=== PATIENT | female | born 1940 | race Caucasian/White ===

== ENCOUNTER → 2020-10-28 08:52 | Outpatient (BNVA) | payer MEDICARE, OTHER, SELFPAY | PROVIDERS: Visit Provider Urology | DX: N39.41 Urge incontinence (principal); Z87.440 Personal history of urinary (tract) infections | CPT/HCPCS: 99212 ==

== ENCOUNTER → 2021-06-25 08:40 | Outpatient (BNVA) | payer MEDICARE, OTHER, SELFPAY | DX: N32.81 Overactive bladder (principal) | CPT/HCPCS: 99212 ==

== ENCOUNTER 2021-12-11 08:47 | Outpatient (REF) | payer MEDICARE, OTHER, SELFPAY ==
[2021-12-11 16:44] LABS: Urine Cytology See Pathology rpt
== END 2021-12-11 08:48 | disposition home or self-care (01) ==
LOC: HO.LAB 08:47
DX: R35.0 Frequency of micturition (principal); Z87.440 Personal history of urinary (tract) infections
CPT/HCPCS: 51798; 87086; 88112; 99212

== ENCOUNTER 2022-02-10 09:20 | Outpatient (AMB) | payer MEDICARE, OTHER, SELFPAY ==
--- NOTE | 2022-02-10 09:29 | MHC.OFFVIS ---
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 She is an 82-year-old diabetic female. Her last visit in the urology office was in November of this year. She had urine sent for cytology to is negative. She arrives today via wheelchair secondary to a stroke that she had 17 years ago she was unable to provide a urine specimen in the office today. She reports there has been no visible blood in her urine. She had a urine sent for culture at her last visit specimen was contaminated She also has urge incontinence and has been taking oxybutynin as directed. This is working well for her she has not had any urinary incontinence. However, she complains of dry mouth. She was reminded to trial the Biotene products to alleviate the dry mouth. [facility] Medical History (Updated 02/10/22 @ 13:59 by NOBLE Ballard) Diabetes mellitus, type II Frequency of urination Hematuria of undiagnosed cause High cholesterol History of UTI Urgency incontinence Surgical History History of surgery Review of Systems Const All systems reviewed & are unremarkable except as noted in HPI and below Physical Exam Vital Signs: Last Vital Signs BP 110/60 02/10/22 10:09 Const General: cooperative, healthy appearing, well developed and well groomed Nutritional Appearance: average body habitus and well nourished Orientation/consciousness: patient oriented x3 Limitations: wheelchair HEENT Head: Yes normocephalic Ears: hearing grossly normal bilaterally Eyes General: appearance normal, both eyes and all related structures Neck Neck: Yes normal visual inspection Chest Chest palpation & inspection: normal inspection of the chest Resp Effort & Inspection: normal respiratory effort and no cough Cardio Jugular venous distension: no JVD Neuro General: patient oriented x3 Cognition (Neuro): normal cognition Gait exam (Neuro): Assistive device used Psych Appearance: grossly normal and well kempt Mental Status: mental status grossly normal Speech and movement: Normal speech and movement present Affect: normal affect Attitude: cooperative Thought process: Normal thought process present Thought content: Normal thought content present Insight: Good insight present (Psych) Judgement: Good judgement present (Psych) Assessment & Plan Assessment & Plan (1) Frequency of urination: Code(s): R35.0 - Frequency of micturition (2) Hematuria of undiagnosed cause: Code(s): R31.9 - Hematuria, unspecified Plan Patient was unable to provide a urine specimen in the office today. She was sent home with a cup and will return a urine specimen to the office at her earliest convenience Follow-up with a telephone visit in 2 months Orders: Orders AMB Urinalysis Automated Today Z13.9 - Encounter for screening, unspecified Coding Level of Care Code Established Pt Est Pt Level 3 (04133) Patient Type Established Diagnoses Frequency of urination R35.0 Hematuria of undiagnosed cause R31.9
[2022-02-10 10:09] VITALS: BP 110/60
== END 2022-02-10 10:15 | disposition home or self-care (01) ==
PROVIDERS: PCP Radiology Vascular & Interventional Radiology
DX: Z13.9 Encounter for screening, unspecified (principal)
CPT/HCPCS: 99213

== ENCOUNTER → 2022-02-10 09:20 | Outpatient (BNVA) | payer MEDICARE, OTHER, SELFPAY | DX: R31.9 Hematuria, unspecified (principal); R35.0 Frequency of micturition | CPT/HCPCS: 99212 ==

== ENCOUNTER 2022-10-14 09:22 | Outpatient (REF) | payer MEDICARE, OTHER, SELFPAY | END 2022-10-14 09:23 | disposition home or self-care (01) | LOC: HO.LAB 09:22 | PROVIDERS: PCP Radiology Vascular & Interventional Radiology; Visit Provider Urology | DX: N39.0 Urinary tract infection, site not specified (principal); R31.9 Hematuria, unspecified; R35.0 Frequency of micturition | CPT/HCPCS: 51798; 87086; 99212 ==

== ENCOUNTER 2023-02-18 10:13 | Outpatient (REF) | payer MEDICARE, OTHER, SELFPAY | END 2023-02-18 10:14 | disposition home or self-care (01) | LOC: HO.LAB 10:13 | PROVIDERS: PCP Radiology Vascular & Interventional Radiology; Visit Provider Urology | DX: R31.29 Other microscopic hematuria (principal); N39.0 Urinary tract infection, site not specified; R33.9 Retention of urine, unspecified; Z79.899 Other long term (current) drug therapy | CPT/HCPCS: 51798; 87086; 87088; 87186; 99212 ==

== ENCOUNTER 2023-02-21 08:48 | Emergency (ER) | payer MEDICARE, OTHER, SELFPAY ==
[2023-02-21] VITALS (7 sets, daily range): BP systolic 112–161; BP diastolic 43–68; PULSE 62–77; RESP 12–18; TEMP 37–37.1; O2SAT 93–97; BMI 35.7
--- NOTE | ~2023-02-21 | XR_ITS ---
EXAMINATION: XR CHEST CLINICAL INFORMATION: Chest pain COMPARISON: None available. TECHNIQUE: Frontal view of the chest was obtained. FINDINGS: Heart size upper limits of normal. There is no evidence of CHF. No infiltrates, effusions or lung masses are seen. Old healed right-sided rib fractures are present. 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 XR/XR chest 1V IMPRESSION: No acute intrathoracic disease.
--- NOTE | ~2023-02-21 | CT_ITS ---
EXAMINATION: CT HEAD WITHOUT CONTRAST CLINICAL INFORMATION: Leg weakness. History of CVA. COMPARISON: None available. TECHNIQUE: Contiguous axial imaging was performed from the skull base to vertex without intravenous administration of contrast. This CT examination was performed using dose optimization techniques as appropriate, variously including the following: *Automated exposure control *Adjustment of mA and/or kV according to patient size (this includes techniques or standardized protocols for targeted exams where dose is matched to indication/reason for exam; i.e. extremities or head) *Use of iterative reconstruction technique DLP: 712 mGy-cm FINDINGS: No acute imaging findings. No intracranial hemorrhage, extra-axial surface collection, focal mass effect or midline shift. There is atherosclerotic calcification of vertebral and cavernous carotid arteries. There are changes of mild microangiopathy affecting the supratentorial white matter. An old small infarction involves the left thalamus. No evidence of an acute major vascular territory infarction. Moderate parenchymal volume loss is associated with commensurate prominence of ventricles and sulci; no hydrocephalus. The cerebellar tonsils are in normal position. The visualized paranasal sinuses and mastoid air cells are well aerated. The orbits, globes and temporomandibular joints are unremarkable. No scalp hematoma or calvarial fracture. CT/CT head/brain wo IV con IMPRESSION: * No acute intracranial pathology. * Chronic moderate volume loss and changes of mild microangiopathy affecting the supratentorial white matter. 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
--- NOTE | ~2023-02-21 | US_ITS ---
EXAMINATION: US VENOUS ULTRASOUND WITH DOPPLER LOWER EXTREMITY, BILATERAL CLINICAL INFORMATION: Bilateral lower extremity pain and swelling COMPARISON: None available. TECHNIQUE: Ultrasound of the deep veins is performed from the hip to the calf with compression sonography and color and pulse Doppler assessment. Spectral analysis with color-flow imaging is performed. FINDINGS: RIGHT: There is normal venous compression and respiratory variation and augmented flow. The visualized common femoral vein, superficial femoral vein, profunda femoral vein, popliteal vein, and the trifurcation region shows no evidence of deep venous thrombosis. There is no significant popliteal fossa cyst. Peroneal veins were suboptimally visualized. LEFT: There is normal venous compression and respiratory variation and augmented flow. The visualized common femoral vein, superficial femoral vein, profunda femoral vein, popliteal vein, and the trifurcation region shows no evidence of deep venous thrombosis. There is no significant popliteal fossa cyst. Peroneal veins were suboptimally visualized. If the patient's symptoms persist, followup ultrasound in 5 days 7 days might be of value to exclude proximal propagation from a non-visualized calf vein. US/US venous duplex LE BI IMPRESSION: No DVT demonstrated in either lower extremity.
--- NOTE | 2023-02-21 08:59 | ECG_ITS ---
Test Reason : WEAKNESS Blood Pressure : / mmHG Vent. Rate : 068 BPM Atrial Rate : 068 BPM P-R Int : 212 ms QRS Dur : 134 ms QT Int : 460 ms P-R-T Axes : 000 -48 -25 degrees QTc Int : 489 ms Sinus rhythm with 1st degree A-V block with Premature atrial complexes Right bundle branch block Left anterior fascicular block Bifascicular block Abnormal ECG No previous ECGs available Referred By: Randy Perrin Electronically Signed By:MARCOS DYKES
--- NOTE | 2023-02-21 09:02 | ED.GENADULT ---
HPI - General Adult General Chief complaint: Weakness Stated complaint: BLE PAIN/WEAKNESS/SWELLING PER EMS Source: patient and EMS Mode of arrival: EMS Limitations: no limitations History of Present Illness HPI narrative: This is an 83 years old female with history of diabetes, coronary artery disease status post CABG , history of CVA, history of lower extremity edema presented emergency department because of weakness, she states that this morning she could not ambulate because of the weakness. She denies any fall, no fever no systemic symptoms. Onset (ago): hour(s) (4) Location: lower extremity Radiation: non-radiation Severity: moderate Quality: burning Pain Consistency: constant Relieving factors: none Exacerbating factors: none Related Data Home Medications Medication Instructions Recorded Confirmed blood sugar diagnostic #10 ea 10/28/20 02/18/23 escitalopram oxalate 20 mg tablet 40 mg PO DAILY 10/28/20 02/18/23 metformin 500 mg tablet,extended 500 mg PO BID 10/28/20 02/18/23 release 24 hr metoprolol succinate 100 mg 100 mg PO DAILY 10/28/20 02/18/23 tablet,extended release 24 hr simvastatin 40 mg tablet 40 mg PO BEDTIME 10/28/20 02/18/23 insulin glargine 100 unit/mL (3 unit subcut 12/11/21 02/18/23 mL) subcutaneous pen (Basaglar KwikPen U-100 Insulin) empagliflozin 25 mg tablet 25 mg PO DAILY 02/18/23 02/18/23 (Jardiance) hydrochlorothiazide 25 mg tablet 25 mg PO DAILY 02/18/23 02/18/23 lisinopril 20 mg tablet 20 mg PO DAILY 02/18/23 02/18/23 tamsulosin 0.4 mg capsule 0.4 mg PO DAILY 02/18/23 02/18/23 Previous Rx's Medication Instructions Recorded bethanechol chloride 25 mg tablet 25 mg PO TID #90 tabs 02/18/23 nitrofurantoin 100 mg PO Q12H PRN uti 10 days #20 02/18/23 monohydrate/macrocrystals 100 mg caps capsule (Macrobid) tamsulosin 0.4 mg capsule (Flomax) 0.4 mg PO BEDTIME #90 caps 02/18/23 Allergies Allergy/AdvReac Type Severity Reaction Status Date / Time doxycycline Allergy Unknown redness Verified 02/18/23 10:49 and hives penicillin V Allergy Unknown anaphylaxis Verified 02/18/23 10:49 avoid cyclines AdvReac Unknown Unknown Uncoded 02/18/23 10:49 Review of Systems Constitutional: Constitutional: Reports no additional constitutional complaints and Reports weakness Cardiovascular: Cardiovascular: Reports no additional cardiovascular complaints Musculoskeletal: Musculoskeletal: Reports no additional musculoskeletal complaints Neurologic: Reports weakness PMFSH Past Medical History Medical History Diabetes mellitus, type II Frequency of urination Hematuria of undiagnosed cause High cholesterol History of UTI Urgency incontinence Surgical History History of surgery Social History Social History Alcohol intake: current Alcohol intake frequency: holidays/special occasions only Smoked in Last 30 Days: No Use of substances other than those prescribed or required for medical reasons: No Advance Directives: Yes Advance Directives on File: No Physical Exam ED Vital Signs: Vital Signs - 24 hr 02/21/23 08:54 02/21/23 10:00 02/21/23 12:09 Temperature 98.7 F Pulse Rate 68 65 62 Respiratory Rate 15 12 18 Blood Pressure 112/46 L 132/48 L 128/49 L Pulse Oximetry 96 95 95 Oxygen Delivery Method Room Air Room Air Room Air 02/21/23 15:02 Temperature Pulse Rate 64 Respiratory Rate 14 Blood Pressure 134/43 L Pulse Oximetry 96 Oxygen Delivery Method Room Air BMI result Body Mass Index 35.7 Patient is not toxic-appearing no distress Const General: cooperative, comfortable, no acute distress, well developed and alert Nutritional Appearance: well nourished Limitations: no limitations HENMT Head: Yes normal to inspection Face and sinus: Yes normal facial exam Throat: Yes posterior oropharynx normal Neck Neck: Yes normal visual inspection Chest Chest palpation & inspection: normal inspection of the chest Resp Effort & Inspection: normal respiratory effort Auscultation: clear to auscultation bilaterally Cardio Jugular venous distension: no JVD Rate: regular rate Rhythm: regular rhythm GI Inspection: Yes normal to inspection Palpation (GI): Soft to palpation, not firm and nontender Skin General skin exam: elasticity normal Extrem Other: Patient has bilateral lower extremity edema (see picture) Course Reevaluation(s) Reevaluation #1: Workup is essentially normal including UA/ultrasound of the legs head CT labs. We attempted ambulation patient was unable to walk. 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 02/21/23 09:56 02/21/23 09:56 Labs: Lab Results 02/21/23 02/21/23 02/21/23 Range/Units 09:56 09:56 09:56 WBC 12.2 H (4.8-10.8) X10*3/uL RBC 3.35 L (4.20-5.50) X10*6/uL Hgb 10.6 L (12.0-16.0) g/dl Hct 33.1 L (37.0-47.0) % MCV 98.8 H (80.0-98.0) fL MCH 31.6 (27.0-33.0) pg MCHC 32.0 (31.0-35.0) g/dl RDW 12.8 (11.0-16.0) % Plt Count 173 (160-400) X10*3/uL MPV 10.2 (9.4-12.3) fL Immature Gran % (Auto) 0.4 (0.0-0.4) % Neut % (Auto) 77.6 H (45-73) % Lymph % (Auto) 13.0 L (20-40) % [place] % (Auto) 6.8 (2-11) % Eos % (Auto) 2.0 (0-4) % Baso % (Auto) 0.2 (0-2) % Lymph # (Auto) 1.6 (1.2-4.9) X10*3/uL [place] # (Auto) 0.8 (0.1-1.2) X10*3/uL Eos # (Auto) 0.2 (0.0-0.4) X10*3/uL Baso # (Auto) 0.0 (0.0-0.2) X10*3/uL Abs Immat Gran (auto) 0.05 H (0.00-0.03) X10*3/uL Absolute Neuts (auto) 9.4 H (2.0-8.3) x10*3/uL Absolute Nucleated RBC 0.000 (0.0-0.012) X10*3/uL Nucleated RBC % (auto) 0.0 (0.0-0.2) /100WBC Sodium 140 (135-145) mmol/L Potassium 3.9 (3.3-5.1) mmol/L Chloride 106 (96-108) mmol/L Carbon Dioxide 22 (22-29) mmol/L Anion Gap 16 (12-20) BUN 40 H (9-16) mg/dL Creatinine 1.11 (0.5-1.4) mg/dL Estim Creat Clear Calc 43.5 Estimated GFR 47 Random Glucose 160 H (60-115) mg/dL Calcium 8.3 L (8.4-10.2) mg/dL Total Bilirubin 0.9 (0.0-1.0) mg/dL AST 16 (5-31) U/L ALT 19 (0-31) U/L Alkaline Phosphatase 53 (39-117) U/L Troponin I High Sens 12.1 (<3.5-17.0) ng/L Total Protein 5.2 L (6.5-8.0) g/dL Albumin 3.2 L (3.5-5.0) g/dL Urine Color Urine Appearance Urine pH (5.0-9.0) Ur Specific [place] (1.005-1.025) Urine Protein (Neg-Trace) mg/dL Urine Glucose (UA) (Negative) mg/dL Urine Ketones (Negative) mg/dL Urine Blood (Negative) Urine Nitrite (Negative) Ur Leukocyte Esterase (Negative) Urine RBC (0-2) /HPF Urine WBC (0-5) /HPF Ur Squamous Epith Cells (0-2) /HPF Urine Bacteria (None Seen) Hyaline Casts (0-2) /LPF 02/21/23 Range/Units 11:18 WBC (4.8-10.8) X10*3/uL RBC (4.20-5.50) X10*6/uL Hgb (12.0-16.0) g/dl Hct (37.0-47.0) % MCV (80.0-98.0) fL MCH (27.0-33.0) pg MCHC (31.0-35.0) g/dl RDW (11.0-16.0) % Plt Count (160-400) X10*3/uL MPV (9.4-12.3) fL Immature Gran % (Auto) (0.0-0.4) % Neut % (Auto) (45-73) % Lymph % (Auto) (20-40) % [place] % (Auto) (2-11) % Eos % (Auto) (0-4) % Baso % (Auto) (0-2) % Lymph # (Auto) (1.2-4.9) X10*3/uL [place] # (Auto) (0.1-1.2) X10*3/uL Eos # (Auto) (0.0-0.4) X10*3/uL Baso # (Auto) (0.0-0.2) X10*3/uL Abs Immat Gran (auto) (0.00-0.03) X10*3/uL Absolute Neuts (auto) (2.0-8.3) x10*3/uL Absolute Nucleated RBC (0.0-0.012) X10*3/uL Nucleated RBC % (auto) (0.0-0.2) /100WBC Sodium (135-145) mmol/L Potassium (3.3-5.1) mmol/L Chloride (96-108) mmol/L Carbon Dioxide (22-29) mmol/L Anion Gap (12-20) BUN (9-16) mg/dL Creatinine (0.5-1.4) mg/dL Estim Creat Clear Calc Estimated GFR Random Glucose (60-115) mg/dL Calcium (8.4-10.2) mg/dL Total Bilirubin (0.0-1.0) mg/dL AST (5-31) U/L ALT (0-31) U/L Alkaline Phosphatase (39-117) U/L Troponin I High Sens (<3.5-17.0) ng/L Total Protein (6.5-8.0) g/dL Albumin (3.5-5.0) g/dL Urine Color Yellow Urine Appearance Clear Urine pH 5.0 (5.0-9.0) Ur Specific [place] 1.015 (1.005-1.025) Urine Protein Negative (Neg-Trace) mg/dL Urine Glucose (UA) Negative (Negative) mg/dL Urine Ketones Negative (Negative) mg/dL Urine Blood Negative (Negative) Urine Nitrite Negative (Negative) Ur Leukocyte Esterase Trace H (Negative) Urine RBC 0-2 (0-2) /HPF Urine WBC 0-5 (0-5) /HPF Ur Squamous Epith Cells 0-2 (0-2) /HPF Urine Bacteria None Seen (None Seen) Hyaline Casts 0-2 (0-2) /LPF Independent Interpretation I performed an independent interpretation of an: EKG (Normal sinus rhythm a rate 68 right BBB), Ultrasound and CT Scan Interpretation: Normal ultrasound of the legs ,no acute finding CT, EKG shows normal sinus rhythm a rate 68 right bundle branch block Radiology Impression Discussion of test interpretation with radiology: I have reviewed the radiologist's reading. Radiologist Impression: 712 mGy-cm FINDINGS: No acute imaging findings. No intracranial hemorrhage, extra-axial surface collection, focal mass effect or midline shift. There is atherosclerotic calcification of vertebral and cavernous carotid arteries. There are changes of mild microangiopathy affecting the supratentorial white matter. An old small infarction involves the left thalamus. No evidence of an acute major vascular territory infarction. Moderate parenchymal volume loss is associated with commensurate prominence of ventricles and sulci; no hydrocephalus. The cerebellar tonsils are in normal position. The visualized paranasal sinuses and mastoid air cells are well aerated. The orbits, globes and temporomandibular joints are unremarkable. No scalp hematoma or calvarial fracture. ? CT/CT head/brain wo IV con IMPRESSION: *? No acute intracranial pathology. *? Chronic moderate volume loss and changes of mild microangiopathy affecting the supratentorial white matter. *? There is an old infarction of the left thalamus. ? Discharge Plan Discharge Clinical Impression: Weakness Patient Disposition: Still a Patient Prescriptions: No Action escitalopram oxalate 20 mg tablet 40 mg PO DAILY metformin 500 mg tablet extended release 24 hr 500 mg PO BID metoprolol succinate 100 mg tablet extended release 24 hr 100 mg PO DAILY simvastatin 40 mg tablet 40 mg PO BEDTIME (DME) OneTouch Verio test strips Strip See Rx Instructions Not Applicable BID Qty: 10 Rx Instructions: As directed Astrid Mac U-100 Insulin 100 unit/mL (3 mL) insulin pen subcut tamsulosin 0.4 mg capsule 0.4 mg PO DAILY hydrochlorothiazide 25 mg tablet 25 mg PO DAILY lisinopril 20 mg tablet 20 mg PO DAILY Jardiance 25 mg tablet 25 mg PO DAILY nitrofurantoin monohyd/m-cryst [Macrobid] 100 mg capsule 100 mg PO Q12H PRN (Reason: uti) 10 Days Qty: 20 0RF Rx Instructions: must administer with a meal/food bethanechol chloride 25 mg tablet 25 mg PO TID Qty: 90 1RF tamsulosin [Flomax] 0.4 mg capsule 0.4 mg PO BEDTIME Qty: 90 1RF
--- NOTE | 2023-02-21 09:12 | PC.NURSE ---
pt alert and oriented, comes to ED after not being able to walk due to bilat leg weakness and being unable to walk. Baseline is walking short distances with a cane. EKG done. will draw labs once US is done with pt.
--- NOTE | 2023-02-21 09:15 | PC.NURSE ---
sinigifcant lower extremity edema present, non pitting. 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
--- OUTSIDE RECORDS SUMMARY | 2023-02-21 09:49 | XMS_ITS ---
Author Name MINALPARVEZ LEOBARDO Address [address] [place] [address] Organization [facility] Address [address] [place] [address] Care Team Providers Care Process Assistant Name Role Phone LEOBARDO LAKE Unavailable [phone] PROBLEMS Type Condition ICD9-CM Code INM62-FZ Code Onset Dates Condition Status SNOMED Code Problem Type 2 diabetes mellitus without 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, unspecified whether [facility] insulin use E11.9 Active 061687033 Problem Encounter for general adult medical examination without abnormal findings Z00.00 Active 926467839 Problem Vitamin D deficiency, unspecified E55.9 Active 82543534 Problem Atherosclerotic heart disease of [place] coronary artery without angina pectoris I25.10 Active [id number] 103 Problem Cerebral infarction, unspecified I63.9 Active 139295606 Problem Type 2 diabetes mellitus without 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s E11.9 Active Problem Body mass index (BMI) 33.0-33.9, adult Z68.33 Active 150864044014326 Problem Hypothyroidism, unspecified type E03.9 Active 76158523 Problem Stage 3a chronic kidney disease N18.31 Active 446252276 Problem Hyperlipidemia, unspecified E78.5 Active 34347053 Problem Essential (primary) hypertension I10 Active 41553802 Problem Major depressive disorder, single episode, unspecified F32.9 Active 14310415 Problem Type 2 diabetes mellitus with 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, unspecified whether [facility] insulin use E11.8 Active 778840307 Problem Type 1 diabetes mellitus with diabetic polyneuropathy E10.42 Active 151480422 Problem Other hammer toe(s) (acquired), left foot M20.42 Active 442674828005236 3 Problem Other hammer toe(s) (acquired), right foot M20.41 Active [id number] 5 ALLERGIES Substance Reaction Event Type Date Status cyclinnes Unknown Non Drug Allergy 15 Dec, 2022 Active pcn Unknown Non Drug Allergy Dec, Active ENCOUNTERS Encounter Location Date Diagnosis [address] [id number] 14 Jan, 2023 [facility] [address] [place] [phone] 15 Dec, 2022 Hyperlipidemia, unspecified E78.5 ; Essential (primary) hypertension I10 ; Stage 3a chronic kidney disease N18.31 ; Atherosclerotic heart disease of [place] coronary artery without angina pectoris I25.10 ; Type 2 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 mellitus 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, unspecified whether 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 and Vitamin D deficiency, unspecified E55.9 [facility] [address] [place] [phone] 13 Dec, [address] [address] 24 Nov, 2022 [facility] [address] [address] 17 Oct, 2022 Hyperlipidemia, unspecified E78.5 ; Stage 3a chronic kidney disease N18.31 ; Atherosclerotic heart disease of [place] coronary artery without angina pectoris I25.10 ; Type 2 diabetes mellitus without 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, unspecified whether 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 and Vitamin D deficiency, unspecified E55.9 [facility] [address] [place] [phone] 05 Jul, 2022 [facility] [address] [place] [phone] 07 Jun, 2022 Hyperlipidemia, unspecified E78.5 ; Encounter for general adult medical examination without abnormal findings Z00.00 ; Type 2 diabetes mellitus with 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, unspecified whether 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 ; Stage 3a chronic kidney disease N18.31 ; Atherosclerotic heart disease of [place] coronary artery without angina pectoris I25.10 ; Type 2 diabetes mellitus without 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, unspecified whether [facility] insulin use E11.9 and Vitamin D deficiency, unspecified E55.9 [facility] [address] [place] [address] May, [facility] [address] [place] [address] 10 May, 2022 [facility] [address] [place] [address] Apr, [facility] [address] [address] 17 Mar, 2022 [facility] [address] 08 Jan, 2022 [facility] [address] [place] [phone] Jan, Hyperlipidemia, unspecified E78.5 ; Type 2 diabetes mellitus with 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, unspecified whether [facility] insulin use E11.8 ; Stage 3a chronic kidney disease N18.31 ; Atherosclerotic heart disease of [place] coronary artery without angina pectoris I25.10 ; Type 2 diabetes mellitus without 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, unspecified whether [facility] insulin use E11.9 ; Encounter for general adult medical examination without abnormal findings Z00.00 and Vitamin D deficiency, unspecified E55.9 [facility] [address] [place] [address] Oct, [facility] [address] [address] Oct, Gastroenteritis K52.9 and Viral syndrome B34.9 [facility] [address] [address] Sep, Hyperlipidemia, unspecified E78.5 ; Type 2 diabetes mellitus with 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, unspecified whether [facility] insulin use E11.8 ; Stage 3a chronic kidney disease N18.31 ; Atherosclerotic heart disease of [place] coronary artery without angina pectoris I25.10 and Type 2 diabetes mellitus without 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, unspecified whether [facility] insulin use E11.9 [facility] [address] [place] [phone] 30 May, 2021 Hyperlipidemia, unspecified E78.5 ; Type 2 diabetes mellitus with 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, unspecified whether [facility] insulin use E11.8 ; Stage 3a chronic kidney disease N18.31 and Atherosclerotic heart disease of [place] coronary artery without angina pectoris I25.[address] [facility] [address] [place] [address] May, [facility] [address] [place] [address] Jan, Type 2 diabetes mellitus without 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s E11.9 ; Hyperlipidemia, unspecified E78.5 ; Major depressive disorder, single episode, unspecified F32.9 and Atherosclerotic heart disease of [place] coronary artery without angina pectoris I25.10 [facility] [address] [place] [address] Oct, Type 2 diabetes mellitus without 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s E11.9 ; Hyperlipidemia, unspecified E78.5 ; Major depressive disorder, single episode, unspecified F32.9 ; Atherosclerotic heart disease of [place] coronary artery without angina pectoris I25.10 and Cerebral infarction, unspecified I63.9 [facility] [address] [place] [address] 15 Jun, 2020 Type 2 diabetes mellitus without 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s E11.9 ; Hyperlipidemia, unspecified E78.5 ; Major depressive disorder, single episode, unspecified F32.9 ; Cerebral infarction, unspecified I63.9 and Adult general medical exam Z00.00 [facility] [address] [place] [address] 15 Mar, 2020 Type 2 diabetes mellitus without 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s E11.9 ; Hyperlipidemia, unspecified E78.5 and Major depressive disorder, single episode, unspecified F32.9 [facility] [address] [place] [address] February, [facility] [address] [place] [address] Nov, [facility] [address] [place] [address] Nov, Type 2 diabetes mellitus without 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s E11.9 ; Hyperlipidemia, unspecified E78.5 ; Major depressive disorder, single episode, unspecified F32.9 ; Atherosclerotic heart disease of [place] coronary artery without angina pectoris I25.10 ; Cerebral infarction, unspecified I63.9 ; Type 1 diabetes mellitus with diabetic polyneuropathy E10.42 ; Other hammer toe(s) (acquired), right foot M20.41 ; Acquired keratosis [keratoderma] palmaris et plantaris L85.1 and Other hammer toe(s) (acquired), left foot M20.42 [facility] [address] [place] [phone] Sep, [facility] [address] [place] [address] Sep, [facility] [address] [place] [address] Jul, Type 2 diabetes mellitus without 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s E11.9 ; Hyperlipidemia, unspecified E78.5 ; Major depressive disorder, single episode, unspecified F32.9 and Atherosclerotic heart disease of [place] coronary artery without angina pectoris I25.10 [facility] [address] [place] [address] Jul, [facility] [address] [place] [address] Mar, Type 2 diabetes mellitus without 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s E11.9 ; Hyperlipidemia, unspecified E78.5 ; Major depressive disorder, single episode, unspecified F32.9 ; Atherosclerotic heart disease of [place] coronary artery without angina pectoris I25.10 ; Vitamin D deficiency E55.9 and Hypothyroidism, unspecified type E03.9 [facility] [address] [place] [address] Dec, [facility] [address] [place] [address] Dec, [facility] [address] [place] [address] Nov, Hyperlipidemia, unspecified E78.5 ; Type 2 diabetes mellitus without 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s E11.9 ; Major depressive disorder, single episode, unspecified F32.9 and Atherosclerotic heart disease of [place] coronary artery without angina pectoris I25.10 [facility] [address] [place] [address] Oct, [facility] [address] [place] [address] Aug, [facility] [address] [place] [phone] Jul, Type 2 diabetes mellitus without 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s E11.9 ; Hyperlipidemia, unspecified E78.5 ; Major depressive disorder, single episode, unspecified F32.9 ; Cerebral infarction, unspecified I63.9 ; Atherosclerotic heart disease of [place] coronary artery without angina pectoris I25.10 and Type 2 diabetes mellitus with 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, unspecified whether 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 [facility] [address] [place] [phone] Mar, Adult general medical exam Z00.00 and Body mass index (BMI) 33.0-33.9, adult Z68.33 [facility] [address] [place] [address] February, [facility] [address] [place] [address] Jan, [facility] [address] [place] [address] Dec, [facility] [address] [place] [address] Nov, [facility] [address] [place] [address] Nov, [facility] [address] [place] [address] Nov, [facility] [address] [place] [address] Nov, Atherosclerotic heart disease of [place] coronary artery without angina pectoris I25.10 ; Major depressive disorder, single episode, unspecified F32.9 ; Hyperlipidemia, unspecified E78.5 ; Cerebral infarction, unspecified I63.9 and Type 2 diabetes mellitus without 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s E11.9 [facility] [address] [place] [address] Oct, IMMUNIZATIONS Vaccine Route Administration Date Status Pfizer Covid-19 Vaccine Unknown February 05, 2021 Ad ministered SOCIAL HISTORY Qualifiers Date Never Smoker REASON FOR REFERRAL FUNCTIONAL STATUS PLAN OF CARE Activity Details VITAL SIGNS Heart Rate 63 /min 2022-12-30 Heart Rate 66 /min 2022-11-03 Heart Rate 65 /min 2022-06-24 Heart Rate 60 /min 2022 Heart Rate 58 /min 2021-09-22 Heart Rate 56 /min 2021-06-16 Heart Rate 57 /min 2021-01-27 Heart Rate 65 /min 2020-10-29 Heart Rate 71 /min 2020-07-02 Heart Rate 62 /min 2020-04-01 Heart Rate 71 /min 2019-12-05 Heart Rate 66 /min 2019-08-08 Heart Rate 62 /min 2019-03-23 Heart Rate 62 /min 2018-11-21 Heart Rate 66 /min 2018-07-18 Heart Rate 67 /min 2018-04-05 Heart Rate 66 /min 2017-11-23 Weight 203 lbs 2022-12-30 Weight 207 lbs 2022-11-03 Weight 199 lbs 2022 Weight 205 lbs 2021-09-22 Weight 208 lbs 2021-06-16 Weight 206 lbs 2021-01-27 Weight 206 lbs 2020-10-29 Weight 206 lbs 2020-07-02 Weight 212 lbs 2020-04-01 Weight 217 lbs 2019-12-05 Weight 225 lbs 2019-08-08 Weight 222.1 lbs 2019-03-23 Weight 221.2 lbs 2018-11-21 Weight 225 lbs 2018-07-18 Weight 189.7 lbs 2018-04-05 Weight 227 lbs 2017-11-23 BMI 35.96 kg/m2 2022-12-30 BMI 36.66 kg/m2 2022-11-03 BMI 35.25 kg/m2 2022 BMI 36.31 kg/m2 2021-09-22 BMI 36.84 kg/m2 2021-06-16 BMI 36.49 kg/m2 2021-01-27 BMI 36.49 kg/m2 2020-10-29 BMI 36.49 kg/m2 2020-07-02 BMI 37.55 kg/m2 2020-04-01 BMI 38.44 kg/m2 2019-12-05 BMI 39.85 kg/m2 2019-08-08 BMI 39.34 kg/m2 2019-03-23 BMI 39.18 kg/m2 2018-11-21 BMI 39.85 kg/m2 2018-07-18 BMI 33.6 kg/m2 2018-04-05 BMI 44.33 kg/m2 2017-11-23 Height 63 in 2022-12-30 Height 63 in 2022-11-03 Height 63 in 2022-06-24 Height 63 in 2022 Height 63 in 2021-09-22 Height 63 in 2021-06-16 Height 63 in 2021-01-27 Height 63 in 2020-10-29 Height 63 in 2020-07-02 Height 63 in 2020-04-01 Height 63 in 2019-12-05 Height 63 in 2019-08-08 Height 63 in 2019-03-23 Height 63 in 2018-11-21 Height 63 in 2018-07-18 Height 63 in 2018-04-05 Height 5'3 in 2017-11-23 Oximetry 95 % 2022-12-30 Oximetry 96 % 2022-11-03 Oximetry 95 % 2022-06-24 Oximetry 97 % 2022 Oximetry 98 % 2021-09-22 Oximetry 97 % 2021-06-16 Oximetry 97 % 2021-01-27 Oximetry 96 % 2020-10-29 Oximetry 97 % 2020-07-02 Oximetry 96 % 2020-04-01 Oximetry 96 % 2019-12-05 Oximetry 95 % 2019-08-08 Oximetry 93 % 2019-03-23 Oximetry 96 % 2018-11-21 Oximetry 94 % 2018-07-18 Oximetry 96 % 2018-04-05 Oximetry 97 % 2017-11-23 Blood pressure systolic 144 mm Hg Blood pressure diastolic 68 mm Hg 2022-12 MEDICATIONS Medication Instructions Dosage Frequency Start Date End Date Duration Status OneTouch Verio - TEST BLOOD SUGAR TWICE DAILY 90 Active Escitalopram Oxalate 20 MG TAKE 2 TABLETS BY MOUTH EVERY DAY 90 Active Lisinopril 20 MG Orally Once a day 1 tablet 24h 90 days Active Tamsulosin HCl 0.4 MG Orally Once a day 1 capsule 24h 30 days Active hydroCHLOROthiazide 25 MG Orally Once a day 1 tablet in the morning 24h 30 day(s) Active Metoprolol Succinate ER 100 MG TAKE 1 TABLET BY MOUTH EVERY DAY 90 Active Aspirin 325 MG Orally Once a day 1 tablet 24h 30 day(s) Active Basaglar KwikPen 100 UNIT/ML INJECT 30 UNITS IN THE AM AND 25 UNITS IN THE PM TWICE A DAILY 81 Active Simvastatin 40 MG TAKE 1 TABLET BY MOUTH EVERY DAY 90 Active buPROPion HCl ER (XL) 150 MG TAKE 1 TABLET BY MOUTH EVERY DAY IN THE MORNING 90 Active Vitamin D 1000 UNIT Orally Once a day 1 tablet 24h 30 day(s) Active Gabapentin 100 MG Orally three times a day 1 capsule 8h 90 days Active BD Pen Needle Short U/F 31G X 8 MM in vitro twice daily as directed 30 days Active PROCEDURES Procedure Date Ordered Result Body Site ANNUAL WELLNESS VST; PPS SUBSQT VST April 05, 2018 ADVNCD CARE PLAN 30 MIN April 05, 2018 ADVNCD CARE PLAN 30 MIN Jun 24, 2022 [facility] MGMT SRVC 20 MIN February 28, 2020 ANNUAL WELLNESS VST; PPS SUBSQT VST Jun 24, 2022 FCE-FCE BEHAVRL CNSL OBESITY 15 MIN Jun 24, 2022 FCE-FCE BEHAVRL CNSL OBESITY 15 MIN April 05, 2018 [facility] MGMT SRVC 20 MIN Oct 04, 2019 ANNUAL ALCOHOL MISUSE SCREEN 15 MIN April 05, 2018 [facility] MGMT SRVC 20 MIN Jun 05, 2021 [facility] MGMT SRVC 20 MIN January 09, 2019 [facility] MGMT SRVC 20 MIN May 27, 2022 [facility] MGMT SRVC 20 MIN April 27, 2022 ANNUAL DEPRESSION SCREENING 15 MIN April 05, 2018 [facility] MGMT SRVC 20 MIN Nov 13, 2021 ANNUAL DEPRESSION SCREENING 15 MIN Jun 24, 2022 ANNUAL ALCOHOL MISUSE SCREEN 15 MIN Jun 24, 2022 RESULTS Name Result Date Reference Range CBC 2022-10-28 HEMATOCRIT 38.5 35-47 HEMOGLOBIN 12.1 11.5-16.0 MCH 31.8 27-32 MCHC 31.4 32-37 MCV 101.0 79-98 MEAN PLATELET VOLUME 12.0 7-11 Note NRBC # AUTO 0.00 <0.1 NRBC % AUTO 0.0 <1 PLT COUNT 132 130-400 RBC 3.8 3.8-4.8 RDW 13.4 11-15 WBC 7.2 4.8-10.8 GLYCOHEMOGLOBIN PROFILE 2022-10-28 ESTIMATED AVERAGE GLUCOSE 163 GLYCATED HEMOGLOBIN A1C 7.3 <6.5 COMPREHENSIVE METABOLIC PANEL 2022-10-28 ALBUMIN 2.9 3.2-5.0 ALK PHOS 46 42-121 ANION GAP 8 3-11 BILI,TOTAL 0.6 0.0-1.4 BUN 36 5-25 CALCIUM 8.4 8.5-10.5 CHLORIDE 110 96-110 CO2 26 21-32 CREAT 1.05 0.5-1.1 GLOMERULAR FILTRATION RATE 53 > 60 GLUCOSE 107 70-100 Note POTASSIUM 4.4 3.5-5.5 SGOT 22 10-42 SGPT 45 10-60 SODIUM 144 135-145 TOTAL PROTEIN 5.8 6.0-8.0 LIPID PROFILE 2022-10-28 CHOLESTEROL 140 0-200 TRIGLYCERIDES 98 0-150 VITAMIN D, 25-HYDROXY 2022-10-28 VITAMIN D, 25-HYDROXY 25 30-80 TSH 2022-10-28 TSH 4.77 0.40-4.00 GLYCOHEMOGLOBIN PROFILE 2022-01-12 ESTIMATED AVERAGE GLUCOSE 131 GLYCATED HEMOGLOBIN A1C 6.2 <6.5 BASIC METABOLIC PANEL (BMP) 2022-01-12 ANION GAP 5 3-11 BUN 50 5-25 CALCIUM 9.0 8.5-10.5 CHLORIDE 108 96-110 CO2 27 21-32 CREAT 1.30 0.5-1.1 GLOMERULAR FILTRATION RATE 39 GLUCOSE 99 70-100 POTASSIUM 4.4 3.5-5.5 SODIUM 140 135-145 CBC 2021-09-15 HEMATOCRIT 39.2 35-47 HEMOGLOBIN 12.4 11.5-16.0 MCH 31.6 27-32 MCHC 31.6 32-37 MCV 99.7 79-98 MEAN PLATELET VOLUME 12.0 7-11 Note NRBC # AUTO 0.00 <0.1 NRBC % AUTO 0.0 <1 PLT COUNT 164 130-400 RBC 3.9 3.8-4.8 RDW 12.8 11-15 WBC 8.3 4.8-10.8 URINALYSIS 2021-09-15 BILIRUBIN, URINE NEGATIVE NEGATIVE BLOOD, URINE NEGATIVE NEGATIVE GLUCOSE, (UA) NEGATIVE NEGATIVE KETONE, URINE NEGATIVE NEGATIVE LEUKOCYTE ESTERASE, URINE MODERATE NE GATIVE NITRITE, URINE POSITIVE NEGATIVE Note PH, URINE 5.0 5.0-8.0 PROTEIN, URINE NEGATIVE <= TRACE SPECIFIC GRAVITY, URINE 1.018 1.00 3-1.030 UROBILINOGEN, URINE 0.2 0.2-1.0 GLYCOHEMOGLOBIN PROFILE 2021-09-15 ESTIMATED [place] GLUCOSE 148 GLYCATED HEMOGLOBIN A1C 6.8 <6.5 COMPREHENSIVE METABOLIC PANEL 2021-09-15 ALBUMIN 3.3 3.2-5.0 ALK PHOS 54 42-121 ANION GAP 8 3-11 BILI,TOTAL 0.7 0.0-1.4 BUN 49 5-25 CALCIUM 8.3 8.5-10.5 CHLORIDE 108 96-110 CO2 25 21-32 CREAT 1.23 0.5-1.1 GLOMERULAR FILTRATION RATE 42 GLUCOSE 161 70-100 Note POTASSIUM 4.5 3.5-5.5 SGOT 26 10-42 SGPT 42 10-60 SODIUM 141 135-145 TOTAL PROTEIN 6.3 6.0-8.0 LIPID PROFILE 2021-09-15 CHOLESTEROL 118 0-200 TRIGLYCERIDES 85 0-150 CBC 2021-06-10 HEMATOCRIT 37.4 35-47 HEMOGLOBIN 12.0 11.5-16.0 MCH 32.1 27-32 MCHC 32.1 32-37 MCV 100.0 79-98 MEAN PLATELET VOLUME 11.9 7-11 Note NRBC # AUTO 0.00 <0.1 NRBC % AUTO 0.0 <1 PLT COUNT 153 130-400 RBC 3.7 3.8-4.8 RDW 13.1 11-15 WBC 8.2 4.8-10.8 URINALYSIS 2021-06-10 BILIRUBIN, URINE NEGATIVE NEGATIVE BLOOD, URINE NEGATIVE NEGATIVE GLUCOSE, (UA) NEGATIVE NEGATIVE KETONE, URINE NEGATIVE NEGATIVE LEUKOCYTE ESTERASE, URINE MODERATE NE GATIVE NITRITE, URINE POSITIVE NEGATIVE Note PH, URINE 5.0 5.0-8.0 PROTEIN, URINE NEGATIVE <= TRACE SPECIFIC GRAVITY, URINE 1.014 1.00 3-1.030 UROBILINOGEN, URINE 0.2 0.2-1.0 GLYCOHEMOGLOBIN PROFILE 2021-06-10 ESTIMATED [facility] GLUCOSE 128 GLYCATED HEMOGLOBIN A1C 6.1 <6.5 COMPREHENSIVE METABOLIC PANEL 2021-06-10 ALBUMIN 3.4 3.2-5.0 ALK PHOS 44 42-121 ANION GAP 5 3-11 BILI,TOTAL 0.7 0.0-1.4 BUN 37 5-25 CALCIUM 8.6 8.5-10.5 CHLORIDE 111 96-110 CO2 27 21-32 CREAT 1.19 0.5-1.1 GLOMERULAR FILTRATION RATE 43 GLUCOSE 106 70-100 Note POTASSIUM 4.5 3.5-5.5 SGOT 20 10-42 SGPT 30 10-60 SODIUM 143 135-145 TOTAL PROTEIN 6.0 6.0-8.0 LIPID PROFILE 2021-06-10 CHOLESTEROL 130 0-200 TRIGLYCERIDES 86 0-150 CBC 2021-01-20 HEMATOCRIT 41.3 35-47 HEMOGLOBIN 13.2 11.5-16.0 MCH 32.6 27-32 MCHC 32.0 32-37 MCV 102.0 79-98 MEAN PLATELET VOLUME 12.0 7-11 Note NRBC # AUTO 0.00 <0.1 NRBC % AUTO 0.0 <1 PLT COUNT 157 130-400 RBC 4.1 3.8-4.8 RDW 12.5 11-15 WBC 7.8 4.8-10.8 GLYCOHEMOGLOBIN PROFILE 2021-01-20 ESTIMATED [place] GLUCOSE 128 GLYCATED HEMOGLOBIN A1C 6.1 <6.5 COMPREHENSIVE METABOLIC PANEL 2021-01-20 ALBUMIN 3.7 3.2-5.0 ALK PHOS 39 42-121 ANION GAP 8 3-11 BILI,TOTAL 0.6 0.0-1.4 BUN 40 5-25 CALCIUM 9.0 8.5-10.5 CHLORIDE 108 96-110 CO2 26 21-32 CREAT 1.18 0.5-1.1 GLOMERULAR FILTRATION RATE 44 GLUCOSE 85 70-100 Note POTASSIUM 4.5 3.5-5.5 SGOT 13 10-42 SGPT 24 10-60 SODIUM 142 135-145 TOTAL PROTEIN 6.2 6.0-8.0 LIPID PROFILE 2021-01-20 CHOLESTEROL 124 0-200 TRIGLYCERIDES 84 0-150 CBC 2020-10-23 HEMATOCRIT 42.3 35-47 HEMOGLOBIN 13.3 11.5-16.0 MCH 31.6 27-32 MCHC 31.4 32-37 MCV 100.5 79-98 MEAN PLATELET VOLUME 11.9 7-11 Note NRBC # AUTO 0.00 <0.1 NRBC % AUTO 0.0 <1 PLT COUNT 181 130-400 RBC 4.2 3.8-4.8 RDW 12.6 11-15 WBC 8.5 4.8-10.8 GLYCOHEMOGLOBIN PROFILE 2020-10-23 ESTIMATED [place] GLUCOSE 140 GLYCATED HEMOGLOBIN A1C 6.5 <6.5 COMPREHENSIVE METABOLIC PANEL 2020-10-23 ALBUMIN 3.9 3.2-5.0 ALK PHOS 42 42-121 ANION GAP 9 3-11 BILI,TOTAL 0.6 0.0-1.4 BUN 43 5-25 CALCIUM 9.7 8.5-10.5 CHLORIDE 111 96-110 CO2 27 21-32 CREAT 1.27 0.5-1.1 GLOMERULAR FILTRATION RATE 40 GLUCOSE 48 70-100 Note POTASSIUM 4.2 3.5-5.5 SGOT 15 10-42 SGPT 22 10-60 SODIUM 147 135-145 TOTAL PROTEIN 6.6 6.0-8.0 LIPID PROFILE 2020-10-23 CHOLESTEROL 134 0-200 TRIGLYCERIDES 112 0-150 CBC 2020-06-21 HEMATOCRIT 40.1 35-47 HEMOGLOBIN 12.7 11.5-16.0 MCH 31.9 27-32 MCHC 31.7 32-37 MCV 100.8 79-98 MEAN PLATELET VOLUME 11.7 7-11 Note NRBC # AUTO 0.00 <0.1 NRBC % AUTO 0.0 <1 PLT COUNT 163 130-400 RBC 4.0 3.8-4.8 RDW 12.7 11-15 WBC 7.2 4.8-10.8 GLYCOHEMOGLOBIN PROFILE 2020-06-21 ESTIMATED [place] GLUCOSE 137 GLYCATED HEMOGLOBIN A1C 6.4 <6.5 COMPREHENSIVE METABOLIC PANEL 2020-06-21 ALBUMIN 3.5 3.2-5.0 ALK PHOS 33 42-121 ANION GAP 8 3-11 BILI,TOTAL 0.6 0.0-1.4 BUN 36 5-25 CALCIUM 9.2 8.5-10.5 CHLORIDE 108 96-110 CO2 27 21-32 CREAT 1.07 0.5-1.1 GLOMERULAR FILTRATION RATE 49 GLUCOSE 89 70-100 POTASSIUM 4.3 3.5-5.5 SGOT 18 10-42 SGPT 23 10-60 SODIUM 143 135-145 TOTAL PROTEIN 6.0 6.0-8.0 LIPID PROFILE 2020-06-21 CHOLESTEROL 111 0-200 TRIGLYCERIDES 122 0-150 CBC 2019-11-28 HEMATOCRIT 40.6 35-47 HEMOGLOBIN 13.3 11.5-16.0 MCH 31.7 27-32 MCHC 32.8 32-37 MCV 96.9 79-98 MEAN PLATELET VOLUME 11.7 7-11 Note NRBC # AUTO 0.00 <0.1 NRBC % AUTO 0.0 <1 PLT COUNT 192 130-400 RBC 4.2 3.8-4.8 RDW 13.1 11-15 WBC 7.8 4.8-10.8 GLYCOHEMOGLOBIN PROFILE 2019-11-28 ESTIMATED [place] GLUCOSE 128 GLYCATED HEMOGLOBIN A1C 6.1 <6.5 COMPREHENSIVE METABOLIC PANEL 2019-11-28 ALBUMIN 3.3 3.2-5.0 ALK PHOS 46 42-121 ANION GAP 4 3-11 BILI,TOTAL 0.5 0.0-1.4 BUN 35 5-25 CALCIUM 9.3 8.5-10.5 CHLORIDE 109 96-110 CO2 30 21-32 CREAT 0.92 0.5-1.1 GLOMERULAR FILTRATION RATE 59 GLUCOSE 84 70-100 POTASSIUM 4.2 3.5-5.5 SGOT 19 10-42 SGPT 35 10-60 SODIUM 143 135-145 TOTAL PROTEIN 5.9 6.0-8.0 VITAMIN D, 25-HYDROXY 2019-11-28 VITAMIN D, 25-HYDROXY 41 30-80 CBC 2019-07-27 HEMATOCRIT 43.0 35-47 HEMOGLOBIN 13.8 11.5-16.0 MCH 31.2 27-32 MCHC 32.1 32-37 MCV 97.3 79-98 MEAN PLATELET VOLUME 12.0 7-11 Note NRBC # AUTO 0.00 <0.1 NRBC % AUTO 0.0 <1 PLT COUNT 198 130-400 RBC 4.4 3.8-4.8 RDW 12.6 11-15 WBC 8.4 4.8-10.8 GLYCOHEMOGLOBIN PROFILE 2019-07-27 ESTIMATED [place]AGE GLUCOSE 146 GLYCATED HEMOGLOBIN A1C 6.7 <6.5 COMPREHENSIVE METABOLIC PANEL 2019-07-27 ALBUMIN 3.6 3.2-5.0 ALK PHOS 58 42-121 ANION GAP 8 3-11 BILI,TOTAL 0.5 0.0-1.4 BUN 33 5-25 CALCIUM 9.0 8.5-10.5 CHLORIDE 107 96-110 CO2 27 21-32 CREAT 0.98 0.5-1.1 GLOMERULAR FILTRATION RATE 55 GLUCOSE 110 70-100 POTASSIUM 4.2 3.5-5.5 SGOT 19 10-42 SGPT 32 10-60 SODIUM 142 135-145 TOTAL PROTEIN 6.2 6.0-8.0 VITAMIN D, 25-HYDROXY 2019-07-27 VITAMIN D, 25-HYDROXY 16 30-80 FREE T4 2019-07-27 FREE T4 1.07 0.70-1.80 TSH 2019-07-27 TSH 5.96 0.40-4.00 VIT D 1, 25-DIHYDROXY 2019-07-27 Note VIT D,1,25-DIHYDROXY 46 20 - 79 GLYCOHEMOGLOBIN PROFILE 2019-03-14 ESTIMATED [place] GLUCOSE 154 GLYCATED HEMOGLOBIN A1C 7.0 <6.5 COMPREHENSIVE METABOLIC PANEL 2019-03-14 ALBUMIN 3.5 3.2-5.0 ALK PHOS 58 42-121 ANION GAP 8 3-11 BILI,TOTAL 0.6 0.0-1.4 BUN 29 5-25 CALCIUM 9.1 8.5-10.5 CHLORIDE 109 96-110 CO2 27 21-32 CREAT 0.94 0.5-1.1 GLOMERULAR FILTRATION RATE 57 GLUCOSE 121 70-100 Note POTASSIUM 4.0 3.5-5.5 SGOT 16 10-42 SGPT 29 10-60 SODIUM 144 133-145 TOTAL PROTEIN 6.1 6.0-8.0 CBC 2018-11-11 HEMATOCRIT 43.3 35-47 HEMOGLOBIN 13.6 11.5-16.0 MCH 30.7 27-32 MCHC 31.4 32-37 MCV 97.7 79-98 MEAN PLATELET VOLUME 12.2 7-11 Note NRBC # AUTO 0.00 <0.1 NRBC % AUTO 0.0 <1 PLT COUNT 180 130-400 RBC 4.4 3.8-4.8 RDW 12.9 11-15 WBC 9.0 4.8-10.8 GLYCOHEMOGLOBIN PROFILE 2018-11-11 ESTIM[address] [place] GLUCOSE 154 GLYCATED HEMOGLOBIN A1C 7.0 <6.5 COMPREHENSIVE METABOLIC PANEL 2018-11-11 ALBUMIN 3.5 3.2-5.0 ALK PHOS 45 42-121 ANION GAP 7 3-11 BILI,TOTAL 0.5 0.0-1.4 BUN 33 5-25 CALCIUM 8.5 8.5-10.5 CHLORIDE 108 96-110 CO2 27 21-32 CREAT 1.05 0.5-1.1 GLOMERULAR FILTRATION RATE 51 GLUCOSE 115 70-100 POTASSIUM 4.0 3.5-5.5 SGOT 15 10-42 SGPT 26 10-60 SODIUM 142 133-145 TOTAL PROTEIN 6.2 6.0-8.0 LIPID PROFILE 2018-11-11 CHOLESTEROL 107 0-200 TRIGLYCERIDES 92 0-150 REASON FOR VISIT Pt here for follow up. Pt was discharged from [facility] on 11/30/22., Pt here for follow up., pt presents in office today for MWV with her Alex, pt endorses weight gain since her stroke in 2003and is looking for guidance, pt states no other concerns or complaints today, Other, Pt here for follow up, pt states she is doing well., Diarrhea and body aches x4 days denies any other symptoms, Pthere for 4 month f/u with lab results. Pt states he is doing well., Pt here for 3 month f/u with lab results., ccm, Pt is here for a 3m f/u with lab review, Pt is here for a Follow up with lab, refuse Flu Vac, f/u for labs, Patient seen and examined. Full past medical history, social history, family history, allergies and current medications were reviewed and updated., PT FOLLOW UP, patient is here to follow-up, Pt here for a follow up., Refills, Pt here for follow up., pt here for fup, pt herefor mwv, pt here for fup Insurance Providers Health Insurance Type Health Plan Insurance Address Health Plan Insurance Phone Health Plan Insurance Name Health Plan Coverage Dates Member ID Patient Relationship to Subscriber Patient Address Patient Phone Patient Name Patient Date of Subscriber ID Subscriber Name Subscriber Date of Group No Medicare Part B J14 [address] [place] [address] Medicare Part B J14 self NICKO SORTO [id number] [employer] th Indemnity Plan Unicare [address] [facility] [address] [employer] th Indemnity Plan [employer] self NICKO SORTO [id number]
[2023-02-21 10:01] LABS: MANUAL DIFF FLAG NO
[2023-02-21 10:03] LABS: Basophils Percent Auto 0.2 % (0-2); Eosinophils Absolute Auto 0.2 X10*3/uL (0.0-0.4); Hematocrit 33.1 % (37.0-47.0); Hemoglobin 10.6 g/dl (12.0-16.0); Imm Gran Abs Auto 0.05 X10*3/uL (0.00-0.03); Imm Gran Pct Auto 0.4 % (0.0-0.4); Lymphocytes Absolute Auto 1.6 X10*3/uL (1.2-4.9); Mean Corpuscular Hemoglobin 31.6 pg (27.0-33.0); Mean Corpuscular Volume 98.8 fL (80.0-98.0); Mean Platelet Volume 10.2 fL (9.4-12.3); Monocytes Absolute Auto 0.8 X10*3/uL (0.1-1.2); Monocytes Percent Auto 6.8 % (2-11); Neutrophils Absolute Auto 9.4 x10*3/uL (2.0-8.3); Neutrophils Percent Auto 77.6 % (45-73); Platelet Count 173 X10*3/uL (160-400); Red Blood Count 3.35 X10*6/uL (4.20-5.50); Red Cell Distribution Width 12.8 % (11.0-16.0); White Blood Count 12.2 X10*3/uL (4.8-10.8)
[2023-02-21 10:21] LABS: Alanine Aminotransferase 19 U/L (0-31); Albumin Level 3.2 g/dL (3.5-5.0); Alkaline Phosphatase 53 U/L (39-117); Anion Gap 16 (12-20); Aspartate Amino Transferase 16 U/L (5-31); Bilirubin Total 0.9 mg/dL (0.0-1.0); Blood Urea Nitrogen 40 mg/dL (9-16); Calcium 8.3 mg/dL (8.4-10.2); Carbon Dioxide 22 mmol/L (22-29); Chloride 106 mmol/L (96-108); Creatinine Clr Calc Pharmacy 43.5; Estimated Glomerular Filt Rate 47; Glucose Random 160 mg/dL (60-115); Potassium 3.9 mmol/L (3.3-5.1); Sodium 140 mmol/L (135-145); Total Protein 5.2 g/dL (6.5-8.0)
[2023-02-21 10:29] LABS: Troponin-I High Sensitivity 12.1 ng/L (<3.5-17.0)
--- NOTE | 2023-02-21 11:19 | PC.NURSE ---
straight cath done for urine sample, sent to lab. vitals stable. purewick in place.
[2023-02-21 11:55] LABS: Color Urine Yellow; Glucose Urine UA Negative (Negative); Leukocyte Esterase Urine Trace (Negative); Nitrite Urine Negative (Negative); Specific Gravity - Urine 1.015 (1.005-1.025); UMIC TRIGGER UACC YES; Urine Blood Negative (Negative); Urine Ketones Negative (Negative); Urine Protein Negative (Neg-Trace)
[2023-02-21 11:56] LABS: Appearance Urine Clear
[2023-02-21 12:06] LABS: Bacteria Urine None Seen (None Seen); Hyaline Casts Urine 0-2 /LPF (0-2); RBC Urine 0-2 /HPF (0-2); Squamous Epithelial Cell Urine 0-2 /HPF (0-2); WBC Urine 0-5 /HPF (0-5)
--- NOTE | 2023-02-21 13:10 | PC.NURSE ---
Alex Diasbartolo phone number [phone]
--- NOTE | 2023-02-21 14:51 | PC.NURSE ---
nurse and tech attempted to get pt to stand with walker. Pt was unable t put any weight on her right leg and said it was very painful, MD made aware and put in order for case mgmt/PT eval. on the phone expressed worry about bringing pt home without help to care for her is she is unable to walk or stand
--- NOTE | 2023-02-21 16:34 | PC.NURSE ---
report called to overflow, will be transporting pt
--- NOTE | 2023-02-21 17:45 | PHA.MEDREC ---
Pharmacy Consult ? Medication Reconciliation Pharmacy has completed the medication reconciliation. Spoke to patient and patient's spouse to confirm meds. Previous office visit with Dr. Herrera on 02/18/23 stated that the patient would be restarted on Tamsulosin 0.4mg and put on Bethanechol 25mg TID. Per patient, they haven't started these therapies yet.
[2023-02-21] MEDS: Tamsulosin HCL 0.4 MG CAPSULE PO (20:30)
[2023-02-21] MEDS: Nitrofurantoin Monohyd/M-Cryst 100 MG CAPSULE PO (20:30)
[2023-02-21] MEDS: Loperamide HCl Oral Liquid 2 MG/15 ML LIQUID 1 MG PO (20:31)
[2023-02-21] MEDS: Bethanechol Chloride 25 MG TABLET PO (20:31)
[2023-02-21] MEDS: Atorvastatin Calcium 20 MG TABLET PO (20:31)
--- NOTE | 2023-02-21 20:32 | MHC.EDTECH ---
Patient soiled on self. Assist nurse in cleaning patient and changing bed sheet.
--- NOTE | 2023-02-21 20:33 | MHC.EDTECH ---
Set patient up for oral care.
[2023-02-21 21:18] LABS: Glucose, Whole Blood 167 mg/dL (60-115)
[2023-02-21] MEDS: Insulin Glargine,Hum.rec.anlog 100 UNIT/ML 10 ML VIAL 25 UNIT SUBCUT (21:36)
[2023-02-22] VITALS: BP 147/67; PULSE 66; RESP 16; TEMP 36.8; O2SAT 93
--- NOTE | 2023-02-22 02:38 | MHC.EDTECH ---
Patient soiled on self. Nurse and this tech cleaned patient and changed bed pad.
[2023-02-22 04:00] VITALS: BP 142/70; PULSE 64; RESP 16; TEMP 36.7; O2SAT 93
[2023-02-22 08:02] VITALS: BP 157/68; PULSE 127; RESP 20; TEMP 36.7; O2SAT 92
[2023-02-22 08:10] LABS: Glucose, Whole Blood 147 mg/dL (60-115)
[2023-02-22] MEDS: Metoprolol Succinate ER 100 MG TAB.ER.24H PO (08:50)
[2023-02-22] MEDS: buPROPion HCl XL 150 MG TAB.ER.24H PO (08:51)
[2023-02-22] MEDS: lisinopriL 20 MG TABLET PO (08:51)
[2023-02-22] MEDS: Insulin Glargine,Hum.rec.anlog 100 UNIT/ML 10 ML VIAL 25 UNIT SUBCUT (08:51)
[2023-02-22] MEDS: Cholecalciferol (Vitamin D3) 25 MCG TABLET PO (08:51)
[2023-02-22] MEDS: Nitrofurantoin Monohyd/M-Cryst 100 MG CAPSULE PO (08:51)
[2023-02-22] MEDS: Multivitamin TABLET 1 TAB PO (08:51)
[2023-02-22] MEDS: Aspirin Enteric Coated 81 MG TABLET.DR PO (08:51)
--- NOTE | 2023-02-22 09:01 | PC.NURSE ---
pt a/o x 4 no sob/cash noted speaks in full sentences. lungs - diminished. heart sounds - tachy. abd soft and non-tender. bs + x 4 quads. radha lower legs shahram 3-4+ pitting edema. at bedside. pt/spouse aware of plan of care.
--- NOTE | 2023-02-22 09:45 | PC.NURSE ---
Pt linen changed and patient repositioned and washed up
[2023-02-22 09:55] VITALS: PULSE 139; O2SAT 95
[2023-02-22] MEDS: Bethanechol Chloride 25 MG TABLET PO ×2 (11:20→15:48)
--- NOTE | 2023-02-22 11:46 | MHC.CM.ED ---
Addendum entered by Hanna Shannon 02/22/23 12:42: [facility] is able to offer a bed. Patient can leave at 330pm. [facility] ESTRADA booked. [facility] with chart. Patient, Clare MCCANN and Moni MAXWELL aware. Original Note: Met with patient in regards to discharge planning. Patient lives with her , ambulates with a walker and had no services prior to coming to the ER. PCP verified. Copy of HCP obtained from [facility]. Patient received only 1 Pfizer vaccine. Patient has been to [facility] in the past and is requesting referral there. Referral made via [facility]. Patient has also been active with [facility] in the past. Continue to monitor for d/c needs.
[2023-02-22 11:47] LABS: Glucose, Whole Blood 192 mg/dL (60-115)
[2023-02-22 11:49] LABS: COVID-19 Test Negative (Negative); IDNOW Serial# 08D9AD1C
[2023-02-22] MEDS: Escitalopram Oxalate 20 MG TABLET PO (11:56)
--- NOTE | 2023-02-22 12:15 | PC.NURSE ---
Helped pt wrap both legs with alice bandage as per her husbands suggestion. Pt states that they remove wrap at night
[2023-02-22 14:11] VITALS: BP 131/52; PULSE 70; RESP 20; TEMP 36.7; O2SAT 96
--- NOTE | 2023-02-22 14:29 | PC.NURSE ---
rn to rn report given to sherie at [facility] ([phone]). pt aware of plan of care for transfer to facility.
== END 2023-02-22 16:12 | disposition home or self-care (01) ==
PROVIDERS: Physician Assistant; Emergency Provider Emergency Medicine; PCP Internal Medicine
DX: R60.0 Localized edema (principal); R07.89 Other chest pain; R00.0 Tachycardia, unspecified; N39.0 Urinary tract infection, site not specified; R53.1 Weakness; E11.9 Type 2 diabetes mellitus without 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s; R51.9 Headache, unspecified; R35.0 Frequency of micturition; I25.10 Atherosclerotic heart disease of native coronary artery without angina pectoris; R26.2 Difficulty in walking, not elsewhere classified; Z20.822 Contact with and (suspected) exposure to COVID-19; Z20.828 Contact with and (suspected) exposure to other viral communicable diseases; Z79.899 Other long term (current) drug therapy; Z86.73 Personal history of transient ischemic attack (TIA), and cerebral infarction without residual deficits; Z79.84 Long term (current) use of oral hypoglycemic drugs
CPT/HCPCS: 36415; 51702; 70450; 71045; 80053; 81001; 82947; 84484; 85025; 87635; 93005; 93970; 97162; 99285

== ENCOUNTER 2023-05-03 10:30 | Outpatient (AMB) | payer MEDICARE, OTHER, SELFPAY ==
--- NOTE | 2023-05-03 08:23 | A.OFFVIS_ITS ---
Intake Intake Visit Reasons: 2m/US Intake Note: Tish an 83 year old female presents today for a 2 month follow up. Allergies doxycycline Allergy (Unknown, Verified 05/03/23 10:51) redness and hives penicillin V Allergy (Unknown, Verified 05/03/23 10:51) anaphylaxis avoid cyclines Adverse Reaction (Unknown, Uncoded 05/03/23 10:51) Unknown HPI HPI Comments History of Present Illness Details 05/03/23? Tish is an 83-year-old female who has been followed for chronic cystitis and lower urinary tract symptoms of urgency and incomplete bladder emptying. She was last seen on 02/18/23. At that time, office visit was scheduled for cystoscopy which she declined. Evaluation at that time noted a large postvoid residual via catheterization of 500 mL. I discussed the importance of using the tamsulosin 0.4 mg daily which had been prescribed which she had not been taking and bethanechol 25 mg t.i.d. was prescribed. A renal bladder u/s was ordered. The patient has not had the imaging done as yet. She was seen in the ER on 02/21/23 for lower extremity edema. She has been taking the tamsulosin and the bethanechol. She wears a pad. The last time she urinated was 9 AM today. She reports dysuria when she completes urination. Evaluation today-- UA -- leuk 3+, trace blood. Bladder scan random -- 217 mL. Microscopic evaluation of the urine - too numerous to count white blood cells and scant bacteria visualized. Plan: She is going to continue the tamsulosin and bethanechol. We are going to start her on Cipro 250 mg twice a day pending urine culture results. I discussed with her the importance of following up with the renal bladder ultrasound. She states she did get it done previously because she had diarrhea. [facility] Medical History Diabetes mellitus, type II Frequency of urination Hematuria of undiagnosed cause High cholesterol History of UTI Urgency incontinence Surgical History History of surgery Social History Alcohol intake: current Alcohol intake frequency: holidays/special occasions only Advance Directives Date on File: 02/22/23 Review of Systems Const All systems reviewed & are unremarkable except as noted in HPI and below Reports no additional complaints Eyes Reports no additional complaints ENT Reports no additional complaints Card Denies dyspnea Resp Denies cough and Denies dyspnea GI Reports no additional complaints Reports no additional complaints Musc Reports no additional complaints Skin/Breast Denies rash and Denies unusual bruising Neuro Reports no additional complaints Psych Reports no additional complaints Endo Reports no additional complaints Kentrell/Lymph Reports no additional complaints Aller/Immun Reports no additional complaints Physical Exam Const General: cooperative, healthy appearing and no acute distress Orientation/consciousness: patient oriented x3 HEENT Head: Yes normal to inspection, Yes normocephalic and Yes atraumatic Eyes Conjunctivae: conjunctivae normal Neck Neck: Yes normal visual inspection and Yes trachea midline Chest Chest palpation & inspection: normal inspection of the chest Resp Effort & Inspection: normal respiratory effort Cardio Rate: regular rate GI Inspection: Yes normal to inspection Neuro General: patient oriented x3 Extrem Right lower extremity: edema Left lower extremity: edema Psych Appearance: grossly normal Office Procedures Post Void Residual Post Residual Void Post Void Residual (PVR): 217 [id number] Void Residual by ultrasound Results AMB Urinalysis, Automated UA Leukoctes 500 Emiliana/uL Last Edit by FRANKI Tesfaye on 05/03/23 11:23 UA Nitrite Negative Last Edit by FRANKI Tesfaye on 05/03/23 11:23 UA Urobilinogen 0.2 mg/dL Last Edit by FRANKI Tesfaye on 05/03/23 11:23 UA Protein 15 mg/dL Last Edit by FRANKI Tesfaye on 05/03/23 11:23 UA pH 7.0 Last Edit by FRANKI Tesfaye on 05/03/23 11:23 UA Blood 10 Jamel/uL Last Edit by FRANKI Tesfaye on 05/03/23 11:23 UA Specific [place] 1.010 Last Edit by FRANKI Tesfaye on 05/03/23 11:2 3 UA Ketone Negative Last Edit by FRANKI Tesfaye on 05/03/23 11:23 UA Bilirubin 0 mg/dL Last Edit by FRANKI Tesfaye on 05/03/23 11:23 UA Glucose 0 mg/dL Last Edit by FRANKI Tesfaye on 05/03/23 11:23 Results Reviewed Results Reviewed: Laboratory Last Values Urine pH (Auto) 7.0 05/03/23 11:10 Specific [place] (Auto) 1.010 05/03/23 11:10 Urine Protein (Auto) 15 mg/dL 05/03/23 11:10 Glucose (UA)(Auto) 0 mg/dL 05/03/23 11:10 Urine Ketones (Auto) Negative 05/03/23 11:10 Urine Blood (Auto) 10 Jamel/uL 05/03/23 11:10 Urine Nitrite (Auto) Negative 05/03/23 11:10 Urine Bilirubin (Auto) 0 mg/dL 05/03/23 11:10 Urine Urobilinogen (Auto) 0.2 mg/dL 05/03/23 11:10 Leukocyte Esterase (Auto) 500 Emiliana/uL 05/03/23 11:10 Assessment & Plan Assessment & Plan (1) Incomplete bladder emptying: Code(s): R33.9 - Retention of urine, unspecified (2) Recurrent UTI: Code(s): N39.0 - Urinary tract infection, site not specified (3) Dysuria: Code(s): R30.0 - Dysuria Plan She is going to continue the tamsulosin and bethanechol. We are going to start her on Cipro 250 mg twice a day pending urine culture results. I discussed with her the importance of following up with the renal bladder ultrasound. She states she did get it done previously because she had diarrhea. Orders: Orders AMB Urinalysis Automated Today Z13.9 - Encounter for screening, unspecified AMB Post Void Residual by ultrasound Today N39.0 - Urinary tract infection, site not specified Medications: New ciprofloxacin HCl (Cipro) 250 mg PO BID 14 tabs 0RF Discontinued nitrofurantoin monohyd/m-cryst 100 mg must administer with a meal/food 100 mg PO Q12H 10 days PRN 20 caps 0RF uti Patient Instructions: The patient had an opportunity to ask questions regarding treatment plan. All questions were answered. Imaging, Laboratory studies and physical exam results were discussed and reviewed in detail. No major barriers to understanding were identified. The patient expressed understanding and agreement with the above treatment plan. The patient is aware they should contact our office by phone for worsening of their current condition or the appearance of new symptoms. Compliance is encouraged with any medications and followup testing that is ordered. It is a privilege to be allowed the opportunity to participate in the urologic care of your patient. If you have any questions or concerns regarding treatment for the above conditions please do not hesitate to contact me. The office telephone contact is [phone]. This note is constructed in part using voice recognition software. While every effort has been made to ensure accuracy row boss hoeing errors may have been included. Yours sincerely, Nicole Herrera MD Coding Level of Care Code Est Pt Level 4 (60763) Diagnoses Incomplete bladder emptying R33.9 Recurrent UTI N39.0 Dysuria R30.0 CPT Codes Post Residual Void - PVR CPT Code: 32451-Ropw Void Residual by ultrasound ([id number])
== END 2023-05-03 11:11 | disposition home or self-care (01) ==
PROVIDERS: Visit Provider Urology
DX: R33.9 Retention of urine, unspecified (principal); N39.0 Urinary tract infection, site not specified; R30.0 Dysuria
CPT/HCPCS: 99214

== ENCOUNTER 2023-05-03 10:30 | Outpatient (REF) | payer MEDICARE, OTHER, SELFPAY | END 2023-05-03 10:31 | disposition home or self-care (01) | LOC: HO.LAB 10:30 | PROVIDERS: Visit Provider Urology | DX: R33.9 Retention of urine, unspecified (principal); N39.0 Urinary tract infection, site not specified; R30.0 Dysuria | CPT/HCPCS: 51798; 87086; 99212 ==

== ENCOUNTER 2023-05-03 15:25 | Outpatient (REF) | payer MEDICARE, OTHER, SELFPAY | END 2023-05-03 15:26 | disposition home or self-care (01) | LOC: HO.LNP 15:25 | PROVIDERS: Visit Provider Urology | DX: Z13.89 Encounter for screening for other disorder (principal) | CPT/HCPCS: 87086 ==

== ENCOUNTER 2023-06-01 10:20 | Outpatient (REF) | payer MEDICARE, OTHER, SELFPAY ==
--- NOTE | ~2023-06-01 | US_ITS ---
EXAMINATION: US RETROPERITONEAL COMPLETE (RENAL) CLINICAL INFORMATION: Urinary tract infection, site not specified. COMPARISON: None available. TECHNIQUE: Real-time imaging of the kidneys and bladder. Limited visualization due to bowel gas. FINDINGS: RIGHT KIDNEY: 11.0 x 4.9 x 5.4 cm (SAG x AP x TRV). Midpole 0.3 cm calculus. No hydronephrosis. Scattered echogenic foci in the kidney likely represent vascular calcifications and less likely renal calculi. LEFT KIDNEY: 10.6 x 5.5 x 5.3 cm (SAG x AP x TRV). No hydronephrosis. Scattered echogenic foci in the kidney likely represent vascular calcifications and less likely renal calculi. BLADDER: Diffuse trabeculation and thickening of the bladder wall. Bladder well distended. Bilateral ureteral jets are demonstrated. Prevoid bladder volume is 187 mL. Postvoid bladder volume was not obtained. US/US retroperitoneal comp IMPRESSION: 1. Right renal 0.3 cm midpole calculus. No hydronephrosis. 2. Scattered echogenic foci in the bilateral kidneys likely represent vascular calcifications and less likely renal calculi. 3. Diffuse trabeculation and thickening of the bladder wall.
== END 2023-06-01 10:21 | disposition home or self-care (01) ==
LOC: HO.HMGCX 10:20
PROVIDERS: Visit Provider Urology
DX: N39.0 Urinary tract infection, site not specified (principal); R33.9 Retention of urine, unspecified
CPT/HCPCS: 76770

== ENCOUNTER 2023-07-12 10:08 | Outpatient (AMB) | payer MEDICARE, OTHER, SELFPAY ==
--- NOTE | 2023-07-12 10:13 | MHC.OFFVIS ---
Intake Intake Visit Reasons: 2m/PVR Intake Note: Patient presents today for a 2 months follow-up/PVR: Meds- Tamsulosin Allergies to Antibiotic- Penicillins Blood Thinner- Aspirin PVR- [employer] Required: No Accompanied by: Self / Same As Patient Allergies doxycycline Allergy (Unknown, Verified 07/12/23 10:25) redness and hives penicillin V Allergy (Unknown, Verified 07/12/23 10:25) anaphylaxis avoid cyclines Adverse Reaction (Unknown, Uncoded 07/12/23 10:25) Unknown HPI HPI Comments History of Present Illness Details Tish is an 83-year-old female who presents today to the office for a follow-up. She is followed today for PVR. She was last seen by me on 05/03/2023 for dysuria and LUTS of JESS. The patient was advised to continue tamsulosin, and bethanechol. She was started on Cipro 250 mg BID during that time.? I reviewed the retroperitoneum US results from 06/01/2023 revealed right renal 0.3 cm midpole calculus. No hydronephrosis.? Scattered echogenic foci in the bilateral kidneys likely represent vascular calcifications and less likely renal calculi.? Diffuse trabeculation and thickening of the bladder wall. Prevoid bladder volume is 187 mL. Postvoid bladder volume was not obtained. She states she called for UTI symptoms and was started on ABX and placed on Bactrim SS daily for prophylaxis. I have discuss starting local vaginal therapy. Of note she was seen in the ER on 02/21/23 for lower extremity edema. 07/12/2023: Evaluation today?UA?Leukocytes: negative; blood: negative. Review of charts: Last visit: -05/03/2023? She was last seen on 02/18/23. At that time, office visit was scheduled for cystoscopy which she declined. Evaluation at that time noted a large postvoid residual via catheterization of 500 mL. I discussed the importance of using the tamsulosin 0.4 mg daily which had been prescribed which she had not been taking and bethanechol 25 mg t.i.d. was prescribed. A renal bladder u/s was ordered. The patient has not had the imaging done as yet. She was seen in the ER on 02/21/23 for lower extremity edema. She has been taking the tamsulosin and the bethanechol. She wears a pad. The last time she urinated was 9 AM today. She reports dysuria when she completes urination. Evaluation today-- UA -- leuk 3+, trace blood. Bladder scan random -- 217 mL. Microscopic evaluation of the urine - too numerous to count white blood cells and scant bacteria visualized. 07/12/2023: Plan: Monitor right kidney stone. Continue antibiotic therapy with single strength Bactrim DS daily for 6 months. Vagifem 10 mcg twice a week. Goal to discontinue antibiotic therapy in 6 months follow up in 6 months. [facility], [facility] Medical History Hematuria of undiagnosed cause Frequency of urination High cholesterol Diabetes mellitus, type II Urgency incontinence History of UTI Surgical History History of surgery Social History Alcohol intake: current Alcohol intake frequency: holidays/special occasions only Advance Directives Date on File: 02/22/23 Review of Systems Const All systems reviewed & are unremarkable except as noted in HPI and below Reports no additional complaints Eyes Reports no additional complaints ENT Reports no additional complaints Card Denies dyspnea Resp Denies cough and Denies dyspnea GI Reports no additional complaints Reports no additional complaints Musc Reports no additional complaints Skin/Breast Denies rash and Denies unusual bruising Neuro Reports no additional complaints Psych Reports no additional complaints Endo Reports no additional complaints Kentrell/Lymph Reports no additional complaints Aller/Immun Reports no additional complaints Physical Exam Const General: cooperative, healthy appearing and no acute distress Orientation/consciousness: patient oriented x3 HEENT Head: Yes normal to inspection, Yes normocephalic and Yes atraumatic Eyes Conjunctivae: conjunctivae normal Neck Neck: Yes normal visual inspection and Yes trachea midline Chest Chest palpation & inspection: normal inspection of the chest Resp Effort & Inspection: normal respiratory effort Cardio Rate: regular rate GI Inspection: Yes normal to inspection Neuro General: patient oriented x3 Extrem Right lower extremity: edema Left lower extremity: edema Psych Appearance: grossly normal Office Procedures Post Void Residual Post Residual Void Post Void Residual (PVR): 500 [id number] Void Residual by ultrasound Post Void Residual Post Residual Void Post Void Residual (PVR): 463 [id number] Void Residual by ultrasound Results AMB Urinalysis, Automated UA Leukoctes 15 Emiliana/uL Last Edit by FRANKI Perez on 07/12/23 10:27 UA Nitrite Negative Last Edit by Mehdi Rosenberg, [facility] on 07/12/23 10:27 UA Urobilinogen 0.2 mg/dL Last Edit by Mehdi Rosenberg [facility] on 07/12/23 10:27 UA Protein 0 mg/dL Last Edit by Mehdi Rosenberg [facility] on 07/12/23 10:27 UA pH 5.0 Last Edit by Mehdi Rosenberg [facility] on 07/12/23 10:27 UA Blood 10 Jamel/uL Last Edit by Mehdi Rosenberg [facility] on 07/12/23 10:27 + Mehdi Rosenberg 07/12/23 10:27 UA Specific [place] 1.020 Last Edit by Mehdi Rosenberg [facility] on 07/12/23 10:27 UA Ketone Negative Last Edit by Mehdi Rosenberg [facility] on 07/12/23 10:27 UA Bilirubin 0 mg/dL Last Edit by Mehdi Rosenberg [facility] on 07/12/23 10:27 UA Glucose 0 mg/dL Last Edit by Mehdi Rosenberg [facility] on 07/12/23 10:27 Results Reviewed Results Reviewed: Laboratory Last Values Urine pH (Auto) 5.0 07/12/23 10:26 Specific [place] (Auto) 1.020 07/12/23 10:26 Urine Protein (Auto) 0 mg/dL 07/12/23 10:26 Glucose (UA)(Auto) 0 mg/dL 07/12/23 10:26 Urine Ketones (Auto) Negative 07/12/23 10:26 Urine Blood (Auto) 10 Jamel/uL 07/12/23 10:26 Urine Nitrite (Auto) Negative 07/12/23 10:26 Urine Bilirubin (Auto) 0 mg/dL 07/12/23 10:26 Urine Urobilinogen (Auto) 0.2 mg/dL 07/12/23 10:26 Leukocyte Esterase (Auto) 15 Emiliana/uL 07/12/23 10:26 Date of Service: 06/01/23 EXAMINATION:? US RETROPERITONEAL COMPLETE (RENAL) CLINICAL INFORMATION: Urinary tract infection, site not specified. COMPARISON:? None available. FINDINGS: RIGHT KIDNEY: 11.0 x 4.9 x 5.4 cm (SAG x AP x TRV). Midpole 0.3 cm calculus. No hydronephrosis. Scattered echogenic foci in the kidney likely represent vascular calcifications and less likely renal calculi. LEFT KIDNEY: 10.6 x 5.5 x 5.3 cm (SAG x AP x TRV).? No hydronephrosis. Scattered echogenic foci in the kidney likely represent vascular calcifications and less likely renal calculi. BLADDER: Diffuse trabeculation and thickening of the bladder wall. Bladder well distended. Bilateral ureteral jets are demonstrated. Prevoid bladder volume is 187 mL. Postvoid bladder volume was not obtained. IMPRESSION:? 1. Right renal 0.3 cm midpole calculus. No hydronephrosis.? 2. Scattered echogenic foci in the bilateral kidneys likely represent vascular calcifications and less likely renal calculi. 3. Diffuse trabeculation and thickening of the bladder wall Assessment & Plan Assessment & Plan (1) Incomplete bladder emptying: Code(s): R33.9 - Retention of urine, unspecified (2) Recurrent UTI: Code(s): N39.0 - Urinary tract infection, site not specified (3) Kidney stone: Code(s): N20.0 - Calculus of kidney Plan Monitor right kidney stone. Continue antibiotic therapy with single strength Bactrim DS daily for 6 months. Vagifem 10 mcg twice a week. Goal to discontinue antibiotic therapy in 6 months follow up in 6 months. Orders: Orders AMB Post Void Residual by ultrasound Today N39.8 - Other specified disorders of urinary system AMB Urinalysis Automated Today Z13.9 - Encounter for screening, unspecified AMB Post Void Residual by ultrasound Today N39.8 - Other specified disorders of urinary system Medications: New estradiol (Vagifem) apply vaginally Mon/Thurs 10 mcg vaginal 2XW 24 tabs 2RF Patient Instructions: The patient had an opportunity to ask questions regarding treatment plan. All questions were answered. Imaging, Laboratory studies and physical exam results were discussed and reviewed in detail. No major barriers to understanding were identified. The patient expressed understanding and agreement with the above treatment plan.? ? ? The patient is aware they should contact our office by phone for worsening of their current condition or the appearance of new symptoms. Compliance is encouraged with any medications and followup testing that is ordered.? ? ? It is a privilege to be allowed the opportunity to participate in the urologic care of your patient. If you have any questions or concerns regarding treatment for the above conditions please do not hesitate to contact me. The office telephone contact is [phone].? ? ? This note is constructed in part using voice recognition software. While every effort has been made to ensure accuracy relay repairer errors may have been included.? ? ? Yours sincerely,? ? ? Nicole Herrera MD? Coding Level of Care Code Est Pt Level 4 (61091) Diagnoses Incomplete bladder emptying R33.9 Recurrent UTI N39.0 Kidney stone N20.0 CPT Codes Post Residual Void - PVR CPT Code: 00471-Dwrs Void Residual by ultrasound ([id number]) Post Residual Void - PVR CPT Code: 85609-Cfal Void Residual by ultrasound ([id number])
== END 2023-07-12 11:27 | disposition home or self-care (01) ==
LOC: HO.HUSH 10:08
PROVIDERS: PCP Internal Medicine; Visit Provider Urology
DX: R33.9 Retention of urine, unspecified (principal); N39.0 Urinary tract infection, site not specified; N20.0 Calculus of kidney; Z13.9 Encounter for screening, unspecified
CPT/HCPCS: 99214

== ENCOUNTER 2023-07-12 10:08 | Outpatient (REF) | payer MEDICARE, OTHER, SELFPAY | END 2023-07-12 10:09 | disposition home or self-care (01) | LOC: HO.LAB 10:08 | PROVIDERS: PCP Internal Medicine; Visit Provider Urology | DX: R33.9 Retention of urine, unspecified (principal); N39.0 Urinary tract infection, site not specified; N20.0 Calculus of kidney | CPT/HCPCS: 51798; 81003; 99212 ==

== ENCOUNTER 2023-08-11 14:43 | Emergency (ER) | payer MEDICARE, OTHER, SELFPAY ==
--- NOTE | ~2023-08-11 | XR_ITS ---
EXAMINATION: XR CHEST CLINICAL INFORMATION: Leg swelling pain COMPARISON: Chest radiograph from 02/21/2023 TECHNIQUE: Frontal view of the chest was obtained. FINDINGS: Prominence of pulmonary vasculature. Chronic interstitial lung markings. No pneumothorax. Trachea is midline. Cardiac mediastinal silhouette is not enlarged. Sternotomy wires in short cardiac mediastinal surgical clips. Aorta demonstrates tortuosity with atherosclerotic calcifications. No large pleural effusion. Chronic right-sided rib fractures. Soft tissues are unremarkable. XR/XR chest 1V IMPRESSION: 1. Prominence of pulmonary vasculature. 2. Chronic interstitial lung markings.
--- NOTE | ~2023-08-11 | US_ITS ---
EXAMINATION: US VENOUS ULTRASOUND WITH DOPPLER LOWER EXTREMITY, BILATERAL CLINICAL INFORMATION: Bilateral leg swelling and pain COMPARISON: None available. TECHNIQUE: Ultrasound of the deep veins is performed from the hip to the calf with compression sonography and color and pulse Doppler assessment. Spectral analysis with color-flow imaging is performed. FINDINGS: RIGHT: There is normal venous compression and respiratory variation and augmented flow. The visualized common femoral vein, superficial femoral vein, profunda femoral vein, popliteal vein, and the trifurcation region shows no evidence of deep venous thrombosis. The peroneal and posterior tibial veins are not visualized. There is no significant popliteal fossa cyst. LEFT: There is normal venous compression and respiratory variation and augmented flow. The visualized common femoral vein, superficial femoral vein, profunda femoral vein, popliteal vein, and the trifurcation region shows no evidence of deep venous thrombosis. The peroneal and posterior tibial veins are not seen. There is no significant popliteal fossa cyst. If the patient's symptoms persist, followup ultrasound in 5 days 7 days might be of value to exclude proximal propagation from a non-visualized calf vein. US/US venous duplex LE BI IMPRESSION: No DVT demonstrated in the bilateral lower extremity.
[2023-08-11 15:22] VITALS: BP 179/79; PULSE 65; RESP 19; TEMP 36.3; O2SAT 98; BMI 34.1
--- NOTE | 2023-08-11 15:35 | ED.GENADULT ---
HPI - General Adult General Chief complaint: General Medical Stated complaint: UTI Severe Pain Sent By PCP Time Seen by Provider: 08/11/23 19:11 Source: patient and family Mode of arrival: wheelchair Limitations: no limitations History of Present Illness HPI narrative: This is an 83-year-old female with history of diabetes, coronary artery disease, CVA, chronic lower extremity swelling who presents to the ER with multiple complaints. Patient reports for 10 months she has had progressive generalized weakness and has had to defer any ER visits and admissions to short-term rehab which she does not feel as helpful. She also has all over joint pain and body aches for the same amount of time and has been taking Tylenol with continued pain. She has not seen her primary care doctor for this. She denies any injuries or falls. She denies any muscle aches, redness or swelling of the joints. She is complaining of stiffness which is throughout the day. She does not feel like physical therapy is helpful and she has tried this multiple times. She does not want to go back to short-term rehab and wants to stay home although it appears she is essentially wheelchair-bound at this point. She is also complaining of lower extremity swelling for many months. She does not want to take diuretics because it makes her pee a lot. She does not elevate her legs are use compression stockings. She also has dysuria which has been chronic and she has been seen by Urology several times and has refused cystoscopies. She has had intermittent UTIs. Related Data Home Medications Medication Instructions Recorded Confirmed blood sugar diagnostic #10 ea 10/28/20 02/18/23 escitalopram oxalate 20 mg tablet 20 mg PO DAILY 10/28/20 02/21/23 metoprolol succinate 100 mg 100 mg PO DAILY 10/28/20 02/21/23 tablet,extended release 24 hr simvastatin 40 mg tablet 40 mg PO BEDTIME 10/28/20 02/21/23 insulin glargine 100 unit/mL (3 25 unit subcut BID 12/11/21 02/21/23 mL) subcutaneous pen (Basaglar KwikPen U-100 Insulin) lisinopril 20 mg tablet 20 mg PO DAILY 02/18/23 02/21/23 aspirin 81 mg tablet,delayed 81 mg PO DAILY 02/21/23 02/21/23 release bupropion HCl 150 mg 24 hr tablet, 150 mg PO DAILY 02/21/23 02/21/23 extended release cholecalciferol (vitamin D3) 25 25 mcg PO DAILY 02/21/23 02/21/23 mcg (1,000 unit) tablet (Vitamin D3) loperamide 2 mg tablet (Imodium 1 mg PO Q8H PRN Loose Stool 02/21/23 02/21/23 A-D) multivitamin 1 tab PO DAILY 02/21/23 02/21/23 Previous Rx's Medication Instructions Recorded tamsulosin 0.4 mg capsule (Flomax) 0.4 mg PO BEDTIME #90 caps 02/18/23 sulfamethoxazole 400 1 tab PO DAILY 30 days #30 tabs 05/26/23 mg-trimethoprim 80 mg tablet bethanechol chloride 25 mg tablet 25 mg PO TID #90 tabs 06/09/23 estradiol 10 mcg vaginal tablet 10 mcg vaginal 2XW #24 tabs 07/12/23 (Vagifem) furosemide 20 mg tablet (Lasix) 20 mg PO DAILY #14 tabs 08/12/23 tramadol 50 mg tablet 50 mg PO Q8H PRN pain #8 tabs 08/12/23 Allergies Allergy/AdvReac Type Severity Reaction Status Date / Time doxycycline Allergy Unknown redness Verified 07/12/23 10:25 and hives penicillin V Allergy Unknown anaphylaxis Verified 07/12/23 10:25 avoid cyclines AdvReac Unknown Unknown Uncoded 07/12/23 10:25 Review of Systems Review of Systems: Yes all other systems are reviewed and are negative Constitutional: Constitutional: Reports no additional constitutional complaints, Reports body ache(s), Denies chills, Denies fever(s), Denies headache(s) and Reports weakness Eyes: Eyes: Reports no additional eye complaints and Denies change in vision ENT: Reports system reviewed and no additional complaints, except as documented, Denies dizziness, Denies headache(s), Denies nasal congestion, Denies nasal discharge and Denies neck pain Cardiovascular: Cardiovascular: Reports no additional cardiovascular complaints, Denies chest pain, Reports leg edema and Denies dyspnea Respiratory: Respiratory: Reports no additional respiratory complaints, Denies cough and Denies dyspnea Gastrointestinal: Gastrointestinal: Reports no additional gastrointestinal complaints, Denies abdominal pain, Denies diarrhea, Denies nausea and Denies vomiting Genitourinary: Genitourinary: Reports no additional female genitourinary complaints, Reports dysuria and Denies urinary incontinence Musculoskeletal: Musculoskeletal: Reports no additional musculoskeletal complaints, Denies back pain, Reports myalgias, Reports arthralgias, Denies joint swelling, Denies neck pain, Denies numbness, Reports stiffness and Denies tingling Integumentary/Breasts: Skin/Breast: Reports system reviewed and no additional complaints, except as docu and Denies rash Neurologic: Reports system reviewed and no additional complaints, except as documented, Denies Abnormal speech present, Denies dizziness, Denies headache(s), Denies numbness, Denies tingling and Reports weakness PMFSH Past Medical History Attestation statement: The following information was validated with the patient. Source: old records reviewed and nursing notes reviewed Medical History Hematuria of undiagnosed cause Frequency of urination High cholesterol Diabetes mellitus, type II Urgency incontinence History of UTI Surgical History History of surgery Social History Social History Alcohol intake: current Alcohol intake frequency: holidays/special occasions only Smoked in Last 30 Days: No Use of substances other than those prescribed or required for medical reasons: No Advance Directives: Yes Advance Directives on File: Yes Advance Directives Date on File: 02/22/23 Physical Exam ED Vital Signs: Vital Signs - 24 hr 08/11/23 15:22 08/11/23 19:08 08/11/23 20:44 Temperature 97.4 F 97.8 F 97.9 F Pulse Rate 65 66 70 Respiratory Rate 19 16 18 Blood Pressure 179/79 H 183/66 H 153/48 H Pulse Oximetry 98 99 99 Oxygen Delivery Method Room Air Room Air Room Air 08/11/23 22:30 Temperature 97.7 F Pulse Rate 67 Respiratory Rate Blood Pressure 149/51 H Pulse Oximetry 96 Oxygen Delivery Method Room Air BMI result Body Mass Index 34.1 Const Other: Crying, quite anxious General: alert Orientation/consciousness: patient oriented x3 Limitations: no limitations HENMT Head: Yes normal to inspection Ears: hearing grossly normal bilaterally General nose exam: Normal external nose present Face and sinus: Yes normal facial exam Mouth: Normal oral and palatal mucosa present Throat: Yes posterior oropharynx normal Eyes General: appearance normal, both eyes and all related structures Pupils: Equal, round and reactive pupils present Neck Neck: Yes normal visual inspection Chest Chest palpation & inspection: normal inspection of the chest Resp Effort & Inspection: normal respiratory effort Auscultation: clear to auscultation bilaterally Cardio Rate: regular rate Rhythm: regular rhythm Peripheral pulses: Peripheral pulses 2+ throughout GI Inspection: Yes normal to inspection Palpation (GI): Soft to palpation and nontender Auscultation: normal bowel sounds Back/Spine/Pelvis Thoracic/Lumbar Spine: thoracic and lumbar spine normal to inspection Skin General skin exam: no rashes or lesions noted Neuro General: patient oriented x3, moves all extremities, no focal motor deficits and normal sensation to monofilament Cranial nerves: Yes CN's II-XII intact bilaterally, Yes Equal, round and reactive pupils present, Yes Bilaterally intact EOM present, Yes Nystagmus not present, Yes Normal facial strength present and Yes Midline tongue present Cognition (Neuro): normal cognition Speech: No Abnormal speech present Motor exam (neuro): 5/5 motor strength present throughout Sensory Exam: Normal double simultaneous stimulation for sensation Extrem Other: Nonpitting edema bilaterally extending to the knees Palpable pulse General: Yes normal to inspection, Yes no calf tenderness and Yes edema Course Course Course Narrative: RME: 83 female presents for generalized weakness siince jaunary with mutliple rehab placements. patient now has Urinary symptoms. labs ordered Reevaluation(s) Reevaluation #1: Venous ultrasound shows no blood clot. Chest x-ray is normal. Labs are unremarkable. UA shows very slight bacteriuria all this likely a contamination. We will send a urine culture. Patient was able to get up with assistance and walks 3-4 steps with a walker per nursing. She does report some improvement in her symptoms after being medicated here in the emergency room. She likely has some underlying arthritis. She has been having increasing weakness over the last 10 months and has had several stays in short-term rehab. I did offer for her to see Physical therapy and Case Management in the morning but she declined this. I did offer for home services but she also declined this. Her and her would like to take her home. I will send her home with a low-dose Lasix. I recommend that she elevate her legs and use compression. I will also give her a small supply of tramadol for pain with recommendations to follow-up with her primary care doctor for any continued symptoms. Reviewed worrisome signs and symptoms of when to return to the emergency room. Comfortable plan for discharge home. Medications Administered Discontinued Medications Generic Name Dose Route Start Last Admin Trade Name Amilcar PRN Reason Stop Dose Admin Acetaminophen 975 mg 08/11/23 19:32 08/11/23 19:45 Acetaminophen 325 Mg Tablet PO 08/11/23 19:33 975 mg ONCE ONE Administration Diazepam 2 mg 08/11/23 19:33 08/11/23 20:58 Diazepam 2 Mg Tablet PO 08/11/23 19:34 2 mg ONCE ONE Administration Oxycodone HCl 5 mg 08/11/23 19:33 08/11/23 19:45 Oxycodone Hcl Immed Release 5 Mg Tablet PO 08/11/23 19:34 5 mg ONCE ONE Administration Medical Decision Making Medical Decision Making MDM Narrative: This is an 83-year-old female with history of diabetes, coronary artery disease, CVA, chronic lower extremity swelling who presents to the ER with multiple complaints. Patient reports for 10 months she has had progressive generalized weakness and has had to defer any ER visits and admissions to short-term rehab which she does not feel as helpful. She also has all over joint pain and body aches for the same amount of time and has been taking Tylenol with continued pain. She has not seen her primary care doctor for this. She denies any injuries or falls. She denies any muscle aches, redness or swelling of the joints. She is complaining of stiffness which is throughout the day. She does not feel like physical therapy is helpful and she has tried this multiple times. She does not want to go back to short-term rehab and wants to stay home although it appears she is essentially wheelchair-bound at this point. She is also complaining of lower extremity swelling for many months. She does not want to take diuretics because it makes her pee a lot. She does not elevate her legs are use compression stockings. She also has dysuria which has been chronic and she has been seen by Urology several times and has refused cystoscopies. She has had intermittent UTIs. Abdomen soft nontender. Patient does have bilateral lower extremity swelling which is nonpitting. She has some mild redness but no evidence of cellulitis. She has palpable pulses. No tenderness on exam. She has various aches and pains on palpation. Her lungs are clear. Normal neuro exam with no focal deficits. Patient is quite anxious, crying. Will review labs ordered from triage as well as urine. Will also order bilateral venous ultrasound, chest x-ray and analgesia It is apparent the patient would likely benefit from short-term rehab although it seems that she is quite resistant to this. Differential Diagnosis Differential Diagnoses: The differential diagnosis associated with the presentation includes low concern for cellulitis, DVT Consider CHF, deconditioninhg, electrolyte abnormality, anemia Admission/Observation Consideration of admission/observation: Escalation of care including admission/observation considered May need short-term rehab for deconditioning but patient/family declined Lab Data MDM Lab Attestation statement: I reviewed the patient's lab results. 08/11/23 15:43 08/11/23 15:43 Labs: Lab Results 08/11/23 08/11/23 08/11/23 Range/Units 15:43 18:19 19:15 WBC 9.0 (4.8-10.8) X10*3/uL RBC 3.85 L (4.20-5.50) X10*6/uL Hgb 12.5 (12.0-16.0) g/dl Hct 38.6 (37.0-47.0) % MCV 100.3 H (80.0-98.0) fL MCH 32.5 (27.0-33.0) pg MCHC 32.4 (31.0-35.0) g/dl RDW 13.2 (11.0-16.0) % Plt Count 190 (160-400) X10*3/uL MPV 10.4 (9.4-12.3) fL Immature Gran % (Auto) 0.2 (0.0-0.4) % Neut % (Auto) 52.6 (45-73) % Lymph % (Auto) 36.9 (20-40) % [place] % (Auto) 8.3 (2-11) % Eos % (Auto) 1.6 (0-4) % Baso % (Auto) 0.4 (0-2) % Lymph # (Auto) 3.3 (1.2-4.9) X10*3/uL [place] # (Auto) 0.7 (0.1-1.2) X10*3/uL Eos # (Auto) 0.1 (0.0-0.4) X10*3/uL Baso # (Auto) 0.0 (0.0-0.2) X10*3/uL Abs Immat Gran (auto) 0.02 (0.00-0.03) X10*3/uL Absolute Neuts (auto) 4.7 (2.0-8.3) x10*3/uL Absolute Nucleated RBC 0.000 (0.0-0.012) X10*3/uL Nucleated RBC % (auto) 0.0 (0.0-0.2) /100WBC Sodium 140 (135-145) mmol/L Potassium 4.2 (3.3-5.1) mmol/L Chloride 104 (96-108) mmol/L Carbon Dioxide 26 (22-29) mmol/L Anion Gap 14 (12-20) BUN 40 H (9-16) mg/dL Creatinine 1.12 (0.5-1.4) mg/dL Estim Creat Clear Calc 42.1 Estimated GFR 46 POC Glucose 166 H (60-115) mg/dL Random Glucose 219 H (60-115) mg/dL Lactic Acid 1.0 (0.5-2.0) mmol/L Calcium 9.6 D (8.4-10.2) mg/dL Total Bilirubin 0.4 (0.0-1.0) mg/dL AST 31 (5-31) U/L ALT 41 H (0-31) U/L Alkaline Phosphatase 62 (39-117) U/L Total Creatine Kinase 93 (26-140) U/L B-Natriuretic Peptide 203 H (<100) pg/mL NT-Pro-B Natriuret Pep Cancelled Total Protein 6.7 (6.5-8.0) g/dL Albumin 4.0 (3.5-5.0) g/dL Urine Color Yellow Urine Appearance Clear Urine pH 5.5 (5.0-9.0) Ur Specific [place] 1.010 (1.005-1.025) Urine Protein Negative (Neg-Trace) mg/dL Urine Glucose (UA) Negative (Negative) mg/dL Urine Ketones Negative (Negative) mg/dL Urine Blood Negative (Negative) Urine Nitrite Negative (Negative) Ur Leukocyte Esterase Trace H (Negative) Urine RBC 0-2 (0-2) /HPF Urine WBC 6-10 H (0-5) /HPF Ur Squamous Epith Cells 0-2 (0-2) /HPF Urine Bacteria None Seen (None Seen) Hyaline Casts 0-2 (0-2) /LPF Influenza Type A (PCR) NEGATIVE (Negative) Influenza Type B (PCR) NEGATIVE (Negative) RSV RNA Qual (PCR) NEGATIVE (Negative) SARS-CoV-2 RNA (RT-PCR) NEGATIVE (Negative) Independent Interpretation I performed an independent interpretation of an: Plain X-Ray and Ultrasound Interpretation: I independently reviewed the x-ray and the ultrasound agree with Radiology report Radiology Impression Discussion of test interpretation with radiology: I have reviewed the radiologist's reading. Radiologist Impression: [place] [id number] XRay Report Signed Patient: Tish Ayala MR#: [id number] : 1940 Acct:[id number] Age/Sex: 83 / F ADM Date: 08/11/23 Loc: .ED Attending Dr: Ordering Physician: Ariana Oviedo NP Date of Service: 08/11/23 Procedure(s): XR chest 1V Accession Number(s): [id number] cc: KRYSTAL RAMIREZ MD; Ariana Oviedo NP~ EXAMINATION: XR CHEST CLINICAL INFORMATION: Leg swelling pain COMPARISON: Chest radiograph from 02/21/2023 TECHNIQUE: Frontal view of the chest was obtained. FINDINGS: Prominence of pulmonary vasculature. Chronic interstitial lung markings. No pneumothorax. Trachea is midline. Cardiac mediastinal silhouette is not enlarged. Sternotomy wires in short cardiac mediastinal surgical clips. Aorta demonstrates tortuosity with atherosclerotic calcifications. No large pleural effusion. Chronic right-sided rib fractures. Soft tissues are unremarkable. XR/XR chest 1V IMPRESSION: 1. Prominence of pulmonary vasculature. 2. Chronic interstitial lung markings. [address] [address] Ultrasound Report Signed Patient: Tish Ayala MR#: [id number] : 1940 Acct:[id number] Age/Sex: 83 / F ADM Date: 08/11/23 Loc: HO.ED Attending Dr: Ordering Physician: Ariana Oviedo NP Date of Service: 08/11/23 Procedure(s): US venous duplex LE BI Accession Number(s): [id number] cc: KRYSTAL RAMIREZ MD; Ariana Oviedo NP~ EXAMINATION: US VENOUS ULTRASOUND WITH DOPPLER LOWER EXTREMITY, BILATERAL CLINICAL INFORMATION: Bilateral leg swelling and pain COMPARISON: None available. TECHNIQUE: Ultrasound of the deep veins is performed from the hip to the calf with compression sonography and color and pulse Doppler assessment. Spectral analysis with color-flow imaging is performed. FINDINGS: RIGHT: There is normal venous compression and respiratory variation and augmented flow. The visualized common femoral vein, superficial femoral vein, profunda femoral vein, popliteal vein, and the trifurcation region shows no evidence of deep venous thrombosis. The peroneal and posterior tibial veins are not visualized. There is no significant popliteal fossa cyst. LEFT: There is normal venous compression and respiratory variation and augmented flow. The visualized common femoral vein, superficial femoral vein, profunda femoral vein, popliteal vein, and the trifurcation region shows no evidence of deep venous thrombosis. The peroneal and posterior tibial veins are not seen. There is no significant popliteal fossa cyst. If the patient's symptoms persist, followup ultrasound in 5 days 7 days might be of value to exclude proximal propagation from a non-visualized calf vein. US/US venous duplex LE BI IMPRESSION: No DVT demonstrated in the bilateral lower extremity. Independent Historian Clinical information obtained from an independent historian. History obtained from or confirmed by: Spouse Discharge Plan Discharge Clinical Impression: Lymphedema, Arthralgia Patient Disposition: Home, Self-Care Instructions: Arthralgia (ED), Lymphedema (ED) Additional Instructions: We did offer you to see our case making machine operator to see if you would like any additional services in your home or go to short-term rehab but you declined this. Please elevate your lower legs, please continue to use compression We are starting you on a low dose diuretic to see if this helps with her swelling. Only take the pain medication as needed. It can make you sleepy. We are only giving a very small supply. You will need to see your primary care doctor if you desire more Prescriptions: New tramadol 50 mg tablet 50 mg PO Q8H PRN (Reason: pain) Qty: 8 0RF furosemide [Lasix] 20 mg tablet 20 mg PO DAILY Qty: 14 0RF No Action sulfamethoxazole-trimethoprim 400-80 mg tablet 1 tab PO DAILY 30 Days Qty: 30 1RF bethanechol chloride 25 mg tablet 25 mg PO TID Qty: 90 5RF bupropion HCl 150 mg tablet extended release 24 hr 150 mg PO DAILY multivitamin Tablet 1 tab PO DAILY loperamide [Imodium A-D] 2 mg Tablet 1 mg PO Q8H PRN (Reason: Loose Stool) aspirin 81 mg Tablet,Delayed Release (Dr/Ec) 81 mg PO DAILY cholecalciferol (vitamin D3) [Vitamin D3] 25 mcg (1,000 unit) Tablet 25 mcg PO DAILY escitalopram oxalate 20 mg tablet 20 mg PO DAILY metoprolol succinate 100 mg tablet extended release 24 hr 100 mg PO DAILY simvastatin 40 mg tablet 40 mg PO BEDTIME (DME) OneTouch Verio test strips Strip See Rx Instructions Not Applicable BID Qty: 10 Rx Instructions: As directed Astrid Mac U-100 Insulin 100 unit/mL (3 mL) insulin pen 25 unit subcut BID lisinopril 20 mg tablet 20 mg PO DAILY tamsulosin [Flomax] 0.4 mg capsule 0.4 mg PO BEDTIME Qty: 90 1RF estradiol [Vagifem] 10 mcg tablet 10 mcg vaginal 2XW Qty: 24 2RF Rx Instructions: apply vaginally Mon/ Referrals: Krystal Ramirez MD [Primary Care Provider] - 1 week Interventions: ED Discharge Assessment Last Done: 08/12/23 00:45 Discharge Date/Time: 08/12/23 00:54
[2023-08-11 16:00] LABS: MANUAL DIFF FLAG NO
[2023-08-11 16:02] LABS: Basophils Percent Auto 0.4 % (0-2); Eosinophils Absolute Auto 0.1 X10*3/uL (0.0-0.4); Eosinophils Percent Auto 1.6 % (0-4); Hematocrit 38.6 % (37.0-47.0); Hemoglobin 12.5 g/dl (12.0-16.0); Imm Gran Abs Auto 0.02 X10*3/uL (0.00-0.03); Imm Gran Pct Auto 0.2 % (0.0-0.4); Lymphocytes Absolute Auto 3.3 X10*3/uL (1.2-4.9); Lymphocytes Percent Auto 36.9 % (20-40); Mean Corpuscular HGB Conc 32.4 g/dl (31.0-35.0); Mean Corpuscular Hemoglobin 32.5 pg (27.0-33.0); Mean Corpuscular Volume 100.3 fL (80.0-98.0); Mean Platelet Volume 10.4 fL (9.4-12.3); Monocytes Absolute Auto 0.7 X10*3/uL (0.1-1.2); Monocytes Percent Auto 8.3 % (2-11); Neutrophils Absolute Auto 4.7 x10*3/uL (2.0-8.3); Neutrophils Percent Auto 52.6 % (45-73); Platelet Count 190 X10*3/uL (160-400); Red Blood Count 3.85 X10*6/uL (4.20-5.50); Red Cell Distribution Width 13.2 % (11.0-16.0)
[2023-08-11 16:16] LABS: Alanine Aminotransferase 41 U/L (0-31); Alkaline Phosphatase 62 U/L (39-117); Anion Gap 14 (12-20); Aspartate Amino Transferase 31 U/L (5-31); Bilirubin Total 0.4 mg/dL (0.0-1.0); Blood Urea Nitrogen 40 mg/dL (9-16); Calcium 9.6 mg/dL (8.4-10.2); Carbon Dioxide 26 mmol/L (22-29); Chloride 104 mmol/L (96-108); Creatinine Clr Calc Pharmacy 42.1; Estimated Glomerular Filt Rate 46; Glucose Random 219 mg/dL (60-115); Potassium 4.2 mmol/L (3.3-5.1); Sodium 140 mmol/L (135-145); Total Protein 6.7 g/dL (6.5-8.0)
[2023-08-11 16:43] LABS: Influenza A PCR NEGATIVE (Negative); Influenza B PCR NEGATIVE (Negative); Resp Syncy Virus RNA Qual PCR NEGATIVE (Negative); SARS COV2 PCR INHOUSE NEGATIVE (Negative)
[2023-08-11 18:27] LABS: Appearance Urine Clear; Color Urine Yellow; Glucose Urine UA Negative (Negative); Leukocyte Esterase Urine Trace (Negative); Nitrite Urine Negative (Negative); PH 5.5 (5.0-9.0); UMIC TRIGGER UACC YES; Urine Blood Negative (Negative); Urine Ketones Negative (Negative); Urine Protein Negative (Neg-Trace)
[2023-08-11 18:32] LABS: Bacteria Urine None Seen (None Seen); Hyaline Casts Urine 0-2 /LPF (0-2); RBC Urine 0-2 /HPF (0-2); Squamous Epithelial Cell Urine 0-2 /HPF (0-2); UACC Culture Trigger YES
[2023-08-11 19:08] VITALS: BP 183/66; PULSE 66; RESP 16; TEMP 36.6; O2SAT 99
--- NOTE | 2023-08-11 19:16 | PC.NURSE ---
a&ox3, vss and up to date aside from being hypertensive. pt unaware if she took lisinopril this am. pt c/o 07/27 generalized body pain. pt states pain in all extremities. pt states that she has had difficulty ambulating. pt took at home UTI kit - states she was positive. pt called pcp to be treated and pcp advised pt to come to ED. pt verbalizing urgency when urinating. denies dysuria/hematuria/any other urinary sx. pt states that she did not check sugar this morning. POC = 166mg/dL. pt bedside for support. respirations even and unlabored. call mathias placed within reach.
[2023-08-11 19:19] LABS: Glucose, Whole Blood 166 mg/dL (60-115)
--- NOTE | 2023-08-11 19:21 | PC.NURSE ---
pt changed into hospital attire. this RN and parris nicole changed brief, cleaned pt up and placed purewick. pt repositioned for comfort.
[2023-08-11] MEDS: Acetaminophen 325 MG TABLET 975 MG PO (19:45)
[2023-08-11] MEDS: oxyCODONE HCl Immed Release 5 MG TABLET PO (19:45)
--- NOTE | 2023-08-11 19:57 | PC.NURSE ---
2nd set of cultures drawn and sent to lab. medication administered per provider order. will reassess pain level shortly. pt refused diazepam administration d/t never taking medication before. will return to [facility].
[2023-08-11 20:07] LABS: B Type Natriuretic Peptide 203 pg/mL (<100)
[2023-08-11 20:44] VITALS: BP 153/48; PULSE 70; RESP 18; TEMP 36.6; O2SAT 99
--- NOTE | 2023-08-11 20:51 | PC.NURSE ---
ultrasound currently bedside.
--- NOTE | 2023-08-11 20:54 | PC.NURSE ---
pt originally refused valium administration d/t never taking medication. pt requesting to take medication at this time d/t pain level not decreasing post tylenol/oxycodone administration.
[2023-08-11] MEDS: diazePAM 2 MG TABLET PO (20:58)
--- NOTE | 2023-08-11 21:00 | PC.NURSE ---
medication administered per provider order.
[2023-08-11 22:30] VITALS: BP 149/51; PULSE 67; TEMP 36.5; O2SAT 96
--- NOTE | 2023-08-12 00:14 | PC.NURSE ---
Ambulation trial completed with assistance of this RN and MACI Hughes. Patient is able to ambulate with a walker and assistance of 1 person very short distance, approximately 10 ft. Provider notified.
[2023-08-12 00:44] VITALS: BP 140/81; PULSE 67; RESP 16; TEMP 36.7; O2SAT 96
== END 2023-08-12 00:54 | disposition home or self-care (01) ==
PROVIDERS: Nurse Practitioner Family; Physician Assistant; Emergency Provider Internal Medicine; PCP Internal Medicine Nephrology
DX: N39.0 Urinary tract infection, site not specified (principal); I89.0 Lymphedema, not elsewhere classified; M79.605 Pain in left leg; M79.604 Pain in right leg; R60.0 Localized edema; E11.9 Type 2 diabetes mellitus without 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s; E78.5 Hyperlipidemia, unspecified; Z86.73 Personal history of transient ischemic attack (TIA), and cerebral infarction without residual deficits; Z79.82 Long term (current) use of aspirin; Z79.4 Long term (current) use of insulin; Z20.822 Contact with and (suspected) exposure to COVID-19; Z20.828 Contact with and (suspected) exposure to other viral communicable diseases
CPT/HCPCS: 0241U; 71045; 80053; 81001; 82550; 82947; 83605; 83880; 85025; 87040; 87086; 87088; 87186; 93970; 99284

== ENCOUNTER 2023-08-21 07:44 | Emergency (ER) | payer MEDICARE, OTHER, SELFPAY ==
[2023-08-21] VITALS (10 sets, daily range): BP systolic 102–157; BP diastolic 49–86; PULSE 57–85; RESP 14–20; TEMP 36.4–36.9; O2SAT 96–100; BMI 37.8
--- NOTE | 2023-08-21 08:11 | ED.GENADULT ---
HPI - General Adult General Chief complaint: Extremity Problem Stated complaint: LEG/ARM PAIN X1 WEEK,UNABLE TO AMB PER EMS Time Seen by Provider: 08/21/23 07:53 Source: patient and EMS Mode of arrival: EMS Limitations: no limitations History of Present Illness HPI narrative: this is an 83-year-old female with history of diabetes, coronary artery disease, CVA, no lymphedema, presented to the emergency department by EMS for multiple complaints patient's main complaint is diffuse joint pain, patient was seen in the emergency department for similar symptoms about 10 days ago and was sent home on tramadol that does not work for the patient, patient lives with her at able to ambulate using walker or 's assistance over the past few days pain is getting worse that preventing her to get out of bed despite taking tramadol for pain. No fever, no chills, no trauma. Patient live with chronic UTIs currently has no symptoms. Related Data Home Medications Medication Instructions Recorded Confirmed blood sugar diagnostic #10 ea 10/28/20 02/18/23 escitalopram oxalate 20 mg tablet 20 mg PO DAILY 10/28/20 02/21/23 metoprolol succinate 100 mg 100 mg PO DAILY 10/28/20 02/21/23 tablet,extended release 24 hr simvastatin 40 mg tablet 40 mg PO BEDTIME 10/28/20 02/21/23 insulin glargine 100 unit/mL (3 25 unit subcut BID 12/11/21 02/21/23 mL) subcutaneous pen (Basaglar KwikPen U-100 Insulin) lisinopril 20 mg tablet 20 mg PO DAILY 02/18/23 02/21/23 aspirin 81 mg tablet,delayed 81 mg PO DAILY 02/21/23 02/21/23 release bupropion HCl 150 mg 24 hr tablet, 150 mg PO DAILY 02/21/23 02/21/23 extended release cholecalciferol (vitamin D3) 25 25 mcg PO DAILY 02/21/23 02/21/23 mcg (1,000 unit) tablet (Vitamin D3) loperamide 2 mg tablet (Imodium 1 mg PO Q8H PRN Loose Stool 02/21/23 02/21/23 A-D) multivitamin 1 tab PO DAILY 02/21/23 02/21/23 Previous Rx's Medication Instructions Recorded tamsulosin 0.4 mg capsule (Flomax) 0.4 mg PO BEDTIME #90 caps 02/18/23 bethanechol chloride 25 mg tablet 25 mg PO TID #90 tabs 06/09/23 estradiol 10 mcg vaginal tablet 10 mcg vaginal 2XW #24 tabs 07/12/23 (Vagifem) furosemide 20 mg tablet (Lasix) 20 mg PO DAILY #14 tabs 08/12/23 tramadol 50 mg tablet 50 mg PO Q8H PRN pain #8 tabs 08/12/23 sulfamethoxazole 800 1 tab PO BID 3 days #6 tabs 08/15/23 mg-trimethoprim 160 mg tablet (Bactrim DS) sulfamethoxazole 400 1 tab PO DAILY 30 days #30 tabs 08/17/23 mg-trimethoprim 80 mg tablet Allergies Allergy/AdvReac Type Severity Reaction Status Date / Time doxycycline Allergy Unknown redness Verified 08/21/23 08:15 and hives penicillin V Allergy Unknown anaphylaxis Verified 08/21/23 08:15 avoid cyclines AdvReac Unknown Unknown Uncoded 07/12/23 10:25 Review of Systems Review of Systems: all other systems are reviewed and are negative Constitutional: Reports as per HPI and Reports no additional constitutional complaints Eyes: Reports as per HPI and Reports no additional eye complaints Reports system reviewed and no additional complaints, except as documented Cardiovascular: Reports as per HPI and Reports no additional cardiovascular complaints Respiratory: Reports as per HPI and Reports no additional respiratory complaints Gastrointestinal: Reports as per HPI and Reports no additional gastrointestinal complaints Genitourinary: Reports no additional female genitourinary complaints Musculoskeletal: Reports no additional musculoskeletal complaints Skin/Breast: Reports system reviewed and no additional complaints, except as docu Psychiatric: Reports no additional psychiatric complaints Endocrine: Reports no additional endocrine complaints Hematologic/Lymphatic: Reports no additional hematologic/lymphatic complaints Allergic/Immunologic: Reports no additional allergic/immunologic complaints Reports system reviewed and no additional complaints, except as documented and Reports Abnormal speech present [facility] Past Medical History Medical History Hematuria of undiagnosed cause Frequency of urination High cholesterol Diabetes mellitus, type II Urgency incontinence History of UTI Surgical History History of surgery Social History Social History Alcohol intake: current Alcohol intake frequency: holidays/special occasions only Advance Directives: Yes Advance Directives on File: Yes Advance Directives Date on File: 02/22/23 Physical Exam ED Vital Signs: Vital Signs - 24 hr 08/21/23 07:49 08/21/23 10:00 08/21/23 12:00 Temperature 97.9 F Pulse Rate 61 58 59 Respiratory Rate 20 Blood Pressure 133/60 111/49 L 140/50 H Pulse Oximetry 98 97 96 Oxygen Delivery Method Room Air Room Air Room Air 08/21/23 13:56 Temperature 97.5 F Pulse Rate 60 Respiratory Rate 18 Blood Pressure 102/54 L Pulse Oximetry 97 Oxygen Delivery Method Room Air BMI result Body Mass Index 37.8 Vital signs have been reviewed and appear to be correct. Blood pressure elevated. Heart rate normal. Respiratory rate normal. Temperature normal. Oxygen saturation normal. Appearance: Alert. Oriented X3. No acute distress. Head: Normal external exam. Normocephalic. Atraumatic. No Gomez signs noted. No raccoon eyes noted Eyes: PERRLA. EOMI. Conjunctiva and sclera normal. Eyelids normal. ENT: TM's Normal. Pharynx normal. Uvula midline. Moist mucous membranes. No trismus noted. No drooling noted. No muffled voice noted. Neck: Normal inspection. Neck supple. FROM. No adenopathy. Thyroid Normal. No meningeal signs. No neck mass noted. CVS: Normal heart rate and rhythm. Heart sound normal. No murmurs noted. Pulses normal throughout. Respiratory: No respiratory distress. Painless inspiration. Breath sounds normal. No wheezes/rales/rhonchi noted. Chest nontender. No accessory muscle usage noted or decreased air movement noted. Abdomen: Soft and nontender. Bowel sounds normal in all 4 quadrants. No distention noted. No organomegaly noted. No visible injury noted. Back: No CVA tenderness. Full range of motion noted. Skin: Skin warm and dry. Normal skin color. Normal skin turgor. No rashes/lesions/lacerations noted. Extremities: bilateral lymphedema to lower extremity. Extremities exhibit normal range of motion. Extremities nontender. Neuro: Oriented X 3. Cranial nerve exam: II-XII are grossly intact No motor deficit. No sensory deficit. Reflexes normal. Course Reevaluation(s) Reevaluation #1: start the patient on physician observation awaiting for PT evaluation and case management input to place the patient, patient received oxycodone in the emergency department seems to control patient's symptoms. Time: 13:59 Medications Administered Discontinued Medications Generic Name Dose Route Start Last Admin Trade Name Amilcar PRN Reason Stop Dose Admin Oxycodone HCl 5 mg 08/21/23 08:08 08/21/23 08:28 Oxycodone Hcl Immed Release 5 Mg Tablet PO 08/21/23 08:09 5 mg ONCE ONE Administration Medical Decision Making Differential Diagnosis Differential Diagnoses: The differential diagnosis associated with the presentation includes ( arthralgia, rheumatoid arthritis, lymphedema) Admission/Observation Consideration of admission/observation: Escalation of care including admission/observation considered Lab Data MDM Lab Attestation statement: I reviewed the patient's lab results. 08/21/23 08:36 08/21/23 08:36 Labs: Lab Results 08/21/23 Range/Units 08:36 WBC 8.9 (4.8-10.8) X10*3/uL RBC 3.60 L (4.20-5.50) X10*6/uL Hgb 11.6 L (12.0-16.0) g/dl Hct 35.6 L (37.0-47.0) % MCV 98.9 H (80.0-98.0) fL MCH 32.2 (27.0-33.0) pg MCHC 32.6 (31.0-35.0) g/dl RDW 13.0 (11.0-16.0) % Plt Count 184 (160-400) X10*3/uL MPV 10.5 (9.4-12.3) fL Immature Gran % (Auto) 0.4 (0.0-0.4) % Neut % (Auto) 52.3 (45-73) % Lymph % (Auto) 33.7 (20-40) % [place] % (Auto) 10.9 (2-11) % Eos % (Auto) 2.4 (0-4) % Baso % (Auto) 0.3 (0-2) % Lymph # (Auto) 3.0 (1.2-4.9) X10*3/uL [place] # (Auto) 1.0 (0.1-1.2) X10*3/uL Eos # (Auto) 0.2 (0.0-0.4) X10*3/uL Baso # (Auto) 0.0 (0.0-0.2) X10*3/uL Abs Immat Gran (auto) 0.04 H (0.00-0.03) X10*3/uL Absolute Neuts (auto) 4.7 (2.0-8.3) x10*3/uL Absolute Nucleated RBC 0.000 (0.0-0.012) X10*3/uL Nucleated RBC % (auto) 0.0 (0.0-0.2) /100WBC Sodium 140 (135-145) mmol/L Potassium 5.1 D (3.3-5.1) mmol/L Chloride 104 (96-108) mmol/L Carbon Dioxide 27 (22-29) mmol/L Anion Gap 14 (12-20) BUN 42 H (9-16) mg/dL Creatinine 1.48 H (0.5-1.4) mg/dL Estim Creat Clear Calc 32.5 Estimated GFR 34 Random Glucose 214 H (60-115) mg/dL Calcium 9.3 (8.4-10.2) mg/dL Urine Color Yellow Urine Appearance Cloudy Urine pH 5.5 (5.0-9.0) Ur Specific [place] 1.010 (1.005-1.025) Urine Protein Negative (Neg-Trace) mg/dL Urine Glucose (UA) Negative (Negative) mg/dL Urine Ketones Negative (Negative) mg/dL Urine Blood Trace H (Negative) Urine Nitrite Negative (Negative) Ur Leukocyte Esterase Small (1+) H (Negative) Urine RBC >20 H (0-2) /HPF Urine WBC 6-10 H (0-5) /HPF Ur Squamous Epith Cells 6-10 (0-2) /HPF Urine Bacteria 2+ (None Seen) Hyaline Casts 0-2 (0-2) /LPF Discharge Plan Discharge Clinical Impression: Chronic acquired lymphedema Arthralgia Qualifiers: Joint pain location: unspecified Qualified Code(s): M25.50 - Pain in unspecified joint Patient Disposition: Still a Patient Prescriptions: No Action bethanechol chloride 25 mg tablet 25 mg PO TID Qty: 90 5RF sulfamethoxazole-trimethoprim 400-80 mg tablet 1 tab PO DAILY 30 Days Qty: 30 5RF tramadol 50 mg tablet 50 mg PO Q8H PRN (Reason: pain) Qty: 8 0RF furosemide [Lasix] 20 mg tablet 20 mg PO DAILY Qty: 14 0RF sulfamethoxazole-trimethoprim [Bactrim DS] 800-160 mg tablet 1 tab PO BID 3 Days Qty: 6 0RF bupropion HCl 150 mg tablet extended release 24 hr 150 mg PO DAILY multivitamin Tablet 1 tab PO DAILY loperamide [Imodium A-D] 2 mg Tablet 1 mg PO Q8H PRN (Reason: Loose Stool) aspirin 81 mg Tablet,Delayed Release (Dr/Ec) 81 mg PO DAILY cholecalciferol (vitamin D3) [Vitamin D3] 25 mcg (1,000 unit) Tablet 25 mcg PO DAILY escitalopram oxalate 20 mg tablet 20 mg PO DAILY metoprolol succinate 100 mg tablet extended release 24 hr 100 mg PO DAILY simvastatin 40 mg tablet 40 mg PO BEDTIME (DME) OneTouch Verio test strips Strip See Rx Instructions Not Applicable BID Qty: 10 Rx Instructions: As directed Astrid Mac U-100 Insulin 100 unit/mL (3 mL) insulin pen 25 unit subcut BID lisinopril 20 mg tablet 20 mg PO DAILY tamsulosin [Flomax] 0.4 mg capsule 0.4 mg PO BEDTIME Qty: 90 1RF estradiol [Vagifem] 10 mcg tablet 10 mcg vaginal 2XW Qty: 24 2RF Rx Instructions: apply vaginally Mon/urs
[2023-08-21] MEDS: oxyCODONE HCl Immed Release 5 MG TABLET PO ×2 (08:28→18:08)
--- NOTE | 2023-08-21 08:36 | PC.NURSE ---
pt arrived from home via ems with chief c/o 07/27 pain. pt tearful and says the pain is in her arms and legs and chronic swelling in her legs. she reports that this has been going on for many years and has gotten worse over the years. she generally uses a walker but recently not able to walk with/without it because of the pain. she says that her helps her at home. no outside help.
[2023-08-21 08:39] LABS: MANUAL DIFF FLAG NO
[2023-08-21 08:41] LABS: Basophils Percent Auto 0.3 % (0-2); Eosinophils Absolute Auto 0.2 X10*3/uL (0.0-0.4); Eosinophils Percent Auto 2.4 % (0-4); Hematocrit 35.6 % (37.0-47.0); Hemoglobin 11.6 g/dl (12.0-16.0); Imm Gran Abs Auto 0.04 X10*3/uL (0.00-0.03); Imm Gran Pct Auto 0.4 % (0.0-0.4); Lymphocytes Percent Auto 33.7 % (20-40); Mean Corpuscular HGB Conc 32.6 g/dl (31.0-35.0); Mean Corpuscular Hemoglobin 32.2 pg (27.0-33.0); Mean Corpuscular Volume 98.9 fL (80.0-98.0); Mean Platelet Volume 10.5 fL (9.4-12.3); Monocytes Percent Auto 10.9 % (2-11); Neutrophils Absolute Auto 4.7 x10*3/uL (2.0-8.3); Neutrophils Percent Auto 52.3 % (45-73); Platelet Count 184 X10*3/uL (160-400); White Blood Count 8.9 X10*3/uL (4.8-10.8)
[2023-08-21 08:42] LABS: Appearance Urine Cloudy; Color Urine Yellow; Glucose Urine UA Negative (Negative); Leukocyte Esterase Urine Small (1+) (Negative); Nitrite Urine Negative (Negative); PH 5.5 (5.0-9.0); UMIC TRIGGER UACC YES; Urine Blood Trace (Negative); Urine Ketones Negative (Negative); Urine Protein Negative (Neg-Trace)
[2023-08-21 08:47] LABS: Bacteria Urine 2+ (None Seen); Hyaline Casts Urine 0-2 /LPF (0-2); RBC Urine >20 /HPF (0-2); UACC Culture Trigger YES
[2023-08-21 09:15] LABS: Anion Gap 14 (12-20); Blood Urea Nitrogen 42 mg/dL (9-16); Calcium 9.3 mg/dL (8.4-10.2); Carbon Dioxide 27 mmol/L (22-29); Chloride 104 mmol/L (96-108); Creatinine Clr Calc Pharmacy 32.5; Estimated Glomerular Filt Rate 34; Glucose Random 214 mg/dL (60-115); Potassium 5.1 mmol/L (3.3-5.1); Sodium 140 mmol/L (135-145)
--- NOTE | 2023-08-21 09:57 | MHC.EDTECH ---
placed a purewick, patient tolerated well, stated that the last time she was here she had one.
--- NOTE | 2023-08-21 14:56 | PC.NURSE ---
vs updated, pt reports 10/10 full body pain. remains tearful, anxious about going to short term rehab. seen by physical therapist.
--- NOTE | 2023-08-21 15:25 | MHC.CM.PN ---
CM CONSULT RECEIVED FROM ED PROVIDER. CM MET WITH PT AT BEDSIDE IN ED. PT VERY TEARFUL WITH C/O SEVERE PAIN. P.T. HAS RECOMMENDED STR. PT HAS NOT HAD QHS SO REFERRALS HAVE BEEN SENT TO ARF. PT FIRST CHOICE IS [facility]. PT LIVES WITH SPOUSE, USES WALKER AND W/C. SPOUSE HAS BEEN ASSISTING WITH ADLS AND MOBILITY . PT HAS A STAIR LIFT . +HCP ON FILE. PCP DR DEL ROSARIO. UPDATED ON PLAN TO REFER TO ARF AND CM WILL FOLLOW FOR ANY CHANGE IN DC NEEDS/PLAN.
--- NOTE | 2023-08-21 17:53 | PHA.MEDREC ---
Pharmacy Consult ? Medication Reconciliation Pharmacy has completed the medication reconciliation Spoke to patient to confirm meds. Per patient, they take 20 units of lantus AM and 10 units PM. Patient takes 20mg of lexapro..
--- NOTE | 2023-08-21 18:21 | PC.NURSE ---
complete bed change and incontinent care done.. po pain med given as documented.
[2023-08-22] VITALS: BP 139/57; PULSE 62; RESP 20; O2SAT 95
[2023-08-22] MEDS: oxyCODONE HCl Immed Release 5 MG TABLET PO ×2 (01:33→20:01)
[2023-08-22 01:50] VITALS: BP 149/51; PULSE 61; RESP 14; O2SAT 95
[2023-08-22] MEDS: traMADoL HCL 50 MG TABLET PO ×2 (02:55→23:48)
--- NOTE | 2023-08-22 03:01 | PC.NURSE ---
This RN and Landry, service tech repositioned patient. Patient reports pain in b/l knees 410 and requesting pain medication. Patient medicated with Tramadol 50 mg PO, effect pending. Call mathias placed within patient's reach.
--- NOTE | 2023-08-22 03:52 | PC.NURSE ---
Patient became tearful and anxious, stating I can't do it anymore, I can't even move in bed . This RN and Tasley repositioned patient, purewick in place and patent. Patient reports less cramps in her lower legs after repositioning. Dr. Ware made aware, new order obtained for Lorazepam 1 mg PO.
[2023-08-22 04:00] VITALS: BP 149/51; PULSE 62; RESP 18; O2SAT 97
[2023-08-22] MEDS: LORazepam 1 MG TABLET PO (04:01)
[2023-08-22 06:00] VITALS: BP 155/49; PULSE 64; RESP 16; O2SAT 94
[2023-08-22 09:02] VITALS: BP 153/57; PULSE 66; RESP 18; TEMP 37; O2SAT 95
[2023-08-22] MEDS: Furosemide 20 MG TABLET PO (09:13)
[2023-08-22] MEDS: hydroCHLOROthiazide 25 MG TABLET PO (09:13)
[2023-08-22] MEDS: Escitalopram Oxalate 20 MG TABLET PO (09:13)
[2023-08-22] MEDS: Ascorbic Acid 250 MG TABLET PO (09:13)
[2023-08-22] MEDS: Thiamine HCL 100 MG TABLET PO (09:13)
[2023-08-22] MEDS: Multivitamin TABLET 1 TAB PO (09:13)
[2023-08-22] MEDS: buPROPion HCl XL 150 MG TAB.ER.24H PO (09:13)
[2023-08-22] MEDS: Aspirin Enteric Coated 81 MG TABLET.DR PO (09:13)
[2023-08-22] MEDS: Cyanocobalamin (Vitamin B-12) 1,000 MCG TABLET 1000 MCG PO (09:13)
[2023-08-22] MEDS: Cholecalciferol (Vitamin D3) 25 MCG TABLET PO (09:13)
[2023-08-22] MEDS: lisinopriL 20 MG TABLET PO (09:14)
[2023-08-22] MEDS: Metoprolol Succinate ER 100 MG TAB.ER.24H PO (09:14)
[2023-08-22] MEDS: Insulin Glargine,Hum.rec.anlog 100 UNIT/ML 10 ML VIAL 20 UNIT SUBCUT (09:14)
--- NOTE | 2023-08-22 09:25 | PC.NURSE ---
resting in bed. reports pain has decreased from ystdy. urine clear yellow in purewick. no distress. breathing well.
[2023-08-22 09:37] LABS: Glucose, Whole Blood 173 mg/dL (60-115)
--- NOTE | 2023-08-22 09:41 | MHC.CM.PN ---
CM MET WITH PT AT BEDSIDE IN ED. PAIN APPEARS TO BE MORE CONTROLLED. PT IS CALMER AND ALERT. ACUTE REHABS HAVE DENIED PT DUE TO NOT MEETING CRITERIA. PT AND SPOUSE/HCP UPDATED. PT MAY BE ABLE TO WORK WITH P.T. AGAIN TOMORROW NOW THAT PAIN IS CONTROLLED, WILL RE-SUBMIT IF APPROPRIATE TO [facility] THEY WILL RE-LOOK SHOULD SHE BE ABLE TO PARTICIPATE BETTER. CM WILL CONTINUE TO FOLLOW FOR DC NEEDS/PLAN.
--- NOTE | 2023-08-22 10:40 | PC.NURSE ---
assumed care of this pt at 1000, pt brought over from ed to overflow unit. pt transferred from stretcher to hospital bed, changed and reposition. no c/o pain, pt resting quietly at this time. no apparent distress.
[2023-08-22] MEDS: Bethanechol Chloride 25 MG TABLET PO ×3 (11:18→20:01)
[2023-08-22] MEDS: Sulfamethox/Trimeth 400/80 TABLET 1 TAB PO (11:18)
--- NOTE | 2023-08-22 11:20 | PC.NURSE ---
urecholine and bactrim not available in pyxis. meds given late as documented.
[2023-08-22 11:55] LABS: Glucose, Whole Blood 123 mg/dL (60-115)
--- NOTE | 2023-08-22 12:40 | PC.NURSE ---
poc 123. at bedside. no c/o of pain.
[2023-08-22] MEDS: Atorvastatin Calcium 20 MG TABLET PO (20:01)
[2023-08-22] MEDS: Insulin Glargine,Hum.rec.anlog 100 UNIT/ML 10 ML VIAL 10 UNIT SUBCUT (20:01)
[2023-08-22] MEDS: Tamsulosin HCL 0.4 MG CAPSULE PO (20:01)
--- NOTE | 2023-08-22 20:06 | PC.NURSE ---
pt c/o of generalized pain, medicated meds per MAR
[2023-08-22 21:02] VITALS: BP 130/63; PULSE 79; RESP 18; TEMP 36.2; O2SAT 94
--- NOTE | 2023-08-22 21:03 | MHC.EDTECH ---
pt resting quietly, watching tv bs 141
--- NOTE | 2023-08-22 21:14 | PC.NURSE ---
pt assessed, c/o generalized pain medicated per MAR. will continue to monitor
--- NOTE | 2023-08-22 23:52 | PC.NURSE ---
pt reported 8/10 generalized pain, medicated per MAR
[2023-08-23 01:12] LABS: Glucose, Whole Blood 141 mg/dL (60-115)
[2023-08-23 06:00] VITALS: BP 137/65; PULSE 62; RESP 14; TEMP 36.3; O2SAT 96
[2023-08-23 07:28] LABS: Glucose, Whole Blood 86 mg/dL (60-115)
[2023-08-23] MEDS: buPROPion HCl XL 150 MG TAB.ER.24H PO (07:40)
[2023-08-23] MEDS: Multivitamin TABLET 1 TAB PO (07:40)
[2023-08-23] MEDS: Furosemide 20 MG TABLET PO (07:40)
[2023-08-23] MEDS: Ascorbic Acid 250 MG TABLET PO (07:40)
[2023-08-23] MEDS: Bethanechol Chloride 25 MG TABLET PO ×3 (07:40→19:38)
[2023-08-23] MEDS: Aspirin Enteric Coated 81 MG TABLET.DR PO (07:40)
[2023-08-23] MEDS: Metoprolol Succinate ER 100 MG TAB.ER.24H PO (07:40)
[2023-08-23] MEDS: Sulfamethox/Trimeth 400/80 TABLET 1 TAB PO (07:40)
[2023-08-23] MEDS: Thiamine HCL 100 MG TABLET PO (07:41)
[2023-08-23] MEDS: hydroCHLOROthiazide 25 MG TABLET PO (07:41)
[2023-08-23] MEDS: Insulin Glargine,Hum.rec.anlog 100 UNIT/ML 10 ML VIAL 20 UNIT SUBCUT (07:41)
[2023-08-23] MEDS: Escitalopram Oxalate 20 MG TABLET PO (07:41)
[2023-08-23] MEDS: lisinopriL 20 MG TABLET PO (07:41)
[2023-08-23] MEDS: Cholecalciferol (Vitamin D3) 25 MCG TABLET PO (07:41)
[2023-08-23] MEDS: Cyanocobalamin (Vitamin B-12) 1,000 MCG TABLET 1000 MCG PO (07:41)
[2023-08-23 07:55] VITALS: BP 148/52; PULSE 64; RESP 18; TEMP 36.6; O2SAT 96
[2023-08-23] MEDS: oxyCODONE HCl Immed Release 5 MG TABLET PO ×2 (09:35→17:32)
[2023-08-23 09:52] LABS: COVID-19 Test Negative (Negative); IDNOW Serial# 08D9AD1C
[2023-08-23 11:16] LABS: Glucose, Whole Blood 164 mg/dL (60-115)
--- NOTE | 2023-08-23 12:53 | MHC.CM.ED ---
Addendum entered by Hanna Shannon 08/23/23 13:43: [facility] is 1st choice. They are unable to offer a bed. [facility] is next choice. They do not have a bed at this time. Referral broadcasted in [facility]. [facility], [facility], [facility], [facility] and [facility] [address] are able to offer a bed. Patient will discuss these options with her and provide CM with 1st choice. Original Note: Patient remains in ER overflow. Additional physical therapy eval completed. Does not feel acute rehab would be appropriate. [facility] also does not feel patient would be an appropriate candidate for their facility. Met with patient and , Michael, in regards to discharge planning. Both are aware patient doesn't qualify for acute rehab. Patient has [employer] as a secondary insurance. Typically [employer] will cover 80% of SNF costs when Medicare will not cover. Patient would be responsible for the other 20%. List of half-way facilities provided from [facility]. [facility] is 1st choice. Referral made via [employer]. Patient and Michael will look over list and provide 2nd facility choice. Continue to monitor for d/c needs.
--- NOTE | 2023-08-23 13:44 | PC.NURSE ---
PT HAD AN X-LARGE SOFT AND VERY LIQUID BM, YELLOW IN COLOUR. PT STATES THAT 3RD BM FOR THE DAY. PT CLEANSED AND BARRIER CREAM APPLIED TO BUTTOCKS AND REPOSITION.
--- NOTE | 2023-08-23 13:53 | PC.NURSE ---
PT'S BUTTOCK IS EXCORIATED/ELHAM, PT REPOSITION TO R SIDE.
[2023-08-23] MEDS: Loperamide HCl Oral Liquid 2 MG/15 ML LIQUID 1 MG PO (14:07)
[2023-08-23 16:15] VITALS: BP 150/60; PULSE 62; RESP 16; TEMP 37.2; O2SAT 98
--- NOTE | 2023-08-23 16:18 | MHC.EDTECH ---
This pct assumed of pt at 1500 ,vitals taken ,pt was reposition and boosted up in bed ,warm blanket given ,pt comfortable at this time ,no apparent distress noted .
[2023-08-23 17:30] LABS: Glucose, Whole Blood 120 mg/dL (60-115)
--- NOTE | 2023-08-23 18:30 | PC.NURSE ---
Patient complaining of continued pain and also stiffness in her arms at this time. Provider messaged regarding potentially getting patient medication to help with the stiffness. Awaiting orders at this time.
--- NOTE | 2023-08-23 18:58 | MHC.EDTECH ---
Patient ate 100 % of dinner and drank 240 ml fluids .
[2023-08-23 19:20] VITALS: BP 143/54; PULSE 63; RESP 16; TEMP 36.9; O2SAT 95
[2023-08-23] MEDS: Tamsulosin HCL 0.4 MG CAPSULE PO (19:38)
[2023-08-23] MEDS: Cyclobenzaprine HCl 10 MG TABLET PO (19:38)
[2023-08-23] MEDS: Atorvastatin Calcium 20 MG TABLET PO (19:38)
[2023-08-23 20:35] LABS: Glucose, Whole Blood 115 mg/dL (60-115)
--- NOTE | 2023-08-23 20:42 | MHC.EDTECH ---
Pt blood sugar check ,vitals taken ,pt was incontinent of urine ,bed bath given ,lotion apply and baby powder ,pt feet was elevated with Pillows ,warm blanket given ,bed alarm on bed and call mathias with in Pt reach ,pt was set up to brush her teeth ,fresh water at bedside .
[2023-08-23] MEDS: Insulin Glargine,Hum.rec.anlog 100 UNIT/ML 10 ML VIAL 10 UNIT SUBCUT (21:22)
[2023-08-24 05:08] VITALS: BP 160/53; PULSE 67; RESP 18; TEMP 36.4; O2SAT 96
--- NOTE | 2023-08-24 06:26 | PC.NURSE ---
Assumed care of pt 19:00 (08/23). Pt is A&Ox4. Requires reassurance with care. VSS. Pt reports pain in arms and legs , medicated with 1x flexeril with +effect. Pt observed sleeping in bed on hourly rounding. No distress noted, breathing even and unlabored. Incontinence care provided. Antifungal barrier cream applied to pannus. Purewick replaced. Bed alarm on and safety measures in place. Will continue to monitor for the remainder of this teletypewriter operator's shift.
--- NOTE | 2023-08-24 08:33 | MHC.CM.PN ---
Addendum entered by Olga Rowan 08/24/23 12:16: PT ACCEPTING BED AT [facility] IF THEY CAN GET INSURANCE COVERAGE PER DISCUSSION WITH PT AND , IF IT IS NOT COVERED AND SHE IS NOT ADMITTED BY TOMORROW,. SHE WILL RETURN HOME WITH OUTPATIENT PT [facility] CURRENTLY RUNNING INSURANCE FOR AUTH Original Note: PT AWAITING STR PLACEMENT HOWEVER DOES NOT HAVE A QHS AND DOES NOT QUALIFY FOR ACUTE REHAB [facility] AND [facility] ARE FOLLOWING [facility] HOWEVER THEY HAVE NOT YET RUN PTS GIC INSURANCE CM REQUESTED PTS INSURANCE BE RUN TO DETERMINE IF IT WILL COVER STR PT MAY HAVE TO PRIVATELY PAY AWAITING RESULTS
[2023-08-24 09:29] VITALS: BP 153/64; PULSE 71; RESP 18; TEMP 36.6; O2SAT 98
[2023-08-24] MEDS: Aspirin Enteric Coated 81 MG TABLET.DR PO (09:34)
[2023-08-24] MEDS: Thiamine HCL 100 MG TABLET PO (09:35)
[2023-08-24] MEDS: Bethanechol Chloride 25 MG TABLET PO ×2 (09:35→15:16)
[2023-08-24] MEDS: Sulfamethox/Trimeth 400/80 TABLET 1 TAB PO (09:36)
[2023-08-24] MEDS: hydroCHLOROthiazide 25 MG TABLET PO (09:36)
[2023-08-24] MEDS: Ascorbic Acid 250 MG TABLET PO (09:36)
[2023-08-24] MEDS: Metoprolol Succinate ER 100 MG TAB.ER.24H PO (09:36)
[2023-08-24] MEDS: Furosemide 20 MG TABLET PO (09:37)
[2023-08-24] MEDS: Multivitamin TABLET 1 TAB PO (09:37)
[2023-08-24] MEDS: Cholecalciferol (Vitamin D3) 25 MCG TABLET PO (09:37)
[2023-08-24] MEDS: lisinopriL 20 MG TABLET PO (09:37)
[2023-08-24] MEDS: Cyanocobalamin (Vitamin B-12) 1,000 MCG TABLET 1000 MCG PO (09:37)
[2023-08-24] MEDS: Insulin Glargine,Hum.rec.anlog 100 UNIT/ML 10 ML VIAL 20 UNIT SUBCUT (09:38)
[2023-08-24] MEDS: buPROPion HCl XL 150 MG TAB.ER.24H PO (09:38)
[2023-08-24] MEDS: Escitalopram Oxalate 20 MG TABLET PO (09:38)
[2023-08-24 10:13] LABS: Glucose, Whole Blood 158 mg/dL (60-115)
[2023-08-24 11:55] LABS: Glucose, Whole Blood 123 mg/dL (60-115)
--- NOTE | 2023-08-24 14:19 | MHC.CM.PN ---
DP: PT HAS BEEN ACCEPTED AT [facility] FOR STR . THEY HAVE AUTHORIZATION THROUGH [facility] . RN AND PA MADE AWARE. HCP/SPOUSE SHERRY MADE AWARE AND PROVIDED WITH CENTER'S CONTACT INFO AND ADDRESS. BLS TRANSPORT BOOKED FOR 3:30 PM VIA [facility].
== END 2023-08-24 15:33 | disposition skilled nursing facility (03) ==
PROVIDERS: Physician Assistant Medical; Emergency Provider Emergency Medicine; PCP Internal Medicine
DX: M25.50 Pain in unspecified joint (principal); I89.0 Lymphedema, not elsewhere classified; Z11.52 Encounter for screening for COVID-19; E11.9 Type 2 diabetes mellitus without 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s; E78.00 Pure hypercholesterolemia, unspecified; Z87.440 Personal history of urinary (tract) infections; Z79.82 Long term (current) use of aspirin; Z79.899 Other long term (current) drug therapy
CPT/HCPCS: 36415; 80048; 81001; 82947; 85025; 87086; 87635; 97162; 97530; 99285

== ENCOUNTER 2023-11-14 22:48 | Emergency (ER) | payer MEDICARE, OTHER, SELFPAY ==
[2023-11-14 22:51] VITALS: BP 132/82; PULSE 65; O2SAT 96
[2023-11-14 23:01] VITALS: BP 162/70; PULSE 64; RESP 14; O2SAT 92; BMI 34.8
--- NOTE | 2023-11-14 23:13 | ED_ITS ---
HPI - Extremity Problem General Chief complaint: General Medical Stated complaint: CAOx4, severely swollen legs, POC 479 Time Seen by Provider: 11/14/23 22:58 Source: patient Mode of arrival: EMS Limitations: no limitations History of Present Illness HPI Narrative: 83-year-old female with history of diabetes, coronary artery disease, CVA, chronic lower extremity swelling who presents to the emergency department for evaluation of right leg pain. She states that she has had increased pain in her right leg for 2 days. She states the pain is a constant, throbbing pain. She states she went to [facility] and was seen in the emergency department and had a negative ultrasound. She states she was discharged home and did not get any pain medications. She states she has taken tramadol in the past and she states she was also given a muscle relaxer (Valium) which is helped in the past as well. She denies any recent injury or fall. She denied fever or chills. She states that she uses a wheelchair at home and also uses a walk. I did obtain the emergency department record from [facility] dated 11/13/2023. The patient presented with right leg edema and pain which was 10/10. Patient [place] [address], mild anemia with an H&H of 11.3 and 34.2. BNP was normal with a sodium of 138 and a potassium of 3.9. Patient's BUN and creatinine were 32 and 1.53. Glucose was 287. The ultrasound was suboptimal secondary to the patient's body habitus but there was no acute DVT noted of the common femoral or popliteal veins. Related Data Home Medications Medication Instructions Recorded Confirmed blood sugar diagnostic #10 ea 10/28/20 08/21/23 escitalopram oxalate 20 mg tablet 20 mg PO DAILY 10/28/20 08/21/23 metoprolol succinate 100 mg 100 mg PO DAILY 10/28/20 08/21/23 tablet,extended release 24 hr simvastatin 40 mg tablet 40 mg PO BEDTIME 10/28/20 08/21/23 insulin glargine 100 unit/mL (3 10 unit subcut BEDTIME 12/11/21 08/21/23 mL) subcutaneous pen (Basaglar KwikPen U-100 Insulin) lisinopril 20 mg tablet 20 mg PO DAILY 02/18/23 08/21/23 aspirin 81 mg tablet,delayed 81 mg PO DAILY 02/21/23 08/21/23 release bupropion HCl 150 mg 24 hr tablet, 150 mg PO DAILY 02/21/23 08/21/23 extended release cholecalciferol (vitamin D3) 25 25 mcg PO DAILY 02/21/23 08/21/23 mcg (1,000 unit) tablet (Vitamin D3) loperamide 2 mg tablet (Imodium 1 mg PO Q8H PRN Loose Stool 02/21/23 08/21/23 A-D) multivitamin 1 tab PO DAILY 02/21/23 08/21/23 ascorbic acid (vitamin C) 250 mg 250 mg PO DAILY 08/21/23 08/21/23 tablet (Vitamin C) cyanocobalamin (vitamin B-12) 1,000 mcg PO DAILY 08/21/23 08/21/23 1,000 mcg tablet hydrochlorothiazide 25 mg tablet 25 mg PO DAILY 08/21/23 08/21/23 insulin glargine 100 unit/mL (3 20 unit subcut DAILY 08/21/23 08/21/23 mL) subcutaneous pen (Basaglar KwikPen U-100 Insulin) thiamine HCl (vitamin B1) 100 mg 100 mg PO DAILY 08/21/23 08/21/23 tablet Previous Rx's Medication Instructions Recorded furosemide 20 mg tablet (Lasix) 20 mg PO DAILY #14 tabs 08/12/23 tramadol 50 mg tablet 50 mg PO Q8H PRN pain #8 tabs 08/12/23 sulfamethoxazole 400 1 tab PO DAILY 30 days #30 tabs 08/17/23 mg-trimethoprim 80 mg tablet tamsulosin 0.4 mg capsule (Flomax) 0.4 mg PO BEDTIME #90 caps 10/04/23 bethanechol chloride 25 mg tablet 25 mg PO TID #90 tabs 11/02/23 tramadol 50 mg tablet 50 mg PO Q6H PRN pain #10 tabs 11/15/23 Allergies Allergy/AdvReac Type Severity Reaction Status Date / Time doxycycline Allergy Unknown redness Verified 08/21/23 08:15 and hives penicillin V Allergy Unknown anaphylaxis Verified 08/21/23 08:15 avoid cyclines AdvReac Unknown Unknown Uncoded 07/12/23 10:25 Review of Systems 2 Review of Systems: Yes all other systems are reviewed and are negative [facility] Past Medical History [facility] Narrative: Social history: She states she lives at home with her . She uses a wheelchair and also uses a walker. Medical History Hematuria of undiagnosed cause Frequency of urination High cholesterol Diabetes mellitus, type II Urgency incontinence History of UTI Surgical History History of surgery Social History Social History Unable to assess alcohol history related to: Unable to respond Alcohol intake: former Smoked in Last 30 Days: No Use of substances other than those prescribed or required for medical reasons: No Advance Directives: Yes Advance Directives on File: Yes Advance Directives Date on File: 02/22/23 Physical Exam 2 Vital Signs: Vital Signs: Last Vital Signs Pulse 64 11/14/23 23:58 Resp 16 11/14/23 23:58 BP 162/70 H 11/14/23 23:58 Pulse Ox 92 11/14/23 23:58 O2 Del Method Room Air 11/14/23 23:58 BMI result Body Mass Index 34.8 Vital signs revealed an elevated blood pressure of 162/70 Exam General: Awake, alert in no distress, unkempt Head: Normocephalic, atraumatic EENT: PERRL, Lids normal, sclera normal, conjunctiva normal, nose normal , ears normal, throat without erythema or exudates Neck: Supple, no adenopathy Lung: breath sounds symmetric, no wheezing, rales or rhonchi Chest: symmetric movement, nontender Heart: regular rate and rhythm, normal S1, S2 no murmurs or rubs Abdomen: soft, non-tender, nondistended, normal bowel sounds Extremities: The patient's lower extremities were wrapped with Martin wraps, these Martin wraps for wet secondary to serous fluid weeping from both legs. Patient has nonpitting edema to both lower extremities with the right lower extremity being larger than the left. Patient has erythema to both lower extremities which appears to be slightly more prominent on the right than on the left, but there is no increased warmth this appears to me more consistent with chronic dermatitis secondary to venous insufficiency. (see picture below) Medications Administered Discontinued Medications Generic Name Dose Route Start Last Admin Trade Name Amilcar PRN Reason Stop Dose Admin Tramadol HCl 50 mg 11/14/23 23:12 11/14/23 23:47 Tramadol Hcl 50 Mg Tablet PO 11/14/23 23:13 50 mg ONCE STA Administration Medical Decision Making Medical Decision Making [facility] Narrative: 83-year-old female with history of diabetes, coronary artery disease, CVA, chronic lower extremity swelling who presents to the emergency department for evaluation of right leg pain. Patient complains of increased pain in her right lower extremity x2 days, patient was seen at [facility] on 11/13/2022 (1 day prior) and had normal blood work with a negative right lower extremity DVT exam. Patient states she has been taking Tylenol for her pain with no relief. She denied systemic symptoms such as fever, chills, cough, chest pain or shortness of breath. She has not had any recent injury or fall. Vital signs revealed an elevated blood pressure of 162/70. The patient's lower extremities were covered with Martin wraps and the Martin wraps were wet secondary to serous drainage from her swollen legs. Patient has nonpitting edema and has chronic stasis dermatitis but no evidence for cellulitis. Differential diagnosis includes was not limited to cellulitis, chronic stasis dermatitis, DVT, chronic leg pain Given her negative workup yesterday at [facility] I do not think that she needs repeat blood work or repeat duplex ultrasound of the right lower extremity. Patient's erythema is consistent with venous dermatitis and she has chronic lower extremity swelling secondary to lymphedema/peripheral edema. The patient has received tramadol 50 mg orally and Valium 2 mg orally in the past for her pain when she has been treated here. Patient was given tramadol 50 mg orally to see if this helps her pain. 02:14 Patient states she did get relief her pain with the oral tramadol therefore I prescribed tramadol 50 mg every 6 hours as needed for pain Patient's legs were rewrapped with Martin wraps to give her some compression She was given printed and verbal instructions discharged home Admission/Observation Consideration of admission/observation: Escalation of care including admission/observation considered External Record Review External record reviewed: Outpatient record ([facility] ED visits 11/13/2023) Prescription Management I considered prescription management with: Pain Medication Chronic Conditions Patient?s care impacted by: Diabetes and Other (Chronic leg edema) Discharge Plan Discharge Clinical Impression: Acute pain of right lower extremity, Chronic abscess of lower leg Patient Disposition: Home, Self-Care Additional Instructions: You need to follow-up with her doctor to discuss pain management for your chronic pain in your lower extremities. Continue taking medications as prescribed by your providers Take tramadol 50 mg pills, 1 pill every 6 hours as needed for pain. This medication is a narcotic medication if your concerned about addiction you can ask the pharmacist for less pills or not get the medication filled. This medication will make you sleepy and constipated Follow-up with your doctor in 2 days. Please return to the emergency department if your symptoms get worse or if you develop any symptoms that are concerning to you. Prescriptions: New tramadol 50 mg tablet 50 mg PO Q6H PRN (Reason: pain) Qty: 10 0RF No Action sulfamethoxazole-trimethoprim 400-80 mg tablet 1 tab PO DAILY 30 Days Qty: 30 5RF tamsulosin [Flomax] 0.4 mg capsule 0.4 mg PO BEDTIME Qty: 90 1RF bethanechol chloride 25 mg tablet 25 mg PO TID Qty: 90 5RF tramadol 50 mg tablet 50 mg PO Q8H PRN (Reason: pain) Qty: 8 0RF furosemide [Lasix] 20 mg tablet 20 mg PO DAILY Qty: 14 0RF hydrochlorothiazide 25 mg tablet 25 mg PO DAILY cyanocobalamin (vitamin B-12) 1,000 mcg Tablet 1,000 mcg PO DAILY thiamine HCl (vitamin B1) 100 mg Tablet 100 mg PO DAILY ascorbic acid (vitamin C) [Vitamin C] 250 mg Tablet 250 mg PO DAILY insulin glargine [Basaglar KwikPen U-100 Insulin] 100 unit/mL (3 mL) insulin pen 20 unit subcut DAILY bupropion HCl 150 mg tablet extended release 24 hr 150 mg PO DAILY multivitamin Tablet 1 tab PO DAILY loperamide [Imodium A-D] 2 mg Tablet 1 mg PO Q8H PRN (Reason: Loose Stool) aspirin 81 mg Tablet,Delayed Release (Dr/Ec) 81 mg PO DAILY cholecalciferol (vitamin D3) [Vitamin D3] 25 mcg (1,000 unit) Tablet 25 mcg PO DAILY escitalopram oxalate 20 mg tablet 20 mg PO DAILY metoprolol succinate 100 mg tablet extended release 24 hr 100 mg PO DAILY simvastatin 40 mg tablet 40 mg PO BEDTIME (DME) Rachael Turner test strips Strip See Rx Instructions Not Applicable BID Qty: 10 Rx Instructions: As directed Astrid Mac U-100 Insulin 100 unit/mL (3 mL) insulin pen 10 unit subcut BEDTIME lisinopril 20 mg tablet 20 mg PO DAILY
--- NOTE | 2023-11-14 23:22 | MHC.EDTECH ---
Called [facility] to get records from previous ER visit @[phone] waiting for fax at this time.
[2023-11-14] MEDS: traMADoL HCL 50 MG TABLET PO (23:47)
--- NOTE | 2023-11-14 23:48 | PC.NURSE ---
Pt had a saturated brief on. Pt was cleaned, given fresh linens. Noted a pressure wound on the left side of the coccyx and a wound on the left heel. Pt is very tearful, constantly asking what is wrong with her. We explained that the swelling is causing pain and our goal is pain management at the morning. Pt requested to not go home until we find out what is wrong. Pt is very weak, struggles to roll over in bed on her own. May need case management.
[2023-11-14 23:58] VITALS: BP 162/70; PULSE 64; RESP 16; O2SAT 92
--- NOTE | 2023-11-15 02:50 | MHC.EDTECH ---
Alize called @ 0247 for a BLS transfer home,spoke with Alex gave a ETA of 45mins to 1 hour.RN aware
== END 2023-11-15 04:35 | disposition home or self-care (01) ==
PROVIDERS: Emergency Provider Emergency Medicine Emergency Medical Services
DX: L02.415 Cutaneous abscess of right lower limb (principal); M79.604 Pain in right leg; E11.9 Type 2 diabetes mellitus without 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s
CPT/HCPCS: 99283; 99284

== ENCOUNTER 2023-11-15 05:28 | Inpatient (IN) | payer MEDICARE, OTHER, SELFPAY ==
[2023-11-15] VITALS (8 sets, daily range): BP systolic 116–170; BP diastolic 59–82; PULSE 63–74; RESP 16–18; TEMP 36.6–37.2; O2SAT 93–98; BMI 35.3
--- NOTE | ~2023-11-15 | US_ITS ---
EXAMINATION: Noninvasive assessment of the right lower extremities with ARTERIAL DUPLEX CLINICAL INFORMATION: Peripheral vascular disease with right lower extremity nonhealing ulcer TECHNIQUE: Duplex Doppler techniques with waveform analysis and measurement of velocities in the right common femoral, profunda femoris, superficial femoral, popliteal and tibial arteries were performed. COMPARISON: None FINDINGS: DIRECT DUPLEX DOPPLER FINDINGS: RIGHT LEG: Common femoral artery: 146 cm/s, phasicity: There is Profunda femoris artery: 127 cm/s, phasicity: Monophasic Superficial femoral artery (proximal): 116 cm/s, phasicity: Monophasic Superficial femoral artery (mid): 236 cm/s, phasicity: Monophasic Superficial femoral artery (distal): 47.8 cm/s, phasicity: Biphasic Popliteal artery: 106 cm/s, phasicity: Monophasic Posterior tibial artery: 81.4 cm/s, phasicity: Monophasic Peroneal artery: Not well visualized US/US arterial duplex LE RT IMPRESSION: Monophasic arterial waveforms throughout the right lower extremity. Findings could represent a more proximal iliac artery disease. Elevated velocity is seen in the mid superficial femoral artery indicating a moderate stenosis.
--- NOTE | ~2023-11-15 | XR_ITS ---
EXAMINATION: XR CHEST CLINICAL INFORMATION: PICC line check COMPARISON: Chest 11/28/2023 TECHNIQUE: Frontal view of the chest was obtained. FINDINGS: The lungs are well-expanded without acute consolidation. There is mild elevation left hemidiaphragm. Heart size is enlarged with evidence of CABG. There is moderate prominence of parahilar vasculature suggestive of CHF. There is a new right PICC line with its tip in the proximal SVC. It is mildly retracted by 3.6 cm compared to earlier exam from 8:19 AM. XR/XR chest 1V IMPRESSION: Mild cardiomegaly with pulmonary vascular congestion.. Evidence of previous CABG.
--- NOTE | ~2023-11-15 | XR_ITS ---
EXAMINATION: XR FOOT, RIGHT CLINICAL INFORMATION: Right heel necrotic wound. COMPARISON: None available. TECHNIQUE: AP and lateral views of the right foot. FINDINGS: There is diffuse soft tissue swelling at the foot and ankle. A skin wound is present over the calcaneal tuberosity posteriorly. Detail osteopenia is present calcaneal tuberosity posteriorly which raise the possibility of osteomyelitis. This appearance is not specific, however. No additional sites of potential osteomyelitis are identified. 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 Old healed fractures are present at the second through fifth metacarpals. Soft tissues are diffusely swollen with subcutaneous edema. Calcific atherosclerosis is noted. XR/XR foot RT min 3V IMPRESSION: 1. Soft tissue wound at the posterior aspect of the calcaneal tuberosity with underlying osteopenia, raising the possibility of osteomyelitis. Consider correlation with MRI of the foot with and without contrast for further assessment. 2. Diffuse soft tissue swelling and subcutaneous edema at the foot and ankle.
--- NOTE | ~2023-11-15 | XR_ITS ---
EXAMINATION: XR CHEST CLINICAL INFORMATION: Cough. COMPARISON: None available. TECHNIQUE: Frontal view of the chest was obtained. FINDINGS: The lungs are well-expanded with increased vascular markings suggestive of pulmonary vascular congestion. There is patchy opacity left lung base likely combination of infiltrate/atelectasis. Heart size is enlarged. There is evidence of previous CABG. There is a right PICC line with its tip in mid SVC. No gross bony abnormality seen. XR/XR chest 1V IMPRESSION: 1. Cardiomegaly with pulmonary vascular congestion. 2. Left lower lobe infiltrate/atelectasis. 3. Right PICC line tip in mid SVC.
--- NOTE | ~2023-11-15 | MR_ITS ---
EXAMINATION: MR FOOT WITHOUT AND WITH CONTRAST, RIGHT CLINICAL INFORMATION: Osteomyelitis. Necrotic heel wound. COMPARISON: Right foot radiographs dated 11/15/2023. TECHNIQUE: MRI of the right foot was performed before and after the intravenous administration of 10 mL Gadavist on a high-field scanner. FINDINGS: Soft tissue ulceration along the posterolateral aspect of the calcaneus with skin thickening and subcutaneous enhancement, consistent with acute cellulitis. No organized fluid collection or abscess formation. Within the adjacent posterolateral calcaneus there is increased T2 and mildly decreased T1 signal with postcontrast marrow enhancement, consistent with acute osteomyelitis. Moderate osteoarthritis scattered throughout the midfoot. No acute fracture or dislocation. No concerning lytic or blastic osseous lesion. No additional postcontrast marrow enhancement. The visualized muscles and tendons are intact. No transverse tendon tear or tendon retraction. Diffuse atrophy throughout the intrinsic musculature of the foot. No evidence of acute ligament injury. Circumferential soft tissue edema. No soft tissue mass or organized fluid collection. No significant joint effusion. MR/MR foot RT wo/w con IMPRESSION: 1. Soft tissue ulceration and cellulitis along the posterolateral aspect of the calcaneus with acute osteomyelitis within the adjacent calcaneus. No abscess formation. 2. Moderate osteoarthritis scattered throughout the midfoot. 3. Diffuse atrophy throughout the intrinsic musculature of the foot. 4. Circumferential soft tissue edema.
--- NOTE | 2023-11-15 05:42 | ED.GENADULT ---
HPI - General Adult General Chief complaint: General Medical Stated complaint: return from failed transport home Time Seen by Provider: 11/15/23 05:42 Source: patient Mode of arrival: EMS Limitations: no limitations History of Present Illness HPI narrative: 83-year-old female with history of diabetes, coronary artery disease, CVA, chronic lower extremity swelling who presents to the emergency department for evaluation of right leg pain and was seen by me. I diagnosed her with chronic right lower extremity pain and treated her with tramadol 50 mg orally with improvement of her pain. The patient was then discharged home and transported home by ambulance. Apparently the patient refused to get off the stretcher and was brought back to the emergency department for re-evaluation. The patient told me she does not know why she could not get off the stretcher and states she can not move. She has not complaining of pain in her right leg as she was previously. The patient has been here in the emergency department previously and case management and physical therapy is gotten involved but she is refused to go to nursing home facilities for rehab. At this time I do not think that the patient needs any blood work and that she is medically cleared for evaluation by case management and physical therapy. Please see my note from 11/14/2023 at 23:13 hours for details of the patient's 1st ED visit. Related Data Home Medications Medication Instructions Recorded Confirmed blood sugar diagnostic #10 ea 10/28/20 08/21/23 escitalopram oxalate 20 mg tablet 20 mg PO DAILY 10/28/20 08/21/23 metoprolol succinate 100 mg 100 mg PO DAILY 10/28/20 08/21/23 tablet,extended release 24 hr simvastatin 40 mg tablet 40 mg PO BEDTIME 10/28/20 08/21/23 insulin glargine 100 unit/mL (3 10 unit subcut BEDTIME 12/11/21 08/21/23 mL) subcutaneous pen (Basaglar KwikPen U-100 Insulin) lisinopril 20 mg tablet 20 mg PO DAILY 02/18/23 08/21/23 aspirin 81 mg tablet,delayed 81 mg PO DAILY 02/21/23 08/21/23 release bupropion HCl 150 mg 24 hr tablet, 150 mg PO DAILY 02/21/23 08/21/23 extended release cholecalciferol (vitamin D3) 25 25 mcg PO DAILY 02/21/23 08/21/23 mcg (1,000 unit) tablet (Vitamin D3) loperamide 2 mg tablet (Imodium 1 mg PO Q8H PRN Loose Stool 02/21/23 08/21/23 A-D) multivitamin 1 tab PO DAILY 02/21/23 08/21/23 ascorbic acid (vitamin C) 250 mg 250 mg PO DAILY 08/21/23 08/21/23 tablet (Vitamin C) cyanocobalamin (vitamin B-12) 1,000 mcg PO DAILY 08/21/23 08/21/23 1,000 mcg tablet hydrochlorothiazide 25 mg tablet 25 mg PO DAILY 08/21/23 08/21/23 insulin glargine 100 unit/mL (3 20 unit subcut DAILY 08/21/23 08/21/23 mL) subcutaneous pen (Basaglar KwikPen U-100 Insulin) thiamine HCl (vitamin B1) 100 mg 100 mg PO DAILY 08/21/23 08/21/23 tablet Previous Rx's Medication Instructions Recorded furosemide 20 mg tablet (Lasix) 20 mg PO DAILY #14 tabs 08/12/23 tramadol 50 mg tablet 50 mg PO Q8H PRN pain #8 tabs 08/12/23 sulfamethoxazole 400 1 tab PO DAILY 30 days #30 tabs 08/17/23 mg-trimethoprim 80 mg tablet tamsulosin 0.4 mg capsule (Flomax) 0.4 mg PO BEDTIME #90 caps 10/04/23 bethanechol chloride 25 mg tablet 25 mg PO TID #90 tabs 11/02/23 tramadol 50 mg tablet 50 mg PO Q6H PRN pain #10 tabs 11/15/23 Allergies Allergy/AdvReac Type Severity Reaction Status Date / Time doxycycline Allergy Unknown redness Verified 11/15/23 05:32 and hives penicillin V Allergy Unknown anaphylaxis Verified 11/15/23 05:32 avoid cyclines AdvReac Unknown Unknown Uncoded 11/15/23 05:32 Review of Systems Review of Systems: Yes all other systems are reviewed and are negative PMF Past Medical History Medical History Hematuria of undiagnosed cause Frequency of urination High cholesterol Diabetes mellitus, type II Urgency incontinence History of UTI Surgical History History of surgery Social History Social History Unable to assess alcohol history related to: Unable to respond Alcohol intake: former Smoked in Last 30 Days: No Use of substances other than those prescribed or required for medical reasons: No Advance Directives Date on File: 02/22/23 Physical Exam ED Vital Signs: Vital Signs - 24 hr 11/15/23 05:33 Temperature 97.8 F Pulse Rate 63 Respiratory Rate 17 Blood Pressure 116/59 L Pulse Oximetry 96 Oxygen Delivery Method Room Air BMI result Body Mass Index 35.3 Vital signs were normal Exam General: Awake, alert in no distress, she is tearful, can not tell me why she is unable to move, she has not complaining of pain Head: Normocephalic, atraumatic EENT: PERRL, Lids normal, sclera normal, conjunctiva normal, nose normal , ears normal, throat without erythema or exudates Neck: Supple, no adenopathy, no trachea midline or C-spine tenderness Lung: breath sounds symmetric, no wheezing, rales or rhonchi Chest: symmetric movement, nontender Heart: regular rate and rhythm, normal S1, S2 no murmurs or rubs Abdomen: soft, non-tender, nondistended, normal bowel sounds Back: no vertebral tenderness, no CVAT Extremities: Patient has nonpitting edema to her lower extremities, right lower extremities larger than the left, patient has erythema to both lower extremities consistent with venous stasis dermatitis Neuro: Awake, alert, oriented, normal speech Medical Decision Making Medical Decision Making MDM Narrative: 83-year-old female with history of diabetes, coronary artery disease, CVA, chronic lower extremity swelling who presents to the emergency department for evaluation of right leg pain which I diagnosis chronic pain secondary to venous stasis disease and peripheral edema. Patient got improvement with tramadol 50 mg orally and was discharged home by ambulance but refused to get off the stretcher and was brought back to the emergency department. 06:02 Start physician observation I will get case management and physical therapy to see the patient to determine if rehab would be appropriate. There may be a component of dementia to the patient's presentation. This time I do not think that the patient needs any further workup and she is medically cleared for evaluation by case management and physical therapy. Discharge Plan Discharge Clinical Impression: Chronic leg pain, Peripheral edema Patient Disposition: Still a Patient Prescriptions: No Action sulfamethoxazole-trimethoprim 400-80 mg tablet 1 tab PO DAILY 30 Days Qty: 30 5RF tamsulosin [Flomax] 0.4 mg capsule 0.4 mg PO BEDTIME Qty: 90 1RF bethanechol chloride 25 mg tablet 25 mg PO TID Qty: 90 5RF tramadol 50 mg tablet 50 mg PO Q8H PRN (Reason: pain) Qty: 8 0RF furosemide [Lasix] 20 mg tablet 20 mg PO DAILY Qty: 14 0RF hydrochlorothiazide 25 mg tablet 25 mg PO DAILY cyanocobalamin (vitamin B-12) 1,000 mcg Tablet 1,000 mcg PO DAILY thiamine HCl (vitamin B1) 100 mg Tablet 100 mg PO DAILY ascorbic acid (vitamin C) [Vitamin C] 250 mg Tablet 250 mg PO DAILY insulin glargine [Basaglar KwikPen U-100 Insulin] 100 unit/mL (3 mL) insulin pen 20 unit subcut DAILY bupropion HCl 150 mg tablet extended release 24 hr 150 mg PO DAILY multivitamin Tablet 1 tab PO DAILY loperamide [Imodium A-D] 2 mg Tablet 1 mg PO Q8H PRN (Reason: Loose Stool) aspirin 81 mg Tablet,Delayed Release (Dr/Ec) 81 mg PO DAILY cholecalciferol (vitamin D3) [Vitamin D3] 25 mcg (1,000 unit) Tablet 25 mcg PO DAILY tramadol 50 mg tablet 50 mg PO Q6H PRN (Reason: pain) Qty: 10 0RF escitalopram oxalate 20 mg tablet 20 mg PO DAILY metoprolol succinate 100 mg tablet extended release 24 hr 100 mg PO DAILY simvastatin 40 mg tablet 40 mg PO BEDTIME (DME) OneTouch Verio test strips Strip See Rx Instructions Not Applicable BID Qty: 10 Rx Instructions: As directed Basaglar KwikPen U-100 Insulin 100 unit/mL (3 mL) insulin pen 10 unit subcut BEDTIME lisinopril 20 mg tablet 20 mg PO DAILY
--- NOTE | 2023-11-15 05:51 | PC.NURSE ---
pt biba from home after being discharged from [facility]. pt was at home and reported she was unable to get into get onto chair lift into house, pt reported bilateral lower leg pain and left arm pain and reported she wanted to go back to [facility]. upon arrival to ED, pt was tearful that she was weak. provider at bedside to discuss pt care. pt noted to have bilateral lower extremity redness and swelling.
--- NOTE | 2023-11-15 07:43 | PC.NURSE ---
this RN resumed care of pt at this time. vss and up to date. pt placed on the bed murillo/incontinent of urine. pt cleaned/provided w/ fresh linen and padding. erythema noted to entire buttocks. open sore noted to left side of buttocks. barrier cream applied to affected area. picture obtained/sent to provider. pt c/o 10/10 pain/tearful when being moved. pt repositioned to comfort. no sob/wob noted. respirations even and unlabored. call mathias placed within reach.
[2023-11-15 10:53] LABS: COVID-19 Test Negative (Negative); IDNOW Serial# 9DB6401D
--- NOTE | 2023-11-15 12:03 | PC.NURSE ---
report given to RN in overflow. will notify transport at this time.
--- NOTE | 2023-11-15 13:56 | PHA.MEDREC ---
Pharmacy Consult ? Medication Reconciliation Pharmacy has reviews the medication reconciliation completed by [facility].
[2023-11-15] MEDS: Escitalopram Oxalate 20 MG TABLET 40 MG PO (15:21)
[2023-11-15] MEDS: buPROPion HCl XL 150 MG TAB.ER.24H PO (15:21)
[2023-11-15] MEDS: hydroCHLOROthiazide 25 MG TABLET PO (15:21)
--- NOTE | 2023-11-15 15:34 | MHC.CM.ED ---
Received case management consult overnight. Patient was originally in the ER for leg pain. Patient has an extensive history of chronic leg edema and pain. Work up was unremarkable. Patient was d/c'd home. Patient refused to get off the stretcher once at home and returned to the ER. Work up again is negative. Physical therapy eval completed. Short term rehab is recommended. Attempted to meet with patient in regards to discharge planning. Patient sleeping at that time. Patient has not been inpatient in the past 30 days. Referrals made too all 3 local acute rehabs. No bed offers made at this time because it does not appear patient will be able to participate in 3 hours of therapy a day. Spoke with patient's , Alex, via telephone at [phone]. Patient lives with Alex. Active with [facility]. Patient was at [facility] in August. Alex requesting rehab at [facility]. T/W explained [facility] is not able to offer a bed because they don't feel patient would be able to participate in 3 hours of therapy a day. Alex agreeable to referral being broadcasted. [facility] would be first choice. Referral made via [facility]. Still waiting to hear from [facility]. [facility] is able to offer a bed. Alex wants to hear from [facility] before accepting bed at [facility]. Continue to monitor for d/c needs.
[2023-11-15] MEDS: lisinopriL 20 MG TABLET PO (16:23)
[2023-11-15] MEDS: Bethanechol Chloride 25 MG TABLET PO ×2 (16:23→21:51)
[2023-11-15] MEDS: Acetaminophen 325 MG TABLET 650 MG PO (16:23)
[2023-11-15 17:30] LABS: Glucose, Whole Blood 308 mg/dL (60-115)
--- NOTE | 2023-11-15 17:45 | PC.NURSE ---
POC of 308 given to provider Alberto GARCES. patient will be given Lantus at 2100.
--- NOTE | 2023-11-15 19:00 | MHC.EDTECH ---
Patient ate 100 % of dinner ,and drank 240 ml tea .
--- NOTE | 2023-11-15 20:51 | MHC.EDTECH ---
Addendum entered by Robi Oakes 11/15/23 23:27: right heel. Addendum entered by Robi Oakes 11/15/23 23:24: RN WAS MADE AWARE . Original Note: Patient was incontinent of urine ,bed bath given ,and bedding change ,Vitals taken ,blood sugar check RN aware of result of 369 ,While giving care to Patient this Pct notice very large Necrotic area on Patient left heel and open area on Patient right butt check ,Patient was reposition on her side with Pillows and heels was floated with Pillows ,Warm blanket given ,And call mathias within reach .
[2023-11-15 21:32] LABS: Glucose, Whole Blood 369 mg/dL (60-115)
[2023-11-15] MEDS: Insulin Glargine,Hum.rec.anlog 100 UNIT/ML 10 ML VIAL 25 UNIT SUBCUT (21:44)
[2023-11-15] MEDS: Atorvastatin Calcium 20 MG TABLET PO (21:44)
[2023-11-15] MEDS: Insulin Lispro 100 UNIT/ML 3 ML VIAL 10 UNIT SUBCUT (22:50)
--- NOTE | 2023-11-15 23:27 | PC.NURSE ---
certified veterinary technician and designer/writer while completing a bed-bath and repositioning patient noted a R heel necrotic wound PI with some purulent drainage Area cleansed with NS /covered with pink foam dsg-bilat feet offloaded with pillows, Stage 2 open wound to her L buttock no signs of infection, no drainage- barrier cream and pink foam dsg applied, pt incontinent of urine. PT tolerated well. [employer] Equipment Maintenance Supervisor did not see these wounds mentioned ED report. [employer] Equipment Maintenance Supervisor notified and tiger texted photos to Sandra Cui IMPREGNATOR, XR and labs ordered.
[2023-11-16 00:04] LABS: Basophils Percent Auto 0.3 % (0-2); Eosinophils Absolute Auto 0.2 X10*3/uL (0.0-0.4); Eosinophils Percent Auto 2.2 % (0-4); Hematocrit 31.1 % (37.0-47.0); Hemoglobin 10.1 g/dl (12.0-16.0); Imm Gran Abs Auto 0.02 X10*3/uL (0.00-0.03); Imm Gran Pct Auto 0.2 % (0.0-0.4); Lymphocytes Absolute Auto 3.4 X10*3/uL (1.2-4.9); MANUAL DIFF FLAG NO; Mean Corpuscular HGB Conc 32.5 g/dl (31.0-35.0); Mean Corpuscular Hemoglobin 31.6 pg (27.0-33.0); Mean Corpuscular Volume 97.2 fL (80.0-98.0); Mean Platelet Volume 10.5 fL (9.4-12.3); Monocytes Absolute Auto 0.9 X10*3/uL (0.1-1.2); Monocytes Percent Auto 10.5 % (2-11); Neutrophils Absolute Auto 4.3 x10*3/uL (2.0-8.3); Neutrophils Percent Auto 48.8 % (45-73); Platelet Count 195 X10*3/uL (160-400); Red Cell Distribution Width 13.2 % (11.0-16.0); White Blood Count 8.9 X10*3/uL (4.8-10.8)
[2023-11-16 00:17] LABS: Anion Gap 11 (12-20); Blood Urea Nitrogen 27 mg/dL (9-16); C Reactive Protein 2.08 mg/dL (< or = 0.50); Calcium 8.8 mg/dL (8.4-10.2); Carbon Dioxide 30 mmol/L (22-29); Chloride 103 mmol/L (96-108); Creatinine Clr Calc Pharmacy 46.7; Estimated Glomerular Filt Rate 51; Glucose Random 258 mg/dL (60-115); Potassium 3.6 mmol/L (3.3-5.1); Sodium 140 mmol/L (135-145)
--- NOTE | 2023-11-16 01:11 | P.HPHOSP_ITS ---
History of Present Illness Date of Service: 11/16/23 Chief Complaint: Right heel wound This is a 83-year-old female with pertinent history of mood disorder, urinary incontinence, essential hypertension, insulin-dependent diabetes mellitus, mixed hyperlipidemia who presents to the emergency department for evaluation of right foot pain. Patient was seen in the ER for right leg discomfort and was discharged home after venous duplex was negative for DVT and with a diagnosis chronic leg pain. Apparently patient refused to get off the stretcher due to right leg pain and was brought to the ER for re-evaluation. Patient was admitted as case management consulted for possible post acute care placement. Nurse noticed necrotic right heel wound with purulent foul-smelling drainage. Imaging was obtained which was concerning for osteomyelitis and hospital medicine team consulted for admission. Patient was given empiric antibiotics in the ER. Patient states she has had right heel wound for weeks which has been draining. Denies fever, chills, chest discomfort, palpitations, abdominal pain, changes in urinary or bowel habits. Review of Systems 2 Constitutional: Constitutional: Reports no additional constitutional complaints Cardiovascular: Cardiovascular: Reports no additional cardiovascular complaints Respiratory: Respiratory: Reports no additional respiratory complaints Gastrointestinal: Gastrointestinal: Reports no additional gastrointestinal complaints Genitourinary: Genitourinary: Reports no additional female genitourinary complaints Musculoskeletal: Musculoskeletal: Reports arthralgias PMFSH Medical History Hematuria of undiagnosed cause Frequency of urination High cholesterol Diabetes mellitus, type II Urgency incontinence History of UTI Pertinent family history: Not significant due to age Surgical History History of surgery Social History Unable to assess alcohol history related to: Unable to respond Alcohol intake: former Smoked in Last 30 Days: No Use of substances other than those prescribed or required for medical reasons: No Advance Directives: Yes Advance Directives on File: Yes Advance Directives Date on File: 02/22/23 Meds Allergies Allergy/AdvReac Type Severity Reaction Status Date / Time doxycycline Allergy Unknown redness Verified 11/15/23 05:32 and hives penicillin V Allergy Unknown anaphylaxis Verified 11/15/23 05:32 avoid cyclines AdvReac Unknown Unknown Uncoded 11/15/23 05:32 Active Medications: Current Medications Atorvastatin Calcium (Atorvastatin Calcium 20 Mg Tablet) 20 mg PO BEDTIME [facility] Last Admin: 11/15/23 21:44 Dose: 20 mg Bethanechol Chloride (Bethanechol Chloride 25 Mg Tablet) 25 mg PO TID [facility] Last Admin: 11/15/23 21:51 Dose: 25 mg Bupropion HCl (Bupropion Hcl Xl 150 Mg Tab.Er.24h) 150 mg PO DAILY [facility] Last Admin: 11/15/23 15:21 Dose: 150 mg Dextrose (Dextrose 50 % 25 Gm/50 Ml Syringe) 25 gm IVPUSH Q15M PRN; Protocol PRN Reason: per Hypoglycemia Standing Ord. Escitalopram Oxalate (Escitalopram Oxalate 20 Mg Tablet) 40 mg PO DAILY [facility] Last Admin: 11/15/23 15:21 Dose: 40 mg Glucose (Glucose Gel 15 Gm Gel..Gram.) 15 gm PO Q15M PRN; Protocol PRN Reason: per Hypoglycemia Standing Ord. Hydrochlorothiazide (Hydrochlorothiazide 25 Mg Tablet) 25 mg PO DAILY [facility]; Protocol Last Admin: 11/15/23 15:21 Dose: 25 mg Ceftriaxone Sodium 2 gm/ (Sodium Chloride) 50 mls @ 100 mls/hr IV ONCE ONE Stop: 11/16/23 01:19 Vancomycin HCl (Vancomycin/Ns) 2,000 mg in 520 mls @ 250 mls/hr IV ONCE ONE Stop: 11/16/23 03:14 Insulin Glargine (Insulin Glargine,Hum.Rec.Anlog 100 Unit/Ml 10 Ml Vial) 30 unit SUBCUT DAILY [facility] Insulin Glargine (Insulin Glargine,Hum.Rec.Anlog 100 Unit/Ml 10 Ml Vial) 25 unit SUBCUT BEDTIME [facility] Last Admin: 11/15/23 21:44 Dose: 25 unit Insulin Human Lispro (Insulin Lispro 100 Unit/Ml 3 Ml Vial) 0 unit SUBCUT QIDACHS [facility]; Protocol Lisinopril (Lisinopril 20 Mg Tablet) 20 mg PO DAILY [facility]; Protocol Last Admin: 11/15/23 16:23 Dose: 20 mg Metoprolol Succinate (Metoprolol Succinate Er 100 Mg Tab.Er.24h) 100 mg PO DAILY [facility]; Protocol Pharmacy Consult (Consult Rx Vancomycin Dosing) 1 each MISCELLANE DAILY PRN PRN Reason: Consult order Home Medications Medication Instructions Recorded Confirmed Last Taken Type blood sugar diagnostic #10 ea 10/28/20 08/21/23 08/21/23 09:00 History escitalopram oxalate 20 mg tablet 40 mg PO DAILY 10/28/20 11/15/23 08/21/23 09:00 History metoprolol succinate 100 mg 100 mg PO DAILY 10/28/20 11/15/23 08/21/23 09:00 History tablet,extended release 24 hr simvastatin 40 mg tablet 40 mg PO BEDTIME 10/28/20 11/15/23 08/20/23 History lisinopril 20 mg tablet 20 mg PO DAILY 02/18/23 11/15/23 08/21/23 09:00 History bupropion HCl 150 mg 24 hr tablet, 150 mg PO DAILY 02/21/23 11/15/23 08/21/23 09:00 History extended release hydrochlorothiazide 25 mg tablet 25 mg PO DAILY 08/21/23 11/15/23 08/21/23 09:00 History insulin glargine 100 unit/mL (3 See Rx Instructions .Route .COMPLEX 11/15/23 11/15/23 Unknown History mL) subcutaneous pen (Basaglar KwikPen U-100 Insulin) pen needle, diabetic 31 gauge x 11/15/23 11/15/23 Unknown History 03/02 (BD Ultra-Fine Short Pen Needle) Physical Exam 2 Vital Signs and Narrative: Vital Signs: Last Vital Signs Temp 98.2 F 11/15/23 20:25 Pulse 74 11/15/23 20:25 Resp 16 11/15/23 20:25 BP 142/68 H 11/15/23 20:25 Pulse Ox 97 11/15/23 20:25 O2 Del Method Room Air 11/15/23 20:25 BMI result Body Mass Index 35.3 Elderly female lying in bed in no distress Neck supple, no JVD Regular rate and rhythm, S1-S2 heard Regular breath sounds bilaterally, no wheezing or crackles appreciated Abdomen soft nontender, no guarding, no rigidity Patient is awake, alert and oriented to self, place, time and person ; no focal motor deficit Skin: Right heel as imaged below ; stage II sacral decubitus Psych: Normal mood No pedal edema Skin: Other: Results Labs 11/15/23 23:56 11/15/23 23:56 Labs: Laboratory Results - last 24 hr 11/15/23 11/15/23 11/15/23 10:29 17:24 20:52 MCV MCH MCHC RDW Plt Count MPV Immature Gran % (Auto) Neut % (Auto) Lymph % (Auto) Wilkinson % (Auto) Eos % (Auto) Baso % (Auto) Lymph # (Auto) Wilkinson # (Auto) Eos # (Auto) Baso # (Auto) Abs Immat Gran (auto) Absolute Neuts (auto) Absolute Nucleated RBC Nucleated RBC % (auto) Anion Gap Estim Creat Clear Calc Estimated GFR POC Glucose 308 H 369 H* Random Glucose Calcium C-Reactive Protein COVID-19 ([facility]NE) Negative COVID-19 Clin Com See Note 11/15/23 23:56 MCV 97.2 MCH 31.6 MCHC 32.5 RDW 13.2 Plt Count 195 MPV 10.5 Immature Gran % (Auto) 0.2 Neut % (Auto) 48.8 Lymph % (Auto) 38.0 Wilkinson % (Auto) 10.5 Eos % (Auto) 2.2 Baso % (Auto) 0.3 Lymph # (Auto) 3.4 Wilkinson # (Auto) 0.9 Eos # (Auto) 0.2 Baso # (Auto) 0.0 Abs Immat Gran (auto) 0.02 Absolute Neuts (auto) 4.3 Absolute Nucleated RBC 0.000 Nucleated RBC % (auto) 0.0 Anion Gap 11 L Estim Creat Clear Calc 46.7 Estimated GFR 51 POC Glucose Random Glucose 258 H Calcium 8.8 C-Reactive Protein 2.08 H COVID-19 ([facility]NE) COVID-19 Clin Com Imaging Radiologist's Impressions: Impressions Foot X-Ray 11/15/23 23:13 IMPRESSION: 1. Soft tissue wound at the posterior aspect of the calcaneal tuberosity with underlying osteopenia, raising the possibility of osteomyelitis. Consider correlation with MRI of the foot with and without contrast for further assessment. 2. Diffuse soft tissue swelling and subcutaneous edema at the foot and ankle. Assessment and Plan (1) Cellulitis: Status: Acute Plan This is a 83-year-old female with pertinent history of mood disorder, urinary incontinence, essential hypertension, insulin-dependent diabetes mellitus, mixed hyperlipidemia who presents to the emergency department for evaluation of right foot pain. #. Right foot purulent cellulitis with imaging concerning for osteomyelitis: Will admit patient and initiate empiric IV antibiotics. Ordered MRI to delineate the anatomy. Consulting General surgery for possible debridement. #. Insulin-dependent diabetes mellitus with hyperglycemia: On basal plus insulin regimen. Titrate #. Mood disorder: Continue home mood stabilizers #. Mixed hyperlipidemia: On statin #. Stage II sacral decubitus: Consulting Wound Care #. Essential hypertension: On hydrochlorothiazide, metoprolol and lisinopril #. Normocytic Anemia of chronic disease: Hemoglobin above transfusion threshold DVT prophylaxis: Lovenox Full code Admit as inpatient and will require two night minimum hospital stay for IV antibiotics (as above), which is not possible in a lesser acute setting. Quality Stroke Does the patient have a stroke diagnosis?: No VTE Prior VTE?: No VTE Risk Level:: Medical - moderate - high VTE Device Contraindication: Treatment Not Indicated VTE Drug Contraindication: N/A - Med Ordered
[2023-11-16] MEDS: cefEPime HCl 2 GM in 0.9 % Sodium Chloride 50 ML IV ×2 (01:44→13:40)
[2023-11-16 01:57] LABS: Erythrocyte Sedimentation Rate 28 MM/HR (0-20)
--- OUTSIDE RECORDS SUMMARY | 2023-11-16 03:02 | XMS_ITS | Patient Health Record ---
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 Name Role Phone BELKIS PIERSON Primary Care Provider [place] Unavailable [phone] ALLERGIES Allergen (clinical drug ingredient) Drug/Non Drug Allergy documented on EMR Reaction Allergy Type Onset Date Status cyclinnes (uncoded) Unknown Allergy Active pcn (uncoded) Unknown Allergy Active REASON FOR REFERRAL No Information MEDICATIONS Medication SIG (Take, Route, Frequency, Duration) Notes Start Date End Date Status Vitamin D 1000 UNIT 1 tablet Orally Once a day for 30 day(s) Active BD Pen Needle Short U/F 31G X 8 MM as directed in vitro twice daily for 30 days Active Aspirin 325 MG 1 tablet Orally Once a day for 30 day(s) Active Simvastatin 40 MG TAKE 1 TABLET BY MATT TH EVERY DAY for 90 Active Lisinopril 20 MG 1 tablet Orally Once a day for 90 days Active Bethanechol Chloride 25 MG Oral for 30 Active Lasix 20 MG 1 tablet Orally Once a day for 90 days Active Tamsulosin HCl 0.4 MG 1 capsule Orally O nce a day for 30 days Active Basaglar KwikPen 100 UNIT/ML INJECT 30 U NITS IN THE AM AND 25 UNITS IN THE PM TWICE A DAILY for 81 Active Metoprolol Succinate ER 100 MG TAKE 1 TA BLET BY MOUTH EVERY DAY for 90 Active OneTouch Verio - USE ONE TEST STRIP T O CHECK BLOOD SUGAR FOR DIABETES In Vitro twice daily for 90 days Active Escitalopram Oxalate 20 MG TAKE 2 TABLET S BY MOUTH EVERY DAY for 90 Active Santyl 250 UNIT/GM 1 application Externally Once a day for 30 days 10/20/2023 Active OneTouch Verio Flex System w/Device USE GLUCOMETER TO CHECK BLOOD SUGAR FOR DIABETES for 30 days 09/29/2023 Active Ciprofloxacin HCl 500 MG 1 tablet Orally Twice a day for 7 day(s) 03/19/2023 Active hydroCHLOROthiazide 25 MG TAKE 1 TABLET BY MOUTH EVERY DAY for 30 days Active Lantus 100 UNIT/ML Subcutaneous for 28 Active buPROPion HCl ER (XL) 150 MG TAKE 1 TABL ET BY MOUTH EVERY DAY IN THE MORNING for 90 Active IMMUNIZATIONS Vaccine Route Administration Date Status Comme [facility] Pfizer Covid-19 Vaccine Unknown 02/05/2021 Administered SOCIAL HISTORY Tobacco Use: Social History Observation Description Date Details (start date - stop date) Never Smoker NA - NA Sex Assigned At : Social History Observation Description Sex Assigned At Unknown Tobacco Use/Smoking Question Answer Notes Are you a nonsmoker PROBLEMS Problem Type ICD Code Onset Dates Problem Status W/U Status Risk SNOMED Code Notes Problem Type 1 diabetes mellitus with diabetic polyneuropathy (E10.42) Active confirmed Polyneuropathy due to diabetes mellitus type I (855438588) Problem Type 2 diabetes mellitus without 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s (E11.9) Active confirmed Type II diabete s mellitus without 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 (845393997) Problem Vitamin D deficiency, unspecified (E55.9) Active confirmed 09316325 Problem Hyperlipidemia, unspecified (E78.5) Active confirmed Hyperlipidemia (96834745) Problem Major depressive disorder, single episode, unspecified (F32.9) Active confirmed Major depressio n, single episode (69765830) Problem Essential (primary) hypertension (I10) Active confirmed 41827082 Problem Atherosclerotic heart disease of [place] coronary artery without angina pectoris (I25.10) Active confirmed Atherosclerotic heart disease of [place] coronary artery without angina pectoris (680325124356123) Problem Cerebral infarction, unspecified (I63.9) Active confirmed Cerebral infarction (154144781) Problem Other hammer toe(s) (acquired), right foot (M20.41) Active confirmed Acquired hammer toe of right foot (9130518804939555 ) Problem Other hammer toe(s) (acquired), left foot (M20.42) Active confirmed Acquired hammer toe of left foot (9208096708430527 ) Problem Chronic kidney disease, unspecified (N18.9) Active confirmed 699550148 Problem Encounter for general adult medical examination without abnormal findings (Z00.00) Active confirmed 819808732 Problem Body mass index (BMI) 33.0-33.9, adult (Z68.33) Active confirmed Body mass ind ex 30.00 to 34.99 (170582105593128) Problem Type 2 diabetes mellitus with 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, unspecified whether prison insulin use (E11.8) Active confirmed Disorder due to type 2 diabetes mellitus (203612863) Problem Hypothyroidism, unspecified type (E03.9) Active confirmed Hypothyroidism (42540045) Problem Type 2 diabetes mellitus without 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, 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 (E11.9) Active confirmed 283354995 Problem Stage 3a chronic kidney disease (N18.31) Active confirmed Chronic kidney disease stage 3A (614959121) VITAL SIGNS Heart Rate 63 /min 03/17/2023 Wheelchair boun d Oximetry 97 % 03/17/2023 Wheelchair boun d Blood pressure diastolic 78 mm Hg 03/17/2023 Whe elchair bound Height 63 in 03/17/2023 Wheelchair boun d Blood pressure systolic 134 mm Hg 03/17/2023 Whee lchair bound Weight 203 lbs 12/30/2022 BMI 35.96 kg/m2 12/30/2022 Encounters Encounter Location Date Provider Diagnosis [address] [address] 12/16/2022 [place] Hyperlipidemia, unspecified E78.5 ; Stage 3a chronic kidney disease N18.31 ; Atherosclerotic heart disease of [place] coronary artery without angina pectoris I25.10 ; Type 2 diabetes mellitus without 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, unspecified whether prison insulin use E11.9 and Vitamin D deficiency, unspecified E55.9 [address] [facility] [address] [place] [address] 03/10/2023 [place] Hyperlipidemia, unspecified E78.5 ; Essential (primary) hypertension I10 ; Stage 3a chronic kidney disease N18.31 ; Atherosclerotic heart disease of [place] coronary artery without angina pectoris I25.10 ; Type 2 diabetes mellitus without 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, 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 E11.9 and Vitamin D deficiency, unspecified E55.9 [address] [facility] [address] [place] [address] 05/06/2023 [place] [address] [facility] [address] [place], [place] 07/14/2023 [place] Essential (primary) hypertension I10 ; Encounter for general adult medical examination without abnormal findings Z00.00 ; Hyperlipidemia, unspecified E78.5 ; Stage 3a chronic kidney disease N18.31 ; Atherosclerotic heart disease of [place] coronary artery without angina pectoris I25.10 ; Type 2 diabetes mellitus without 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, unspecified whether prison insulin use E11.9 ; Vitamin D deficiency, unspecified E55.9 ; Major depressive disorder, single episode, unspecified F32.9 ; Physical deconditioning R53.81 ; Encounter for screening for depression Z13.31 and Encounter for screening for other disorder Z13.89 [facility] [address] 11/15/2023 [place] Physical decondition ing R53.81 ; Annual physical exam Z00.00 ; Essential (primary) hypertension I10 ; Hyperlipidemia, unspecified E78.5 ; Stage 3a chronic kidney disease N18.31 ; Atherosclerotic heart disease of [place] coronary artery without angina pectoris I25.10 ; Type 2 diabetes mellitus without 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, 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 E11.9 ; Vitamin D deficiency, unspecified E55.9 ; Major depressive disorder, single episode, unspecified F32.9 ; Encounter for screening for depression Z13.31 and Encounter for screening for other disorder Z13.89 [address] 12/30/2022 [place] Hyperlipidemia, unspecified E78.5 ; Essential (primary) hypertension I10 ; Stage 3a chronic kidney disease N18.31 ; Atherosclerotic heart disease of [place] coronary artery without angina pectoris I25.10 ; Type 2 diabetes mellitus without 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, 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 E11.9 and Vitamin D deficiency, unspecified E55.9 [address] 03/17/2023 [place] Acute cystitis witho ut hematuria N30.00 ; Acute kidney failure, unspecified N17.9 ; Chronic kidney disease, unspecified N18.9 ; Physical deconditioning R53.81 ; Type 2 diabetes mellitus without 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s E11.9 ; Hyperlipidemia, unspecified E78.5 ; Vitamin D deficiency, unspecified E55.9 and Stage 3a chronic kidney disease N18.[address] [facility] [address] [facility] [address] [place] [address] 10/12/2023 [facility] Essential (primary) hypertension I10 ; Physical deconditioning R53.81 ; Hyperlipidemia, unspecified E78.5 ; Stage 3a chronic kidney disease N18.31 ; Atherosclerotic heart disease of [place] coronary artery without angina pectoris I25.10 ; Type 2 diabetes mellitus without 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, unspecified whether prison insulin use E11.9 ; Vitamin D deficiency, unspecified E55.9 and Major depressive disorder, single episode, unspecified F32.[address] [facility] [address] [place] [address] 12/11/2022 TALAL PIERSON [address] [facility] [address] [place] [address] 12/28/2022 [facility] [address] [place] [address] 01/29/2023 TALAL PIERSON [address] [facility] [address] [place] [address] 03/11/[address] [facility] [address] [place] [address] 03/17/[address] [facility] [address] [place] [address] 03/19/[address] [facility] [address] [place] [address] 05/10/[address] [facility] [address] [place] [address] 06/11/[address] [facility] [address] [place] [address] 07/16/[address] [facility] [address] [place] [address] 07/28/2023 TALAL PIERSON [facility] [address] [facility] [address] [place] [address] 09/16/2023 [place] [address] [facility] [address] [place] [address] 09/29/[address] [facility] [address] [place] [address] 10/19/[address] [address] [address] [place] [address] 10/25/[address] [facility] [address] [place] [address] 10/27/2023 BELKIS PIERSON [address] [address] 10/27/[address] [address] [place] [address] 11/09/2023 PORSCHEKEHINDE PIERSON ASSESSMENTS Encounter Date Diagnosis Assessment Notes Treatment Notes Treatment Clinical Notes 12/16/2022 Hyperlipidemia, unspecified (ICD-10 - E78.5) 12/30/2022 Hyperlipidemia, unspecified (ICD-10 - E78.5) 12/30/2022 Essential (primary) hypertension (ICD-10 - I10) 03/10/2023 Hyperlipidemia, unspecified (ICD-10 - E78.5) 03/17/2023 Acute kidney failure , unspecified (ICD-10 - N17.9) 03/17/2023 Acute cystitis witho ut hematuria (ICD-10 - N30.00) 07/14/2023 Essential (primary) hypertension (ICD-10 - I10) 07/14/2023 Encounter for genera l adult medical examination without abnormal findings (ICD-10 - Z00.00) 10/12/2023 Essential (primary) hypertension (ICD-10 - I10) 10/12/2023 Physical deconditioning (ICD-10 - R53.81) 11/15/2023 Annual physical exam (ICD-10 - Z00.00) 11/15/2023 Physical deconditioning (ICD-10 - R53.81) 11/15/2023 Essential (primary) hypertension (ICD-10 - I10) 10/12/2023 Hyperlipidemia, unspecified (ICD-10 - E78.5) 07/14/2023 Hyperlipidemia, unspecified (ICD-10 - E78.5) 03/17/2023 Chronic kidney disease, unspecified (ICD-10 - N18.9) 03/10/2023 Essential (primary) hypertension (ICD-10 - I10) 12/16/2022 Stage 3a chronic kidney disease (ICD-10 - N18.31) 12/30/2022 Stage 3a chronic kidney disease (ICD-10 - N18.31) 12/16/2022 Atherosclerotic hear t disease of [place] coronary artery without angina pectoris (ICD-10 - I25.10) 12/30/2022 Atherosclerotic hear t disease of [place] coronary artery without angina pectoris (ICD-10 - I25.10) 03/10/2023 Stage 3a chronic kidney disease (ICD-10 - N18.31) 03/17/2023 Physical deconditioning (ICD-10 - R53.81) 11/15/2023 Hyperlipidemia, unspecified (ICD-10 - E78.5) 07/14/2023 Stage 3a chronic kidney disease (ICD-10 - N18.31) 10/12/2023 Stage 3a chronic kidney disease (ICD-10 - N18.31) 11/15/2023 Stage 3a chronic kidney disease (ICD-10 - N18.31) 10/12/2023 Atherosclerotic hear t disease of [place] coronary artery without angina pectoris (ICD-10 - I25.10) 07/14/2023 Atherosclerotic hear t disease of [place] coronary artery without angina pectoris (ICD-10 - I25.10) 03/10/2023 Atherosclerotic hear t disease of [place] coronary artery without angina pectoris (ICD-10 - I25.10) 12/30/2022 Type 2 diabetes mellitus without 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, 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 (ICD-10 - E11.9) 12/16/2022 Type 2 diabetes mellitus without 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, 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 (ICD-10 - E11.9) 12/16/2022 Vitamin D deficiency , unspecified (ICD-10 - E55.9) 12/30/2022 Vitamin D deficiency , unspecified (ICD-10 - E55.9) 03/10/2023 Type 2 diabetes mellitus without 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, 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 (ICD-10 - E11.9) 03/17/2023 Type 2 diabetes mellitus without 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s (ICD-10 - E11.9) 10/12/2023 Type 2 diabetes mellitus without 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, 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 (ICD-10 - E11.9) 07/14/2023 Type 2 diabetes mellitus without 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, 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 (ICD-10 - E11.9) 11/15/2023 Atherosclerotic hear t disease of [place] coronary artery without angina pectoris (ICD-10 - I25.10) 11/15/2023 Type 2 diabetes mellitus without 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, 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 (ICD-10 - E11.9) 10/12/2023 Vitamin D deficiency , unspecified (ICD-10 - E55.9) 03/17/2023 Hyperlipidemia, unspecified (ICD-10 - E78.5) 07/14/2023 Vitamin D deficiency , unspecified (ICD-10 - E55.9) 03/10/2023 Vitamin D deficiency , unspecified (ICD-10 - E55.9) 07/14/2023 Major depressive disorder, single episode, unspecified (ICD-10 - F32.9) 03/17/2023 Vitamin D deficiency , unspecified (ICD-10 - E55.9) 10/12/2023 Major depressive disorder, single episode, unspecified (ICD-10 - F32.9) 11/15/2023 Vitamin D deficiency , unspecified (ICD-10 - E55.9) 11/15/2023 Major depressive disorder, single episode, unspecified (ICD-10 - F32.9) 07/14/2023 Physical deconditioning (ICD-10 - R53.81) 03/17/2023 Stage 3a chronic kidney disease (ICD-10 - N18.31) 07/14/2023 Encounter for screening for depression (ICD-10 - Z13.31) 11/15/2023 Encounter for screening for depression (ICD-10 - Z13.31) 11/15/2023 Encounter for screening for other disorder (ICD-10 - Z13.89) 07/14/2023 Encounter for screening for other disorder (ICD-10 - Z13.89) PLAN OF TREATMENT Pending Test Test Name Order Date Hemoglobin A1c 08/08/2019 Hemoglobin A1c 03/23/2019 Vitamin D, 1,25 Dihydroxy 03/23/2019 Microalb/Creat Ratio, Randm Ur 8 TSH+Free T4 03/23/2019 Lipid Panel 03/23/2019 Lipid Panel 11/23/2017 Comp. Metabolic Panel (14) 08/08/2019 Comp. Metabolic Panel (14) 03/23/2019 Comp. Metabolic Panel (14) 11/23/2017 CBC 08/08/2019 CBC 03/23/2019 CBC 11/23/2017 Urinalysis 03/23/2019 25OH VITAMIN D 2022 25OH VITAMIN D 08/08/2019 BASIC METABOLIC PANEL 09/22/2021 CBC (COMPLETE BLOOD COUNT) 01/27/2021 CBC (COMPLETE BLOOD COUNT) 07/02/2020 CBC (COMPLETE BLOOD COUNT) 10/29/2020 CBC (COMPLETE BLOOD COUNT) 07/18/2018 CBC (COMPLETE BLOOD COUNT) 2022 COMPREHENSIVE METABOLIC PANEL 2022 COMPREHENSIVE METABOLIC PANEL 07/18/2018 COMPREHENSIVE METABOLIC PANEL 07/02/2020 COMPREHENSIVE METABOLIC PANEL 11/21/2018 COMPREHENSIVE METABOLIC PANEL 01/27/2021 COMPREHENSIVE METABOLIC PANEL 10/29/2020 HEMOGLOBIN A1C 10/29/2020 HEMOGLOBIN A1C 01/27/2021 HEMOGLOBIN A1C 09/22/2021 HEMOGLOBIN A1C 2022 HEMOGLOBIN A1C 07/02/2020 HEMOGLOBIN A1C 11/21/2018 HEMOGLOBIN A1C 11/23/2017 HEMOGLOBIN A1C 07/18/2018 LIPID PANEL 07/18/2018 LIPID PANEL 07/02/2020 LIPID PANEL 01/27/2021 LIPID PANEL 10/29/2020 LIPID PANEL 2022 TSH 2022 URINALYSIS, COMPLETE 10/29/2020 URINALYSIS, COMPLETE 07/02/2020 LIPID PANEL, STANDARD 06/24/2022 COMPREHENSIVE METABOLIC PANEL 06/24/2022 BASIC METABOLIC PANEL 10/28/2021 MAGNESIUM 10/28/2021 PHOSPHATE ( PHOSPHORUS) 10/28/2021 CBC (INCLUDES DIFF/PLT) 06/24/2022 URINALYSIS, COMPLETE 06/24/2022 HEMOGLOBIN A1c 06/24/2022 TSH 06/24/2022 VITAMIN D,25-OH,TOTAL,IA 06/24/2022 COMPLETE URINALYSIS 2022 COMPLETE URINALYSIS 01/27/2021 Future Test Test Name Order Date CBC (COMPLETE BLOOD COUNT) 10/16/2021 COMPREHENSIVE METABOLIC PANEL 10/16/2021 HEMOGLOBIN A1C 10/16/2021 LIPID PANEL 10/16/2021 COMPLETE URINALYSIS 10/16/2021 25OH VITAMIN D 07/12/2023 CBC (COMPLETE BLOOD COUNT) WITH DIFF COMPREHENSIVE METABOLIC PANEL 07/12/2023 HEMOGLOBIN A1C 07/12/2023 LIPID PANEL 07/12/2023 TSH WITH REFLEX TO FT4 07/12/2023 URINALYSIS W/REFLEX CULTURE 07/12/2023 VITAMIN B12 07/12/2023 Insurance Providers Payer Name Payer Address Payer Phone Subscriber Number Group Number Insured Name Patient Relationship to Insured Coverage Start Date Coverage End Date Medicare Part B J14 [address] [place] [id number] NICKO SORTO Self - patient is the insured 4 [facility] [address] [place] [address] [id number] NICKO SORTO Self - patient is the insured MEDICAL (GENERAL) HISTORY Medical History History ICD Code hyperlipidemia hypertension depression diabetes mellitus obesity vitamin D deficiency Surgical History Surgery Date(Month/Year) cabg colonoscopy 7 years ago
--- OUTSIDE RECORDS SUMMARY | 2023-11-16 03:02 | XMS_ITS | Patient Health Record ---
Author Name Unknown [facility] Address [address] [facility] [address] Care Team Providers Care Analytical Sciences Director Name Role Phone Krystal Jay Primary Care Provider Petr Whalen Unavailable [phone] Jarek Cat Unavailable [phone] ALLERGIES Allergen (clinical drug ingredient) Drug/Non Drug Allergy documented on EMR Reaction Allergy Type Onset Date Status Doxycycline (Rosacea) rash Drug Allergy Active Penicillin difficulty breathing Drug Allergy Active RESULTS Component Value Reference Range Notes HEMOGLOBIN A1C (GLYCOHEMOGLO BIN) Reviewed date:05/05/2023 09:58:31 AM Interpretation: Performing Lab: Notes/Report: TOTAL HEMOGLOBIN (HGBA1C) HEMOGLOBIN A1C (HH) HEMOGLOBIN A1C % (HH) 7.3 ESTIMATED AVG GLUCOSE REASON FOR REFERRAL No Information MEDICATIONS Medication SIG (Take, Route, Frequency, Duration) Notes Start Date End Date Status Vitamin D 5000 Activ e Lantus Active Metoprolol Succinate ER Active Simvastatin Active Escitalopram Oxalate Active metFORMIN HCl 500 mg twice a day Not-Taking Azithromycin 250 MG 2 tablets on the day, then 1 tablet daily for 4 days Orally Once a day for 5 day(s) 06/30/2023 Active Lisinopril-hydroCHLOROthi azide Active Wellbutrin Not-Takin g buPROPion HCl ER (XL) Active Basaglar KwikPen Not -Taking Aspir-81 Active Sulfamethoxazole-Trimetho prim Not-Taking Jardiance 25 MG 1 tablet Orally Once a day for 30 day(s) Active Melatonin Active amLODIPine Besylate Not-Taking Tylenol Active Lexapro Not-Taking SOCIAL HISTORY Tobacco Use: Social History Observation Description Date Details (start date - stop date) Former Smoker NA - NA Sex Assigned At : Social History Observation Description Sex Assigned At Unknown Tobacco Use/Smoking Question Answer Notes Are you a: former smoker When did you stop smoking? 30 yrs ago Additional Findings: Tobacco Non-User Current no n-smoker Alcohol Screen Question Answer Notes Did you have a drink contain ing alcohol in the past year? Yes How often did you have a dri nk containing alcohol in the past year? Monthly or less (1 point) How many drinks did you have on a typical day when you were drinking in the past year? 1 or 2 drinks (0 point) How often did you have 6 or more drinks on one occasion in the past year? Never (0 point) Points 1 Interpretation Negative Tobacco use other than smoking: Question Answer Notes Are you an other tobacco user? No PROBLEMS Problem Type ICD Code Onset Dates Problem Status W/U Status Risk SNOMED Code Notes Problem Other hammer toe(s) (acquired), right foot (M20.41) Active confirmed Acquired hamme r toe of right foot (3479087320452908 ) Problem Other hammer toe(s) (acquired), left foot (M20.42) Active confirmed Acquired hamme r toe of left foot (4539404526203266 ) Problem Type 1 diabetes mellitus with diabetic polyneuropathy (E10.42) Active confirmed Polyneuropathy due to diabetes mellitus type I (030727660) VITAL SIGNS Height 5 ft 5 in in 06/30/2023 Weight 208 lbs 06/30/2023 BMI 34.61 kg/m2 06/30/2023 PROCEDURES Procedure Date Ordered Date Performed Result Body Sit e 63080-HYTVIJR NAIL, 6 OR MORE 05/05/2023 N/A 83396-Jeiqvquv Plate 05/05/2023 N/A 06023-NDVR SKIN LESIONS, OVER 4 05/05/2023 N/A Encounters Encounter Location Date Provider [facility] [address] [address] 12/16/2022 Petr Nuno [facility] [place] [address] [address] 12/16/2022 [facility] [address] [address] 03/16/2023 Petr Nurys [facility] [place] [address] [address] [facility] [address] [address] 05/05/2023 [facility] [address] [place] [address] 05/05/2023 Petr Nuno Type 1 diabetes mellitus with diabetic polyneuropathy E10.42 ; Tinea unguium B35.1 ; Ingrown nail L60.0 ; Other hammer toe(s) (acquired), right foot M20.41 and Other hammer toe(s) (acquired), left foot M20.[address] [address] 06/28/[address] [address] 06/30/2023 Petr Nuno Cellulitis of toe of right foot L03.031 ; Type 1 diabetes mellitus with diabetic polyneuropathy E10.42 and Puncture wound without foreign body of right lesser toe(s) without damage to nail, initial encounter S91.134A [facility] [address] [place] [address] 08/11/[address] [address] 08/12/[address] [address] 08/12/[address] [address] [facility] [address] 10/29/2023 Jarek Cat ASSESSMENTS Encounter Date Diagnosis Assessment Notes Treatment Notes Treatment Clinical Notes 05/05/2023 Tinea unguium (ICD-1 0 - B35.1) 05/05/2023 Type 1 diabetes mellitus with diabetic polyneuropathy (ICD-10 - E10.42) 06/30/2023 Type 1 diabetes mellitus with diabetic polyneuropathy (ICD-10 - E10.42) 06/30/2023 Cellulitis of toe of right foot (ICD-10 - L03.031) 06/30/2023 Puncture wound without foreign body of right lesser toe(s) without damage to nail, initial encounter (ICD9-CM - S91.134A) 05/05/2023 Ingrown nail (ICD-10 - L60.0) 05/05/2023 Other hammer toe(s) (acquired), right foot (ICD-10 - M20.41) Patient Educated with: DIABETIC FOOT CARE INSTRUCTIONS.pdf (DIABETIC FOOT CARE INSTRUCTIONS.pdf ) 05/05/2023 Other hammer toe(s) (acquired), left foot (ICD-10 - M20.42) PLAN OF TREATMENT Pending Test Test Name Order Date 36279-FXTKRFV NAIL, 6 OR MORE 07/15/2011 59698-JAYUZQA NAIL, 6 OR MORE 10/07/2011 57199-MRBNBCH NAIL, 6 OR MORE 01/04/2012 62582-LNYRDOW NAIL, 6 OR MORE 04/07/2012 05568-HWCXJTH NAIL, 6 OR MORE 07/06/2012 32203-MLQHXUO NAIL, 6 OR MORE 10/05/2012 73481-QCAZBDG NAIL, 6 OR MORE 01/04/2013 62808-NCOTRVX NAIL, 6 OR MORE 04/05/2013 35936-YFLKSBI NAIL, 6 OR MORE 07/03/2013 40316-HAYHHZX NAIL, 6 OR MORE 10/02/2013 13901-OEWCTQT NAIL, 6 OR MORE 05/28/2014 26346-YRMPAWS NAIL, 6 OR MORE 01/18/2014 48886-QZGFECD NAIL, 6 OR MORE 05/14/2014 09974-FWGIFDK NAIL, 6 OR MORE 09/06/2014 15317-PRVROWN NAIL, 6 OR MORE 01/14/2015 64012-TIYRGYQ NAIL, 6 OR MORE 04/15/2015 68926-AHJEXLK NAIL, 6 OR MORE 07/15/2015 33583-ECEEWBG NAIL, 6 OR MORE 01/30/2016 38386-RDWDXHK NAIL, 6 OR MORE 05/04/2016 24333-QIMEVPH NAIL, 6 OR MORE 08/03/2016 96625-OVAEQRP NAIL, 6 OR MORE 11/04/2016 27788-HZEQVPF NAIL, 6 OR MORE 02/08/2017 58578-RGTYHYN NAIL, 6 OR MORE 05/10/2017 10623-AQBNIVA NAIL, 6 OR MORE 08/09/2017 73920-APKHJWZ NAIL, 6 OR MORE 11/08/2017 08930-FSHFIXM NAIL, 6 OR MORE 02/14/2018 14205-NKDJSUG NAIL, 6 OR MORE 07/20/2018 88538-DLRDWVX NAIL, 6 OR MORE 10/31/2018 58666-ZFDBDNV NAIL, 6 OR MORE 01/09/2019 59044-WIOVCDX NAIL, 6 OR MORE 04/05/2019 56651-GTAEJXS NAIL, 6 OR MORE 06/26/2019 91395-GPESCMI NAIL, 6 OR MORE 09/04/2019 73049-SIHYZED NAIL, 6 OR MORE 11/13/2019 46516-YXXBTOG NAIL, 6 OR MORE 03/20/2020 26535-QFVIUBE NAIL, 6 OR MORE 06/05/2020 16178-CHKXIGD NAIL, 6 OR MORE 08/26/2020 50481-PIXGSQE NAIL, 6 OR MORE 11/06/2020 65916-QASBPLK NAIL, 6 OR MORE 01/15/2021 82820-VKYVKUK NAIL, 6 OR MORE 03/31/2021 67032-KXUMHLT NAIL, 6 OR MORE 08/25/2021 74026-UEIFSKE NAIL, 6 OR MORE 12/29/2021 00634-YSWPMCE NAIL, 6 OR MORE 03/02/2022 31726-ZGJHQWH NAIL, 6 OR MORE 05/13/2022 02304-EIQTPPX NAIL, 6 OR MORE 07/22/2022 48569-FXCHMZJ NAIL, 6 OR MORE 10/07/2022 89251-GLIQUNE NAIL, 6 OR MORE 05/05/2023 30346-Otalqsle Plate 07/15/2015 00418-Iiholcvr Plate 05/05/2023 34082-Cawsgeyi Plate 07/22/2022 96168-Vcjecwud Plate 05/13/2022 59380-Chwsuirs Plate 03/02/2022 10903-Ajaowtra Plate 12/29/2021 75133-Mnpjgarr Plate 08/25/2021 63329-Ergqinmi Plate 03/31/2021 17392-Qknfxyeb Plate 01/15/2021 36377-Ztxbzqln Plate 11/06/2020 83085-Hzdongll Plate 08/26/2020 70362-Hsurokzx Plate 06/05/2020 97969-Bmifqirp Plate 03/20/2020 51187-Vfxbnoyl Plate 09/04/2019 92899-Sqrezkkr Plate 06/26/2019 30576-Jeevtfxk Plate 04/05/2019 97599-Lnlqczmp Plate 01/09/2019 84986-Umkspnds Plate 10/31/2018 76411-Rvegnfxo Plate 07/15/2011 89527- Debride <25 sq cm 05/14/2014 63791- Debride <25 sq cm 05/28/2014 08664-OMPTTQH SKIN/TISSUE 09/04/2019 21138-QBRG SKIN LESIONS, OVER 4 09/04/20 19 65681-POTG SKIN LESIONS, OVER 4 04/05/20 19 87286-VAWX SKIN LESIONS, OVER 4 06/26/20 19 49963-GFVT SKIN LESIONS, OVER 4 10/31/19 19 19241-THVS SKIN LESIONS, OVER 4 01/10/20 19 70621-ZUWP SKIN LESIONS, OVER 4 07/20/20 18 00070-EWUD SKIN LESIONS, OVER 4 02/15/20 18 54599-JYJR SKIN LESIONS, OVER 4 11/08/19 18 72255-SVPP SKIN LESIONS, OVER 4 08/09/20 17 65850-XIIF SKIN LESIONS, OVER 4 02/09/20 17 37507-FJEN SKIN LESIONS, OVER 4 05/10/20 17 20333-NZDJ SKIN LESIONS, OVER 4 11/04/19 17 62792-HGMT SKIN LESIONS, OVER 4 08/03/20 16 14031-PXVS SKIN LESIONS, OVER 4 05/04/20 16 22627-WTZH SKIN LESIONS, OVER 4 01/30/20 16 88352-YQAF SKIN LESIONS, OVER 4 07/15/20 15 94183-BDZL SKIN LESIONS, OVER 4 05/28/20 14 10887-ETBJ SKIN LESIONS, OVER 4 01/19/20 14 43180-MZZJ SKIN LESIONS, OVER 4 10/02/20 13 11284-AMMT SKIN LESIONS, OVER 4 05/14/20 14 60576-EBDX SKIN LESIONS, OVER 4 09/06/20 14 27072-BZDI SKIN LESIONS, OVER 4 04/15/20 15 34406-RROZ SKIN LESIONS, OVER 4 01/15/20 15 91848-AUFN SKIN LESIONS, OVER 4 03/20/20 20 36613-JFRJ SKIN LESIONS, OVER 4 11/13/19 20 24217-CLHP SKIN LESIONS, OVER 4 06/05/20 75053-HVOL SKIN LESIONS, OVER 4 08/26/20 74284-DWJX SKIN LESIONS, OVER 4 11/06/19 18641-IZSI SKIN LESIONS, OVER 4 01/16/20 76008-XBXJ SKIN LESIONS, OVER 4 03/31/20 71899-UHWU SKIN LESIONS, OVER 4 08/25/20 91552-QUTZ SKIN LESIONS, OVER 4 12/30/19 75707-DHUN SKIN LESIONS, OVER 4 03/02/20 80780-GIOU SKIN LESIONS, OVER 4 05/13/20 79565-ZOYN SKIN LESIONS, OVER 4 07/22/20 51387-XUKS SKIN LESIONS, OVER 4 05/05/20 23 31811-JAOR SKIN LESIONS, OVER 4 10/07/20 57932-TFBU SKIN LESIONS, 2 TO 4 07/03/20 13 00987-UBNB SKIN LESIONS, 2 TO 4 07/15/20 11 94115-JTNZ SKIN LESIONS, 2 TO 4 10/07/20 11 87481-VNBC SKIN LESIONS, 2 TO 4 04/07/20 12 46846-BQTZ SKIN LESIONS, 2 TO 4 01/04/20 12 82038-GJXT SKIN LESIONS, 2 TO 4 04/05/20 13 80956-JYFN SKIN LESIONS, 2 TO 4 01/05/20 13 11710-EKKT SKIN LESIONS, 2 TO 4 10/05/20 12 43782-TBZF SKIN LESIONS, 2 TO 4 07/06/20 12 Insurance Providers Payer Name Payer Address Payer Phone Subscriber Number Group Number Insured Name Patient Relationship to Insured Coverage Start Date Coverage End Date Medicare [employer] [address] [place] [address] [id number] Tish Ayala Self - patient is the insured [facility] [address] [facility] [id number] Tish Ayala Self - patient is the insured MEDICAL (GENERAL) HISTORY Medical History History ICD Code Diabetic hypertension stroke Surgical History Surgery Date(Month/Year) coronary artery bypass graft 2004 iridotomy 06/2022 [facility] History Reason [facility] Cellulitis in right leg 03/2012
[2023-11-16 04:50] VITALS: BP 173/61; PULSE 64; RESP 19; TEMP 36.9; O2SAT 95
[2023-11-16 06:28] LABS: MANUAL DIFF FLAG NO
--- NOTE | 2023-11-16 06:33 | PC.NURSE ---
pt cleaned up and linens changed, provided with new warm blankets and hospital gown. iv vancomycin complete. plan for admission to hospital for iv abx d/t R foot necrotic wound. plan of care ongoing, pt offering no current complaints.
[2023-11-16 06:49] LABS: Basophils Percent Auto 0.4 % (0-2); Eosinophils Absolute Auto 0.2 X10*3/uL (0.0-0.4); Eosinophils Percent Auto 2.4 % (0-4); Hematocrit 34.2 % (37.0-47.0); Hemoglobin 11.1 g/dl (12.0-16.0); Imm Gran Abs Auto 0.03 X10*3/uL (0.00-0.03); Imm Gran Pct Auto 0.3 % (0.0-0.4); Lymphocytes Absolute Auto 3.6 X10*3/uL (1.2-4.9); Lymphocytes Percent Auto 39.1 % (20-40); Mean Corpuscular HGB Conc 32.5 g/dl (31.0-35.0); Mean Corpuscular Hemoglobin 31.8 pg (27.0-33.0); Mean Platelet Volume 11.1 fL (9.4-12.3); Monocytes Percent Auto 10.4 % (2-11); Neutrophils Absolute Auto 4.4 x10*3/uL (2.0-8.3); Neutrophils Percent Auto 47.4 % (45-73); Platelet Count 220 X10*3/uL (160-400); Red Blood Count 3.49 X10*6/uL (4.20-5.50); Red Cell Distribution Width 13.2 % (11.0-16.0); White Blood Count 9.3 X10*3/uL (4.8-10.8)
[2023-11-16 06:50] LABS: Anion Gap 11 (12-20); Blood Urea Nitrogen 23 mg/dL (9-16); Calcium 9.1 mg/dL (8.4-10.2); Carbon Dioxide 30 mmol/L (22-29); Chloride 104 mmol/L (96-108); Creatinine Clr Calc Pharmacy 52.8; Estimated Glomerular Filt Rate 59; Glucose Random 159 mg/dL (60-115); Potassium 3.4 mmol/L (3.3-5.1); Sodium 142 mmol/L (135-145)
[2023-11-16 07:30] VITALS: BP 206/69; PULSE 68; RESP 18; TEMP 36.5; O2SAT 95
[2023-11-16 07:31] LABS: Glucose, Whole Blood 168 mg/dL (60-115)
--- NOTE | 2023-11-16 08:10 | PC.NURSE ---
PT IS A/O X 4 NO SOB/LAM NOTED SPEAKS IN FULL SENTENCES. PT C/O / R ARM/ARMAAN LEG PAIN. ARMAAN UNDER BREAST ELHAM ALONG WITH SLIGHT REDNESS TO ABD FOLD. ARMAAN LOWER EXT 3-4+ PITTING EDEMA NOTED WITH SOME REDNESS. STAGE 2 OPEN AREA NOTED TO L LOWER BUTTOCKS. PICS TAKEN AND RELAYED TO HOSP AUTOMOTIVE ASSEMBLER (GUSTAVO). NEW ALLEVYN DRESSING PLACED. PT HAS GREATER THAN DOLLAR SIZE NECROTIC WOUND TO R HEEL. ARMAAN LEGS OFF LOADED WITH A PILLOW. PT'S BUTTOCKS BLANCHED. PT REPOSITIONED TO R SIDE WITH PILLOWS.
--- NOTE | 2023-11-16 08:14 | PM.EVENT ---
Event Note Date of Service: 11/16/23 Event Note: This is a 83-year-old female with pertinent history of mood disorder, urinary incontinence, essential hypertension, insulin-dependent diabetes mellitus, mixed hyperlipidemia who presents to the emergency department for evaluation of right foot pain. Right foot purulent cellulitis with imaging concerning for osteomyelitis continue empiric IV antibiotics. Ordered MRI to delineate the anatomy. Consulting General surgery for possible debridement and wound care orders fungal rash breast nystatin powder Insulin-dependent diabetes mellitus 2 ss, ada diet Mood disorder Continue home mood stabilizers Mixed hyperlipidemia On statin Stage II sacral decubitus left buttock Consulting Wound Care Essential hypertension On hydrochlorothiazide, metoprolol and lisinopril Normocytic Anemia of chronic disease Hemoglobin above transfusion threshold DVT prophylaxis: Baldev attending Dr. Urrutia Full code Admit as inpatient and will require two night minimum hospital stay for IV antibiotics (as above), which is not possible in a lesser acute setting. Time Spent With Patient Time: Total time managing care of this patient today ____ minutes.
[2023-11-16] MEDS: Bethanechol Chloride 25 MG TABLET PO ×3 (08:15→21:06)
[2023-11-16] MEDS: Insulin Lispro 100 UNIT/ML 3 ML VIAL SUBCUT ×4 (08:15→21:05)
[2023-11-16] MEDS: Escitalopram Oxalate 20 MG TABLET 40 MG PO (08:15)
[2023-11-16] MEDS: hydroCHLOROthiazide 25 MG TABLET PO (08:15)
[2023-11-16] MEDS: buPROPion HCl XL 150 MG TAB.ER.24H PO (08:15)
[2023-11-16] MEDS: lisinopriL 20 MG TABLET PO (08:15)
[2023-11-16] MEDS: 0.9 % Sodium Chloride Flush 3 ML SYRINGE IVFLUSH ×3 (08:16→23:02)
[2023-11-16] MEDS: Insulin Glargine,Hum.rec.anlog 100 UNIT/ML 10 ML VIAL 30 UNIT SUBCUT (08:16)
[2023-11-16] MEDS: Acetaminophen 325 MG TABLET 650 MG PO ×2 (08:26→17:42)
[2023-11-16] MEDS: Metoprolol Succinate ER 100 MG TAB.ER.24H PO (08:27)
--- NOTE | 2023-11-16 08:51 | MHC.CM.ED ---
Patient was admitted overnight. [facility] is 1st choice. Facility made aware. Continue to monitor for d/c needs.
--- NOTE | 2023-11-16 08:57 | MHC.EDTECH ---
Pt is washed up and repositioned to her right side. Foam dressing on her bottom was changed, foam dressing also on her left heel was also changed. Warm blanket was given and PT is resting in bed.
--- NOTE | 2023-11-16 09:05 | PC.NURSE ---
PT SEEN BY [facility] GEOTHERMAL TECHNICIAN (GUSTAVO) PT AWARE OF PLAN OF CARE.
--- NOTE | 2023-11-16 09:27 | PHA.PROG ---
Admission Date/Time: November 16, 2023 01:09 Indication: Osteo Weight in k.3 kg Adjusted body weight in K.72 Harrod body weight in K Obesity Dosing Indication % IBW: obese Serum Creatinine - Last 168 Hours 11/15/23 11/16/23 23:56 05:58 Creatinine 1.03 0.91 Estimated CrCl and GFR - Last 168 Hours 11/15/23 11/16/23 23:56 05:58 Estim Creat Clear Calc 46.7 52.8 Estimated GFR 51 59 Vancomycin Loading Dose: 2,000mg Current Vancomycin Dosing Regimen: 1,500 24H on 11/16 Vancomycin Monitoring using AUC goal of 400 - 600 range with trough as surrogate marker: 512 Date and Time for next Vancomycin Level to be drawn: 11/17 @ 21:00 Pharmacist Comments on Vancomycin Plan: Next dose would have been due at 0300 on 11/17but no one will be here to interpret it. We shortened the q24 interval to be given at 2300 on 11/16. Vancomycin dosing will take advantage of [employer] as a clinical decision support tool that uses Bayesian modeling to calculate individual patient's pharmacokinetic parameters and forecast the patient's drug concentration time course with the target goal AUC 24 range of 400 - 600 mg/L/hr.
[2023-11-16 10:41] VITALS: BP 189/68; O2SAT 96
[2023-11-16 11:29] LABS: Glucose, Whole Blood 158 mg/dL (60-115)
[2023-11-16] MEDS: oxyCODONE HCl Immed Release 5 MG TABLET PO ×3 (11:47→23:55)
--- NOTE | 2023-11-16 12:10 | PC.NURSE ---
PT TO MRI VIA HOSP BED.
--- NOTE | 2023-11-16 12:30 | PC.NURSE ---
[facility] (MRI) CALLED TO SAY THAT PT REFUSED MRI AND PT APPEARS CONFUSED.
--- NOTE | 2023-11-16 12:45 | PC.NURSE ---
ROAST MASTER AT BEDSIDE. WHILE PT IS AT MRI. ROAST MASTER WENT TO MRI TO ENCOURAGE PT TO HAVE MRI OF R FOOT/HEEL, BUT PT ADAMANTLY REFUSED.
--- NOTE | 2023-11-16 13:00 | PC.NURSE ---
MOLDED CANDLES WICKER (ANGELA) AT BEDSIDE. PT/ AWARE OF PLAN OF CARE
--- NOTE | 2023-11-16 13:13 | PC.NURSE ---
ANGELA (WOUND CARE, RN) STTATES THAT DR. VARGAS (WOUND CARE) WILL BE IN TO ASSESS/EVAL PT WOUND LATER TODAY. PT/ AWARE.
[2023-11-16 14:00] VITALS: BP 154/63; PULSE 60; RESP 16; TEMP 37.3; O2SAT 98
--- NOTE | 2023-11-16 14:02 | HO.WOUND ---
Wound Consult: Initial 83yr old F? [place] [facility] [place] - See progress notes and H&P for detailed history.? Recent ED visit and return to ED - see chart review for details. Wound consult placed for Right Heel and Buttock wound Present on Admission.? Patient agreeable to assessment and photo documentation.? Initially patient was in MRI and refused scan - she appeared anxious and nervous - attempted to educate the patient with benefits of obtaining the MRI and maintaining comfort. Pt was very tearful and refused. Consultation was completed in ED overflow unit. She at times engaged in answering questions but other she did not - her now was at the bedside and reports they recently obtained Santyl for home use but have not yet started treatment with Santyl for the right heel. The patient remained tearful throughout my consultation often times anxious and crying out that she was in pain when pressed she was not able to identify areas of discomfort. She provided little assistance when repositioning. Patient and her reports they have VNA services at home but maintain she is more independent than currently observed. The patient and her reports the sacral injury has healed and they report not being aware of the left ischial injury. See below for wound details. Left Ischium The Left Ischium likely has a friction and moisture component leading to the pressure injury development. There is evidence of friction and MASD given the wound edges and location. The patient has a baseline level of incontinence - she is not able to recall what she uses at home nor is her . Etiology: ?Unstageable Pressure Injury ?Present on Admission Wound Bed: pink moist tissue with scattered areas of yellow malik slough noted Edges: ? irregular and macerated Monika wound: pink erythema? No Induration, Fluctuance or Warmth noted Pain: pt reports pain Goals of Treatment: ? Triad to allow for autolytic debridement and protect from friction and moisture Sacrum Etiology: Stage 1 Pressure Injury -??Present on Admission Measurements: Bilateral areas of red intact hyperpigmented tissue nonblanchable 2cm x 4cm x 0cm Wound Bed: Bilateral areas of red intact hyperpigmented tissue nonblanchable Drainage / Odor: None Edges: ? irregular Monika wound: red pink erythema - MASD (Moisture Associated Skin Damage)? No Induration, Fluctuance or Warmth noted Pain: reports pain Goals of Treatment: ? Foam to protect from moisture and friciton Right Heel Etiology: ?Unstageable Pressure Injury - ?Present on Admission Measurements: 3cm x 4.5cm x 0.2cm Wound Bed: lifting necrotic eschar revealing moist pink wound bed with marbled adherent yellow slough Drainage / Odor: yellow and serosang drainage noted on dressing - no odor Edges: ? irregular Monika wound: pink blanchable erythema - ? No Induration noted Pain: Pt reports some pain Goals of Treatment: ? Dr. Francis consulted for general surgery - she plans to debride at bedside and Santyl for enzymatic debridement Recommendations: 1. Turn and Reposition every 2 hours and as needed for patient comfort.? Use pillows or wedges to support off loading positions. 2. Off Load all bony prominences with use of pillows and heel boots if needed.? Apply Preventative foams where needed. ? 3. Monitor for incontinence and moisture control, use barrier creams when needed for prevention and treatment. 4. Provide adequate and supplemental nutrition.? 5. Order or Continue low air loss mattress. 6. When applicable maintain blood glucose levels per Providers order. 7. Sacrum - Off Load Pressure with pillows - Cleanse with routine cleansing, pat dry. Cover with Sacral foam dressing, peel back Q shift and change every 3 days and PRN. 8. Right heel -Defer to Dr. Francis's orders. Consider: Elevate off of bed surface with heel protector boot ([facility]# [id number]). Cleanse with NS, apply skin barrier wipe to periwound. Apply thick layer of Santyl to wound bed cover with gauze, gauze wrap. Change Daily. 9. Left Ischium - Off Load Pressure - Cleanse with PH balance spray or wipes, pat dry. ?Apply thin layer of Triad to wound bed. Do not remove all of paste between applications as this may cause further skin damage.? Cover with foam dressing to aid in off loading and protection from friction. Re-consult wound care Nurse for wound deterioration or wound changes.
--- NOTE | 2023-11-16 14:03 | PC.NURSE ---
PT ATE 75% OF LUNCH.
--- NOTE | 2023-11-16 14:52 | MHC.EDTECH ---
Pt was incontinent of urine, pt is washed up again. nystatin was applied to groin and under the breast. Purewick in place. Canister emptied - 500cc. PT repostioned to her right side.
[2023-11-16 16:42] LABS: Glucose, Whole Blood 154 mg/dL (60-115)
--- NOTE | 2023-11-16 18:07 | MHC.EDTECH ---
PT ATE 100% OF HER DINNER AND REQUESTED MORE SOUP FROM THE KITCHEN. KITCHEN WAS CALLED, WAITING FOR THE SOUP TO ARRIVE. 240CC OF FLUIDS.
--- NOTE | 2023-11-16 18:34 | MHC.EDTECH ---
this tech just completed a full bed change. pt was incontinent of urine. purewick was in place & was working. Canister emptied at 600cc. PT was repositioned to her left side. Nystatin powder was applied in her groin and under breasts. New foam dressing on her bottom was also applied by the nurse.
--- NOTE | 2023-11-16 18:39 | MHC.CM.ED ---
Pt admitted ? osteomyelitis, wounds on heel and sacrum. Pt lives with . Uses a Wheelchair and walker. PT is recommending STR. No bed offers yet. [facility] is first choice. Pt is active with [facility]. PCP is Krystal Jay. HCP is , Michael ([phone]). IMM reviewed with patient. Signed per protocol. Original given. Copy to Medical records. Pt is in overflow, awaiting bed assignment.
--- NOTE | 2023-11-16 19:50 | P.CONGS_ITS ---
History of Present Illness Consult details Consult date: 11/16/23 Reason for consult: wound care Requesting physician: Gerry Mckoy Narrative: The patient is an 83-year-old female with right heel wound which has been present at least for several weeks. She says that she has visiting nurse who has been coming and who have ordered Santyl and she just bought it but they have not used it very much as yet. The wound was looking worse so she was told to come to the emergency room and is now admitted for cellulitis in the right heel. She complains that it is tender. She has not been up and moving as much as normally over the last several weeks. Were unsure which visiting nurse group is actually taking care of her. Review of Systems 2 Review of Systems: No all other systems are reviewed and are negative, unobtainable due to endotracheal tube, Unobtainable due to mental condition, Unobtainable due to mental status or Other PMFSH Past Medical History Medical History Hematuria of undiagnosed cause Frequency of urination High cholesterol Diabetes mellitus, type II Urgency incontinence History of UTI Surgical History Surgical History History of surgery Social History Social History Unable to assess alcohol history related to: Unable to respond Alcohol intake: former Patient Tobacco Use Status: Never used Tobacco Advance Directives Date on File: 02/22/23 service: No Meds Allergies Allergy/AdvReac Type Severity Reaction Status Date / Time doxycycline Allergy Unknown redness Verified 11/15/23 05:32 and hives penicillin V Allergy Unknown anaphylaxis Verified 11/15/23 05:32 avoid cyclines AdvReac Unknown Unknown Uncoded 11/15/23 05:32 Active Medications: Current Medications Acetaminophen (Acetaminophen 325 Mg Tablet) 650 mg PO Q6H PRN PRN Reason: Pain, Mild (Pain Scale 1-3) Last Admin: 11/16/23 17:42 Dose: 650 mg Atorvastatin Calcium (Atorvastatin Calcium 20 Mg Tablet) 20 mg PO BEDTIME [facility] Last Admin: 11/15/23 21:44 Dose: 20 mg Bethanechol Chloride (Bethanechol Chloride 25 Mg Tablet) 25 mg PO TID [facility] Last Admin: 11/16/23 17:34 Dose: 25 mg Bupropion HCl (Bupropion Hcl Xl 150 Mg Tab.Er.24h) 150 mg PO DAILY [facility] Last Admin: 11/16/23 08:15 Dose: 150 mg Dextrose (Dextrose 50 % 25 Gm/50 Ml Syringe) 25 gm IVPUSH Q15M PRN; Protocol PRN Reason: per Hypoglycemia Standing Ord. Enoxaparin Sodium (Enoxaparin Sodium 40 Mg/0.4 Ml Syringe) 40 mg SUBCUT Q24H [facility] Escitalopram Oxalate (Escitalopram Oxalate 20 Mg Tablet) 40 mg PO DAILY [facility] Last Admin: 11/16/23 08:15 Dose: 40 mg Glucose (Glucose Gel 15 Gm Gel..Gram.) 15 gm PO Q15M PRN; Protocol PRN Reason: per Hypoglycemia Standing Ord. Hydrochlorothiazide (Hydrochlorothiazide 25 Mg Tablet) 25 mg PO DAILY [facility]; Protocol Last Admin: 11/16/23 08:15 Dose: 25 mg Cefepime HCl 2 gm/ Sodium (Chloride) 50 mls @ 100 mls/hr IV Q12H [facility] Last Infusion: 11/16/23 14:11 Dose: Infused Vancomycin HCl 1,500 mg/ (Sodium Chloride) 500 mls @ 333.333 mls/hr IV Q24H [facility] Insulin Glargine (Insulin Glargine,Hum.Rec.Anlog 100 Unit/Ml 10 Ml Vial) 30 unit SUBCUT DAILY [facility] Last Admin: 11/16/23 08:16 Dose: 30 unit Insulin Glargine (Insulin Glargine,Hum.Rec.Anlog 100 Unit/Ml 10 Ml Vial) 25 unit SUBCUT BEDTIME [facility] Last Admin: 11/15/23 21:44 Dose: 25 unit Insulin Human Lispro (Insulin Lispro 100 Unit/Ml 3 Ml Vial) 0 unit SUBCUT QIDACHS [facility]; Protocol Last Admin: 11/16/23 17:40 Dose: 2 unit Lisinopril (Lisinopril 20 Mg Tablet) 20 mg PO DAILY [facility]; Protocol Last Admin: 11/16/23 08:15 Dose: 20 mg Melatonin (Melatonin 3 Mg Tablet) 6 mg PO BEDTIME PRN PRN Reason: Insomnia Metoprolol Succinate (Metoprolol Succinate Er 100 Mg Tab.Er.24h) 100 mg PO DAILY [facility]; Protocol Last Admin: 11/16/23 08:27 Dose: 100 mg Nystatin (Nystatin Powder 15 Gm Bottle) 1 appl TOPICAL BID [facility]; Protocol Last Admin: 11/16/23 12:33 Dose: Not Given Ondansetron HCl (Ondansetron Hcl 4 Mg/2 Ml Vial) 4 mg IVPUSH Q8H PRN PRN Reason: Nausea and Vomiting Oxycodone HCl (Oxycodone Hcl Immed Release 5 Mg Tablet) 5 mg PO Q4H PRN PRN Reason: Pain, Moderate(Pain Scale 4-6) Last Admin: 11/16/23 17:42 Dose: 5 mg Pharmacy Consult (Consult Rx Vancomycin Dosing) 1 each MISCELLANE DAILY PRN PRN Reason: Consult order Sodium Chloride (0.9 % Sodium Chloride Flush 3 Ml Sy[facility]) [facility] Admin: 11/16/23 17:34 Dose: 3 ml Home Medications Medication Instructions Recorded Confirmed Last Taken Type blood sugar diagnostic #10 ea 10/28/20 08/21/23 08/21/23 09:00 History escitalopram oxalate 20 mg tablet 40 mg PO DAILY 10/28/20 11/15/23 08/21/23 09:00 History metoprolol succinate 100 mg 100 mg PO DAILY 10/28/20 11/15/23 08/21/23 09:00 History tablet,extended release 24 hr simvastatin 40 mg tablet 40 mg PO BEDTIME 10/28/20 11/15/23 08/20/23 History lisinopril 20 mg tablet 20 mg PO DAILY 02/18/23 11/15/23 08/21/23 09:00 History bupropion HCl 150 mg 24 hr tablet, 150 mg PO DAILY 02/21/23 11/15/23 08/21/23 09:00 History extended release hydrochlorothiazide 25 mg tablet 25 mg PO DAILY 08/21/23 11/15/23 08/21/23 09:00 History insulin glargine 100 unit/mL (3 See Rx Instructions .Route .COMPLEX 11/15/23 11/15/23 Unknown History mL) subcutaneous pen (Basaglar KwikPen U-100 Insulin) pen needle, diabetic 31 gauge x 11/15/23 11/15/23 Unknown History 03/02 (BD Ultra-Fine Short Pen Needle) Physical Exam 2 Vital Signs: Vital Signs: Last Vital Signs Temp 99.2 F 11/16/23 14:00 Pulse 60 11/16/23 14:00 Resp 16 11/16/23 14:00 BP 154/63 H 11/16/23 14:00 Pulse Ox 98 11/16/23 14:00 O2 Del Method Room Air 11/16/23 14:00 BMI result Body Mass Index 35.3 Const: General: cooperative, healthy appearing and no acute distress O rientation/consciousness: patient oriented x3 Skin: Other: On the right posterior healed the patient has about a 4 x 3-1/2 cm open wound with skin breakdown into the fatty tissue. Superficial coverage of most of this wound with blackened eschar which is a little loose. The rest of the foot and surrounding tissue looks okay. No palpable pedal pulses noted. Overall the right foot looks a little more swollen compared to the left foot. The area is tender to palpation. There is a little bit of some drainage. No significant odor of concern. Neuro: General: patient oriented x3 Extrem: Other: See wound under skin. Patient is unable to lift and move her right leg very much or very well Psych: Affect: Anxious affect present and Irritable affect present Results Labs 11/16/23 05:58 11/16/23 05:58 Labs: Abnormal lab results 11/15/23 11/15/23 11/16/23 Range/Units 20:52 23:56 05:58 RBC 3.20 L 3.49 L (4.20-5.50) X10*6/uL Hgb 10.1 L 11.1 L (12.0-16.0) g/dl Hct 31.1 L 34.2 L (37.0-47.0) % ESR 28 H (0-20) MM/HR Carbon Dioxide 30 H 30 H (22-29) mmol/L Anion Gap 11 L 11 L (12-20) BUN 27 H 23 H (9-16) mg/dL POC Glucose 369 H* (60-115) mg/dL Random Glucose 258 H 159 H (60-115) mg/dL C-Reactive Protein 2.08 H (< or = 0.50) mg/dL 11/16/23 11/16/23 11/16/23 Range/Units 07:28 11:26 16:36 RBC (4.20-5.50) X10*6/uL Hgb (12.0-16.0) g/dl Hct (37.0-47.0) % ESR (0-20) MM/HR Carbon Dioxide (22-29) mmol/L Anion Gap (12-20) BUN (9-16) mg/dL POC Glucose 168 H 158 H 154 H (60-115) mg/dL Random Glucose (60-115) mg/dL C-Reactive Protein (< or = 0.50) mg/dL Short CBC 11/15/23 11/16/23 Range/Units 23:56 05:58 WBC 8.9 9.3 (4.8-10.8) X10*3/uL Hgb 10.1 L 11.1 L (12.0-16.0) g/dl Hct 31.1 L 34.2 L (37.0-47.0) % Plt Count 195 220 (160-400) X10*3/uL BMP 11/15/23 11/16/23 23:56 05:58 Sodium 140 142 Potassium 3.6 3.4 Chloride 103 104 Carbon Dioxide 30 H 30 H BUN 27 H 23 H Creatinine 1.03 0.91 Calcium 8.8 9.1 All other labs normal. Imaging Additional studies: X-ray of the foot reviewed and findings noted to be consistent with old fractures and significant osteopenia. There are some changes around the heel but it is difficult to describe if this is osteopenia or true osteomyelitis. MRI was suggested but the patient went over the MRI and was unable to tolerate the procedure. Assessment and Plan (1) Pressure injury of right heel, unstageable: Status: Acute Plan The patient is an 83-year-old female with pressure injury to right heel unstageable. Overall looks okay but will need debridement. We will plan to use Santyl for the day try to loosen up the eschar a little bit more and then surgically debride at bedside. Patient was a little anxious this afternoon to allow us to do this and so we will give the Santyl little bit of time to loosen up the superficial eschar. In the meantime continue with IV antibiotics as per medical team. May consider vascular evaluation to determine ABIs and what her blood flow to the foot is like this will affect her healing. Continue to follow along with wound care nurse suggestions for offloading. We will follow along Procedures Date of Service Date of Service: 11/16/23
[2023-11-16 20:46] LABS: Glucose, Whole Blood 151 mg/dL (60-115)
[2023-11-16] MEDS: Insulin Glargine,Hum.rec.anlog 100 UNIT/ML 10 ML VIAL 25 UNIT SUBCUT (21:05)
[2023-11-16] MEDS: Nystatin Powder 15 GM BOTTLE 1 APPL TOPICAL (21:06)
[2023-11-16] MEDS: Atorvastatin Calcium 20 MG TABLET PO (21:06)
[2023-11-16] MEDS: Collagenase Clostridium Hist. 30 GM TUBE 1 APPL TOPICAL (21:06)
[2023-11-16] MEDS: diphenhydrAMINE HCl 2 % Cream 28 GM TUBE 1 APPL TOPICAL (21:42)
[2023-11-16 22:46] VITALS: BP 127/68; PULSE 60; RESP 17; TEMP 36.6; O2SAT 96
[2023-11-16] MEDS: vancomycin HCL 1,500 MG in 0.9 % Sodium Chloride 500 ML 333.33 MG IV (22:58)
[2023-11-16] MEDS: diphenhydrAMINE HCL 25 MG CAPSULE PO (23:29)
[2023-11-17] VITALS (9 sets, daily range): BP systolic 114–149; BP diastolic 46–77; PULSE 60–93; RESP 16–20; TEMP 36.4–38.1; O2SAT 92–97
[2023-11-17] MEDS: Morphine Sulfate 2 MG/ML CARTRIDGE IVPUSH ×2 (00:45→14:01)
[2023-11-17] MEDS: cefEPime HCl 2 GM in 0.9 % Sodium Chloride 50 ML IV ×2 (00:47→13:51)
[2023-11-17] MEDS: diphenhydrAMINE HCL 50 MG/ML VIAL 25 MG IVPUSH ×2 (00:58→12:22)
--- NOTE | 2023-11-17 01:02 | PC.NURSE ---
Pt complaining of 10/10 generalized body pain unrelieved by prn oxycodone. Pt has new red rash to back and complains of severe itching - Dr Mckoy notified, benadryl 25 mg po ordered and administered with no effect. Pt becoming tearful and weeping stating nothing will help my pain. Dr Mckoy notified of pt's pain and itching - morphine 2mg IVP and benadryl 25mg IVP ordered and administered. Pt now resting in bed with eyes closed, respirations even and unlabored. VSS.
[2023-11-17 06:18] LABS: Creatinine Clr Calc Pharmacy 45.7; Estimated Glomerular Filt Rate 50
[2023-11-17 07:52] LABS: Glucose, Whole Blood 102 mg/dL (60-115)
--- NOTE | 2023-11-17 08:00 | PC.NURSE ---
PT IS A/O X 4 NO SOB/LAM NOTED SPEAKS IN FULL SENTENCES. PT C/O UPPER BACK AND R LEG ITCHING. PT HAS GENERALIZED BODY RASH(RED) NOTED. PT HAS A STAGE 2 WOUND TO L LOWER BUTTOCK/THIGH AREA. R HEEL NECROTIC WOUND WITH DRESSING . PT C/O 8/10 GENERALIZED BODY PAIN. MD AWARE. WILL CONTINUE TO MONITOR.
[2023-11-17] MEDS: Escitalopram Oxalate 20 MG TABLET 40 MG PO (08:07)
[2023-11-17] MEDS: buPROPion HCl XL 150 MG TAB.ER.24H PO (08:07)
[2023-11-17] MEDS: Metoprolol Succinate ER 100 MG TAB.ER.24H PO (08:07)
[2023-11-17] MEDS: hydroCHLOROthiazide 25 MG TABLET PO (08:07)
[2023-11-17] MEDS: 0.9 % Sodium Chloride Flush 3 ML SYRINGE IVFLUSH ×3 (08:08→22:40)
[2023-11-17] MEDS: Bethanechol Chloride 25 MG TABLET PO ×3 (08:08→22:36)
[2023-11-17] MEDS: lisinopriL 20 MG TABLET PO (08:08)
[2023-11-17] MEDS: Insulin Glargine,Hum.rec.anlog 100 UNIT/ML 10 ML VIAL 30 UNIT SUBCUT (08:09)
[2023-11-17] MEDS: Collagenase Clostridium Hist. 30 GM TUBE 1 APPL TOPICAL (08:11)
[2023-11-17] MEDS: Nystatin Powder 15 GM BOTTLE 1 APPL TOPICAL ×2 (08:11→22:40)
[2023-11-17] MEDS: oxyCODONE HCl Immed Release 5 MG TABLET PO ×3 (08:15→22:37)
[2023-11-17] MEDS: Acetaminophen 325 MG TABLET 650 MG PO ×3 (08:15→22:36)
[2023-11-17] MEDS: diphenhydrAMINE HCl 2 % Cream 28 GM TUBE 1 APPL TOPICAL ×2 (08:17→22:40)
--- NOTE | 2023-11-17 08:45 | PC.NURSE ---
DR. FARIA AT THE BED SIDE. PT AWARE OF PLAN OF CARE.
--- NOTE | 2023-11-17 09:13 | MHC.CLN ---
NUTRITION CONSULT FOR WOUNDS. REVIEWED WOUND NEWSAGENT. PATIENT WITH STAGE I TO SACRUM, UNSTAGEABLE AREAS TO LEFT ISCHIUM AND RIGHT HEEL. DIET=DIABETIC 1800 KCALS-APPROPRIATE. ADDING ENSURE MAX PROTEIN BID (300 KCALS, 60 G PROTEIN) TO PROMOTE WOUND HEALING. PATIENT IN ED. COMPLETE ASSESSMENT TO FOLLOW UPON ADMISSION.
--- NOTE | 2023-11-17 11:15 | PC.NURSE ---
PHYSICAL THERAPY/ AT BEDSIDE. PT AWARE OF PLAN OF CARE.
[2023-11-17 11:34] LABS: Glucose, Whole Blood 104 mg/dL (60-115)
--- NOTE | 2023-11-17 13:00 | PC.NURSE ---
PT'S HAS LEFT THE BEDSIDE.
--- NOTE | 2023-11-17 14:28 | P.PNIM_ITS ---
Subjective Subjective Date of Service: 11/17/23 Interval History: f/u diabetic foot ulcer, ? OM has been complaining of pain in the foot refused MRI, rash on back tighs not on arms, legs or face Physical Exam 2 Vital Signs: Vital Signs: Last Vital Signs Temp 97.4 F 11/17/23 11:35 Pulse 65 11/17/23 11:35 Resp 18 11/17/23 11:35 BP 114/46 L 11/17/23 11:35 Pulse Ox 94 11/17/23 11:35 O2 Del Method Room Air 11/17/23 11:35 BMI result Body Mass Index 35.3 General: AO X 3, no acute distress Resp: CTA bilateral CVS: S1,S2,RRR GI: +BS, NT, no distention Skin: fading confluent rash on back , radha chronic venous stasis, right heel ulcer unchanged, see pic from h and p Neuro: motor grossly intact Psych: appropriate affect Objective Data Active Medications Acetaminophen (Acetaminophen 325 Mg Tablet) 650 mg PO Q6H PRN PRN Reason: Pain, Mild (Pain Scale 1-3) Last Admin: 11/17/23 14:02 Dose: 650 mg Documented By: ANGELA Atorvastatin Calcium (Atorvastatin Calcium 20 Mg Tablet) 20 mg PO BEDTIME [facility] Last Admin: 11/16/23 21:06 Dose: 20 mg Documented By: REGINALDO Bethanechol Chloride (Bethanechol Chloride 25 Mg Tablet) 25 mg PO TID [facility] Last Admin: 11/17/23 08:08 Dose: 25 mg Documented By: ANGELA Bupropion HCl (Bupropion Hcl Xl 150 Mg Tab.Er.24h) 150 mg PO DAILY [facility] Last Admin: 11/17/23 08:07 Dose: 150 mg Documented By: ANGELA Collagenase (Collagenase Clostridium Hist. 30 Gm Tube) 1 appl TOPICAL DAILY [facility]; Protocol Last Admin: 11/17/23 08:11 Dose: 1 appl Documented By: ANGELA Dextrose (Dextrose 50 % 25 Gm/50 Ml Syringe) 25 gm IVPUSH Q15M PRN; Protocol PRN Reason: per Hypoglycemia Standing Ord. Enoxaparin Sodium (Enoxaparin Sodium 40 Mg/0.4 Ml Syringe) 40 mg SUBCUT Q24H [facility] Escitalopram Oxalate (Escitalopram Oxalate 20 Mg Tablet) 40 mg PO DAILY [facility] Last Admin: 11/17/23 08:07 Dose: 40 mg Documented By: ANGELA Glucose (Glucose Gel 15 Gm Gel..Gram.) 15 gm PO Q15M PRN; Protocol PRN Reason: per Hypoglycemia Standing Ord. Hydrochlorothiazide (Hydrochlorothiazide 25 Mg Tablet) 25 mg PO DAILY [facility]; Protocol Last Admin: 11/17/23 08:07 Dose: 25 mg Documented By: ANGELA Cefepime HCl 2 gm/ Sodium (Chloride) 50 mls @ 100 mls/hr IV Q12H [facility] Last Admin: 11/17/23 13:51 Dose: 100 mls/hr Documented By: ANGELA Vancomycin HCl 1,500 mg/ (Sodium Chloride) 500 mls @ 333.333 mls/hr IV Q24H [facility] Last Infusion: 11/17/23 00:40 Dose: Infused Documented By: REGINALDO Insulin Glargine (Insulin Glargine,Hum.Rec.Anlog 100 Unit/Ml 10 Ml Vial) 30 unit SUBCUT DAILY [facility] Last Admin: 11/17/23 08:09 Dose: 30 unit Documented By: ANGELA Insulin Glargine (Insulin Glargine,Hum.Rec.Anlog 100 Unit/Ml 10 Ml Vial) 25 unit SUBCUT BEDTIME [facility] Last Admin: 11/16/23 21:05 Dose: 25 unit Documented By: REGINALDO Insulin Human Lispro (Insulin Lispro 100 Unit/Ml 3 Ml Vial) 0 unit SUBCUT QIDACHS [facility]; Protocol Last Admin: 11/17/23 11:49 Dose: Not Given Documented By: ANT Non-Admin Reason: No Insulin Coverage Lisinopril (Lisinopril 20 Mg Tablet) 20 mg PO DAILY [facility]; Protocol Last Admin: 11/17/23 08:08 Dose: 20 mg Documented By: ANGELA Melatonin (Melatonin 3 Mg Tablet) 6 mg PO BEDTIME PRN PRN Reason: Insomnia Metoprolol Succinate (Metoprolol Succinate Er 100 Mg Tab.Er.24h) 100 mg PO DAILY [facility]; Protocol Last Admin: 11/17/23 08:07 Dose: 100 mg Documented By: ANGELA Morphine Sulfate (Morphine Sulfate 2 Mg/Ml Cartridge) 2 mg IVPUSH Q6H PRN; Protocol PRN Reason: Pain, Severe (Pain Scale 7-10) Last Admin: 11/17/23 14:01 Dose: 2 mg Documented By: ANGELA Nystatin (Nystatin Powder 15 Gm Bottle) 1 appl TOPICAL BID [facility]; Protocol Last Admin: 11/17/23 08:11 Dose: 1 appl Documented By: ANGELA Ondansetron HCl (Ondansetron Hcl 4 Mg/2 Ml Vial) 4 mg IVPUSH Q8H PRN PRN Reason: Nausea and Vomiting Oxycodone HCl (Oxycodone Hcl Immed Release 5 Mg Tablet) 5 mg PO Q4H PRN PRN Reason: Pain, Moderate(Pain Scale 4-6) Last Admin: 11/17/23 08:15 Dose: 5 mg Documented By: ANGELA Pharmacy Consult (Consult Rx Vancomycin Dosing) 1 each MISCELLANE DAILY PRN PRN Reason: Consult order Sodium Chloride (0.9 % Sodium Chloride Flush 3 Ml Syringe) 3 ml IVFLUSH QSHIFT [facility] Last Admin: 11/17/23 08:08 Dose: 3 ml Documented By: ANGELA Zinc Acetate/Diphenhydramine (Diphenhydramine Hcl 2 % Cream 28 Gm Tube) 1 appl TOPICAL BID [facility]; Protocol Last Admin: 11/17/23 08:17 Dose: 1 appl Documented By: ANGELA Labs 11/16/23 05:58 11/17/23 05:33 Labs: Laboratory Results - last 24 hr 11/16/23 11/16/23 11/17/23 16:36 20:37 05:33 Estim Creat Clear Calc 45.7 Estimated GFR 50 POC Glucose 154 H 151 H 11/17/23 11/17/23 07:39 11:31 Estim Creat Clear Calc Estimated GFR POC Glucose 102 104 Microbiology Microbiology Results: Microbiology 11/16/23 05:58 Blood Culture - Preliminary Blood - Venous No growth after 24 hours. 11/16/23 05:58 Blood Culture - Preliminary Blood - Venous No growth after 24 hours. Assessment and Plan (1) Pressure injury of right heel, unstageable: Status: Acute (2) Cellulitis: Status: Acute (3) Diabetic foot ulcer: Status: Acute Plan This is a 83-year-old female with pertinent history of mood disorder, urinary incontinence, essential hypertension, insulin-dependent diabetes mellitus, mixed hyperlipidemia who presents to the emergency department for evaluation of right foot pain. Right foot purulent cellulitis with imaging concerning for osteomyelitis, she has declined MRI to conclusively rule Osteo -Continue Vanco, and stop Cefpime for now giving history of pen allergy there can be cross reactivity, will add levaquin -Vascular consult -id consult rash Benadryl PRN, stop Cefepime as above Insulin-dependent diabetes mellitus with hyperglycemia: On basal plus insulin regimen. Mood disorder: Continue home mood stabilizers Mixed hyperlipidemia: On statin Stage II sacral decubitus, present on admission, Wound Care Essential hypertension: On hydrochlorothiazide, metoprolol and lisinopril Normocytic Anemia of chronic disease: Hemoglobin above transfusion threshold DVT prophylaxis: Lovenox Full code Quality Stroke Does the patient have a stroke diagnosis?: No VTE Prior VTE?: No VTE Risk Level:: Medical - moderate - high VTE Device Contraindication: Treatment Not Indicated VTE Drug Contraindication: N/A - Med Ordered
--- NOTE | 2023-11-17 14:49 | PC.NURSE ---
DRESSING CHANGE TO R HEEL DONE AT 1400. PT JEAN-PAUL DRESSING CHANGE - FAIR.
--- NOTE | 2023-11-17 15:00 | PC.NURSE ---
PT HAS NOT VOIDED THIS SHIFT. PT TO BE BLADDER SCANNED. BLADE RN AWARE.
--- NOTE | 2023-11-17 15:35 | PC.NURSE ---
this rn assumed care of pt. pt medicated per dec, pt tolerated well with water. bilateral lower leg redness and swelling noted. dressing on right heel in place with heel boot. no acute distress noted.
[2023-11-17 16:10] LABS: Glucose, Whole Blood 96 mg/dL (60-115)
--- NOTE | 2023-11-17 16:11 | PC.NURSE ---
this RN bladder scanned pt. pt noted to have 350Ml of urine. Mamta GARCES aware.
--- NOTE | 2023-11-17 16:41 | PC.NURSE ---
Addendum entered by Felecia Quiroz 11/17/23 17:27: made aware, no new orders at this time. Original Note: this rn attempted to straight cath pt per provider order, pt vagina noted to be red and tender to touch, pt experiencing pain during catheter placement, unable to obtain at this time. Mamta GARCES aware.
--- NOTE | 2023-11-17 17:51 | PC.NURSE ---
pharmacy contacted to bring levaquin to overflow.
[2023-11-17] MEDS: levoFLOXacin/D5W 500 MG/100 ML PIGGYBACK 100 MG IV (18:02)
--- NOTE | 2023-11-17 18:10 | PC.NURSE ---
at bedside to assess pt wounds.
--- NOTE | 2023-11-17 18:16 | PC.NURSE ---
pt voided 425ML of dark yellow urine into [facility] at this time.
--- NOTE | 2023-11-17 18:31 | PC.NURSE ---
pt repositioned onto left side, pt ag changed, upon inspection this rn noted pt to have red rash extending from the pt posterior neck, back, bilateral upper thighs and lower abdomen. aware at this time.
[2023-11-17 20:21] LABS: Glucose, Whole Blood 137 mg/dL (60-115)
[2023-11-17 22:01] LABS: Vancomycin Random 16.6 mcg/mL (15-20)
[2023-11-17] MEDS: Atorvastatin Calcium 20 MG TABLET PO (22:36)
[2023-11-17] MEDS: Insulin Glargine,Hum.rec.anlog 100 UNIT/ML 10 ML VIAL 25 UNIT SUBCUT (22:38)
[2023-11-18] VITALS (7 sets, daily range): BP systolic 131–173; BP diastolic 58–85; PULSE 56–63; RESP 18–20; TEMP 36.3–37.3; O2SAT 93–97; BMI 35.3
[2023-11-18] MEDS: diphenhydrAMINE HCL 50 MG/ML VIAL 25 MG IVPUSH (00:43)
[2023-11-18] MEDS: vancomycin HCL 1,000 MG in 0.9 % Sodium Chloride 250 ML 270 MG IV (00:45)
[2023-11-18 07:27] LABS: Glucose, Whole Blood 65 mg/dL (60-115)
--- NOTE | 2023-11-18 09:06 | P.CONGS_ITS ---
History of Present Illness Consult details Consult date: 11/18/23 Reason for consult: wound care Narrative: Very unfortunate 83-year-old female presents for nonhealing right heel ulcer. It appears that this may be progressing for some time. She has been bounced from hospital to hospital in appears at some point she was at [facility] and [facility]. She was subsequently discharged. She presented to our hospital with increasing pain swelling and this nonhealing heel ulcer. At the time of my exam she was quite somnolent and was unable to get a good review of his history of systems. In addition I am not exactly sure about her ambulatory status. It is unclear if she is mostly bed-bound or she ambulates. Back in August when she was seen in the emergency room it was reported that she was ambulating at her house with her with the use of walker or 's assistance. She now presents to us for vascular evaluation Review of Systems 2 Review of Systems: Yes all other systems are reviewed and are negative Constitutional: Constitutional: Reports no additional constitutional complaints ENT: Reports Normal hearing present Cardiovascular: Cardiovascular: Denies chest pain, Denies chest pain at rest, Denies chest pain with activity and Denies pedal edema Respiratory: Respiratory: Denies cough Gastrointestinal: Gastrointestinal: Denies abdominal pain Musculoskeletal: Musculoskeletal: Denies abnormal gait, Denies muscle cramps and Denies radiating pain into limb Integumentary/Breasts: Skin/Breast: Denies skin ulcer and Denies wounds Neurologic: Reports Normal hearing present and Denies abnormal gait Psychiatric: Psychiatric: Reports no additional psychiatric complaints [facility] Past Medical History Medical History Hematuria of undiagnosed cause Frequency of urination High cholesterol Diabetes mellitus, type II Urgency incontinence History of UTI Surgical History Surgical History History of surgery Social History Social History Household Members: Spouse Housing: House Do you presently have visiting nurse or other home services: Yes Unable to assess alcohol history related to: Unable to respond Alcohol intake: former Patient Tobacco Use Status: Never used Tobacco e-Cigarette/Vaping Use: Never Used Advance Directives Date on File: 02/22/23 service: No Meds Allergies Allergy/AdvReac Type Severity Reaction Status Date / Time doxycycline Allergy Unknown redness Verified 11/15/23 05:32 and hives penicillin V Allergy Unknown anaphylaxis Verified 11/15/23 05:32 avoid cyclines AdvReac Unknown Unknown Uncoded 11/15/23 05:32 Active Medications: Current Medications Acetaminophen (Acetaminophen 325 Mg Tablet) 650 mg PO Q6H PRN PRN Reason: Pain, Mild (Pain Scale 1-3) Last Admin: 11/17/23 22:36 Dose: 650 mg Atorvastatin Calcium (Atorvastatin Calcium 20 Mg Tablet) 20 mg PO BEDTIME RAMON Last Admin: 11/17/23 22:36 Dose: 20 mg Bethanechol Chloride (Bethanechol Chloride 25 Mg Tablet) 25 mg PO TID RAMON Last Admin: 11/17/23 22:36 Dose: 25 mg Bupropion HCl (Bupropion Hcl Xl 150 Mg Tab.Er.24h) 150 mg PO DAILY RAMON Last Admin: 11/17/23 08:07 Dose: 150 mg Collagenase (Collagenase Clostridium Hist. 30 Gm Tube) 1 appl TOPICAL DAILY RAMON; Protocol Last Admin: 11/17/23 08:11 Dose: 1 appl Dextrose (Dextrose 50 % 25 Gm/50 Ml Syringe) 25 gm IVPUSH Q15M PRN; Protocol PRN Reason: per Hypoglycemia Standing Ord. Diphenhydramine HCl (Diphenhydramine Hcl 50 Mg/Ml Vial) 25 mg IVPUSH Q6H PRN PRN Reason: Itching Last Admin: 11/18/23 00:43 Dose: 25 mg Enoxaparin Sodium (Enoxaparin Sodium 40 Mg/0.4 Ml Syringe) 40 mg SUBCUT Q24H COUNTS INCLUDE 234 BEDS AT THE [facility] Escitalopram Oxalate (Escitalopram Oxalate 20 Mg Tablet) 40 mg PO DAILY COUNTS INCLUDE 234 BEDS AT THE [facility] Last Admin: 11/17/23 08:07 Dose: 40 mg Glucose (Glucose Gel 15 Gm Gel..Gram.) 15 gm PO Q15M PRN; Protocol PRN Reason: per Hypoglycemia Standing Ord. Hydrochlorothiazide (Hydrochlorothiazide 25 Mg Tablet) 25 mg PO DAILY COUNTS INCLUDE 234 BEDS AT THE [facility]; Protocol Last Admin: 11/17/23 08:07 Dose: 25 mg Levofloxacin (Levaquin) 500 mg in 100 mls @ 100 mls/hr IV Q24H COUNTS INCLUDE 234 BEDS AT THE [facility] Last Infusion: 11/17/23 19:02 Dose: Infused Vancomycin HCl 1,000 mg/ (Sodium Chloride) 270 mls @ 270 mls/hr IV Q24H COUNTS INCLUDE 234 BEDS AT THE [facility] Last Infusion: 11/18/23 01:45 Dose: Infused Insulin Glargine (Insulin Glargine,Hum.Rec.Anlog 100 Unit/Ml 10 Ml Vial) 30 unit SUBCUT DAILY COUNTS INCLUDE 234 BEDS AT THE [facility] Last Admin: 11/17/23 08:09 Dose: 30 unit Insulin Glargine (Insulin Glargine,Hum.Rec.Anlog 100 Unit/Ml 10 Ml Vial) 25 unit SUBCUT BEDTIME COUNTS INCLUDE 234 BEDS AT THE [facility] Last Admin: 11/17/23 22:38 Dose: 25 unit Insulin Human Lispro (Insulin Lispro 100 Unit/Ml 3 Ml Vial) 0 unit SUBCUT QIDACHS COUNTS INCLUDE 234 BEDS AT THE [facility]; Protocol Last Admin: 11/17/23 22:39 Dose: Not Given Lisinopril (Lisinopril 20 Mg Tablet) 20 mg PO DAILY COUNTS INCLUDE 234 BEDS AT THE [facility]; Protocol Last Admin: 11/17/23 08:08 Dose: 20 mg Melatonin (Melatonin 3 Mg Tablet) 6 mg PO BEDTIME PRN PRN Reason: Insomnia Metoprolol Succinate (Metoprolol Succinate Er 100 Mg Tab.Er.24h) 100 mg PO DAILY COUNTS INCLUDE 234 BEDS AT THE [facility]; Protocol Last Admin: 11/17/23 08:07 Dose: 100 mg Morphine Sulfate (Morphine Sulfate 2 Mg/Ml Cartridge) 2 mg IVPUSH Q6H PRN; Protocol PRN Reason: Pain, Severe (Pain Scale 7-10) Last Admin: 11/17/23 14:01 Dose: 2 mg Nystatin (Nystatin Powder 15 Gm Bottle) 1 appl TOPICAL BID COUNTS INCLUDE 234 BEDS AT THE [facility]; Protocol Last Admin: 11/17/23 22:40 Dose: 1 appl Ondansetron HCl (Ondansetron Hcl 4 Mg/2 Ml Vial) 4 mg IVPUSH Q8H PRN PRN Reason: Nausea and Vomiting Oxycodone HCl (Oxycodone Hcl Immed Release 5 Mg Tablet) 5 mg PO Q4H PRN PRN Reason: Pain, Moderate(Pain Scale 4-6) Last Admin: 11/17/23 22:37 Dose: 5 mg Pharmacy Consult (Consult Rx Vancomycin Dosing) 1 each MISCELLANE DAILY PRN PRN Reason: Consult order Sodium Chloride (0.9 % Sodium Chloride Flush 3 Ml Syringe) [facility] Last Admin: 01/31/24 22:40 Dose: 3 ml Zinc Acetate/Diphenhydramine (Diphenhydramine Hcl 2 % Cream 28 Gm Tube) 1 appl TOPICAL BID RAMON; Protocol Last Admin: 11/17/23 22:40 Dose: 1 appl Home Medications Medication Instructions Recorded Confirmed Last Taken Type blood sugar diagnostic #10 ea 10/28/20 08/21/23 08/21/23 09:00 History escitalopram oxalate 20 mg tablet 40 mg PO DAILY 10/28/20 11/15/23 08/21/23 09:00 History metoprolol succinate 100 mg 100 mg PO DAILY 10/28/20 11/15/23 08/21/23 09:00 History tablet,extended release 24 hr simvastatin 40 mg tablet 40 mg PO BEDTIME 10/28/20 11/15/23 08/20/23 History lisinopril 20 mg tablet 20 mg PO DAILY 02/18/23 11/15/23 08/21/23 09:00 History bupropion HCl 150 mg 24 hr tablet, 150 mg PO DAILY 02/21/23 11/15/23 08/21/23 09:00 History extended release hydrochlorothiazide 25 mg tablet 25 mg PO DAILY 08/21/23 11/15/23 08/21/23 09:00 History insulin glargine 100 unit/mL (3 See Rx Instructions .Route .COMPLEX 11/15/23 11/15/23 Unknown History mL) subcutaneous pen (Basaglar KwikPen U-100 Insulin) pen needle, diabetic 31 gauge x 11/15/23 11/15/23 Unknown History 03/02 (BD Ultra-Fine Short Pen Needle) Physical Exam 2 Vital Signs: Vital Signs: Last Vital Signs Temp 97.4 F 11/18/23 07:04 Pulse 62 11/18/23 07:04 Resp 18 11/18/23 07:04 BP 136/58 L 11/18/23 07:04 Pulse Ox 96 11/18/23 07:04 O2 Del Method Room Air 11/18/23 07:04 BMI result Body Mass Index 35.3 Const: General: cooperative, healthy appearing and comfortable O rientation/consciousness: oriented to person, oriented to place and oriented to time HEENT: Head: Yes normal to inspection Neck: Neck: Yes normal visual inspection Carotids: no bruits Chest: Chest palpation & inspection: normal inspection of the chest Resp: Effort & Inspection: normal respiratory effort and able to speak in complete sentences Auscultation: clear to auscultation bilaterally, no crackles, no rales, no rhonchi and no wheezes Cardio: Rate: regular rate Rhythm: regular rhythm Heart sounds: S1 normal heart sound present and S2 normal heart sound present Bruits: no carotid bruits Peripheral pulses: Peripheral pulses 2+ throughout GI: Inspection: Yes normal to inspection Skin: Other: Right heel ulcer measuring about 4 cm in diameter. There is a blackened eschar. I do feel that there is minimal soft tissue underneath and may be penetrating down to calcaneus. Wounds: no wounds Hair: normal Neuro: General: oriented to person, oriented to place and oriented to time Cranial nerves: Yes CN's II-XII intact bilaterally and Yes Normal hearing present Cognition (Neuro): normal cognition Motor exam (neuro): 5/5 motor strength present throughout Extrem: Other: venous exam: No significant superficial varicosities or spider telangiectasias, minimal edema General: No clubbing, No cyanosis and No edema Psych: Appearance: grossly normal Mental Status: mental status grossly normal Speech and movement: Normal speech and movement present Results Labs 11/16/23 05:58 11/17/23 05:33 Labs: Abnormal lab results 11/17/23 Range/Units 20:17 POC Glucose 137 H (60-115) mg/dL All other labs normal. Assessment and Plan (1) PAD (peripheral artery disease): Status: Acute I was unable to appreciate palpable pulses at the current time. Will obtain noninvasive testing. How aggressive we can be in terms of treatment will depend on her overall status. I will try to get a better sense of her functional status from primary care team. (2) Pressure injury of right heel, unstageable: Status: Acute Continue offloading and dressings. Currently on Santyl. Awaiting wound care nurse input. (3) Lymphedema: Status: Inactive Plan Significant swelling of bilateral lower extremities. Venous duplex was negative for DVT. There is clearly evidence of lymphedema. The overall heaviness of her legs may be contributing to her lack of ambulation. This can be further addressed as an outpatient once we address that heel ulcer and get that to improve. We will follow with you. Thank you for allowing us to assist in her care. Procedures Date of Service Date of Service: 11/18/23
[2023-11-18] MEDS: Metoprolol Succinate ER 100 MG TAB.ER.24H PO (09:34)
[2023-11-18] MEDS: Bethanechol Chloride 25 MG TABLET PO ×3 (09:35→22:24)
[2023-11-18] MEDS: buPROPion HCl XL 150 MG TAB.ER.24H PO (09:35)
[2023-11-18] MEDS: hydroCHLOROthiazide 25 MG TABLET PO (09:35)
[2023-11-18] MEDS: lisinopriL 20 MG TABLET PO (09:35)
[2023-11-18] MEDS: 0.9 % Sodium Chloride Flush 3 ML SYRINGE IVFLUSH ×3 (09:35→22:25)
[2023-11-18] MEDS: Escitalopram Oxalate 20 MG TABLET 40 MG PO (09:35)
[2023-11-18] MEDS: Collagenase Clostridium Hist. 30 GM TUBE 1 APPL TOPICAL (09:36)
[2023-11-18] MEDS: diphenhydrAMINE HCl 2 % Cream 28 GM TUBE 1 APPL TOPICAL ×2 (09:37→22:25)
[2023-11-18] MEDS: Nystatin Powder 15 GM BOTTLE 1 APPL TOPICAL ×2 (09:37→22:36)
[2023-11-18 09:43] LABS: Creatinine Clr Calc Pharmacy 41.4; Estimated Glomerular Filt Rate 45
--- NOTE | 2023-11-18 09:56 | HO.PM.IMPN ---
Subjective Subjective Date of Service: 11/18/23 Interval History: pt has less pain in the foot, rash is fading Physical Exam Vital Signs: Vital Signs: Last Vital Signs Temp 97.4 F 11/18/23 07:04 Pulse 62 11/18/23 09:11 Resp 18 11/18/23 07:04 BP 136/58 L 11/18/23 09:11 Pulse Ox 96 11/18/23 09:11 O2 Del Method Room Air 11/18/23 07:04 BMI result Body Mass Index 35.3 Objective Data Active Medications Acetaminophen (Acetaminophen 325 Mg Tablet) 650 mg PO Q6H PRN PRN Reason: Pain, Mild (Pain Scale 1-3) Last Admin: 11/17/23 22:36 Dose: 650 mg Documented By: CORINA Atorvastatin Calcium (Atorvastatin Calcium 20 Mg Tablet) 20 mg PO BEDTIME [facility] Last Admin: 11/17/23 22:36 Dose: 20 mg Documented By: CORINA Bethanechol Chloride (Bethanechol Chloride 25 Mg Tablet) 25 mg PO TID [facility] Last Admin: 11/18/23 09:35 Dose: 25 mg Documented By: SOLANGE Bupropion HCl (Bupropion Hcl Xl 150 Mg Tab.Er.24h) 150 mg PO DAILY [facility] Last Admin: 11/18/23 09:35 Dose: 150 mg Documented By: SOLANGE Collagenase (Collagenase Clostridium Hist. 30 Gm Tube) 1 appl TOPICAL DAILY [facility]; Protocol Last Admin: 11/18/23 09:36 Dose: 1 appl Documented By: SOLANGE Dextrose (Dextrose 50 % 25 Gm/50 Ml Syringe) 25 gm IVPUSH Q15M PRN; Protocol PRN Reason: per Hypoglycemia Standing Ord. Diphenhydramine HCl (Diphenhydramine Hcl 50 Mg/Ml Vial) 25 mg IVPUSH Q6H PRN PRN Reason: Itching Last Admin: 11/18/23 00:43 Dose: 25 mg Documented By: CORINA Enoxaparin Sodium (Enoxaparin Sodium 40 Mg/0.4 Ml Syringe) 40 mg SUBCUT Q24H [facility] Escitalopram Oxalate (Escitalopram Oxalate 20 Mg Tablet) 40 mg PO DAILY [facility] Last Admin: 11/18/23 09:35 Dose: 40 mg Documented By: SOLANGE Glucose (Glucose Gel 15 Gm Gel..Gram.) 15 gm PO Q15M PRN; Protocol PRN Reason: per Hypoglycemia Standing Ord. Hydrochlorothiazide (Hydrochlorothiazide 25 Mg Tablet) 25 mg PO DAILY [facility]; Protocol Last Admin: 11/18/23 09:35 Dose: 25 mg Documented By: SOLANGE Levofloxacin (Levaquin) 500 mg in 100 mls @ 100 mls/hr IV Q24H [facility] Last Infusion: 11/17/23 19:02 Dose: Infused Documented By: HAJA Vancomycin HCl 1,000 mg/ (Sodium Chloride) 270 mls @ 270 mls/hr IV Q24H [facility] Last Infusion: 11/18/23 01:45 Dose: Infused Documented By: CORINA Insulin Glargine (Insulin Glargine,Hum.Rec.Anlog 100 Unit/Ml 10 Ml Vial) 30 unit SUBCUT DAILY [facility] Last Admin: 11/18/23 09:47 Dose: Not Given Documented By: SOLANGE Non-Admin Reason: low sugar Insulin Glargine (Insulin Glargine,Hum.Rec.Anlog 100 Unit/Ml 10 Ml Vial) 25 unit SUBCUT BEDTIME [facility] Last Admin: 11/17/23 22:38 Dose: 25 unit Documented By: CORINA Insulin Human Lispro (Insulin Lispro 100 Unit/Ml 3 Ml Vial) 0 unit SUBCUT QIDACHS [facility]; Protocol Last Admin: 11/18/23 09:45 Dose: Not Given Documented By: SOLANGE Non-Admin Reason: No Insulin Coverage Lisinopril (Lisinopril 20 Mg Tablet) 20 mg PO DAILY [facility]; Protocol Last Admin: 11/18/23 09:35 Dose: 20 mg Documented By: SOLANGE Melatonin (Melatonin 3 Mg Tablet) 6 mg PO BEDTIME PRN PRN Reason: Insomnia Metoprolol Succinate (Metoprolol Succinate Er 100 Mg Tab.Er.24h) 100 mg PO DAILY [facility]; Protocol Last Admin: 11/18/23 09:34 Dose: 100 mg Documented By: SOLANGE Morphine Sulfate (Morphine Sulfate 2 Mg/Ml Cartridge) 2 mg IVPUSH Q6H PRN; Protocol PRN Reason: Pain, Severe (Pain Scale 7-10) Last Admin: 11/17/23 14:01 Dose: 2 mg Documented By: ANGELA Nystatin (Nystatin Powder 15 Gm Bottle) 1 appl TOPICAL BID [facility]ON; Protocol Last Admin: 11/18/23 09:37 Dose: 1 appl Documented By: SOLANGE Ondansetron HCl (Ondansetron Hcl 4 Mg/2 Ml Vial) 4 mg IVPUSH Q8H PRN PRN Reason: Nausea and Vomiting Oxycodone HCl (Oxycodone Hcl Immed Release 5 Mg Tablet) 5 mg PO Q4H PRN PRN Reason: Pain, Moderate(Pain Scale 4-6) Last Admin: 11/17/23 22:37 Dose: 5 mg [facility]acy Consult (Consult Rx Vancomycin Dosing) 1 each MISCELLANE DAILY PRN PRN Reason: Consult order Sodium Chloride (0.9 % Sodium Chloride Flush 3 Ml Syringe) [facility] Last Admin: 11/18/23 09:35 Dose: 3 ml Documented By: SOLANGE Zinc Acetate/Diphenhydramine (Diphenhydramine Hcl 2 % Cream 28 Gm Tube) 1 appl TOPICAL BID RAMON; Protocol Last Admin: 11/18/23 09:37 Dose: 1 appl Documented By: SOLANGE Labs 11/16/23 05:58 11/18/23 09:16 Labs: Laboratory Results - last 24 hr 11/17/23 11/17/23 11/17/23 11:31 16:06 20:17 Estim Creat Clear Calc Estimated GFR POC Glucose 104 96 137 H Random Vancomycin 11/17/23 11/18/23 11/18/23 21:41 07:21 09:16 Estim Creat Clear Calc 41.4 Estimated GFR 45 POC Glucose 65 Random Vancomycin 16.6 Microbiology Microbiology Results: Microbiology 11/16/23 05:58 Blood Culture - Preliminary Blood - Venous No growth after 48 hours. 11/16/23 05:58 Blood Culture - Preliminary Blood - Venous No growth after 48 hours. Assessment and Plan (1) Pressure injury of right heel, unstageable: Status: Acute (2) Cellulitis: Status: Acute (3) Diabetic foot ulcer: Status: Acute Plan This is a 83-year-old female with pertinent history of mood disorder, urinary incontinence, essential hypertension, insulin-dependent diabetes mellitus, mixed hyperlipidemia who presents to the emergency department for evaluation of right foot pain. Right foot purulent cellulitis with imaging concerning for osteomyelitis, she continues to decline MRI to conclusively rule OM -Continue Vanco, Cefepime stopped 11/17 d/t rash, levaquin added 11/17 -Vascular consult noted (outpatient f/u) -id consult for Abx recommendatio rash likely from cefepim cross reactivity with PCB, Benadryl PRN, rash is fading Insulin-dependent diabetes mellitus with hyperglycemia: On basal plus insulin regimen. Mood disorder: Continue home mood stabilizers Mixed hyperlipidemia: On statin Stage II sacral decubitus, present on admission, Wound Care Essential hypertension: On hydrochlorothiazide, metoprolol and lisinopril Normocytic Anemia of chronic disease: Hemoglobin above transfusion threshold DVT prophylaxis: Lovenox Full code need for inptient: IV Abx for cellulitis and OM of foot Quality Stroke Does the patient have a stroke diagnosis?: No VTE Prior VTE?: No VTE Risk Level:: Medical - moderate - high VTE Device Contraindication: Treatment Not Indicated VTE Drug Contraindication: N/A - Med Ordered
[2023-11-18 10:09] LABS: Glucose, Whole Blood 210 mg/dL (60-115)
[2023-11-18 11:44] LABS: Glucose, Whole Blood 176 mg/dL (60-115)
--- NOTE | 2023-11-18 12:07 | MHC.CLN ---
RE: CONSULT PT WITH INCREASED NUTRITION RISK R/T PRESSURE INJURIES PO INTAKE 75-100% DIET RX: 1800DM -RECOMMEND INCREASING TO 2000DM TO PROMOTE WOUND HEALING PT RECEIVING ENSURE MAX BID FOR WOUND HEALING SUPP PROVIDES 300KCALS, 60G PROTEIN MONITOR PO INTAKE AND ENCOURAGE SUPPLEMENTS SEE ALSO FULL CLINICAL NUTRITION ASSESSMENT
--- NOTE | 2023-11-18 12:52 | P.CDIM_ITS ---
PROVIDER RESPONSE TEXT: To clarify, the appropriate diagnosis supported by the clinical indicators: Acute QUERY TEXT: PHYSICIAN'S DOCUMENTATION REQUEST Date of Query: 11/18/2023 12:18 PM EST Patient Name: Tish Ayala Admit Date: 11/16/2023 Dear Josafat Urrutia, A review of the medical record indicates additional documentation may be needed. Please review below and update the documentation accordingly. Clinical Indicators: Per Hospitalist Progress Note 11/18/23: Right foot purulent cellulitis with imaging concerning for osteomyelitis, she continues to decline MR I to conclusively rule OM -Continue Vancomycin, Levaquin added 11/17 Clarify which of the following accurately represents the acuity of the Osteomyelitis. Possible options might include: Acute Acute on chronic Compensated Chronic stable condition Remission Other (explain) Clinically unable to determine (explain) Thank you, Aliya Shaw RN Use of terms such as suspected, likely, concern for, or probable (associated with a specific diagnosi s that is being evaluated, monitored, or treated as if it exists) are acceptable and can be coded in the inpatient se tting, when documented at the time of discharge. Please use your independent medical judgment in providing your response. THIS QUERY IS PART OF THE PERMANENT MEDICAL RECORD
--- NOTE | 2023-11-18 13:22 | W.PM.IDCN ---
History of Present Illness Data of Consult Service Date: 11/18/23 Requesting physician: Josafat Urrutia Primary Care Provider: Krystal Jay MD HPI Reason for consult: eschar area right heel,multiple drug allergies,cellulitis,reluctance care She presents with right leg discomfort. She has eschar area heel ,patient not aware how long. XRay foot shows osteopenia,no erosions but rec MRI which patient refused. She was given Levaquin and Cefepime and developed rash to Cefepime and patient h/o anaphylaxis to PCN. Doxycycline also causes hives. Review of Systems Review of Systems: Yes all other systems are reviewed and are negative [facility] Past Medical History Medical History Hematuria of undiagnosed cause Frequency of urination High cholesterol Diabetes mellitus, type II Urgency incontinence History of UTI Family History Family history: reviewed and not pertinent Surgical History Surgical History History of surgery Social History Social History Household Members: Spouse Housing: House Do you presently have visiting nurse or other home services: Yes Unable to assess alcohol history related to: Unable to respond Alcohol intake: former Patient Tobacco Use Status: Never used Tobacco e-Cigarette/Vaping Use: Never Used Advance Directives Date on File: 02/22/23 service: No Meds Allergies Allergy/AdvReac Type Severity Reaction Status Date / Time doxycycline Allergy Unknown redness Verified 11/15/23 05:32 and hives penicillin V Allergy Unknown anaphylaxis Verified 11/15/23 05:32 avoid cyclines AdvReac Unknown Unknown Uncoded 11/15/23 05:32 Active Medications: Current Medications Acetaminophen (Acetaminophen 325 Mg Tablet) 650 mg PO Q6H PRN PRN Reason: Pain, Mild (Pain Scale 1-3) Last Admin: 11/17/23 22:36 Dose: 650 mg Atorvastatin Calcium (Atorvastatin Calcium 20 Mg Tablet) 20 mg PO BEDTIME [facility] Last Admin: 11/17/23 22:36 Dose: 20 mg Bethanechol Chloride (Bethanechol Chloride 25 Mg Tablet) 25 mg PO TID [facility] Last Admin: 11/18/23 09:35 Dose: 25 mg Bupropion HCl (Bupropion Hcl Xl 150 Mg Tab.Er.24h) 150 mg PO DAILY [facility] Last Admin: 11/18/23 09:35 Dose: 150 mg Collagenase (Collagenase Clostridium Hist. 30 Gm Tube) 1 appl TOPICAL DAILY [facility]; Protocol Last Admin: 11/18/23 09:36 Dose: 1 appl Dextrose (Dextrose 50 % 25 Gm/50 Ml Syringe) 25 gm IVPUSH Q15M PRN; Protocol PRN Reason: per Hypoglycemia Standing Ord. Diphenhydramine HCl (Diphenhydramine Hcl 50 Mg/Ml Vial) 25 mg IVPUSH Q6H PRN PRN Reason: Itching Last Admin: 11/18/23 00:43 Dose: 25 mg Enoxaparin Sodium (Enoxaparin Sodium 40 Mg/0.4 Ml Syringe) 40 mg SUBCUT Q24H [facility] Escitalopram Oxalate (Escitalopram Oxalate 20 Mg Tablet) 40 mg PO DAILY [facility] Last Admin: 11/18/23 09:35 Dose: 40 mg Glucose (Glucose Gel 15 Gm Gel..Gram.) 15 gm PO Q15M PRN; Protocol PRN Reason: per Hypoglycemia Standing Ord. Hydrochlorothiazide (Hydrochlorothiazide 25 Mg Tablet) 25 mg PO DAILY [facility]; Protocol Last Admin: 11/18/23 09:35 Dose: 25 mg Levofloxacin (Levaquin) 500 mg in 100 mls @ 100 mls/hr IV Q24H [facility] Last Infusion: 11/17/23 19:02 Dose: Infused Vancomycin HCl 1,000 mg/ (Sodium Chloride) 270 mls @ 270 mls/hr IV Q24H [facility] Last Infusion: 11/18/23 01:45 Dose: Infused Insulin Glargine (Insulin Glargine,Hum.Rec.Anlog 100 Unit/Ml 10 Ml Vial) 30 unit SUBCUT DAILY [facility] Last Admin: 11/18/23 09:47 Dose: Not Given Insulin Glargine (Insulin Glargine,Hum.Rec.Anlog 100 Unit/Ml 10 Ml Vial) 25 unit SUBCUT BEDTIME [facility] Last Admin: 11/17/23 22:38 Dose: 25 unit Insulin Human Lispro (Insulin Lispro 100 Unit/Ml 3 Ml Vial) 0 unit SUBCUT QIDACHS [facility]; Protocol Last Admin: 11/18/23 09:45 Dose: Not Given Lisinopril (Lisinopril 20 Mg Tablet) 20 mg PO DAILY [facility]; Protocol Last Admin: 11/18/23 09:35 Dose: 20 mg Melatonin (Melatonin 3 Mg Tablet) 6 mg PO BEDTIME PRN PRN Reason: Insomnia Metoprolol Succinate (Metoprolol Succinate Er 100 Mg Tab.Er.24h) 100 mg PO DAILY [facility]; Protocol Last Admin: 11/18/23 09:34 Dose: 100 mg Morphine Sulfate (Morphine Sulfate 2 Mg/Ml Cartridge) 2 mg IVPUSH Q6H PRN; Protocol PRN Reason: Pain, Severe (Pain Scale 7-10) Last Admin: 11/17/23 14:01 Dose: 2 mg Nystatin (Nystatin Powder 15 Gm Bottle) 1 appl TOPICAL BID [facility]; Protocol Last Admin: 11/18/23 09:37 Dose: 1 appl Ondansetron HCl (Ondansetron Hcl 4 Mg/2 Ml Vial) 4 mg IVPUSH Q8H PRN PRN Reason: Nausea and Vomiting Oxycodone HCl (Oxycodone Hcl Immed Release 5 Mg Tablet) 5 mg PO Q4H PRN PRN Reason: Pain, Moderate(Pain Scale 4-6) Last Admin: 11/17/23 22:37 Dose: 5 mg Pharmacy Consult (Consult Rx Vancomycin Dosing) 1 each MISCELLANE DAILY PRN PRN Reason: Consult order Sodium Chloride (0.9 % Sodium Chloride Flush 3 Ml Sy[facility]) [facility] Last Admin: 11/18/23 09:35 Dose: 3 ml Zinc Acetate/Diphenhydramine (Diphenhydramine Hcl 2 % Cream 28 Gm Tube) 1 appl TOPICAL BID [facility]; Protocol Last Admin: 11/18/23 09:37 Dose: 1 appl Home Medications Medication Instructions Recorded Confirmed Last Taken Type blood sugar diagnostic #10 ea 10/28/20 08/21/23 08/21/23 09:00 History escitalopram oxalate 20 mg tablet 40 mg PO DAILY 10/28/20 11/15/23 08/21/23 09:00 History metoprolol succinate 100 mg 100 mg PO DAILY 10/28/20 11/15/23 08/21/23 09:00 History tablet,extended release 24 hr simvastatin 40 mg tablet 40 mg PO BEDTIME 10/28/20 11/15/23 08/20/23 History lisinopril 20 mg tablet 20 mg PO DAILY 02/18/23 11/15/2308/21/23 09:00 History bupropion HCl 150 mg 24 hr tablet, 150 mg PO DAILY 02/21/23 11/15/23 08/21/23 09:00 History extended release hydrochlorothiazide 25 mg tablet 25 mg PO DAILY 08/21/23 11/15/23 08/21/23 09:00 History insulin glargine 100 unit/mL (3 See Rx Instructions .Route .COMPLEX 11/15/23 11/15/23 Unknown History mL) subcutaneous pen (Basaglar KwikPen U-100 Insulin) pen needle, diabetic 31 gauge x 11/15/23 11/15/23 Unknown History 03/02 (BD Ultra-Fine Short Pen Needle) Physical Exam Vital Signs: Vital Signs: Last Vital Signs Temp 97.4 F 11/18/23 07:04 Pulse 62 11/18/23 09:11 Resp 18 11/18/23 07:04 BP 136/58 L 11/18/23 09:11 Pulse Ox 96 11/18/23 09:11 O2 Del Method Room Air 11/18/23 07:04 BMI result Body Mass Index 35.3 Const: General: cooperative HEENT: Head: Yes normal to inspection Face and sinus: Yes normal facial exam Mouth: Normal oral and palatal mucosa present Teeth and gingiva: dentition normal Eyes: General: appearance normal, both eyes and all related structures Pupils: Equal, round and reactive pupils present Resp: Effort & Inspection: normal respiratory effort Cardio: Rate: regular rate Rhythm: regular rhythm GI: Palpation (GI): Soft to palpation and nontender : General: Yes no CVA tenderness Back/Spine/Pelvis: Back: no CVA tenderness Skin: General skin exam: no rashes or lesions noted Neuro: General: moves all extremities Cranial nerves: Yes Equal, round and reactive pupils present Extrem: Other: 3 cm eschar heel mild erythema bilateral legs c/w venous stasis Psych: Appearance: grossly normal Results Labs 11/16/23 05:58 11/18/23 09:16 Labs: BMP 11/18/23 09:16 Creatinine 1.16 Microbiology Microbiology Results: Microbiology 11/16/23 05:58 Blood - Venous Blood Culture - Preliminary No growth after 48 hours. 11/16/23 05:58 Blood - Venous Blood Culture - Preliminary No growth after 48 hours. Assessment and Plan (1) PAD (peripheral artery disease): Status: Acute (2) Pressure injury of right heel, unstageable: Status: Acute ESR is only 28 and no definitive OM on XRay.] Patient refuses CT or MRI She has allergy to Cefepime given now. (3) Peripheral edema: Status: Acute Plan Would label allergy Cefepime. Levaquin 500 mg po daily for fourteen days and watch for tendon rupture,blood sugar changes,rash. Wound Clinic follow and ensure healing ?debridement. Eliminate pressure to area.
[2023-11-18] MEDS: oxyCODONE HCl Immed Release 5 MG TABLET PO (17:01)
[2023-11-18] MEDS: Morphine Sulfate 2 MG/ML CARTRIDGE IVPUSH (17:03)
[2023-11-18] MEDS: levoFLOXacin/D5W 500 MG/100 ML PIGGYBACK 100 MG IV (17:08)
[2023-11-18 17:51] LABS: Glucose, Whole Blood 201 mg/dL (60-115)
[2023-11-18] MEDS: Insulin Lispro 100 UNIT/ML 3 ML VIAL SUBCUT (18:36)
[2023-11-18] MEDS: Gabapentin 100 MG CAPSULE PO (18:36)
[2023-11-18 18:53] LABS: Appearance Urine Clear; Color Urine Yellow; Glucose Urine UA Negative (Negative); Leukocyte Esterase Urine Negative (Negative); Nitrite Urine Negative (Negative); Urine Blood Negative (Negative); Urine Ketones Negative (Negative); Urine Protein Trace mg/dL (Neg-Trace)
[2023-11-18 18:56] LABS: Bacteria Urine None Seen (None Seen); Hyaline Casts Urine 0-2 /LPF (0-2); RBC Urine 0-2 /HPF (0-2); Squamous Epithelial Cell Urine 0-2 /HPF (0-2); WBC Urine 0-5 /HPF (0-5)
[2023-11-18 19:42] LABS: Glucose, Whole Blood 177 mg/dL (60-115)
[2023-11-18] MEDS: Atorvastatin Calcium 20 MG TABLET PO (22:24)
[2023-11-19] VITALS (7 sets, daily range): BP systolic 133–158; BP diastolic 55–67; PULSE 62–65; RESP 16–20; TEMP 36.4–37.6; O2SAT 93–97
[2023-11-19 00:17] LABS: Vancomycin Random 14.9 mcg/mL (15-20)
[2023-11-19] MEDS: vancomycin HCL 1,000 MG in 0.9 % Sodium Chloride 250 ML 270 MG IV (00:57)
[2023-11-19 07:12] LABS: Creatinine Clr Calc Pharmacy 52.8; Estimated Glomerular Filt Rate 59
[2023-11-19 07:44] LABS: Glucose, Whole Blood 157 mg/dL (60-115)
[2023-11-19] MEDS: Morphine Sulfate 2 MG/ML CARTRIDGE IVPUSH ×2 (08:06→20:53)
[2023-11-19] MEDS: Insulin Lispro 100 UNIT/ML 3 ML VIAL SUBCUT ×4 (08:10→20:21)
[2023-11-19] MEDS: 0.9 % Sodium Chloride Flush 3 ML SYRINGE IVFLUSH ×2 (08:11→16:54)
[2023-11-19] MEDS: Escitalopram Oxalate 20 MG TABLET 40 MG PO (08:11)
[2023-11-19] MEDS: Insulin Glargine,Hum.rec.anlog 100 UNIT/ML 10 ML VIAL 30 UNIT SUBCUT (08:11)
[2023-11-19] MEDS: Bethanechol Chloride 25 MG TABLET PO ×3 (08:12→20:21)
[2023-11-19] MEDS: buPROPion HCl XL 150 MG TAB.ER.24H PO (08:12)
[2023-11-19] MEDS: Metoprolol Succinate ER 100 MG TAB.ER.24H PO (08:12)
[2023-11-19] MEDS: hydroCHLOROthiazide 25 MG TABLET PO (08:13)
[2023-11-19] MEDS: lisinopriL 20 MG TABLET PO (08:13)
[2023-11-19] MEDS: diphenhydrAMINE HCl 2 % Cream 28 GM TUBE 1 APPL TOPICAL ×2 (08:14→20:29)
[2023-11-19] MEDS: Collagenase Clostridium Hist. 30 GM TUBE 1 APPL TOPICAL (08:14)
[2023-11-19] MEDS: Nystatin Powder 15 GM BOTTLE 1 APPL TOPICAL ×2 (08:14→20:29)
--- NOTE | 2023-11-19 10:28 | HO.VASCPN ---
Subjective Subjective Date of Service: 11/19/23 Patient reports: no new complaints Interval history: Complex 83-year-old female presents for follow-up regarding nonhealing foot ulcer. Had refused noninvasive arterial testing yesterday. He reports no significant changes since yesterday. Upon discussion with her she did report that she has not been ambulatory for the last month or 2. Prior to that she was able to do activities around the house. She now presents for follow-up. Physical Exam Vital Signs: Vital Signs: Last Vital Signs Temp 98.2 F 11/19/23 07:29 Pulse 65 11/19/23 07:29 Resp 16 11/19/23 07:29 BP 152/55 H 11/19/23 07:29 Pulse Ox 93 11/19/23 07:29 O2 Del Method Room Air 11/19/23 07:29 BMI result Body Mass Index 35.3 Const: General: cooperative, healthy appearing and no acute distress Orientation/consciousness: oriented to person, oriented to place and oriented to time HEENT: Head: Yes normal to inspection Neck: Carotids: no bruits Chest: Chest palpation & inspection: normal inspection of the chest Resp: Effort & Inspection: normal respiratory effort and able to speak in complete sentences Auscultation: clear to auscultation bilaterally Cardio: Rate: regular rate Heart sounds: S1 normal heart sound present and S2 normal heart sound present GI: Inspection: Yes normal to inspection Skin: Other: Right lower extremity dressing clean dry intact General skin exam: no rashes or lesions noted Wounds: no wounds Neuro: General: oriented to person, oriented to place, oriented to time and CN's II-XI intact bilaterally Extrem: General: Yes normal to inspection, Yes full ROM and Yes no clubbing, cyanosis or edema Psych: Appearance: grossly normal and well kempt Speech and movement: Normal speech and movement present Affect: normal affect Progress Note: A&P Assessment and plan (1) Pressure injury of right heel, unstageable: Status: Acute Assessment and Plan: In short patient has right heel ulcer. Unfortunately we are unable to get noninvasive arterial testing. Even if we were I am not sure she would be agreeable to any sort of intervention as well. At the current time would recommend conservative measures including local wound care. [facility]. No need to follow up with us unless she changes her mind regarding noninvasive arterial testing. Thank you for allowing us to assist in her care. Time Spent With Patient Time: Total time managing care of this patient today ____ minutes. Procedures Date of Service Date of Service: 11/19/23 Quality Stroke Does the patient have a stroke diagnosis?: No VTE Prior VTE?: No VTE Risk Level:: Medical - moderate - high VTE Device Contraindication: Treatment Not Indicated VTE Drug Contraindication: N/A - Med Ordered
--- NOTE | 2023-11-19 11:12 | HO.PM.IMPN ---
Subjective Subjective Date of Service: 11/19/23 Physical Exam Vital Signs: Vital Signs: Last Vital Signs Temp 98.2 F 11/19/23 07:29 Pulse 65 11/19/23 07:29 Resp 16 11/19/23 07:29 BP 152/55 H 11/19/23 07:29 Pulse Ox 93 11/19/23 07:29 O2 Del Method Room Air 11/19/23 07:29 BMI result Body Mass Index 35.3 Objective Data Active Medications Acetaminophen (Acetaminophen 325 Mg Tablet) 650 mg PO Q6H PRN PRN Reason: Pain, Mild (Pain Scale 1-3) Last Admin: 11/17/23 22:36 Dose: 650 mg Documented By: CORINA Atorvastatin Calcium (Atorvastatin Calcium 20 Mg Tablet) 20 mg PO BEDTIME [facility] Last Admin: 11/18/23 22:24 Dose: 20 mg Documented By: CORINA Bethanechol Chloride (Bethanechol Chloride 25 Mg Tablet) 25 mg PO TID [facility] Last Admin: 11/19/23 08:12 Dose: 25 mg Documented By: VIRGIL Bupropion HCl (Bupropion Hcl Xl 150 Mg Tab.Er.24h) 150 mg PO DAILY [facility] Last Admin: 11/19/23 08:12 Dose: 150 mg Documented By: VIRGIL Collagenase (Collagenase Clostridium Hist. 30 Gm Tube) 1 appl TOPICAL DAILY [facility]; Protocol Last Admin: 11/19/23 08:14 Dose: 1 appl Documented By: VIRGIL Dextrose (Dextrose 50 % 25 Gm/50 Ml Syringe) 25 gm IVPUSH Q15M PRN; Protocol PRN Reason: per Hypoglycemia Standing Ord. Diphenhydramine HCl (Diphenhydramine Hcl 50 Mg/Ml Vial) 25 mg IVPUSH Q6H PRN PRN Reason: Itching Last Admin: 11/18/23 00:43 Dose: 25 mg Documented By: CORINA Enoxaparin Sodium (Enoxaparin Sodium 40 Mg/0.4 Ml Syringe) 40 mg SUBCUT Q24H [facility] Escitalopram Oxalate (Escitalopram Oxalate 20 Mg Tablet) 40 mg PO DAILY [facility] Last Admin: 11/19/23 08:11 Dose: 40 mg Documented By: VIRGIL Glucose (Glucose Gel 15 Gm Gel..Gram.) 15 gm PO Q15M PRN; Protocol PRN Reason: per Hypoglycemia Standing Ord. Hydrochlorothiazide (Hydrochlorothiazide 25 Mg Tablet) 25 mg PO DAILY [facility]; Protocol Last Admin: 11/19/23 08:13 Dose: 25 mg Documented By: VIRGIL Levofloxacin (Levaquin) 500 mg in 100 mls @ 100 mls/hr IV Q24H [facility] Last Infusion: 11/18/23 19:18 Dose: Infused Documented By: SOLANGE Vancomycin HCl 1,000 mg/ (Sodium Chloride) 270 mls @ 270 mls/hr IV Q24H [facility] Last Infusion: 11/19/23 01:57 Dose: Infused Documented By: CORINA Insulin Glargine (Insulin Glargine,Hum.Rec.Anlog 100 Unit/Ml 10 Ml Vial) 30 unit SUBCUT DAILY [facility] Last Admin: 11/19/23 08:11 Dose: 30 unit Documented By: VIRGIL Insulin Glargine (Insulin Glargine,Hum.Rec.Anlog 100 Unit/Ml 10 Ml Vial) 25 unit SUBCUT BEDTIME [facility] Last Admin: 11/18/23 22:30 Dose: Not Given Documented By: CORINA Non-Admin Reason: Patient Refused Insulin Human Lispro (Insulin Lispro 100 Unit/Ml 3 Ml Vial) 0 unit SUBCUT QIDACHS [facility]; Protocol Last Admin: 11/19/23 08:10 Dose: 2 unit Documented By: VIRGIL Lisinopril (Lisinopril 20 Mg Tablet) 20 mg PO DAILY [facility]; Protocol Last Admin: 11/19/23 08:13 Dose: 20 mg Documented By: VIRGIL Melatonin (Melatonin 3 Mg Tablet) 6 mg PO BEDTIME PRN PRN Reason: Insomnia Metoprolol Succinate (Metoprolol Succinate Er 100 Mg Tab.Er.24h) 100 mg PO DAILY [facility]; Protocol Last Admin: 11/19/23 08:12 Dose: 100 mg Documented By: VIRGIL Morphine Sulfate (Morphine Sulfate 2 Mg/Ml Cartridge) 2 mg IVPUSH Q6H PRN; Protocol PRN Reason: Pain, Severe (Pain Scale 7-10) Last Admin: 11/19/23 08:06 Dose: 2 mg Documented By: VIRGIL Nystatin (Nystatin Powder 15 Gm Bottle) 1 appl TOPICAL BID [facility]; Protocol Last Admin: 11/19/23 08:14 Dose: 1 appl Documented By: VIRGIL Ondansetron HCl (Ondansetron Hcl 4 Mg/2 Ml Vial) 4 mg IVPUSH Q8H PRN PRN Reason: Nausea and Vomiting Oxycodone HCl (Oxycodone Hcl Immed Release 5 Mg Tablet) 5 mg PO Q4H PRN PRN Reason: Pain, Moderate(Pain Scale 4-6) Last Admin: 11/18/23 17:01 Dose: 5 mg Documented By: SOLANGE Pharmacy Consult (Consult Rx Vancomycin Dosing) 1 each MISCELLANE DAILY PRN PRN Reason: Consult order Sodium Chloride (0.9 % Sodium Chloride Flush 3 Ml Syringe) 3 ml IVFLUSH [facility] Last Admin: 11/19/23 08:11 Dose: 3 ml Documented By: VIRGIL Zinc Acetate/Diphenhydramine (Diphenhydramine Hcl 2 % Cream 28 Gm Tube) 1 appl TOPICAL BID [facility]; Protocol Last Admin: 11/19/23 08:14 Dose: 1 appl Documented By: VIRGIL Labs 11/16/23 05:58 11/19/23 06:06 Labs: Laboratory Results - last 24 hr 11/17/23 11/18/23 11/18/23 18:20 11:37 17:38 Hold Purple Top Estim Creat Clear Calc Estimated GFR POC Glucose 176 H 201 H Urine Color Yellow Urine Appearance Clear Urine pH 5.0 Ur Specific [place] 1.020 Urine Protein Trace Urine Glucose (UA) Negative Urine Ketones Negative Urine Blood Negative Urine Nitrite Negative Ur Leukocyte Esterase Negative Urine RBC 0-2 Urine WBC 0-5 Ur Squamous Epith Cells 0-2 Urine Bacteria None Seen Hyaline Casts 0-2 Random Vancomycin 11/18/23 11/18/23 11/18/23 18:20 19:32 23:48 Hold Purple Top Estim Creat Clear Calc Estimated GFR POC Glucose 177 H Urine Color Cancelled Urine Appearance Cancelled Urine pH Cancelled Ur Specific [place] Cancelled Urine Protein Cancelled Urine Glucose (UA) Cancelled Urine Ketones Cancelled Urine Blood Cancelled Urine Nitrite Cancelled Ur Leukocyte Esterase Cancelled Urine RBC Urine WBC Ur Squamous Epith Cells Urine Bacteria Hyaline Casts Random Vancomycin 14.9 L 11/19/23 11/19/23 06:06 07:39 Hold Purple Top SEE NOTE Estim Creat Clear Calc 52.8 Estimated GFR 59 POC Glucose 157 H Urine Color Urine Appearance Urine pH Ur Specific [place] Urine Protein Urine Glucose (UA) Urine Ketones Urine Blood Urine Nitrite Ur Leukocyte Esterase Urine RBC Urine WBC Ur Squamous Epith Cells Urine Bacteria Hyaline Casts Random Vancomycin Microbiology Microbiology Results: Microbiology 11/16/23 05:58 Blood Culture - Preliminary Blood - Venous No growth after 48 hours. 11/16/23 05:58 Blood Culture - Preliminary Blood - Venous No growth after 48 hours. Assessment and Plan (1) Pressure injury of right heel, unstageable: Status: Acute (2) Cellulitis: Status: Acute (3) Diabetic foot ulcer: Status: Acute Plan This is a 83-year-old female with pertinent history of mood disorder, urinary incontinence, essential hypertension, insulin-dependent diabetes mellitus, mixed hyperlipidemia who presents to the emergency department for evaluation of right foot pain. Right foot purulent cellulitis with imaging concerning for osteomyelitis, she hasd declined MRI -Was on Vanco and Cefepime, Cefepime stopped to rash, Lavaquin added.. ID recommends Levaquin -Vascular consult noted (outpatient f/u) recommends outaptient wound clinic rash likely from cefepim cross reactivity with PCB, Benadryl PRN, rash is fading Insulin-dependent diabetes mellitus with hyperglycemia, better: On basal plus insulin regimen. Mood disorder: Continue home mood stabilizers Mixed hyperlipidemia: On statin Stage II sacral decubitus, present on admission, Wound Care Essential hypertension: On hydrochlorothiazide, metoprolol and lisinopril Urinary retention, luciano, uro consult Normocytic Anemia of chronic disease: Hemoglobin above transfusion threshold DVT prophylaxis: Lovenox Full code PT is recommending STR need for inpt awaiting placement Quality Stroke Does the patient have a stroke diagnosis?: No VTE Prior VTE?: No VTE Risk Level:: Medical - moderate - high VTE Device Contraindication: Treatment Not Indicated VTE Drug Contraindication: N/A - Med Ordered
[2023-11-19 11:45] LABS: Glucose, Whole Blood 192 mg/dL (60-115)
--- NOTE | 2023-11-19 12:35 | MHC.CLN ---
F/U PT WITH INCREASED NUTRITION RISK R/T PRESSURE INJURIES PO INTAKE 75-100% DIET RX: 2000DM-APPROPRIATE PT RECEIVING ENSURE MAX BID FOR WOUND HEALING SUPP PROVIDES 300KCALS, 60G PROTEIN MONITOR PO INTAKE AND ENCOURAGE SUPPLEMENTS
--- NOTE | 2023-11-19 12:37 | MHC.CM.PN ---
Addendum entered by Serena Flores RN 11/19/23 13:01: CM RECEIVED MESSAGE FROM [facility] WHO REPORT THEY CAN NOT TAKE PT UNTIL SHE IS PARTICIPATING W/PT, NO OTHER BED OFFERS AT THIS TIME, CM WILL EXPAND REFERRAL AND CONT TO FOLLOW DC NEEDS. Original Note: PER HOSPITALIST PT CAN BE MEDICALLY CLEARED FOR DC IF STR BED AVAILABLE, [facility] HAS BEEN FOLLOWING HOWEVER PT UNABLE TO FOLLOW COMMANDS YESTERDAY AND REFUSING TO PARTICIPATE TODAY D/T PAIN, CM AWAITING TO HEAR IF [facility] CAN STILL OFFER PT A BED.
--- NOTE | 2023-11-19 14:16 | HO.WOUND ---
Wound Consult: Follow up 83yr old F? admitted to [facility] on 11/16 - See progress notes and H&P for detailed history.? Recent ED visit and return to ED - see chart review for details. Today is for wound follow up and assessment. At todays visit the patient was agreeable to assessment and appeared in better spirits than the other day. She was agreeable to assessment however once the patient was repositioned she became tearful and crying throughout the visit. She reported pain and at times was able to identify areas of discomfort and she was adjusted other times she was not. Her and she confirm she was at home and ambulating very little. Her reports there were no home services at the time and to this writer technical publications it appears near impossible he was able to mobilize her. He confirms it was 'extremely difficult' to mobilize her at the start and end of the day - he reports once she was in her wheelchair she did not often leave the chair until it was time to return to bed. When asked about void patterns the patient was very tearful and upset that these questions were asked and they were making her feel bad. Supportive listening and attempts at therapeutic conversation were attempted however the patient did not want to discuss. At this time if the patient were to return home in this current clinical picture she would need VNA services and significant assistance. From last assessment Wound consult placed for Right Heel and Buttock wound Present on Admission.? Patient agreeable to assessment and photo documentation.? Initially patient was in MRI and refused scan - she appeared anxious and nervous - attempted to educate the patient with benefits of obtaining the MRI and maintaining comfort. Pt was very tearful and refused. Consultation was completed in ED overflow unit. She at times engaged in answering questions but other she did not - her now was at the bedside and reports they recently obtained Santyl for home use but have not yet started treatment with Santyl for the right heel. The patient remained tearful throughout my consultation often times anxious and crying out that she was in pain when pressed she was not able to identify areas of discomfort. She provided little assistance when repositioning. Patient and her reports they have VNA services at home but maintain she is more independent than currently observed. The patient and her reports the sacral injury has healed and they report not being aware of the left ischial injury. See below for wound details. Left Ischium 11/16/23 Left Ischium 11/19/23 Etiology: ?Stage 2 Pressure Injury ?Present on Admission Wound Bed: resurfacing pink moist tissue Edges: ? irregular and attached Monika wound: Dry Hypo and Hyper-pigmentation - blanchable ? No Induration, Fluctuance or Warmth noted MASD and friction resolving Pain: pt reports pain Goals of Treatment: ? Triad to allow for autolytic debridement and protect from friction and moisture Sacrum 11/16/23 Sacrum 11/19/23 Etiology: Stage 1 Pressure Injury -??Present on Admission Wound Bed: Bilateral areas of red intact hyperpigmented tissue blanchable at todays assessment Drainage / Odor: None Edges: ? irregular Monika wound: red pink erythema - MASD (Moisture Associated Skin Damage)? No Induration, Fluctuance or Warmth noted to sacrum the patient does have a drug reaction rash with wram hat erythema and pruritus noted throughout her body - provider aware. Pain: reports pain Goals of Treatment: ? Foam to protect from moisture and friction Right Heel 11/16/23 Right Heel 11/19/23 Etiology: ?Unstageable Pressure Injury - ?Present on Admission Measurements: 4cm x 5.5cm x 0.2cm Wound Bed: adherent fluctuant moist necrotic black brown tissue areas of adherent yellow slough granulation buds noted and red moist viable tissue to 50% of wound bed Drainage / Odor: yellow and serosang drainage noted on dressing - Mild odor noted Edges: ? irregular Monika wound: pink red blanchable erythema - ? No Induration noted Pain: Pt reports some pain Goals of Treatment: ? Santyl for enzymatic debridement and off load pressure - General Surgery (Dr. Francis) following and Dr. Clayton following Recommendations: 1. Turn and Reposition every 2 hours and as needed for patient comfort.? Use pillows or wedges to support off loading positions. 2. Off Load all bony prominences with use of pillows and heel boots if needed.? Apply Preventative foams where needed. ? 3. Monitor for incontinence and moisture control, use barrier creams when needed for prevention and treatment. 4. Provide adequate and supplemental nutrition.? 5. Order or Continue low air loss mattress. 6. When applicable maintain blood glucose levels per Providers order. 7. Sacrum - Off Load Pressure with pillows - Cleanse with routine cleansing, pat dry. Cover with Sacral foam dressing, peel back Q shift and change every 3 days and PRN. 8. Right heel - Elevate off of bed surface with heel protector boot (Storeroom# [id number]). Cleanse with NS, apply skin barrier wipe to periwound. Apply thick layer of Santyl to wound bed cover with gauze, gauze wrap. Change Daily. 9. Left Ischium - Off Load Pressure - Cleanse with PH balance spray or wipes, pat dry. ?Apply thin layer of Triad to wound bed. Do not remove all of paste between applications as this may cause further skin damage.? Cover with foam dressing to aid in off loading and protection from friction. Change every other day and PRN. Re-consult wound care Nurse for wound deterioration or wound changes.
[2023-11-19] MEDS: oxyCODONE HCl Immed Release 5 MG TABLET PO (15:25)
[2023-11-19 16:52] LABS: Glucose, Whole Blood 274 mg/dL (60-115)
[2023-11-19] MEDS: levoFLOXacin/D5W 500 MG/100 ML PIGGYBACK 100 MG IV (17:54)
[2023-11-19] MEDS: diphenhydrAMINE HCL 50 MG/ML VIAL 25 MG IVPUSH (18:22)
[2023-11-19 19:59] LABS: Glucose, Whole Blood 234 mg/dL (60-115)
[2023-11-19] MEDS: Atorvastatin Calcium 20 MG TABLET PO (20:20)
[2023-11-19] MEDS: Melatonin 3 MG TABLET 6 MG PO (20:21)
[2023-11-19] MEDS: Insulin Glargine,Hum.rec.anlog 100 UNIT/ML 10 ML VIAL 25 UNIT SUBCUT (20:22)
[2023-11-19 21:42] LABS: Vancomycin Random 13.5 mcg/mL (15-20)
--- NOTE | 2023-11-19 21:51 | HE.PHANOTE ---
RE VANCO DOSING SCR 0.91 TODAY. VANCO LEVEL CONTINUES TO DECREASE AND TODAY IS SUBTHERAPEUTIC AT 13.5. THIS IS BONE/JOINT INFECTION WE WILL AIM SLIGHTLY HIGHER AND DOSE IS BEING INCREASED TO 1250 Q24. ACCORDING TO INSIGHT THIS SHOULD YIELD TROUGH OF 13.6 WITH AUC 468 BUT PT HAS HIGHER LEVEL THAN SHE SHOULD ACCORDING TO MODELING SO I AM HOPING FOR LEVEL OF SLIGHTLY ABOVE 16. CONTINUE DAILY RENAL MONITORING AND NEXT TROUGH TO BE OBTAINED 11/20 @2100.
[2023-11-19] MEDS: vancomycin HCL 1,250 MG in 0.9 % Sodium Chloride 250 ML 166.67 MG IV (23:58)
[2023-11-20] MEDS: 0.9 % Sodium Chloride Flush 3 ML SYRINGE IVFLUSH ×3 (00:05→15:01)
[2023-11-20 03:01] VITALS: BP 132/60; PULSE 64; RESP 20; TEMP 36.8; O2SAT 91
[2023-11-20] MEDS: Morphine Sulfate 2 MG/ML CARTRIDGE IVPUSH ×2 (06:15→21:24)
[2023-11-20 06:42] LABS: Creatinine Clr Calc Pharmacy 51.1; Estimated Glomerular Filt Rate 57
[2023-11-20 07:34] VITALS: BP 129/78; PULSE 59; RESP 17; TEMP 37; O2SAT 92
[2023-11-20 07:53] LABS: Glucose, Whole Blood 123 mg/dL (60-115)
--- NOTE | 2023-11-20 09:13 | HO.PM.IMPN ---
Subjective Subjective Date of Service: 11/20/23 Interval History: f/u on diabetic foot ulcer and concern of OM c/o pain in the foot Physical Exam Vital Signs: Vital Signs: Last Vital Signs Temp 98.6 F 11/20/23 07:34 Pulse 59 11/20/23 07:34 Resp 17 11/20/23 07:34 BP 129/78 11/20/23 07:34 Pulse Ox 92 11/20/23 07:34 O2 Del Method Room Air 11/20/23 07:34 BMI result Body Mass Index 35.3 Const: Other: General: alert, not in distress Resp: CTA bilateral CVS: S1,S2,RRR GI: +BS, NT, no distention Skin: No rash--see pic of foot from earlier documentation Neuro: motor grossly intact Psych: appropriate affect Objective Data Active Medications Acetaminophen (Acetaminophen 325 Mg Tablet) 650 mg PO Q6H PRN PRN Reason: Pain, Mild (Pain Scale 1-3) Last Admin: 11/17/23 22:36 Dose: 650 mg Documented By: CORINA Atorvastatin Calcium (Atorvastatin Calcium 20 Mg Tablet) 20 mg PO BEDTIME [facility] Last Admin: 11/19/23 20:20 Dose: 20 mg Documented By: YO Bethanechol Chloride (Bethanechol Chloride 25 Mg Tablet) 25 mg PO TID [facility] Last Admin: 11/19/23 20:21 Dose: 25 mg Documented By: YO Bupropion HCl (Bupropion Hcl Xl 150 Mg Tab.Er.24h) 150 mg PO DAILY [facility] Last Admin: 11/19/23 08:12 Dose: 150 mg Documented By: VIRGIL Collagenase (Collagenase Clostridium Hist. 30 Gm Tube) 1 appl TOPICAL DAILY [facility]; Protocol Last Admin: 11/19/23 08:14 Dose: 1 appl Documented By: VIRGIL Dextrose (Dextrose 50 % 25 Gm/50 Ml Syringe) 25 gm IVPUSH Q15M PRN; Protocol PRN Reason: per Hypoglycemia Standing Ord. Diphenhydramine HCl (Diphenhydramine Hcl 50 Mg/Ml Vial) 25 mg IVPUSH Q6H PRN PRN Reason: Itching Last Admin: 11/19/23 18:22 Dose: 25 mg Documented By: VIRGIL Enoxaparin Sodium (Enoxaparin Sodium 40 Mg/0.4 Ml Syringe) 40 mg SUBCUT Q24H [facility] Escitalopram Oxalate (Escitalopram Oxalate 20 Mg Tablet) 40 mg PO DAILY [facility] Last Admin: 11/19/23 08:11 Dose: 40 mg Documented By: VIRGIL Glucose (Glucose Gel 15 Gm Gel..Gram.) 15 gm PO Q15M PRN; Protocol PRN Reason: per Hypoglycemia Standing Ord. Hydrochlorothiazide (Hydrochlorothiazide 25 Mg Tablet) 25 mg PO DAILY [facility]; Protocol Last Admin: 11/19/23 08:13 Dose: 25 mg Documented By: VIRGIL Levofloxacin (Levaquin) 500 mg in 100 mls @ 100 mls/hr IV Q24H [facility] Last Infusion: 11/19/23 19:03 Dose: Infused Documented By: VIRGIL Vancomycin HCl 1,250 mg/ (Sodium Chloride) 250 mls @ 166.667 mls/hr IV Q24H [facility] Last Infusion: 11/20/23 01:45 Dose: Infused Documented By: YO Insulin Glargine (Insulin Glargine,Hum.Rec.Anlog 100 Unit/Ml 10 Ml Vial) 30 unit SUBCUT DAILY [facility] Last Admin: 11/19/23 08:11 Dose: 30 unit Documented By: VIRGIL Insulin Glargine (Insulin Glargine,Hum.Rec.Anlog 100 Unit/Ml 10 Ml Vial) 25 unit SUBCUT BEDTIME [facility] Last Admin: 11/19/23 20:22 Dose: 25 unit Documented By: YO Insulin Human Lispro (Insulin Lispro 100 Unit/Ml 3 Ml Vial) 0 unit SUBCUT QIDACHS [facility]; Protocol Last Admin: 11/20/23 08:27 Dose: Not Given Documented By: JULIO Non-Admin Reason: No Insulin Coverage Comments: no coverage needed per sliding scale Lisinopril (Lisinopril 20 Mg Tablet) 20 mg PO DAILY [facility]; Protocol Last Admin: 11/19/23 08:13 Dose: 20 mg Documented By: VIRGIL Melatonin (Melatonin 3 Mg Tablet) 6 mg PO BEDTIME PRN PRN Reason: Insomnia Last Admin: 11/19/23 20:21 Dose: 6 mg Documented By: YO Metoprolol Succinate (Metoprolol Succinate Er 100 Mg Tab.Er.24h) 100 mg PO DAILY [facility]; Protocol Last Admin: 11/19/23 08:12 Dose: 100 mg Documented By: VIRGIL Morphine Sulfate (Morphine Sulfate 2 Mg/Ml Cartridge) 2 mg IVPUSH Q6H PRN; Protocol PRN Reason: Pain, Severe (Pain Scale 7-10) Last Admin: 11/20/23 06:15 Dose: 2 mg Documented By: YO Nystatin (Nystatin Powder 15 Gm Bottle) 1 appl TOPICAL BID [facility]; Protocol Last Admin: 11/19/23 20:29 Dose: 1 appl Documented By: YO Ondansetron HCl (Ondansetron Hcl 4 Mg/2 Ml Vial) 4 mg IVPUSH Q8H PRN PRN Reason: Nausea and Vomiting Oxycodone HCl (Oxycodone Hcl Immed Release 5 Mg Tablet) 5 mg PO Q4H PRN PRN Reason: Pain, Moderate(Pain Scale 4-6) Last Admin: 11/19/23 15:25 Dose: 5 mg Documented By: VIRGIL Pharmacy Consult (Consult Rx Vancomycin Dosing) 1 each MISCELLANE DAILY PRN PRN Reason: Consult order Sodium Chloride (0.9 % Sodium Chloride Flush 3 Ml Syringe) 3 ml IVFLUSH [facility] Last Admin: 11/20/23 00:05 Dose: 3 ml Documented By: YO Zinc Acetate/Diphenhydramine (Diphenhydramine Hcl 2 % Cream 28 Gm Tube) 1 appl TOPICAL BID [facility]; Protocol Last Admin: 11/19/23 20:29 Dose: 1 appl Documented By: OY Labs 11/16/23 05:58 11/20/23 05:48 Labs: Laboratory Results - last 24 hr 11/19/23 11/19/23 11/19/23 11:41 16:49 19:25 Hold Purple Top Estim Creat Clear Calc Estimated GFR POC Glucose 192 H 274 H 234 H Random Vancomycin 11/19/23 11/20/23 11/20/23 21:00 05:48 07:50 Hold Purple Top SEE NOTE Estim Creat Clear Calc 51.1 Estimated GFR 57 POC Glucose 123 H Random Vancomycin 13.5 L Assessment and Plan (1) Pressure injury of right heel, unstageable: Status: Acute (2) Cellulitis: Status: Acute (3) Diabetic foot ulcer: Status: Acute Plan This is a 83-year-old female with pertinent history of mood disorder, urinary incontinence, essential hypertension, insulin-dependent diabetes mellitus, mixed hyperlipidemia who presents to the emergency department for evaluation of right foot pain. Right foot purulent cellulitis with imaging concerning for osteomyelitis, she hasd declined MRI -Was on Vanco and Cefepime, Cefepime stopped to rash, Lavaquin added.. ID recommends PO Levaquin -Vascular consult noted (outpatient f/u) recommends outaptient wound clinic rash likely from cefepim cross reactivity with PCN, Benadryl PRN, rash is fading Insulin-dependent diabetes mellitus with hyperglycemia, better: On basal plus insulin regimen. Mood disorder: Continue home mood stabilizers Mixed hyperlipidemia: On statin Stage II sacral decubitus, present on admission, Wound Care recom Essential hypertension: On hydrochlorothiazide, metoprolol and lisinopril Urinary retention, luciano, uro consult Normocytic Anemia of chronic disease: Hemoglobin above transfusion threshold DVT prophylaxis: Lovenox Full code PT is recommending STR need for inpt awaiting placement Quality Stroke Does the patient have a stroke diagnosis?: No VTE Prior VTE?: No VTE Risk Level:: Medical - moderate - high VTE Device Contraindication: Treatment Not Indicated VTE Drug Contraindication: N/A - Med Ordered
[2023-11-20] MEDS: hydroCHLOROthiazide 25 MG TABLET PO (09:35)
[2023-11-20] MEDS: buPROPion HCl XL 150 MG TAB.ER.24H PO (09:35)
[2023-11-20] MEDS: Metoprolol Succinate ER 100 MG TAB.ER.24H PO (09:35)
[2023-11-20] MEDS: lisinopriL 20 MG TABLET PO (09:35)
[2023-11-20] MEDS: Escitalopram Oxalate 20 MG TABLET 40 MG PO (09:36)
[2023-11-20] MEDS: Insulin Glargine,Hum.rec.anlog 100 UNIT/ML 10 ML VIAL 30 UNIT SUBCUT (09:36)
[2023-11-20] MEDS: diphenhydrAMINE HCL 50 MG/ML VIAL 25 MG IVPUSH (09:37)
[2023-11-20] MEDS: diphenhydrAMINE HCl 2 % Cream 28 GM TUBE 1 APPL TOPICAL ×2 (09:38→21:32)
[2023-11-20] MEDS: Nystatin Powder 15 GM BOTTLE 1 APPL TOPICAL ×2 (09:38→21:31)
[2023-11-20] MEDS: Collagenase Clostridium Hist. 30 GM TUBE 1 APPL TOPICAL (09:39)
[2023-11-20] MEDS: oxyCODONE HCl Immed Release 5 MG TABLET PO (11:06)
[2023-11-20 11:17] LABS: Glucose, Whole Blood 154 mg/dL (60-115)
[2023-11-20] MEDS: Insulin Lispro 100 UNIT/ML 3 ML VIAL SUBCUT ×2 (12:07→21:21)
[2023-11-20] MEDS: Bethanechol Chloride 25 MG TABLET PO ×2 (15:00→21:22)
[2023-11-20 15:47] VITALS: BP 158/66; PULSE 62; RESP 19; TEMP 37.3; O2SAT 96
[2023-11-20 16:11] LABS: Glucose, Whole Blood 144 mg/dL (60-115)
[2023-11-20] MEDS: levoFLOXacin/D5W 500 MG/100 ML PIGGYBACK 100 MG IV (17:31)
[2023-11-20 19:31] VITALS: BP 161/69; PULSE 65; RESP 20; TEMP 37.3; O2SAT 65
[2023-11-20 19:56] LABS: Glucose, Whole Blood 189 mg/dL (60-115)
[2023-11-20] MEDS: Insulin Glargine,Hum.rec.anlog 100 UNIT/ML 10 ML VIAL 25 UNIT SUBCUT (21:22)
[2023-11-20] MEDS: Atorvastatin Calcium 20 MG TABLET PO (21:23)
[2023-11-20] MEDS: Melatonin 3 MG TABLET 6 MG PO (21:23)
[2023-11-20 21:33] LABS: Vancomycin Random 14.2 mcg/mL (15-20)
--- NOTE | 2023-11-20 21:58 | HE.PHANOTE ---
VANCO DOSE ADJUSTMENT BASED ON SCR AND TROUGH OF 14.2 DOSE CONTINUED AT 1250 Q 24H. NEXT LEVEL 01/20 @ 2100
[2023-11-20 23:10] VITALS: BP 147/67; PULSE 65; RESP 20; TEMP 37.2; O2SAT 94
[2023-11-21] MEDS: vancomycin HCL 1,250 MG in 0.9 % Sodium Chloride 250 ML 166.67 MG IV (01:30)
[2023-11-21] MEDS: 0.9 % Sodium Chloride Flush 3 ML SYRINGE IVFLUSH ×3 (01:32→17:04)
[2023-11-21 01:48] LABS: Glucose, Whole Blood 47 mg/dL (60-115)
[2023-11-21 02:02] LABS: Glucose, Whole Blood 63 mg/dL (60-115)
[2023-11-21] MEDS: Dextrose 50 % 25 GM/50 ML SYRINGE IVPUSH (02:10)
[2023-11-21 02:33] LABS: Glucose, Whole Blood 208 mg/dL (60-115)
[2023-11-21 03:04] VITALS: BP 125/60; PULSE 57; RESP 20; TEMP 36.6; O2SAT 98
[2023-11-21 03:54] LABS: Glucose, Whole Blood 152 mg/dL (60-115)
[2023-11-21 07:16] LABS: Creatinine Clr Calc Pharmacy 45.3; Estimated Glomerular Filt Rate 49
[2023-11-21 07:22] VITALS: BP 143/64; PULSE 61; RESP 16; TEMP 36.9; O2SAT 97
--- NOTE | 2023-11-21 07:32 | HE.PHANOTE ---
re QUAN patients not due for level today. next level will be 11/22 @2100. Would continue the current dose of 1250 mg Q24H. slight increase in patients scr. Predicted AUC 518
[2023-11-21 07:49] LABS: Glucose, Whole Blood 139 mg/dL (60-115)
[2023-11-21] MEDS: hydroCHLOROthiazide 25 MG TABLET PO (08:35)
[2023-11-21] MEDS: Escitalopram Oxalate 20 MG TABLET 40 MG PO (08:35)
[2023-11-21] MEDS: buPROPion HCl XL 150 MG TAB.ER.24H PO (08:35)
[2023-11-21] MEDS: Bethanechol Chloride 25 MG TABLET PO ×3 (08:36→21:09)
[2023-11-21] MEDS: Metoprolol Succinate ER 100 MG TAB.ER.24H PO (08:36)
[2023-11-21] MEDS: Insulin Glargine,Hum.rec.anlog 100 UNIT/ML 10 ML VIAL 30 UNIT SUBCUT (08:37)
[2023-11-21] MEDS: lisinopriL 20 MG TABLET PO (08:37)
[2023-11-21] MEDS: Nystatin Powder 15 GM BOTTLE 1 APPL TOPICAL ×2 (08:38→21:12)
[2023-11-21] MEDS: diphenhydrAMINE HCl 2 % Cream 28 GM TUBE 1 APPL TOPICAL ×2 (08:38→21:12)
[2023-11-21] MEDS: Collagenase Clostridium Hist. 30 GM TUBE 1 APPL TOPICAL (08:38)
--- NOTE | 2023-11-21 10:23 | P.PNIM_ITS ---
Subjective Subjective Date of Service: 11/21/23 Interval History: f/u on diabetic foot ulcer and concern of OM, more comfortable Physical Exam 2 Vital Signs: Vital Signs: Last Vital Signs Temp 98.4 F 11/21/23 07:22 Pulse 61 11/21/23 07:22 Resp 16 11/21/23 07:22 BP 143/64 H 11/21/23 07:22 Pulse Ox 97 11/21/23 07:22 O2 Del Method Room Air 11/21/23 07:22 BMI result Body Mass Index 35.3 Const: Other: General: alert, not in distress Resp: CTA bilateral CVS: S1,S2,RRR GI: +BS, NT, no distention Skin: No rash--see pic of foot from earlier documentation Neuro: motor grossly intact Psych: appropriate affect Objective Data Active Medications Acetaminophen (Acetaminophen 325 Mg Tablet) 650 mg PO Q6H PRN PRN Reason: Pain, Mild (Pain Scale 1-3) Last Admin: 11/17/23 22:36 Dose: 650 mg Documented By: CORINA Atorvastatin Calcium (Atorvastatin Calcium 20 Mg Tablet) 20 mg PO BEDTIME [facility] Last Admin: 11/20/23 21:23 Dose: 20 mg Documented By: YO Bethanechol Chloride (Bethanechol Chloride 25 Mg Tablet) 25 mg PO TID [facility] Last Admin: 11/21/23 08:36 Dose: 25 mg Documented By: JULIO Bupropion HCl (Bupropion Hcl Xl 150 Mg Tab.Er.24h) 150 mg PO DAILY [facility] Last Admin: 11/21/23 08:35 Dose: 150 mg Documented By: JULIO Collagenase (Collagenase Clostridium Hist. 30 Gm Tube) 1 appl TOPICAL DAILY [facility]; Protocol Last Admin: 11/21/23 08:38 Dose: 1 appl Documented By: JULIO Dextrose (Dextrose 50 % 25 Gm/50 Ml Syringe) 25 gm IVPUSH Q15M PRN; Protocol PRN Reason: per Hypoglycemia Standing Ord. Last Admin: 11/21/23 02:10 Dose: 25 gm Documented By: YO Diphenhydramine HCl (Diphenhydramine Hcl 50 Mg/Ml Vial) 25 mg IVPUSH Q6H PRN PRN Reason: Itching Last Admin: 11/20/23 09:37 Dose: 25 mg Documented By: JULIO Enoxaparin Sodium (Enoxaparin Sodium 40 Mg/0.4 Ml Syringe) 40 mg SUBCUT Q24H [facility] Escitalopram Oxalate (Escitalopram Oxalate 20 Mg Tablet) 40 mg PO DAILY [facility] Last Admin: 11/21/23 08:35 Dose: 40 mg Documented By: JULIO Glucose (Glucose Gel 15 Gm Gel..Gram.) 15 gm PO Q15M PRN; Protocol PRN Reason: per Hypoglycemia Standing Ord. Hydrochlorothiazide (Hydrochlorothiazide 25 Mg Tablet) 25 mg PO DAILY [facility]; Protocol Last Admin: 11/21/23 08:35 Dose: 25 mg Documented By: JULIO Levofloxacin (Levaquin) 500 mg in 100 mls @ 100 mls/hr IV Q24H [facility] Last Infusion: 11/20/23 18:46 Dose: Infused Documented By: JULIO Vancomycin HCl 1,250 mg/ (Sodium Chloride) 250 mls @ 166.667 mls/hr IV Q24H [facility] Last Infusion: 11/21/23 03:00 Dose: Infused Documented By: YO Insulin Glargine (Insulin Glargine,Hum.Rec.Anlog 100 Unit/Ml 10 Ml Vial) 30 unit SUBCUT DAILY [facility] Last Admin: 11/21/23 08:37 Dose: 30 unit Documented By: JULIO Insulin Glargine (Insulin Glargine,Hum.Rec.Anlog 100 Unit/Ml 10 Ml Vial) 25 unit SUBCUT BEDTIME [facility] Last Admin: 11/20/23 21:22 Dose: 25 unit Documented By: YO Insulin Human Lispro (Insulin Lispro 100 Unit/Ml 3 Ml Vial) 0 unit SUBCUT QIDACHS [facility]; Protocol Last Admin: 11/21/23 08:41 Dose: Not Given Documented By: JULIO Non-Admin Reason: No Insulin Coverage Comments: per sliding scale Lisinopril (Lisinopril 20 Mg Tablet) 20 mg PO DAILY [facility]; Protocol Last Admin: 11/21/23 08:37 Dose: 20 mg Documented By: JULIO Melatonin (Melatonin 3 Mg Tablet) 6 mg PO BEDTIME PRN PRN Reason: Insomnia Last Admin: 11/20/23 21:23 Dose: 6 mg Documented By: YO Metoprolol Succinate (Metoprolol Succinate Er 100 Mg Tab.Er.24h) 100 mg PO DAILY [facility]; Protocol Last Admin: 11/21/23 08:36 Dose: 100 mg Documented By: JULIO Morphine Sulfate (Morphine Sulfate 2 Mg/Ml Cartridge) 2 mg IVPUSH Q6H PRN; Protocol PRN Reason: Pain, Severe (Pain Scale 7-10) Last Admin: 11/20/23 21:24 Dose: 2 mg Documented By: YO Nystatin (Nystatin Powder 15 Gm Bottle) 1 appl TOPICAL BID [facility]; Protocol Last Admin: 11/21/23 08:38 Dose: 1 appl Documented By: JULIO Ondansetron HCl (Ondansetron Hcl 4 Mg/2 Ml Vial) 4 mg IVPUSH Q8H PRN PRN Reason: Nausea and Vomiting Pharmacy Consult (Consult Rx Vancomycin Dosing) 1 each MISCELLANE DAILY PRN PRN Reason: Consult order Sodium Chloride (0.9 % Sodium Chloride Flush 3 Ml Syringe) 3 ml IVFLUSH [facility] Last Admin: 11/21/23 08:37 Dose: 3 ml Documented By: JULIO Zinc Acetate/Diphenhydramine (Diphenhydramine Hcl 2 % Cream 28 Gm Tube) 1 appl TOPICAL BID [facility]; Protocol Last Admin: 11/21/23 08:38 Dose: 1 appl Documented By: JULIO Labs 11/16/23 05:58 11/21/23 06:25 Labs: Laboratory Results - last 24 hr 11/20/23 11/20/23 11/20/23 11:02 15:56 19:35 Hold Purple Top Estim Creat Clear Calc Estimated GFR POC Glucose 154 H 144 H 189 H Random Vancomycin 11/20/23 11/21/23 11/21/23 21:08 01:41 01:59 Hold Purple Top Estim Creat Clear Calc Estimated GFR POC Glucose 47 L* 63 Random Vancomycin 14.2 L 11/21/23 11/21/23 11/21/23 02:27 03:02 06:25 Hold Purple Top SEE NOTE Estim Creat Clear Calc 45.3 Estimated GFR 49 POC Glucose 208 H 152 H Random Vancomycin 11/21/23 07:26 Hold Purple Top Estim Creat Clear Calc Estimated GFR POC Glucose 139 H Random Vancomycin Microbiology Microbiology Results: Microbiology 11/16/23 05:58 Blood Culture - Final Blood - Venous No growth after 5 days. 01/30/24 05:58 Blood Culture - Final Blood - Venous No growth after 5 days. Assessment and Plan (1) Pressure injury of right heel, unstageable: Status: Acute (2) Cellulitis: Status: Acute (3) Diabetic foot ulcer: Status: Acute Plan This is a 83-year-old female with pertinent history of mood disorder, urinary incontinence, essential hypertension, insulin-dependent diabetes mellitus, mixed hyperlipidemia who presents to the emergency department for evaluation of right foot pain. Right foot purulent cellulitis with imaging concerning for osteomyelitis, she hasd declined MRI -Was on Vanco and Cefepime, Cefepime stopped to rash, Lavaquin added.. ID recommends PO Levaquin -Vascular consult noted (outpatient f/u) recommends outaptient wound clinic rash likely from cefepim cross reactivity with PCN, Benadryl PRN, rash is fading Insulin-dependent diabetes mellitus with hyperglycemia, better: On basal plus insulin regimen. Mood disorder: Continue home mood stabilizers Mixed hyperlipidemia: On statin Stage II sacral decubitus, present on admission, Wound Care recom Essential hypertension: On hydrochlorothiazide, metoprolol and lisinopril Urinary retention, luciano, uro consult Normocytic Anemia of chronic disease: Hemoglobin above transfusion threshold DVT prophylaxis: Lovenox Full code PT is recommending STR need for inpt awaiting placement Quality Stroke Does the patient have a stroke diagnosis?: No VTE Prior VTE?: No VTE Risk Level:: Medical - moderate - high VTE Device Contraindication: Treatment Not Indicated VTE Drug Contraindication: N/A - Med Ordered
[2023-11-21 11:17] VITALS: BP 133/62; PULSE 62; RESP 20; TEMP 36.3; O2SAT 97
[2023-11-21 11:36] LABS: Glucose, Whole Blood 179 mg/dL (60-115)
[2023-11-21] MEDS: Insulin Lispro 100 UNIT/ML 3 ML VIAL SUBCUT ×2 (11:58→17:21)
[2023-11-21 15:25] VITALS: BP 140/65; PULSE 60; RESP 18; TEMP 36.5; O2SAT 98
[2023-11-21 15:35] LABS: Glucose, Whole Blood 160 mg/dL (60-115)
[2023-11-21] MEDS: levoFLOXacin/D5W 500 MG/100 ML PIGGYBACK 100 MG IV (17:22)
[2023-11-21 19:53] VITALS: BP 135/62; PULSE 70; RESP 20; TEMP 36.8; O2SAT 95
[2023-11-21 20:42] LABS: Glucose, Whole Blood 176 mg/dL (60-115)
[2023-11-21] MEDS: Atorvastatin Calcium 20 MG TABLET PO (21:09)
[2023-11-21] MEDS: Melatonin 3 MG TABLET 6 MG PO (21:09)
[2023-11-21] MEDS: Morphine Sulfate 2 MG/ML CARTRIDGE IVPUSH (21:10)
[2023-11-21] MEDS: vancomycin HCL 1,250 MG in 0.9 % Sodium Chloride 250 ML 166.7 MG IV (23:34)
[2023-11-21] MEDS: diphenhydrAMINE HCL 50 MG/ML VIAL 25 MG IVPUSH (23:40)
[2023-11-21 23:59] VITALS: BP 133/62; PULSE 64; RESP 20; TEMP 37.4; O2SAT 95
[2023-11-22 03:41] VITALS: BP 124/59; PULSE 66; RESP 21; TEMP 36.7; O2SAT 95
[2023-11-22 06:38] LABS: Creatinine Clr Calc Pharmacy 44.9; Estimated Glomerular Filt Rate 49
[2023-11-22 07:33] LABS: Glucose, Whole Blood 87 mg/dL (60-115)
[2023-11-22 07:47] VITALS: BP 125/52; PULSE 65; RESP 18; TEMP 36.9; O2SAT 94
--- NOTE | 2023-11-22 09:12 | P.CDIM_ITS ---
PROVIDER RESPONSE TEXT: To clarify, the appropriate diagnosis supported by the clinical indicators: Yes, Right foot purulent cellulitis is related to / associated with / due to Insulin-dependent diabet es mellitus QUERY TEXT: PHYSICIAN'S DOCUMENTATION REQUEST Date of Query: 11/22/2023 07:55 AM EST Patient Name: Tish Ayala Admit Date: 11/16/2023 Dear Josafat Urrutia, A review of the medical record indicates additional documentation may be needed. Please review below and update the documentation accordingly. Documentation includes the conditions of Right foot purulent cellulitis and Insulin-dependent diabete s mellitus. Clinical Indicators: Please clarify the relationship between these conditions: Yes, Right foot purulent cellulitis is related to / associated with / due to Insulin-dependent diabet es mellitus No, Right foot purulent cellulitis is not related to / associated with / due to Insulin-dependent declan betes mellitus Other (explain) Clinically unable to determine (explain) Thank you, Aliya Shaw RN Use of terms such as suspected, likely, concern for, or probable (associated with a specific diagnosi s that is being evaluated, monitored, or treated as if it exists) are acceptable and can be coded in the inpatient se tting, when documented at the time of discharge. Please use your independent medical judgment in providing your response. THIS QUERY IS PART OF THE PERMANENT MEDICAL RECORD
[2023-11-22] MEDS: Escitalopram Oxalate 20 MG TABLET 40 MG PO (09:43)
[2023-11-22] MEDS: hydroCHLOROthiazide 25 MG TABLET PO (09:43)
[2023-11-22] MEDS: buPROPion HCl XL 150 MG TAB.ER.24H PO (09:43)
[2023-11-22] MEDS: lisinopriL 20 MG TABLET PO (09:43)
[2023-11-22] MEDS: Metoprolol Succinate ER 100 MG TAB.ER.24H PO (09:43)
[2023-11-22] MEDS: Insulin Glargine,Hum.rec.anlog 100 UNIT/ML 10 ML VIAL 20 UNIT SUBCUT (09:44)
[2023-11-22] MEDS: Bethanechol Chloride 25 MG TABLET PO ×3 (09:44→21:34)
[2023-11-22] MEDS: 0.9 % Sodium Chloride Flush 3 ML SYRINGE IVFLUSH ×3 (09:45→21:35)
[2023-11-22] MEDS: diphenhydrAMINE HCl 2 % Cream 28 GM TUBE 1 APPL TOPICAL ×2 (09:50→21:40)
[2023-11-22] MEDS: Collagenase Clostridium Hist. 30 GM TUBE 1 APPL TOPICAL (09:51)
[2023-11-22] MEDS: diphenhydrAMINE HCL 50 MG/ML VIAL 25 MG IVPUSH ×2 (09:55→16:28)
[2023-11-22] MEDS: Nystatin Powder 15 GM BOTTLE 1 APPL TOPICAL ×2 (09:59→21:35)
[2023-11-22 11:17] LABS: Glucose, Whole Blood 163 mg/dL (60-115)
[2023-11-22 11:18] VITALS: BP 117/60; PULSE 72; RESP 20; TEMP 37.6; O2SAT 100
--- NOTE | 2023-11-22 11:34 | MHC.CM.PN ---
Addendum entered by Serena Flores RN 11/22/23 15:03: DC ON HOLD, MRI OF FOOT ORDERED. Addendum entered by Serena Flores RN 11/22/23 12:29: NOHEMI PENA AND ISMAEL OFFERING, CM MET W/PT AND AT BEDSIDE TO DISCUSS DISPO AND BOTH PT/ ARE HESITANT REGARDING DC AND WOULD LIKE PT TO STAY HERE, WHEN TOLD PT WILL NOT GET STR HERE IN HOSPITAL PT REPORTS SHE IS CONCERNED ABOUT HER PAIN WHICH SHE HAS IN OTHER AREAS THAN HEEL, PT'S REQUESTING TO SPEAK W/HOSPITALIST WHO HAS BEEN MADE AWARE VIA TIGER. Original Note: EMR REVIEWED, CM STILL AWAITING BED OFFER FROM SNF FOR STR, JAMES HAS BEEN FOLLOWING HOWEVER WILL NOT TAKE PT UNTIL SHE IS PARTICIPATING IN PT, PT PARTICIPATION LIMITED AND CM HAS REBROADCASTED REFERRAL, CM WILL CONT TO FOLLOW.
[2023-11-22] MEDS: Insulin Lispro 100 UNIT/ML 3 ML VIAL SUBCUT ×2 (11:47→21:35)
--- NOTE | 2023-11-22 13:09 | HO.PM.IMPN ---
Subjective Subjective Date of Service: 11/22/23 Interval History: f/u on diabetic foot ulcer and concern of OM, still has intermittent pain the foot and she is now agreeable to MRI to rule out OM Physical Exam Vital Signs: Vital Signs: Last Vital Signs Temp 99.6 F 11/22/23 11:18 Pulse 72 11/22/23 11:18 Resp 20 11/22/23 11:18 BP 117/60 11/22/23 11:18 Pulse Ox 100 11/22/23 11:18 O2 Del Method Room Air 11/22/23 11:18 BMI result Body Mass Index 35.3 Const: Other: General: alert, not in distress Resp: CTA bilateral CVS: S1,S2,RRR GI: +BS, NT, no distention Skin: No rash--see pic of foot from earlier documentation--essentially no change Neuro: motor grossly intact Psych: appropriate affect Objective Data Active Medications Acetaminophen (Acetaminophen 325 Mg Tablet) 650 mg PO Q6H PRN PRN Reason: Pain, Mild (Pain Scale 1-3) Last Admin: 11/17/23 22:36 Dose: 650 mg Documented By: CORINA Atorvastatin Calcium (Atorvastatin Calcium 20 Mg Tablet) 20 mg PO BEDTIME [facility] Last Admin: 11/21/23 21:09 Dose: 20 mg Documented By: YO Bethanechol Chloride (Bethanechol Chloride 25 Mg Tablet) 25 mg PO TID [facility] Last Admin: 11/22/23 09:44 Dose: 25 mg Documented By: BRITTA Bupropion HCl (Bupropion Hcl Xl 150 Mg Tab.Er.24h) 150 mg PO DAILY [facility] Last Admin: 11/22/23 09:43 Dose: 150 mg Documented By: BRITTA Collagenase (Collagenase Clostridium Hist. 30 Gm Tube) 1 appl TOPICAL DAILY [facility]ON; Protocol Last Admin: 11/22/23 09:51 Dose: 1 appl Documented By: BRITTA Dextrose (Dextrose 50 % 25 Gm/50 Ml Syringe) 25 gm IVPUSH Q15M PRN; Protocol PRN Reason: per Hypoglycemia Standing Ord. Last Admin: 11/21/23 02:10 Dose: 25 gm Documented By: YO Diphenhydramine HCl (Diphenhydramine Hcl 50 Mg/Ml Vial) 25 mg IVPUSH Q6H PRN PRN Reason: Itching Last Admin: 11/22/23 09:55 Dose: 25 mg Documented By: BRITTA Enoxaparin Sodium (Enoxaparin Sodium 40 Mg/0.4 Ml Syringe) 40 mg SUBCUT Q24H [facility] Escitalopram Oxalate (Escitalopram Oxalate 20 Mg Tablet) 40 mg PO DAILY [facility] Last Admin: 11/22/23 09:43 Dose: 40 mg Documented By: BRITTA Glucose (Glucose Gel 15 Gm Gel..Gram.) 15 gm PO Q15M PRN; Protocol PRN Reason: per Hypoglycemia Standing Ord. Hydrochlorothiazide (Hydrochlorothiazide 25 Mg Tablet) 25 mg PO DAILY [facility]; Protocol Last Admin: 11/22/23 09:43 Dose: 25 mg Documented By: BRITTA Vancomycin HCl 1,250 mg/ (Sodium Chloride) 250 mls @ 166.667 mls/hr IV Q24H [facility] Last Infusion: 11/22/23 01:05 Dose: Infused Documented By: YO Insulin Glargine (Insulin Glargine,Hum.Rec.Anlog 100 Unit/Ml 10 Ml Vial) 20 unit SUBCUT DAILY [facility] Last Admin: 11/22/23 09:44 Dose: 20 unit Documented By: BRITTA Insulin Human Lispro (Insulin Lispro 100 Unit/Ml 3 Ml Vial) 0 unit SUBCUT QIDACHS [facility]; Protocol Last Admin: 11/22/23 11:47 Dose: 2 unit Documented By: BRITTA Levofloxacin (Levofloxacin 500 Mg Tablet) 500 mg PO Q24H [facility] Lisinopril (Lisinopril 20 Mg Tablet) 20 mg PO DAILY [facility]; Protocol Last Admin: 11/22/23 09:43 Dose: 20 mg Documented By: BRITTA Melatonin (Melatonin 3 Mg Tablet) 6 mg PO BEDTIME PRN PRN Reason: Insomnia Last Admin: 11/21/23 21:09 Dose: 6 mg Documented By: YO Metoprolol Succinate (Metoprolol Succinate Er 100 Mg Tab.Er.24h) 100 mg PO DAILY [facility]; Protocol Last Admin: 11/22/23 09:43 Dose: 100 mg Documented By: BRITTA Morphine Sulfate (Morphine Sulfate 2 Mg/Ml Cartridge) 2 mg IVPUSH Q6H PRN; Protocol PRN Reason: Pain, Severe (Pain Scale 7-10) Last Admin: 11/21/23 21:10 Dose: 2 mg Documented By: YO Nystatin (Nystatin Powder 15 Gm Bottle) 1 appl TOPICAL BID [facility]ON; Protocol Last Admin: 11/22/23 09:59 Dose: 1 appl Documented By: BRITTA Ondansetron HCl (Ondansetron Hcl 4 Mg/2 Ml Vial) 4 mg IVPUSH Q8H PRN PRN Reason: Nausea and Vomiting Pharmacy Consult (Consult Rx Vancomycin Dosing) 1 each MISCELLANE DAILY PRN PRN Reason: Consult order Sodium Chloride (0.9 % Sodium Chloride Flush 3 Ml Syringe) 3 ml IVFLUSH QSHIFT [facility] Last Admin: 11/22/23 09:45 Dose: 3 ml Documented By: BRITTA Zinc Acetate/Diphenhydramine (Diphenhydramine Hcl 2 % Cream 28 Gm Tube) 1 appl TOPICAL BID [facility]; Protocol Last Admin: 11/22/23 09:50 Dose: 1 appl Documented By: BRITTA Labs 11/16/23 05:58 11/22/23 06:07 Labs: Laboratory Results - last 24 hr 11/21/23 11/21/23 11/22/23 15:31 20:29 06:07 Hold Purple Top SEE NOTE Estim Creat Clear Calc 44.9 Estimated GFR 49 POC Glucose 160 H 176 H 11/22/23 11/22/23 07:21 11:07 Hold Purple Top Estim Creat Clear Calc Estimated GFR POC Glucose 87 163 H Microbiology Microbiology Results: Microbiology 11/16/23 05:58 Blood Culture - Final Blood - Venous No growth after 5 days. 11/16/23 05:58 Blood Culture - Final Blood - Venous No growth after 5 days. Assessment and Plan (1) Pressure injury of right heel, unstageable: Status: Acute (2) Cellulitis: Status: Acute (3) Diabetic foot ulcer: Status: Acute Plan This is a 83-year-old female with pertinent history of mood disorder, urinary incontinence, essential hypertension, insulin-dependent diabetes mellitus, mixed hyperlipidemia who presents to the emergency department for evaluation of right foot pain. Right foot purulent cellulitis with imaging concerning for osteomyelitis, she hasd declined MRI but now is agreable -Was on Vanco and Cefepime, Cefepime stopped due to rash (has PEN allergy) Lavaquin added.. ID recommends PO Levaquin since OM not confirmed. -Will reattempt MRI since she is agreable -Vascular consult noted (outpatient f/u) recommends outaptient wound clinic rash likely from cefepim cross reactivity with PCN, Benadryl PRN, rash is fading Insulin-dependent diabetes mellitus with hyper and Hypoglycemia, she was on Lantus BID 30 in AM and 20 at night, had hypoglyemia to 46. Lantus reduced to once daily at 20 in AM, fasting sugar today was 88 Diarrhea--check Cdif Mood disorder: Continue home mood stabilizers Mixed hyperlipidemia: On statin Stage II sacral decubitus, present on admission, Wound Care recom Essential hypertension: On hydrochlorothiazide, metoprolol and lisinopril, renal function ok Urinary retention, luciano, uro consult Normocytic Anemia of chronic disease: Hemoglobin above transfusion threshold DVT prophylaxis: Lovenox Full code PT is recommending STR need for inpt awaiting placement Quality Stroke Does the patient have a stroke diagnosis?: No VTE Prior VTE?: No VTE Risk Level:: Medical - moderate - high VTE Device Contraindication: Treatment Not Indicated VTE Drug Contraindication: N/A - Med Ordered
[2023-11-22 13:26] LABS: CDiff Gene PCR NEGATIVE (Negative)
[2023-11-22 13:56] LABS: Anion Gap 13 (12-20)
[2023-11-22 13:57] LABS: Carbon Dioxide 25 mmol/L (22-29); Chloride 104 mmol/L (96-108); Potassium 3.9 mmol/L (3.3-5.1); Sodium 138 mmol/L (135-145)
[2023-11-22 14:04] LABS: Hematocrit 31.7 % (37.0-47.0); Hemoglobin 10.4 g/dl (12.0-16.0); Mean Corpuscular HGB Conc 32.8 g/dl (31.0-35.0); Mean Corpuscular Volume 97.5 fL (80.0-98.0); Mean Platelet Volume 11.1 fL (9.4-12.3); Platelet Count 216 X10*3/uL (160-400); Red Blood Count 3.25 X10*6/uL (4.20-5.50); Red Cell Distribution Width 13.4 % (11.0-16.0); White Blood Count 16.5 X10*3/uL (4.8-10.8)
--- NOTE | 2023-11-22 14:16 | MHC.CLN ---
F/U PT WITH INCREASED NUTRITION RISK R/T PRESSURE INJURIES PO INTAKE CONSISTENTLY 75-100% DIET RX: 2000DM-APPROPRIATE PT RECEIVING ENSURE MAX BID FOR WOUND HEALING SUPP PROVIDES 300KCALS, 60G PROTEIN CONTINUE TO MONITOR PO INTAKE AND ENCOURAGE SUPPLEMENTS
[2023-11-22] MEDS: Acetaminophen 325 MG TABLET 650 MG PO (14:49)
--- NOTE | 2023-11-22 15:59 | PM.EVENT ---
Event Note Date of Service: 11/22/23 Event Note: stop Vancomycin if negative om MRI Time Spent With Patient Time: Total time managing care of this patient today ____ minutes.
[2023-11-22 16:09] VITALS: BP 140/62; PULSE 69; RESP 17; TEMP 37.6; O2SAT 94
[2023-11-22] MEDS: Loperamide HCl 2 MG CAPSULE PO (16:27)
[2023-11-22 16:56] LABS: Glucose, Whole Blood 143 mg/dL (60-115)
[2023-11-22] MEDS: levoFLOXacin 500 MG TABLET PO (17:02)
--- NOTE | 2023-11-22 17:50 | PC.NURSE ---
luciano cath was removed at 1730. pt is due to void at 2330.
[2023-11-22] MEDS: Morphine Sulfate 2 MG/ML CARTRIDGE IVPUSH (18:14)
[2023-11-22 19:29] VITALS: BP 115/56; PULSE 69; RESP 20; TEMP 37.2; O2SAT 96
[2023-11-22 21:32] LABS: Glucose, Whole Blood 173 mg/dL (60-115)
[2023-11-22] MEDS: Atorvastatin Calcium 20 MG TABLET PO (21:35)
[2023-11-22 21:59] LABS: Vancomycin Random 17.4 mcg/mL (15-20)
--- NOTE | 2023-11-22 22:04 | HE.PHANOTE ---
Vancomycin Dosing Level 17.4 today. Continue current regimen. Next level 11/24 @ 2100. amador WalterD
[2023-11-22] MEDS: vancomycin HCL 1,250 MG in 0.9 % Sodium Chloride 250 ML 166.7 MG IV (23:24)
[2023-11-23] MEDS: diphenhydrAMINE HCL 50 MG/ML VIAL 25 MG IVPUSH (03:25)
[2023-11-23] MEDS: Morphine Sulfate 2 MG/ML CARTRIDGE IVPUSH ×2 (03:25→10:14)
[2023-11-23 04:00] VITALS: BP 123/45; PULSE 69; RESP 20; TEMP 36.9; O2SAT 93
--- NOTE | 2023-11-23 06:22 | PC.NURSE ---
Pt AOx4, teary and cries when addressing any care or concerns besides giving medications to her. Pt had F/C removed during day @ 1730 11/22. Bladder scan @ 2330 (6hrs) was 232ml. Bladder scan @ 0130 (8hrs) was 269. Advised MD and she stated straight cath >350ml. Bladder Scan @ 0430 was 416ml. Educated pt on the need for straight cath but also stressed for her to try to void. Pt was highly anxious and accusatory. Explained giving her the time to void herself, not wanting the urine to build up and since it's painful and pt fights when being moved or stiffens up when legs are being adjusted that if the pt voided we wouldn't have to straight cath. Pt stated no one was going to straight cath her and states 'everyone is looking to hurt' her and that no one cares. Attempted to comfort the pt but was unsuccessful as the pt was highly agitated. Advised MD of pt wishes and that it would be passed on to day shift and to watch the bladder scan.
[2023-11-23 06:38] LABS: Estimated Glomerular Filt Rate 39
[2023-11-23 07:12] LABS: Glucose, Whole Blood 157 mg/dL (60-115)
[2023-11-23 07:34] VITALS: BP 125/71; PULSE 71; RESP 20; TEMP 37.6; O2SAT 97
[2023-11-23] MEDS: Insulin Glargine,Hum.rec.anlog 100 UNIT/ML 10 ML VIAL 20 UNIT SUBCUT (08:08)
[2023-11-23] MEDS: Insulin Lispro 100 UNIT/ML 3 ML VIAL SUBCUT ×3 (08:09→20:50)
[2023-11-23] MEDS: Metoprolol Succinate ER 100 MG TAB.ER.24H PO (08:09)
[2023-11-23] MEDS: Escitalopram Oxalate 20 MG TABLET 40 MG PO (08:09)
[2023-11-23] MEDS: buPROPion HCl XL 150 MG TAB.ER.24H PO (08:09)
[2023-11-23] MEDS: Bethanechol Chloride 25 MG TABLET PO ×3 (08:10→20:46)
[2023-11-23] MEDS: hydroCHLOROthiazide 25 MG TABLET PO (08:10)
[2023-11-23] MEDS: lisinopriL 20 MG TABLET PO (08:10)
[2023-11-23] MEDS: 0.9 % Sodium Chloride Flush 3 ML SYRINGE IVFLUSH ×2 (08:25→17:08)
[2023-11-23] MEDS: Nystatin Powder 15 GM BOTTLE 1 APPL TOPICAL ×2 (08:26→20:51)
[2023-11-23] MEDS: methylPREDNISolone Sod Succ 125 MG/2 ML VIAL IVPUSH (11:29)
[2023-11-23] MEDS: gadobutroL 10 ML VIAL IVPUSH (11:51)
[2023-11-23 12:02] LABS: Glucose, Whole Blood 134 mg/dL (60-115)
--- NOTE | 2023-11-23 14:15 | P.PNIM_ITS ---
Subjective Subjective Date of Service: 11/24/23 Interval History: rash ?osteo Review of Systems anxious otherwise no fever or newc/o Physical Exam 2 Vital Signs: Vital Signs: Last Vital Signs Temp 99.7 F 11/23/23 07:34 Pulse 71 11/23/23 07:34 Resp 20 11/23/23 07:34 BP 125/71 11/23/23 07:34 Pulse Ox 97 11/23/23 07:34 O2 Del Method Room Air 11/23/23 07:34 BMI result Body Mass Index 35.3 General: alert, not in distress Resp: CTA bilateral CVS: S1,S2,RRR GI: +BS, NT, no distention Skin: No rash--see pic of foot from earlier documentation--essentially no change Neuro: motor grossly intact Psych: appropriate affect Objective Data Active Medications Acetaminophen (Acetaminophen 325 Mg Tablet) 650 mg PO Q6H PRN PRN Reason: Pain, Mild (Pain Scale 1-3) Last Admin: 11/22/23 14:49 Dose: 650 mg Documented By: BRITTA Atorvastatin Calcium (Atorvastatin Calcium 20 Mg Tablet) 20 mg PO BEDTIME [facility] Last Admin: 11/22/23 21:35 Dose: 20 mg Documented By: ARGELIA Bethanechol Chloride (Bethanechol Chloride 25 Mg Tablet) 25 mg PO TID [facility] Last Admin: 11/23/23 08:10 Dose: 25 mg Documented By: AMADOU Bupropion HCl (Bupropion Hcl Xl 150 Mg Tab.Er.24h) 150 mg PO DAILY [facility] Last Admin: 11/23/23 08:09 Dose: 150 mg Documented By: AMADOU Collagenase (Collagenase Clostridium Hist. 30 Gm Tube) 1 appl TOPICAL DAILY [facility]; Protocol Last Admin: 11/22/23 09:51 Dose: 1 appl Documented By: BRITTA Dextrose (Dextrose 50 % 25 Gm/50 Ml Syringe) 25 gm IVPUSH Q15M PRN; Protocol PRN Reason: per Hypoglycemia Standing Ord. Last Admin: 11/21/23 02:10 Dose: 25 gm Documented By: YO Diphenhydramine HCl (Diphenhydramine Hcl 50 Mg/Ml Vial) 25 mg IVPUSH Q6H PRN PRN Reason: Itching Last Admin: 11/23/23 03:25 Dose: 25 mg Documented By: ARGELIA Enoxaparin Sodium (Enoxaparin Sodium 40 Mg/0.4 Ml Syringe) 40 mg SUBCUT Q24H [facility] Escitalopram Oxalate (Escitalopram Oxalate 20 Mg Tablet) 40 mg PO DAILY [facility] Last Admin: 11/23/23 08:09 Dose: 40 mg Documented By: AMADOU Glucose (Glucose Gel 15 Gm Gel..Gram.) 15 gm PO Q15M PRN; Protocol PRN Reason: per Hypoglycemia Standing Ord. Hydrochlorothiazide (Hydrochlorothiazide 25 Mg Tablet) 25 mg PO DAILY [facility]; Protocol Last Admin: 11/23/23 08:10 Dose: 25 mg Documented By: AMADOU Vancomycin HCl 1,250 mg/ (Sodium Chloride) 250 mls @ 166.667 mls/hr IV Q24H [facility] Last Infusion: 11/23/23 01:02 Dose: Infused Documented By: ARGELIA Insulin Glargine (Insulin Glargine,Hum.Rec.Anlog 100 Unit/Ml 10 Ml Vial) 20 unit SUBCUT DAILY [facility] Last Admin: 11/23/23 08:08 Dose: 20 unit Documented By: AMADOU Insulin Human Lispro (Insulin Lispro 100 Unit/Ml 3 Ml Vial) 0 unit SUBCUT QIDACHS [facility]; Protocol Last Admin: 11/23/23 12:34 Dose: Not Given Documented By: AMADOU Non-Admin Reason: No Insulin Coverage Levofloxacin (Levofloxacin 500 Mg Tablet) 500 mg PO Q24H [facility] Last Admin: 11/22/23 17:02 Dose: 500 mg Documented By: BRITTA Lisinopril (Lisinopril 20 Mg Tablet) 20 mg PO DAILY [facility]; Protocol Last Admin: 11/23/23 08:10 Dose: 20 mg Documented By: AMADOU Loperamide HCl (Loperamide Hcl 2 Mg Capsule) 2 mg PO Q6H PRN PRN Reason: Constipation Last Admin: 11/22/23 16:27 Dose: 2 mg Documented By: BRITTA Melatonin (Melatonin 3 Mg Tablet) 6 mg PO BEDTIME PRN PRN Reason: Insomnia Last Admin: 11/21/23 21:09 Dose: 6 mg Documented By: YO Metoprolol Succinate (Metoprolol Succinate Er 100 Mg Tab.Er.24h) 100 mg PO DAILY [facility]; Protocol Last Admin: 11/23/23 08:09 Dose: 100 mg Documented By: AMADOU Morphine Sulfate (Morphine Sulfate 2 Mg/Ml Cartridge) 2 mg IVPUSH Q6H PRN; Protocol PRN Reason: Pain, Severe (Pain Scale 7-10) Last Admin: 11/23/23 10:14 Dose: 2 mg Documented By: AMADOU Nystatin (Nystatin Powder 15 Gm Bottle) 1 appl TOPICAL BID [facility]; Protocol Last Admin: 11/23/23 08:26 Dose: 1 appl Documented By: AMADOU Ondansetron HCl (Ondansetron Hcl 4 Mg/2 Ml Vial) 4 mg IVPUSH Q8H PRN PRN Reason: Nausea and Vomiting Pharmacy Consult (Consult Rx Vancomycin Dosing) 1 each MISCELLANE DAILY PRN PRN Reason: Consult order Sodium Chloride (0.9 % Sodium Chloride Flush 3 Ml Syringe) [facility] Last Admin: 11/23/23 08:25 Dose: 3 ml Documented By: AMADOU Zinc Acetate/Diphenhydramine (Diphenhydramine Hcl 2 % Cream 28 Gm Tube) 1 appl TOPICAL BID [facility]; Protocol Last Admin: 11/23/23 08:26 Dose: Not Given Documented By: AMADOU Non-Admin Reason: Patient Refused Labs 11/22/23 06:07 11/24/23 08:31 Labs: Laboratory Results - last 24 hr 11/22/23 11/22/23 11/22/23 16:47 21:14 21:29 Hold Purple Top Estim Creat Clear Calc Estimated GFR POC Glucose 143 H 173 H Random Vancomycin 17.4 11/23/23 11/23/23 11/23/23 06:01 07:03 11:59 Hold Purple Top SEE NOTE Estim Creat Clear Calc 37.0 Estimated GFR 39 POC Glucose 157 H 134 H Random Vancomycin Assessment and Plan (1) Pressure injury of right heel, unstageable: Status: Acute (2) Cellulitis: Status: Acute (3) Diabetic foot ulcer: Status: Acute Plan This is a 83-year-old female with pertinent history of mood disorder, urinary incontinence, essential hypertension, insulin-dependent diabetes mellitus, mixed hyperlipidemia who presents to the emergency department for evaluation of right foot pain. Right foot acute osteo on mri with imaging concerning for osteomyelitis, she hasd declined MRI but now is agreable -Was on Vanco and Cefepime, Cefepime stopped due to rash (has PEN allergy) Lavaquin added.. ID recommends PO Levaquin since OM not confirmed. MR/MR foot RT wo/w con:Soft tissue ulceration and cellulitis along the posterolateral aspect of the calcaneus with acute osteomyelitis within the adjacent calcaneus. No abscess formation. Moderate osteoarthritis scattered throughout the midfoot. Diffuse atrophy throughout the intrinsic musculature of the foot. . Circumferential soft tissue edema. vancotrough 17.4 Id follow -continue vanco and levaquin ,will request picc line for am. -Vascular consult noted (outpatient f/u) recommends outaptient wound clinic rash likely from cefepim cross reactivity with PCN, Benadryl PRN, rash is fading given solumedrol 1 dose also Insulin-dependent diabetes mellitus with hyper and Hypoglycemia, she was on Lantus BID 30 in AM and 20 at night, had hypoglyemia to 46. Lantus reduced to once daily at 20 in AM, fasting sugar today was 88 Diarrhea--check Cdif Mood disorder: Continue home mood stabilizers Mixed hyperlipidemia: On statin Stage II sacral decubitus, present on admission, Wound Care recom Essential hypertension: On hydrochlorothiazide, metoprolol and lisinopril, renal function ok Urinary retention; moniter with stright cath,flomax , uro consult Normocytic Anemia of chronic disease: Hemoglobin above transfusion threshold DVT prophylaxis: Lovenox Full code PT is recommending STR need for inpt awaiting placement and picc line placement Quality Stroke Does the patient have a stroke diagnosis?: No VTE Prior VTE?: No VTE Risk Level:: Medical - moderate - high VTE Device Contraindication: Treatment Not Indicated VTE Drug Contraindication: N/A - Med Ordered
--- NOTE | 2023-11-23 14:52 | MHC.CM.PN ---
EMR REVIEWED, PT DID AGREE TO MRI WHICH WAS POSITIVE FOR OSTEO, PT WILL LIKELY NEED DIRECTOR COLLEGE IV ABX AND NOHEMI UPDATED VIA [employer]. LORNA DID RECEIVE A MESSAGE FROM NOHEMI TO CONTACT [facility], LORNA CALLED [facility] [phone] WHO REPORTED THEY HAVE A LTC BED THEY COULD PLACE PT IN IN CASE SHE NEEDS TO TRNASITION TO LTC, CM WILL CONT TO FOLLOW.
[2023-11-23 15:16] VITALS: BP 121/83; PULSE 69; RESP 20; TEMP 36.7; O2SAT 95
[2023-11-23 15:47] LABS: Glucose, Whole Blood 156 mg/dL (60-115)
[2023-11-23] MEDS: levoFLOXacin 500 MG TABLET PO (17:08)
[2023-11-23] MEDS: Collagenase Clostridium Hist. 30 GM TUBE 1 APPL TOPICAL (17:14)
--- NOTE | 2023-11-23 19:18 | PC.NURSE ---
Patient unable to void - at 0845 bladder scan for 535, Dr. Chacon ordered str cath but patient was able to void 300ml and was incontinent - PVR 170ml
[2023-11-23 19:21] VITALS: BP 111/54; PULSE 77; RESP 20; TEMP 36.7; O2SAT 94
[2023-11-23 19:48] LABS: Glucose, Whole Blood 234 mg/dL (60-115)
[2023-11-23] MEDS: Atorvastatin Calcium 20 MG TABLET PO (20:46)
[2023-11-23] MEDS: diphenhydrAMINE HCl 2 % Cream 28 GM TUBE 1 APPL TOPICAL (20:47)
[2023-11-23] MEDS: vancomycin HCL 1,250 MG in 0.9 % Sodium Chloride 250 ML 166.7 MG IV (23:27)
[2023-11-23 23:53] LABS: Glucose, Whole Blood 347 mg/dL (60-115)
[2023-11-24 00:07] VITALS: BP 117/49; PULSE 72; RESP 20; TEMP 37.8; O2SAT 93
[2023-11-24 03:53] VITALS: BP 119/49; PULSE 84; RESP 18; TEMP 37.4; O2SAT 94
[2023-11-24 07:18] LABS: Glucose, Whole Blood 428 mg/dL (60-115)
[2023-11-24 07:33] VITALS: BP 124/74; PULSE 65; RESP 18; TEMP 37.4; O2SAT 96
[2023-11-24] MEDS: Insulin Lispro 100 UNIT/ML 3 ML VIAL SUBCUT ×5 (08:55→21:00)
[2023-11-24] MEDS: Bethanechol Chloride 25 MG TABLET PO ×3 (08:56→21:00)
[2023-11-24] MEDS: Insulin Glargine,Hum.rec.anlog 100 UNIT/ML 10 ML VIAL 20 UNIT SUBCUT (08:56)
[2023-11-24] MEDS: lisinopriL 20 MG TABLET PO (08:57)
[2023-11-24] MEDS: 0.9 % Sodium Chloride Flush 3 ML SYRINGE IVFLUSH ×2 (08:57→17:20)
[2023-11-24] MEDS: hydroCHLOROthiazide 25 MG TABLET PO (08:57)
[2023-11-24] MEDS: buPROPion HCl XL 150 MG TAB.ER.24H PO (08:57)
[2023-11-24] MEDS: Escitalopram Oxalate 20 MG TABLET 40 MG PO (08:57)
[2023-11-24] MEDS: Metoprolol Succinate ER 100 MG TAB.ER.24H PO (08:57)
[2023-11-24] MEDS: Collagenase Clostridium Hist. 30 GM TUBE 1 APPL TOPICAL (09:01)
[2023-11-24] MEDS: Nystatin Powder 15 GM BOTTLE 1 APPL TOPICAL ×2 (09:01→21:04)
[2023-11-24] MEDS: diphenhydrAMINE HCl 2 % Cream 28 GM TUBE 1 APPL TOPICAL (09:02)
[2023-11-24 10:10] LABS: Creatinine Clr Calc Pharmacy 32.2; Estimated Glomerular Filt Rate 33
[2023-11-24 10:28] LABS: Anion Gap 16 (12-20); Blood Urea Nitrogen 53 mg/dL (9-16); Calcium 8.2 mg/dL (8.4-10.2); Carbon Dioxide 23 mmol/L (22-29); Chloride 101 mmol/L (96-108); Creatinine Clr Calc Pharmacy 32.2; Estimated Glomerular Filt Rate 33; Glucose Random 471 mg/dL (60-115); Potassium 3.4 mmol/L (3.3-5.1); Sodium 137 mmol/L (135-145)
[2023-11-24 11:28] LABS: Glucose, Whole Blood 403 mg/dL (60-115)
--- NOTE | 2023-11-24 13:52 | MHC.CLN ---
F/U PT WITH INCREASED NUTRITION RISK R/T PRESSURE INJURIES PO INTAKE VARIABLE RANGING FROM 25-100% DIET RX: 2000DM-APPROPRIATE PT RECEIVING ENSURE MAX BID FOR WOUND HEALING SUPP PROVIDES 300KCALS, 60G PROTEIN CONTINUE TO MONITOR PO INTAKE AND ENCOURAGE SUPPLEMENTS
--- NOTE | 2023-11-24 14:03 | MHC.CM.PN ---
CM MET W/PT EARLIER IN SHIFT TO DISCUSS DISPO, PT TEARFUL ON AND OFF THROUGHOUT AND WHEN CM ASKED IF PT PREFERRED I CALL HER /HCP SHERRY PT REPORTS IT IS HER DECISION WHERE SHE GOES AND PT HAS DECIDED SHE PREFERS [facility] FOR STR, IMM DELIVERED 11/24/23 AND PT AGREEABLE TO DC TOMORROW 11/25. PT WILL BE PREBOOKED FOR TRANSPORT AT 1PM PER REQUEST OF FACILITY.
[2023-11-24 15:11] VITALS: BP 127/67; PULSE 62; RESP 18; TEMP 37.7; O2SAT 95
[2023-11-24] MEDS: diphenhydrAMINE HCL 50 MG/ML VIAL 25 MG IVPUSH (15:57)
--- NOTE | 2023-11-24 17:10 | P.PICC_ITS ---
PICC Line Insertion NPICC Diagnosis: Osteomyelitis Indication: longterm ABT Pertinent Labs: Reviewed Technique: Following informed consent including risks, benefits and alternatives and using sterile technique including cap and mask, sterile gown, glove and drape, the right arm was prepped and draped in the usual sterile fashion of full barrier technique with CHG. Following completion of Orr Protocol the skin and soft tissues were anesthetized with 1% Lidocaine plain. Using ultrasound guidance, right cephalic vein access was obtained. Over an 0.018 wire through peel-away sheath, a 4FR single lumen PASV PICC line was positioned. Catheter length is 38cm internal length, 0cm external length, for a total trimmed length of 38cm. The procedure was performed in [facility]. Tip verification was performed by [employer] with Walter 3CG. Tip located in SVC. Ultrasound was used to document vein patency and for needle entry. A formal ultrasound picture and cardiac rhythm strip was recorded. [employer] Programmer has released the line for use and it is currently dressed with a StatLock, Tegaderm, and CHG disc. Verification has been performed for blood return and line patency. Arm Circumference: 34cm Equipment: [employer] SOLO catheter Catheter Type: 4fr single lumen PASV Lot #: [id number]
[2023-11-24 17:16] LABS: Glucose, Whole Blood 245 mg/dL (60-115)
[2023-11-24] MEDS: 0.9 % Sodium Chloride 1,000 ML 80 ML IVCONT (17:20)
[2023-11-24] MEDS: levoFLOXacin 500 MG TABLET PO (17:21)
--- NOTE | 2023-11-24 17:48 | P.PNIM_ITS ---
Subjective Subjective Date of Service: 11/25/23 Interval History: chuck ,osteomyelitis Review of Systems less soarness today no fever or chills Physical Exam 2 Vital Signs: Vital Signs: Last Vital Signs Temp 99.8 F 11/24/23 15:11 Pulse 62 11/24/23 15:11 Resp 18 11/24/23 15:11 BP 127/67 11/24/23 15:11 Pulse Ox 95 11/24/23 15:11 O2 Del Method Room Air 11/24/23 15:11 BMI result Body Mass Index 35.3 General: alert, not in distress Resp: CTA bilateral CVS: S1,S2,RRR GI: +BS, NT, no distention Skin: No rash--see pic of foot from earlier documentation-similar Neuro: motor grossly intact Psych: appropriate affect Objective Data Active Medications Acetaminophen (Acetaminophen 325 Mg Tablet) 650 mg PO Q6H PRN PRN Reason: Pain, Mild (Pain Scale 1-3) Last Admin: 11/22/23 14:49 Dose: 650 mg Documented By: BRITTA Atorvastatin Calcium (Atorvastatin Calcium 20 Mg Tablet) 20 mg PO BEDTIME [facility] Last Admin: 11/23/23 20:46 Dose: 20 mg Documented By: GIOVANNI Bethanechol Chloride (Bethanechol Chloride 25 Mg Tablet) 25 mg PO TID [facility] Last Admin: 11/24/23 15:36 Dose: 25 mg Documented By: AMILCAR Bupropion HCl (Bupropion Hcl Xl 150 Mg Tab.Er.24h) 150 mg PO DAILY [facility] Last Admin: 11/24/23 08:57 Dose: 150 mg Documented By: AMADOU Collagenase (Collagenase Clostridium Hist. 30 Gm Tube) 1 appl TOPICAL DAILY [facility]; Protocol Last Admin: 11/24/23 09:01 Dose: 1 appl Documented By: AMADOU Dextrose (Dextrose 50 % 25 Gm/50 Ml Syringe) 25 gm IVPUSH Q15M PRN; Protocol PRN Reason: per Hypoglycemia Standing Ord. Last Admin: 11/21/23 02:10 Dose: 25 gm Documented By: YO Diphenhydramine HCl (Diphenhydramine Hcl 50 Mg/Ml Vial) 25 mg IVPUSH Q6H PRN PRN Reason: Itching Last Admin: 11/24/23 15:57 Dose: 25 mg Documented By: AMADOU Enoxaparin Sodium (Enoxaparin Sodium 40 Mg/0.4 Ml Syringe) 40 mg SUBCUT Q24H [facility] Escitalopram Oxalate (Escitalopram Oxalate 20 Mg Tablet) 40 mg PO DAILY [facility] Last Admin: 11/24/23 08:57 Dose: 40 mg Documented By: AMADOU Glucose (Glucose Gel 15 Gm Gel..Gram.) 15 gm PO Q15M PRN; Protocol PRN Reason: per Hypoglycemia Standing Ord. Hydrochlorothiazide (Hydrochlorothiazide 25 Mg Tablet) 25 mg PO DAILY [facility]; Protocol Last Admin: 11/24/23 08:57 Dose: 25 mg Documented By: AMADOU Sodium Chloride (Ns) 1,000 mls @ 80 mls/hr IVCONT .[id number] [facility] Last Admin: 11/24/23 17:20 Dose: 80 mls/hr Documented By: AMILCAR Daptomycin 440 mg/ Sodium (Chloride) 58.8 mls @ 95.523 mls/hr IV Q24H [facility] Insulin Glargine (Insulin Glargine,Hum.Rec.Anlog 100 Unit/Ml 10 Ml Vial) 20 unit SUBCUT DAILY [facility] Last Admin: 11/24/23 08:56 Dose: 20 unit Documented By: AMADOU Insulin Human Lispro (Insulin Lispro 100 Unit/Ml 3 Ml Vial) 0 unit SUBCUT QIDACHS [facility]; Protocol Last Admin: 11/24/23 17:20 Dose: 4 unit Documented By: AMILCAR Levofloxacin (Levofloxacin 500 Mg Tablet) 500 mg PO Q24H [facility] Last Admin: 11/24/23 17:21 Dose: 500 mg Documented By: AMILCAR Loperamide HCl (Loperamide Hcl 2 Mg Capsule) 2 mg PO Q6H PRN PRN Reason: Constipation Last Admin: 11/22/23 16:27 Dose: 2 mg Documented By: BRITTA Melatonin (Melatonin 3 Mg Tablet) 6 mg PO BEDTIME PRN PRN Reason: Insomnia Last Admin: 11/21/23 21:09 Dose: 6 mg Documented By: YO Metoprolol Succinate (Metoprolol Succinate Er 100 Mg Tab.Er.24h) 100 mg PO DAILY [facility]; Protocol Last Admin: 11/24/23 08:57 Dose: 100 mg Documented By: AMADOU Morphine Sulfate (Morphine Sulfate 2 Mg/Ml Cartridge) 2 mg IVPUSH Q6H PRN; Protocol PRN Reason: Pain, Severe (Pain Scale 7-10) Last Admin: 11/23/23 10:14 Dose: 2 mg Documented By: AMADOU Nystatin (Nystatin Powder 15 Gm Bottle) 1 appl TOPICAL BID [facility]; Protocol Last Admin: 11/24/23 09:01 Dose: 1 appl Documented By: AMADOU Ondansetron HCl (Ondansetron Hcl 4 Mg/2 Ml Vial) 4 mg IVPUSH Q8H PRN PRN Reason: Nausea and Vomiting Pharmacy Consult (Consult Rx Vancomycin Dosing) 1 each MISCELLANE DAILY PRN PRN Reason: Consult order Sodium Chloride (0.9 % Sodium Chloride Flush 3 Ml Syringe) 3 ml IVFLUSH QSHIFT [facility] Last Admin: 11/24/23 17:20 Dose: 3 ml Documented By: AMILCAR Zinc Acetate/Diphenhydramine (Diphenhydramine Hcl 2 % Cream 28 Gm Tube) 1 appl TOPICAL BID [facility]; Protocol Last Admin: 11/24/23 09:02 Dose: 1 appl Documented By: AMADOU Labs 11/22/23 06:07 11/25/23 08:02 Labs: Laboratory Results - last 24 hr 11/23/23 11/23/23 11/24/23 19:42 23:48 07:15 Anion Gap Estim Creat Clear Calc Estimated GFR POC Glucose 234 H 347 H 428 H* Random Glucose Calcium Total Creatine Kinase 11/24/23 11/24/23 11/24/23 08:31 08:31 08:31 Anion Gap 16 Estim Creat Clear Calc 32.2 32.2 Estimated GFR 33 33 POC Glucose Random Glucose 471 H* Calcium 8.2 L D Total Creatine Kinase 61 11/24/23 11/24/23 11:24 17:11 Anion Gap Estim Creat Clear Calc Estimated GFR POC Glucose 403 H* 245 H Random Glucose Calcium Total Creatine Kinase Assessment and Plan (1) Cellulitis: Status: Acute (2) Osteomyelitis: Status: Acute Plan 83-year-old female with pertinent history of mood disorder, urinary incontinence, essential hypertension, insulin-dependent diabetes mellitus, mixed hyperlipidemia who presents to the emergency department for evaluation of right foot pain. Right foot acute osteo on mri with imaging concerning for osteomyelitis, she hasd declined MRI but now is agreable -Was on Vanco and Cefepime, Cefepime stopped due to rash (has PEN allergy) Lavaquin added.. ID recommends PO Levaquin since OM not confirmed. MR/MR foot RT wo/w con:Soft tissue ulceration and cellulitis along the posterolateral aspect of the calcaneus with acute osteomyelitis within the adjacent calcaneus. No abscess formation. Moderate osteoarthritis scattered throughout the midfoot. Diffuse atrophy throughout the intrinsic musculature of the foot. . Circumferential soft tissue edema. [facility] 17.4 Id follow -continue vanco and levaquin ,will request picc line for am. -Vascular consult noted (outpatient f/u) recommends outaptient wound clinic rash likely from cefepim cross reactivity with PCN, Benadryl PRN, rash is fading given solumedrol 1 dose also Insulin-dependent diabetes mellitus with hyper and Hypoglycemia, she was on Lantus BID 30 in AM and 20 at night, had hypoglyemia to 46. Lantus reduced to once daily at 20 in AM, fasting sugar today was 88 Diarrhea--check Cdif Mood disorder: Continue home mood stabilizers Mixed hyperlipidemia: On statin Stage II sacral decubitus, present on admission, Wound Care recom Essential hypertension: On hydrochlorothiazide, metoprolol and lisinopril, renal function ok Urinary retention; moniter with stright cath,flomax , uro consult Normocytic Anemia of chronic disease: Hemoglobin above transfusion threshold DVT prophylaxis: Lovenox Full code PT is recommending STR wound care: Recommendations: 1. Turn and Reposition every 2 hours and as needed for patient comfort.? Use pillows or wedges to support off loading positions. 2. Off Load all bony prominences with use of pillows and heel boots if needed.? Apply Preventative foams where needed. ? 3. Monitor for incontinence and moisture control, use barrier creams when needed for prevention and treatment. 4. Provide adequate and supplemental nutrition.? 5. Order or Continue low air loss mattress. 6. When applicable maintain blood glucose levels per Providers order. 7. Sacrum - Off Load Pressure with pillows - Cleanse with routine cleansing, pat dry. Cover with Sacral foam dressing, peel back Q shift and change every 3 days and PRN. 8. Right heel - Elevate off of bed surface with heel protector boot (Storeroom# [id number]). Cleanse with NS, apply skin barrier wipe to periwound. Apply thick layer of Santyl to wound bed cover with gauze, gauze wrap. Change Daily. 9. Left Ischium - Off Load Pressure - Cleanse with PH balance spray or wipes, pat dry. ?Apply thin layer of Triad to wound bed. Do not remove all of paste between applications as this may cause further skin damage.? Cover with foam dressing to aid in off loading and protection from friction. Change every other day and PRN. need for inpt awaiting placement and picc line placement Quality Stroke Does the patient have a stroke diagnosis?: No VTE Prior VTE?: No VTE Risk Level:: Medical - moderate - high VTE Device Contraindication: Treatment Not Indicated VTE Drug Contraindication: N/A - Med Ordered
[2023-11-24 19:29] VITALS: BP 106/44; PULSE 63; RESP 20; TEMP 37.2; O2SAT 95
[2023-11-24 19:44] LABS: Glucose, Whole Blood 244 mg/dL (60-115)
[2023-11-24] MEDS: Atorvastatin Calcium 20 MG TABLET PO (21:00)
--- NOTE | 2023-11-24 21:17 | PC.NURSE ---
Urination: the last known urine output at 14:00 in amount of 600 ml . Bladder scanned for 474 ml tonight , pt is refusing to be catheterized , stated that she had sufficient urine output today and doesnt want to be touched in the [place] area. RN explained to the patient the risks for UTI . Patient stated that she has a right to refuse the procedure.
--- NOTE | 2023-11-25 | ECG_ITS ---
Test Reason : CHECK QTC Blood Pressure : / mmHG Vent. Rate : 069 BPM Atrial Rate : 069 BPM P-R Int : 184 ms QRS Dur : 128 ms QT Int : 484 ms P-R-T Axes : 057 -35 006 degrees QTc Int : 518 ms Normal sinus rhythm Left axis deviation Right bundle branch block Abnormal ECG When compared with ECG of 21-FEB-2023 09:06, No significant changes seen Referred By: Peter Chacon Electronically Signed By:MARCOS DYKES
[2023-11-25] MEDS: 0.9 % Sodium Chloride Flush 3 ML SYRINGE IVFLUSH ×2 (00:23→15:47)
[2023-11-25 03:24] VITALS: BP 123/47; PULSE 60; RESP 20; TEMP 37.3; O2SAT 95
[2023-11-25] MEDS: 0.9 % Sodium Chloride 1,000 ML 80 ML IVCONT (05:40)
[2023-11-25 09:03] LABS: Estimated Glomerular Filt Rate 39
--- NOTE | 2023-11-25 11:17 | PC.NURSE ---
Patient is refusing any and all care this morning. Patient does not want to be touched, refusing to have blood sugar and vitals checked. Patient educated on the importance of checking vitals and blood sugar patient states leave me the hell alone and don't you dare touch me. MD notified. Tried to medicate patient and again the same response to leave her alone and that she would not be taking anything that we gave to her. MD notified again about the refusal of care. Patient states that all needs are met at this time and that she would like for us to leave. Call mathias is within reach.
[2023-11-25 11:25] LABS: Glucose, Whole Blood 199 mg/dL (60-115)
[2023-11-25 11:33] VITALS: BP 136/70; PULSE 67; RESP 18; TEMP 36.8; O2SAT 92
[2023-11-25] MEDS: Insulin Lispro 100 UNIT/ML 3 ML VIAL SUBCUT ×3 (11:50→22:08)
--- NOTE | 2023-11-25 14:43 | MHC.CM.PN ---
EMR REVIEWED, CM HAD UPDATED REFERRAL W/PICC AND UPDATED MED LIST AND D/T PT BEING CHANGED TO IV DAPTO THEY ARE UNABLE TO TAKE PT THEIR COST WOULD BE $1000/DAY, CM UPDATED AND RESENT REFERRAL AND [facility] REPORTS THEY HAVE A CORPORATE ACCT AND THE COST WOULD BE $30-40 A DAY, [facility] OFFERING A BED AND [facility] WILL PLAN FOR DC TOMORROW LATE MORNING VS AFTER LUNCH, CM TO UPDATE [facility]OW[facility] TOMORROW MORNING AT BEDSIDE, SHERRY REPORTS HE WILL BE IN AT ABOUT 10AM FOR VISIT.
[2023-11-25 15:01] LABS: Magnesium 2.1 mg/dL (1.6-2.6); Potassium 3.7 mmol/L (3.3-5.1)
--- NOTE | 2023-11-25 15:23 | HO.PM.IMPN ---
Subjective Subjective Date of Service: 11/25/23 Interval History: Foot osteomyelitis, mood disorder Review of Systems Patient invariably gets very labile mood where she start crying, and has agitation Interferes with the treatments also Denies any chest pain or shortness of breath otherwise Physical Exam Vital Signs: Vital Signs: Last Vital Signs Temp 98.3 F 11/25/23 11:33 Pulse 67 11/25/23 11:33 Resp 18 11/25/23 11:33 BP 136/70 11/25/23 11:33 Pulse Ox 92 11/25/23 11:33 O2 Del Method Room Air 11/25/23 11:33 BMI result Body Mass Index 35.3 General: alert, not in distress Resp: CTA bilateral CVS: S1,S2,RRR GI: +BS, NT, no distention Skin: No rash--see pic of foot from earlier documentation-similar Neuro: motor grossly intact Psych: appropriate affect Objective Data Active Medications Acetaminophen (Acetaminophen 325 Mg Tablet) 650 mg PO Q6H PRN PRN Reason: Pain, Mild (Pain Scale 1-3) Last Admin: 11/22/23 14:49 Dose: 650 mg Documented By: BRITTA Atorvastatin Calcium (Atorvastatin Calcium 20 Mg Tablet) 20 mg PO BEDTIME [facility] Last Admin: 11/24/23 21:00 Dose: 20 mg Documented By: AMILCAR Bethanechol Chloride (Bethanechol Chloride 25 Mg Tablet) 25 mg PO TID [facility] Last Admin: 11/25/23 08:38 Dose: Not Given Documented By: JANE Non-Admin Reason: Patient Refused Bupropion HCl (Bupropion Hcl Xl 150 Mg Tab.Er.24h) 150 mg PO DAILY [facility] Last Admin: 11/25/23 08:38 Dose: Not Given Documented By: JANE Non-Admin Reason: Patient Refused Collagenase (Collagenase Clostridium Hist. 30 Gm Tube) 1 appl TOPICAL DAILY [facility]; Protocol Last Admin: 11/25/23 08:38 Dose: Not Given Documented By: JANE Non-Admin Reason: Patient Refused Dextrose (Dextrose 50 % 25 Gm/50 Ml Syringe) 25 gm IVPUSH Q15M PRN; Protocol PRN Reason: per Hypoglycemia Standing Ord. Last Admin: 11/21/23 02:10 Dose: 25 gm Documented By: YO Diphenhydramine HCl (Diphenhydramine Hcl 50 Mg/Ml Vial) 25 mg IVPUSH Q6H PRN PRN Reason: Itching Last Admin: 11/24/23 15:57 Dose: 25 mg Documented By: DOBROLeni Enoxaparin Sodium (Enoxaparin Sodium 40 Mg/0.4 Ml Syringe) 40 mg SUBCUT Q24H [facility] Escitalopram Oxalate (Escitalopram Oxalate 20 Mg Tablet) 40 mg PO DAILY [facility] Last Admin: 11/25/23 08:39 Dose: Not Given Documented By: JANE Non-Admin Reason: Patient Refused Glucose (Glucose Gel 15 Gm Gel..Gram.) 15 gm PO Q15M PRN; Protocol PRN Reason: per Hypoglycemia Standing Ord. Daptomycin 440 mg/ Sodium (Chloride) 58.8 mls @ 95.523 mls/hr IV Q24H [facility] Last Infusion: 11/24/23 20:46 Dose: Infused Documented By: AMILCAR Insulin Glargine (Insulin Glargine,Hum.Rec.Anlog 100 Unit/Ml 10 Ml Vial) 20 unit SUBCUT DAILY [facility] Last Admin: 11/25/23 08:39 Dose: Not Given Documented By: JANE Non-Admin Reason: pt refusing blood sugar checks Insulin Human Lispro (Insulin Lispro 100 Unit/Ml 3 Ml Vial) 0 unit SUBCUT QIDACHS [facility]; Protocol Last Admin: 11/25/23 11:50 Dose: 2 unit Documented By: JANE Loperamide HCl (Loperamide Hcl 2 Mg Capsule) 2 mg PO Q6H PRN PRN Reason: Constipation Last Admin: 11/22/23 16:27 Dose: 2 mg Documented By: BRITTA Melatonin (Melatonin 3 Mg Tablet) 6 mg PO BEDTIME PRN PRN Reason: Insomnia Last Admin: 11/21/23 21:09 Dose: 6 mg Documented By: NARGISTRElfego Metoprolol Succinate (Metoprolol Succinate Er 100 Mg Tab.Er.24h) 100 mg PO DAILY [facility]; Protocol Last Admin: 11/25/23 08:39 Dose: Not Given Documented By: JANE Non-Admin Reason: Patient Refused Morphine Sulfate (Morphine Sulfate 2 Mg/Ml Cartridge) 2 mg IVPUSH Q6H PRN; Protocol PRN Reason: Pain, Severe (Pain Scale 7-10) Last Admin: 11/23/23 10:14 Dose: 2 mg Documented By: AMADOU Nystatin (Nystatin Powder 15 Gm Bottle) 1 appl TOPICAL BID [facility]; Protocol Last Admin: 11/25/23 08:39 Dose: Not Given Documented By: JANE Non-Admin Reason: Patient Refused Ondansetron HCl (Ondansetron Hcl 4 Mg/2 Ml Vial) 4 mg IVPUSH Q8H PRN PRN Reason: Nausea and Vomiting Sodium Chloride (0.9 % Sodium Chloride Flush 3 Ml Syringe) 3 ml IVFLUSH QSHIFT [facility] Last Admin: 11/25/23 08:38 Dose: Not Given Documented By: JANE Non-Admin Reason: IV Running Zinc Acetate/Diphenhydramine (Diphenhydramine Hcl 2 % Cream 28 Gm Tube) 1 appl TOPICAL BID [facility]; Protocol Last Admin: 11/25/23 08:39 Dose: Not Given Documented By: JANE Non-Admin Reason: Patient Refused Labs 11/22/23 06:07 11/25/23 08:02 Labs: Laboratory Results - last 24 hr 11/24/23 11/24/23 11/24/23 08:31 17:11 19:39 Estim Creat Clear Calc Estimated GFR POC Glucose 245 H 244 H Magnesium Total Creatine Kinase 61 11/25/23 11/25/23 08:02 11:21 Estim Creat Clear Calc 37.0 Estimated GFR 39 POC Glucose 199 H Magnesium 2.1 Total Creatine Kinase Assessment and Plan (1) Cellulitis: Status: Acute (2) Osteomyelitis: Status: Acute Plan 83-year-old female with pertinent history of mood disorder, urinary incontinence, essential hypertension, insulin-dependent diabetes mellitus, mixed hyperlipidemia who presents to the emergency department for evaluation of right foot pain. Right foot acute osteo on mri with imaging concerning for osteomyelitis, she hasd declined MRI but now is agreable -Was on Vanco and Cefepime, Cefepime stopped due to rash (has PEN allergy) Lavaquin added.. ID recommends PO Levaquin since OM not confirmed. MR/MR foot RT wo/w con:Soft tissue ulceration and cellulitis along the posterolateral aspect of the calcaneus with acute osteomyelitis within the adjacent calcaneus. No abscess formation. Moderate osteoarthritis scattered throughout the midfoot. Diffuse atrophy throughout the intrinsic musculature of the foot. . Circumferential soft tissue edema. [facility] 17.4 Id follow -off vanco due to fluactauting renal function and off levaquin due to mild qtc prolonged vs rbbb Keep potassium near 4, added p.o. potassium. now on daptomycin for antibiotics. CPK is 61, monitor CPK Q weekly while on daptomycin. Vascular consult noted (outpatient f/u) recommends outaptient wound clinic for possible surgery. rash likely from cefepim cross reactivity with PCN, Benadryl PRN, rash is fading given solumedrol 1 dose also Insulin-dependent diabetes mellitus with hyper and Hypoglycemia, she was on Lantus BID 30 in AM and 20 at night, had hypoglyemia to 46. Lantus reduced to once daily at 20 in AM, fasting sugar today was 88 Diarrhea-Cdiff negative. Mood disorder: Continue home mood stabilizers Very labile mood mood, with intermittent breast of agitation, interfering with treatment, on bupropion Added psych evaluation. Mixed hyperlipidemia: On statin Stage II sacral decubitus, present on admission, Wound Care recom Essential hypertension: On hydrochlorothiazide, metoprolol and lisinopril, renal function ok Urinary retention; moniter with stright cath,flomax , uro consult Normocytic Anemia of chronic disease: Hemoglobin above transfusion threshold DVT prophylaxis: Lovenox Full code PT is recommending STR wound care: Recommendations: 1. Turn and Reposition every 2 hours and as needed for patient comfort.? Use pillows or wedges to support off loading positions. 2. Off Load all bony prominences with use of pillows and heel boots if needed.? Apply Preventative foams where needed. ? 3. Monitor for incontinence and moisture control, use barrier creams when needed for prevention and treatment. 4. Provide adequate and supplemental nutrition.? 5. Order or Continue low air loss mattress. 6. When applicable maintain blood glucose levels per Providers order. 7. Sacrum - Off Load Pressure with pillows - Cleanse with routine cleansing, pat dry. Cover with Sacral foam dressing, peel back Q shift and change every 3 days and PRN. 8. Right heel - Elevate off of bed surface with heel protector boot (Storeroom# [id number]). Cleanse with NS, apply skin barrier wipe to periwound. Apply thick layer of Santyl to wound bed cover with gauze, gauze wrap. Change Daily. 9. Left Ischium - Off Load Pressure - Cleanse with PH balance spray or wipes, pat dry. ?Apply thin layer of Triad to wound bed. Do not remove all of paste between applications as this may cause further skin damage.? Cover with foam dressing to aid in off loading and protection from friction. Change every other day and PRN. Ongoing inpatient need: Mood with behavioral changes-needs to seen by psych in addition due to multiple antibiotic allergies as well as interaction-final regimen needs to be decided, and vascular follow-up, also will monitor on tele overnight for question of prolonged qt if patient allows Quality Stroke Does the patient have a stroke diagnosis?: No VTE Prior VTE?: No VTE Risk Level:: Medical - moderate - high VTE Device Contraindication: Treatment Not Indicated VTE Drug Contraindication: N/A - Med Ordered
[2023-11-25 15:41] VITALS: BP 171/74; PULSE 67; RESP 20; TEMP 38.2; O2SAT 90
[2023-11-25] MEDS: Bethanechol Chloride 25 MG TABLET PO ×2 (15:46→22:02)
[2023-11-25] MEDS: Potassium Chloride Packet 20 MEQ PACKET PO (15:47)
[2023-11-25 16:15] LABS: Glucose, Whole Blood 192 mg/dL (60-115)
[2023-11-25] MEDS: Acetaminophen 325 MG TABLET 650 MG PO (16:57)
--- NOTE | 2023-11-25 18:17 | P.CNPS_ITS ---
History of Present Illness Date of Service: 11/25/23 Chief Complaint: Right Heel Wound Reason for Consult: Mood disorder with behavior changes Requesting physician: Peter Cahcon Discussed with referring provider: Yes Sources of Information: patient interviewed and chart reviewed HPI Narrative: Patient is a 83-year-old female with pertinent history of mood disorder, urinary incontinence, essential hypertension, insulin-dependent diabetes mellitus, mixed hyperlipidemia who presents to the emergency department for evaluation of right foot pain. Psychiatric consult placed for: mood disorder with behavior changes. T/W met with , who reported patient has moments of agitation where she will refuse treatment and begin to cry or will tell people to leave her room. During assessment, pt presents alert and oriented to month,year and situation. Pt is calm annd cooperative. Pt reports feeling alright today; pt stated, I had problems sitting, standing and walking. The pain made me come to the hospital . Pt reports seeing a therapist and psychiatrist twenty years ago after my stroke ; she reports this is when she was started on Lexapro and Wellbutrin. Pt denies any psychiatric hospitalizations or hx of substance abuse. When asked why she becomes agitated at times, pt stated, sometimes when they move me around in the bed, roll me over, or push on me, it really hurts. You'd be mad too. I always try to be a cooperative patient. I never refused my meds. It's awful when people put words in my mouth . Pt denies SI/HI/VH/AH. Past Psychiatric History: pt reports hx of seeing a therapist and psychiatrist 20 years ago after having a stroke. Medical Evaluation Reviewed: Yes [facility] Medical History Hematuria of undiagnosed cause Frequency of urination High cholesterol Diabetes mellitus, type II Urgency incontinence History of UTI Surgical History History of surgery Family History: unknown Social History: . Lives with . Has two sons; 59 and 58 years old. 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 Substance History: denies Trauma History: denies Diagnostics Vital Signs (24Hr): Vital Signs - 24 hr 11/24/23 19:29 11/25/23 03:24 11/25/23 11:33 Temperature 99.0 F 99.1 F 98.3 F Pulse Rate 63 60 67 Respiratory Rate 20 20 18 Blood Pressure 106/44 L 123/47 L 136/70 Pulse Oximetry 95 95 92 Oxygen Delivery Method Room Air Room Air Room Air 11/25/23 15:41 Temperature 100.8 F H Pulse Rate 67 Respiratory Rate 20 Blood Pressure 171/74 H Pulse Oximetry 90 L Oxygen Delivery Method BMI result Body Mass Index 35.3 Labs 11/22/23 06:07 11/25/23 08:02 Labs: Laboratory Results - last 48 hr 11/23/23 11/23/23 11/24/23 19:42 23:48 07:15 Sodium Potassium Chloride Carbon Dioxide Anion Gap BUN Creatinine Estim Creat Clear Calc Estimated GFR POC Glucose 234 H 347 H 428 H* Random Glucose Calcium Magnesium Total Creatine Kinase 11/24/23 11/24/23 11/24/23 08:31 08:31 08:31 Sodium 137 Potassium 3.4 Chloride 101 Carbon Dioxide 23 Anion Gap 16 BUN 53 H Creatinine 1.49 H 1.49 H Estim Creat Clear Calc 32.2 32.2 Estimated GFR 33 POC Glucose Random Glucose Calcium Magnesium Total Creatine Kinase 11/24/23 11/24/23 11/24/23 08:31 11:24 17:11 Sodium Potassium Chloride Carbon Dioxide Anion Gap BUN Creatinine Estim Creat Clear Calc Estimated GFR 33 POC Glucose 403 H* 245 H Random Glucose 471 H* Calcium 8.2 L D Magnesium Total Creatine Kinase 61 11/24/23 11/25/23 11/25/23 19:39 08:02 11:21 Sodium Potassium 3.7 Chloride Carbon Dioxide Anion Gap BUN Creatinine 1.30 Estim Creat Clear Calc 37.0 Estimated GFR 39 POC Glucose 244 H 199 H Random Glucose Calcium Magnesium 2.1 Total Creatine Kinase 11/25/23 16:06 Sodium Potassium Chloride Carbon Dioxide Anion Gap BUN Creatinine Estim Creat Clear Calc Estimated GFR POC Glucose 192 H Random Glucose Calcium Magnesium Total Creatine Kinase Imaging Radiology Impressions: ITS Impressions Foot X-Ray 11/15/23 23:13 IMPRESSION: 1. Soft tissue wound at the posterior aspect of the calcaneal tuberosity with underlying osteopenia, raising the possibility of osteomyelitis. Consider correlation with MRI of the foot with and without contrast for further assessment. 2. Diffuse soft tissue swelling and subcutaneous edema at the foot and ankle. Duplex Scan Lower Extremity Artery 11/18/23 16:47 IMPRESSION: Monophasic arterial waveforms throughout the right lower extremity. Findings could represent a more proximal iliac artery disease. Elevated velocity is seen in the mid superficial femoral artery indicating a moderate stenosis. Foot MRI 11/23/23 11:35 IMPRESSION: 1. Soft tissue ulceration and cellulitis along the posterolateral aspect of the calcaneus with acute osteomyelitis within the adjacent calcaneus. No abscess formation. 2. Moderate osteoarthritis scattered throughout the midfoot. 3. Diffuse atrophy throughout the intrinsic musculature of the foot. 4. Circumferential soft tissue edema. Mental Status Exam Mental Status Exam Narrative: Pt is alert and oriented; behavior is cooperative and calm; dressed in hospital attire; mood is described as alright ; eye contact appropriate; Speech is normal rate, volume and not pressured; thought process is organized; Thought content is on tx; otherwise pertinent to relevant topics and without any delusional content, paranoid ideations or grandiosity; denies SI/HI/VH/AH. Medications Medications Current Medications Acetaminophen (Acetaminophen 325 Mg Tablet) 650 mg PO Q6H PRN PRN Reason: Pain, Mild (Pain Scale 1-3) Last Admin: 11/25/23 16:57 Dose: 650 mg Atorvastatin Calcium (Atorvastatin Calcium 20 Mg Tablet) 20 mg PO BEDTIME [facility] Last Admin: 11/24/23 21:00 Dose: 20 mg Bethanechol Chloride (Bethanechol Chloride 25 Mg Tablet) 25 mg PO TID [facility] Last Admin: 11/25/23 15:46 Dose: 25 mg Bupropion HCl (Bupropion Hcl Xl 150 Mg Tab.Er.24h) 150 mg PO DAILY [facility] Last Admin: 11/25/23 08:38 Dose: Not Given Collagenase (Collagenase Clostridium Hist. 30 Gm Tube) 1 appl TOPICAL DAILY [facility]; Protocol Last Admin: 11/25/23 08:38 Dose: Not Given Dextrose (Dextrose 50 % 25 Gm/50 Ml Syringe) 25 gm IVPUSH Q15M PRN; Protocol PRN Reason: per Hypoglycemia Standing Ord. Last Admin: 11/21/23 02:10 Dose: 25 gm Diphenhydramine HCl (Diphenhydramine Hcl 50 Mg/Ml Vial) 25 mg IVPUSH Q6H PRN PRN Reason: Itching Last Admin: 11/24/23 15:57 Dose: 25 mg Enoxaparin Sodium (Enoxaparin Sodium 40 Mg/0.4 Ml Syringe) 40 mg SUBCUT Q24H [facility] Escitalopram Oxalate (Escitalopram Oxalate 20 Mg Tablet) 40 mg PO DAILY [facility] Last Admin: 11/25/23 08:39 Dose: Not Given Glucose (Glucose Gel 15 Gm Gel..Gram.) 15 gm PO Q15M PRN; Protocol PRN Reason: per Hypoglycemia Standing Ord. Daptomycin 440 mg/ Sodium (Chloride) 58.8 mls @ 95.523 mls/hr IV Q24H [facility] Last Infusion: 11/25/23 17:38 Dose: Infused Insulin Glargine (Insulin Glargine,Hum.Rec.Anlog 100 Unit/Ml 10 Ml Vial) 20 unit SUBCUT DAILY [facility] Last Admin: 11/25/23 08:39 Dose: Not Given Insulin Human Lispro (Insulin Lispro 100 Unit/Ml 3 Ml Vial) 0 unit SUBCUT QIDACHS [facility]; Protocol Last Admin: 11/25/23 16:59 Dose: 2 unit Loperamide HCl (Loperamide Hcl 2 Mg Capsule) 2 mg PO Q6H PRN PRN Reason: Constipation Last Admin: 11/22/23 16:27 Dose: 2 mg Melatonin (Melatonin 3 Mg Tablet) 6 mg PO BEDTIME PRN PRN Reason: Insomnia Last Admin: 11/21/23 21:09 Dose: 6 mg Metoprolol Succinate (Metoprolol Succinate Er 100 Mg Tab.Er.24h) 100 mg PO DAILY [facility]; Protocol Last Admin: 11/25/23 08:39 Dose: Not Given Morphine Sulfate (Morphine Sulfate 2 Mg/Ml Cartridge) 2 mg IVPUSH Q6H PRN; Protocol PRN Reason: Pain, Severe (Pain Scale 7-10) Last Admin: 11/23/23 10:14 Dose: 2 mg Nystatin (Nystatin Powder 15 Gm Bottle) 1 appl TOPICAL BID [facility]; Protocol Last Admin: 11/25/23 08:39 Dose: Not Given Ondansetron HCl (Ondansetron Hcl 4 Mg/2 Ml Vial) 4 mg IVPUSH Q8H PRN PRN Reason: Nausea and Vomiting Sodium Chloride (0.9 % Sodium Chloride Flush 3 Ml Syringe) 3 ml IVFLUSH QSHIFT [facility] Last Admin: 11/25/23 15:47 Dose: 3 ml Zinc Acetate/Diphenhydramine (Diphenhydramine Hcl 2 % Cream 28 Gm Tube) 1 appl TOPICAL BID [facility]; Protocol Last Admin: 11/25/23 08:39 Dose: Not Given Allergies Allergies Allergy/AdvReac Type Severity Reaction Status Date / Time doxycycline Allergy Unknown redness Verified 11/15/23 05:32 and hives penicillin V Allergy Unknown anaphylaxis Verified 11/15/23 05:32 avoid cyclines AdvReac Unknown Unknown Uncoded 11/15/23 05:32 Assessment & Plan Assessment & Plan (1) Anxiety about health: Status: Acute Code(s): R45.89 - Other symptoms and signs involving emotional state Plan Psychiatric consult placed for: mood disorder with behavior changes. T/W met with , who reported patient has moments of agitation where she will refuse treatment and begin to cry or will tell people to leave her room. During assessment, pt presents alert and oriented to month,year and situation. Pt is calm a; monitnd cooperative. Pt reports feeling alright today; pt stated, I had problems sitting, standing and walking. The pain made me come to the hospital . Pt reports seeing a therapist and psychiatrist twenty years ago after my stroke ; she reports this is when she was started on Lexapro and Wellbutrin. Pt denies any psychiatric hospitalizations or hx of substance abuse. When asked why she becomes agitated at times, pt stated, sometimes when they move me around in the bed, roll me over, or push on me, it really hurts. You'd be mad too. I always try to be a cooperative patient. I never refused my meds. It's awful when people put words in my mouth . Pt denies SI/HI/VH/AH. Recommendation: Decrease Lexapro to 20mg PO daily d/t QTC prolongation. Pt's most recent QTC was 518. Monitor QTC. Start: Ativan 0.5mg PO BID PRN anxiety; monitor vitals. Total time managing care of this patient today _30___ minutes. Patient educated on: diagnosis and medication risk/benefits Informed Consent: understands
[2023-11-25 19:57] VITALS: BP 143/61; PULSE 77; RESP 18; TEMP 36.4; O2SAT 91
[2023-11-25 20:43] LABS: Glucose, Whole Blood 179 mg/dL (60-115)
[2023-11-25] MEDS: Atorvastatin Calcium 20 MG TABLET PO (22:02)
[2023-11-25] MEDS: Morphine Sulfate 2 MG/ML CARTRIDGE IVPUSH (23:38)
[2023-11-25] MEDS: Nystatin Powder 15 GM BOTTLE 1 APPL TOPICAL (23:39)
[2023-11-25 23:40] VITALS: BP 141/49; PULSE 70; RESP 18; TEMP 37.6; O2SAT 94
[2023-11-26 00:33] VITALS: TEMP 36.8
[2023-11-26 03:30] VITALS: BP 144/51; PULSE 80; RESP 18; TEMP 37.1; O2SAT 92
[2023-11-26 06:57] LABS: Anion Gap 16 (12-20); Blood Urea Nitrogen 37 mg/dL (9-16); Carbon Dioxide 23 mmol/L (22-29); Chloride 105 mmol/L (96-108); Creatinine Clr Calc Pharmacy 50.1; Estimated Glomerular Filt Rate 55; Glucose Random 192 mg/dL (60-115); Potassium 3.6 mmol/L (3.3-5.1); Sodium 140 mmol/L (135-145)
[2023-11-26 07:21] VITALS: BP 156/74; PULSE 81; RESP 20; TEMP 37.7; O2SAT 93
[2023-11-26 07:39] LABS: Adenovirus PCR Not Detected (Not Detect.); Bordetella parapertussis PCR Not Detected (Not Detect.); Bordetella pertussis PCR Not Detected (Not Detect.); Chlamydia pneumoniae PCR Not Detected (Not Detect.); Coronavirus 229E PCR Not Detected (Not Detect.); Coronavirus HKU1 PCR Not Detected (Not Detect.); Coronavirus NL63 PCR Not Detected (Not Detect.); Coronavirus OC43 PCR Not Detected (Not Detect.); Human metapneumovirus PCR Not Detected (Not Detect.); Influenza A PCR Not Detected (Not Detect.); Influenza B PCR Not Detected (Not Detect.); Mycoplasma pneumoniae PCR Not Detected (Not Detect.); Parainfluenza 1 PCR Not Detected (Not Detect.); Parainfluenza 2 PCR Not Detected (Not Detect.); Parainfluenza 3 PCR Not Detected (Not Detect.); Parainfluenza 4 PCR Not Detected (Not Detect.); RSV PCR Not Detected (Not Detect.); Rhino/Enterovirus PCR Not Detected (Not Detect.)
[2023-11-26 07:41] LABS: Glucose, Whole Blood 219 mg/dL (60-115)
[2023-11-26 08:11] LABS: SARS-CoV-2 PCR Not Detected (Not Detect.)
[2023-11-26] MEDS: buPROPion HCl XL 150 MG TAB.ER.24H PO (08:17)
[2023-11-26] MEDS: Acetaminophen 325 MG TABLET 650 MG PO (08:17)
[2023-11-26] MEDS: hydroCHLOROthiazide 25 MG TABLET PO (08:18)
[2023-11-26] MEDS: LORazepam 0.5 MG TABLET PO (08:18)
[2023-11-26] MEDS: Insulin Lispro 100 UNIT/ML 3 ML VIAL SUBCUT (08:18)
[2023-11-26] MEDS: Bethanechol Chloride 25 MG TABLET PO ×2 (08:18→14:47)
[2023-11-26] MEDS: Metoprolol Succinate ER 100 MG TAB.ER.24H PO (08:18)
[2023-11-26] MEDS: Insulin Glargine,Hum.rec.anlog 100 UNIT/ML 10 ML VIAL 20 UNIT SUBCUT (08:18)
[2023-11-26] MEDS: Escitalopram Oxalate 20 MG TABLET PO (08:18)
[2023-11-26] MEDS: 0.9 % Sodium Chloride Flush 3 ML SYRINGE IVFLUSH ×2 (08:19→14:47)
[2023-11-26] MEDS: Nystatin Powder 15 GM BOTTLE 1 APPL TOPICAL (08:20)
[2023-11-26 08:39] LABS: Hematocrit 29.4 % (37.0-47.0); Hemoglobin 9.7 g/dl (12.0-16.0); Mean Corpuscular Hemoglobin 31.9 pg (27.0-33.0); Mean Corpuscular Volume 96.7 fL (80.0-98.0); Mean Platelet Volume 10.1 fL (9.4-12.3); Platelet Count 225 X10*3/uL (160-400); Red Blood Count 3.04 X10*6/uL (4.20-5.50); Red Cell Distribution Width 13.5 % (11.0-16.0)
[2023-11-26 11:20] LABS: Glucose, Whole Blood 123 mg/dL (60-115)
--- NOTE | 2023-11-26 11:26 | MHC.CM.PN ---
EMR REVIEWED, PT ACCEPTED AT [facility] HOWEVER PT'S WBC INCREASED TO 23+, ID WILL NEED TO RECONSULT PT'S ABX WAS CHANGED FROM VANCO D/T INCREASING KIDNEY FX, [facility] REQUESTING CM PREBOOK IN ANTIC PT WILL BE CLEARED FOR DC, [facility] CAN TRANSPORT AT 3PM, CM WILL CONT TO FOLLOW AND CANCEL TRNASPORT IF NEEDED.
--- NOTE | 2023-11-26 12:18 | MHC.CLN ---
F/U PT WITH INCREASED NUTRITION RISK R/T PRESSURE INJURIES PO INTAKE REMAINS VARIABLE RANGING FROM 25-100% DIET RX: 2000DM-APPROPRIATE PT RECEIVING ENSURE MAX BID FOR WOUND HEALING SUPP PROVIDES 300KCALS, 60G PROTEIN CONTINUE TO MONITOR PO INTAKE AND ENCOURAGE SUPPLEMENTS
--- NOTE | 2023-11-26 13:30 | HO.PM.IMPN ---
Subjective Subjective Date of Service: 11/26/23 Interval History: episode of fever ,leucocytosis Review of Systems foot area seems similar respiratory panel neg seems more calmer no fever so far today Physical Exam Vital Signs: Vital Signs: Last Vital Signs Temp 99.8 F 11/26/23 07:21 Pulse 81 11/26/23 07:21 Resp 20 11/26/23 07:21 BP 156/74 H 11/26/23 07:21 Pulse Ox 93 11/26/23 07:21 O2 Del Method Room Air 11/26/23 07:21 BMI result Body Mass Index 35.3 General: alert, not in distress Resp: CTA bilateral CVS: S1,S2,RRR GI: +BS, NT, no distention Skin: No rash--see pic of foot from earlier documentation-similar Neuro: motor grossly intact Psych: appropriate affect Objective Data Active Medications Acetaminophen (Acetaminophen 325 Mg Tablet) 650 mg PO Q6H PRN PRN Reason: Pain, Mild (Pain Scale 1-3) Last Admin: 11/26/23 08:17 Dose: 650 mg Documented By: KAPIL Atorvastatin Calcium (Atorvastatin Calcium 20 Mg Tablet) 20 mg PO BEDTIME [facility] Last Admin: 11/25/23 22:02 Dose: 20 mg Documented By: JUAN Bethanechol Chloride (Bethanechol Chloride 25 Mg Tablet) 25 mg PO TID [facility] Last Admin: 11/26/23 08:18 Dose: 25 mg Documented By: KAPIL Bupropion HCl (Bupropion Hcl Xl 150 Mg Tab.Er.24h) 150 mg PO DAILY [facility] Last Admin: 11/26/23 08:17 Dose: 150 mg Documented By: KAPIL Collagenase (Collagenase Clostridium Hist. 30 Gm Tube) 1 appl TOPICAL DAILY [facility]; Protocol Last Admin: 11/26/23 08:19 Dose: Not Given Documented By: KAPIL Non-Admin Reason: Patient Refused Dextrose (Dextrose 50 % 25 Gm/50 Ml Syringe) 25 gm IVPUSH Q15M PRN; Protocol PRN Reason: per Hypoglycemia Standing Ord. Last Admin: 11/21/23 02:10 Dose: 25 gm Documented By: YO Diphenhydramine HCl (Diphenhydramine Hcl 50 Mg/Ml Vial) 25 mg IVPUSH Q6H PRN PRN Reason: Itching Last Admin: 11/24/23 15:57 Dose: 25 mg Documented By: DOBROLeni Enoxaparin Sodium (Enoxaparin Sodium 40 Mg/0.4 Ml Syringe) 40 mg SUBCUT Q24H [facility] Escitalopram Oxalate (Escitalopram Oxalate 20 Mg Tablet) 20 mg PO DAILY [facility] Last Admin: 11/26/23 08:18 Dose: 20 mg Documented By: KAPIL Glucose (Glucose Gel 15 Gm Gel..Gram.) 15 gm PO Q15M PRN; Protocol PRN Reason: per Hypoglycemia Standing Ord. Hydrochlorothiazide (Hydrochlorothiazide 25 Mg Tablet) 25 mg PO DAILY [facility]; Protocol Last Admin: 11/26/23 08:18 Dose: 25 mg Documented By: KAPIL Daptomycin 440 mg/ Sodium (Chloride) 58.8 mls @ 95.523 mls/hr IV Q24H [facility] Last Infusion: 11/25/23 17:38 Dose: Infused Documented By: JANE Insulin Glargine (Insulin Glargine,Hum.Rec.Anlog 100 Unit/Ml 10 Ml Vial) 20 unit SUBCUT DAILY [facility] Last Admin: 11/26/23 08:18 Dose: 20 unit Documented By: KAPIL Insulin Human Lispro (Insulin Lispro 100 Unit/Ml 3 Ml Vial) 0 unit SUBCUT QIDACHS [facility]; Protocol Last Admin: 11/26/23 11:22 Dose: Not Given Documented By: KAPIL Non-Admin Reason: No Insulin Coverage Loperamide HCl (Loperamide Hcl 2 Mg Capsule) 2 mg PO Q6H PRN PRN Reason: Constipation Last Admin: 11/22/23 16:27 Dose: 2 mg Documented By: RBITTA Lorazepam (Lorazepam 0.5 Mg Tablet) 0.5 mg PO BID PRN PRN Reason: Anxiety Last Admin: 11/26/23 08:18 Dose: 0.5 mg Documented By: KAPIL Melatonin (Melatonin 3 Mg Tablet) 6 mg PO BEDTIME PRN PRN Reason: Insomnia Last Admin: 11/21/23 21:09 Dose: 6 mg Documented By: YO Metoprolol Succinate (Metoprolol Succinate Er 100 Mg Tab.Er.24h) 100 mg PO DAILY [facility]; Protocol Last Admin: 11/26/23 08:18 Dose: 100 mg Documented By: KAPIL Nystatin (Nystatin Powder 15 Gm Bottle) 1 appl TOPICAL BID [facility]; Protocol Last Admin: 11/26/23 08:20 Dose: 1 appl Documented By: KAPIL Ondansetron HCl (Ondansetron Hcl 4 Mg/2 Ml Vial) 4 mg IVPUSH Q8H PRN PRN Reason: Nausea and Vomiting Sodium Chloride (0.9 % Sodium Chloride Flush 3 Ml Syringe) 3 ml IVFLUSH QSHIFT [facility] Last Admin: 11/26/23 08:19 Dose: 3 ml Documented By: KAPIL Zinc Acetate/Diphenhydramine (Diphenhydramine Hcl 2 % Cream 28 Gm Tube) 1 appl TOPICAL BID [facility]; Protocol Last Admin: 11/26/23 08:19 Dose: Not Given Documented By: KAPIL Non-Admin Reason: Patient Refused Labs 11/26/23 08:23 11/26/23 05:50 Labs: Laboratory Results - last 24 hr 11/25/23 11/25/23 11/25/23 08:02 16:06 17:18 MCV MCH MCHC RDW Plt Count MPV Absolute Nucleated RBC Nucleated RBC % (auto) Anion Gap Estim Creat Clear Calc Estimated GFR POC Glucose 192 H Random Glucose Calcium Magnesium 2.1 Respiratory Panel Joens See Note Adenovirus (Rapid PCR) Not Detected B.pert (TEM-PCR) Not Detected B.parapertussis DNA PCR Not Detected C. pneumoniae DNA (PCR) Not Detected Coronavirus OC43 (PCR) Not Detected Coronavirus HKU1 (PCR) Not Detected Coronavirus 229E (PCR) Not Detected Coronavirus NL63 (PCR) Not Detected Human Metapneumovir PCR Not Detected Influenza A (RT-PCR) Not Detected Influenza B (RT-PCR) Not Detected M. pneumoniae (PCR) Not Detected Parainfluenza 1 (PCR) Not Detected Parainfluenza 2 (PCR) Not Detected Parainfluenza 3 (PCR) Not Detected Parainfluenza 4 (PCR) Not Detected RSV (PCR) Not Detected Entero/Rhino (PCR) Not Detected SARS-CoV-2 RNA (RT-PCR) Not Detected 11/25/23 11/26/23 11/26/23 20:21 05:50 07:20 MCV MCH MCHC RDW Plt Count MPV Absolute Nucleated RBC Nucleated RBC % (auto) Anion Gap 16 Estim Creat Clear Calc 50.1 Estimated GFR 55 POC Glucose 179 H 219 H Random Glucose 192 H Calcium 8.0 L Magnesium Respiratory Panel Jones Adenovirus (Rapid PCR) B.pert (TEM-PCR) B.parapertussis DNA PCR C. pneumoniae DNA (PCR) Coronavirus OC43 (PCR) Coronavirus HKU1 (PCR) Coronavirus 229E (PCR) Coronavirus NL63 (PCR) Human Metapneumovir PCR Influenza A (RT-PCR) Influenza B (RT-PCR) M. pneumoniae (PCR) Parainfluenza 1 (PCR) Parainfluenza 2 (PCR) Parainfluenza 3 (PCR) Parainfluenza 4 (PCR) RSV (PCR) Entero/Rhino (PCR) SARS-CoV-2 RNA (RT-PCR) 11/26/23 11/26/23 08:23 11:10 MCV 96.7 MCH 31.9 MCHC 33.0 RDW 13.5 Plt Count 225 MPV 10.1 Absolute Nucleated RBC 0.000 Nucleated RBC % (auto) 0.0 Anion Gap Estim Creat Clear Calc Estimated GFR POC Glucose 123 H Random Glucose Calcium Magnesium Respiratory Panel Jones Adenovirus (Rapid PCR) B.pert (TEM-PCR) B.parapertussis DNA PCR C. pneumoniae DNA (PCR) Coronavirus OC43 (PCR) Coronavirus HKU1 (PCR) Coronavirus 229E (PCR) Coronavirus NL63 (PCR) Human Metapneumovir PCR Influenza A (RT-PCR) Influenza B (RT-PCR) M. pneumoniae (PCR) Parainfluenza 1 (PCR) Parainfluenza 2 (PCR) Parainfluenza 3 (PCR) Parainfluenza 4 (PCR) RSV (PCR) Entero/Rhino (PCR) SARS-CoV-2 RNA (RT-PCR) Assessment and Plan (1) Osteomyelitis: Status: Acute Assessment and Plan: 83-year-old female with pertinent history of mood disorder, urinary incontinence, essential hypertension, insulin-dependent diabetes mellitus, mixed hyperlipidemia who presents to the emergency department for evaluation of right foot pain. Right foot acute osteo on mri with imaging concerning for osteomyelitis, she hasd declined MRI but now is agreable-Was on Vanco and Cefepime, Cefepime stopped due to rash (has PEN allergy) Lavaquin added.. ID recommends PO Levaquin since OM not confirmed. MR/MR foot RT wo/w con:Soft tissue ulceration and cellulitis along the posterolateral aspect of the calcaneus with acute osteomyelitis within the adjacent calcaneus. No abscess formation. Moderate osteoarthritis scattered throughout the midfoot. Diffuse atrophy throughout the intrinsic musculature of the foot. . Circumferential soft tissue edema. had fever episode and also leucocytosis trending up. Id follow -off vanco due to fluactauting renal function and off levaquin due to mild qtc prolonged vs rbbb Keep potassium near 4, added p.o. potassium. now on daptomycin for antibiotics. CPK is 61, monitor CPK Q weekly while on daptomycin. Vascular consult noted (outpatient f/u) recommends outaptient wound clinic for possible surgery. rash likely from cefepim cross reactivity with PCN, Benadryl PRN, rash is fading given solumedrol 1 dose also Insulin-dependent diabetes mellitus with hyper and Hypoglycemia, she was on Lantus BID 30 in AM and 20 at night, had hypoglyemia to 46. Lantus reduced to once daily at 20 in AM, fasting sugar today was 88 Diarrhea-Cdiff negative. Mood disorder: Continue home mood stabilizers Very labile mood mood, with intermittent breast of agitation, interfering with treatment, on bupropion Added psych evaluation. Mixed hyperlipidemia: On statin Stage II sacral decubitus, present on admission, Wound Care recom Essential hypertension: On hydrochlorothiazide, metoprolol and lisinopril, renal function ok Urinary retention; moniter with stright cath,flomax , uro consult Normocytic Anemia of chronic disease: Hemoglobin above transfusion threshold wound care: Recommendations: 1. Turn and Reposition every 2 hours and as needed for patient comfort.? Use pillows or wedges to support off loading positions. 2. Off Load all bony prominences with use of pillows and heel boots if needed.? Apply Preventative foams where needed. ? 3. Monitor for incontinence and moisture control, use barrier creams when needed for prevention and treatment. 4. Provide adequate and supplemental nutrition.? 5. Order or Continue low air loss mattress. 6. When applicable maintain blood glucose levels per Providers order. 7. Sacrum - Off Load Pressure with pillows - Cleanse with routine cleansing, pat dry. Cover with Sacral foam dressing, peel back Q shift and change every 3 days and PRN. 8. Right heel - Elevate off of bed surface with heel protector boot ([employer]# [id number]). Cleanse with NS, apply skin barrier wipe to periwound. Apply thick layer of Santyl to wound bed cover with gauze, gauze wrap. Change Daily. 9. Left Ischium - Off Load Pressure - Cleanse with PH balance spray or wipes, pat dry. ?Apply thin layer of Triad to wound bed. Do not remove all of paste between applications as this may cause further skin damage.? Cover with foam dressing to aid in off loading and protection from friction. Change every other day and PRN. PT is recommending STR DVT prophylaxis: Lovenox Full code Ongoing inpatient need: fever, leucocytosis trending up, Mood with behavioral changes-needs to seen by psych in addition due to multiple antibiotic allergies as well as interaction-final regimen needs to be decided, and vascular follow-up, also will monitor on tele due to prolonged qt ,also need Id follow up for intermittent fever /leucocytosis trending up. Quality Stroke Does the patient have a stroke diagnosis?: No VTE Prior VTE?: No VTE Risk Level:: Medical - moderate - high VTE Device Contraindication: Treatment Not Indicated VTE Drug Contraindication: N/A - Med Ordered
[2023-11-26 14:28] LABS: Band Neutrophils Percent 1 % (3-5); Eosinophils Absolute Manual 0.2 X10*3/uL (0.0-0.4); Eosinophils Percent Manual 1 % (0-4); Lymphocytes Absolute Manual 3.2 X10*3/uL (1.2-4.9); Lymphocytes Percent Manual 14 % (20-40); Monocytes Absolute Manual 0.7 X10*3/uL (0.1-1.2); Monocytes Percent Manual 3 % (2-11); Neutrophils Absolute Manual 18.9 X10*3/uL (2.0-8.3); Neutrophils Percent Manual 81 % (45-73)
[2023-11-26 14:29] LABS: Platelet Estimate NORMAL (NORMAL); Platelet Morphology Comment NORMAL; RBC Morphology NORMAL
[2023-11-26] MEDS: Potassium Chloride ER 20 MEQ TAB.ER.PRT PO (14:47)
[2023-11-26 16:00] VITALS: BP 118/44; PULSE 66; RESP 18; TEMP 37.4; O2SAT 91
[2023-11-26 16:15] LABS: Glucose, Whole Blood 92 mg/dL (60-115)
--- NOTE | 2023-11-26 16:29 | P.PNID_ITS ---
Subjective Subjective Date of Service: 11/26/23 Critical Care Time (minutes): 15 Comment: patient confused worse red rash arms and chest has been on daptomycin Objective Data Labs 11/26/23 08:23 11/26/23 05:50 Labs: Laboratory Results - last 24 hr 11/25/23 11/25/23 11/26/23 17:18 20:21 05:50 WBC RBC Hgb Hct MCV MCH MCHC RDW Plt Count MPV Absolute Nucleated RBC Nucleated RBC % (auto) Neutrophils % (Manual) Band Neutrophils % Lymphocytes % (Manual) Monocytes % (Manual) Eosinophils % (Manual) Abs Neuts (Manual) Lymphocytes # (Manual) Monocytes # (Manual) Eosinophils # (Manual) Platelet Estimate Plt Morphology Comment RBC Morphology Sodium 140 Potassium 3.6 Chloride 105 Carbon Dioxide 23 Anion Gap 16 BUN 37 H Creatinine 0.96 Estim Creat Clear Calc 50.1 Estimated GFR 55 POC Glucose 179 H Random Glucose 192 H Calcium 8.0 L Respiratory Panel Jones See Note Adenovirus (Rapid PCR) Not Detected B.pert (TEM-PCR) Not Detected B.parapertussis DNA PCR Not Detected C. pneumoniae DNA (PCR) Not Detected Coronavirus OC43 (PCR) Not Detected Coronavirus HKU1 (PCR) Not Detected Coronavirus 229E (PCR) Not Detected Coronavirus NL63 (PCR) Not Detected Human Metapneumovir PCR Not Detected Influenza A (RT-PCR) Not Detected Influenza B (RT-PCR) Not Detected M. pneumoniae (PCR) Not Detected Parainfluenza 1 (PCR) Not Detected Parainfluenza 2 (PCR) Not Detected Parainfluenza 3 (PCR) Not Detected Parainfluenza 4 (PCR) Not Detected RSV (PCR) Not Detected Entero/Rhino (PCR) Not Detected SARS-CoV-2 RNA (RT-PCR) Not Detected 11/26/23 11/26/23 11/26/23 07:20 08:23 11:10 WBC 23.0 H RBC 3.04 L Hgb 9.7 L Hct 29.4 L MCV 96.7 MCH 31.9 MCHC 33.0 RDW 13.5 Plt Count 225 MPV 10.1 Absolute Nucleated RBC 0.000 Nucleated RBC % (auto) 0.0 Neutrophils % (Manual) 81 H Band Neutrophils % 1 L Lymphocytes % (Manual) 14 L Monocytes % (Manual) 3 Eosinophils % (Manual) 1 Abs Neuts (Manual) 18.9 H Lymphocytes # (Manual) 3.2 Monocytes # (Manual) 0.7 Eosinophils # (Manual) 0.2 Platelet Estimate NORMAL Plt Morphology Comment NORMAL RBC Morphology NORMAL Sodium Potassium Chloride Carbon Dioxide Anion Gap BUN Creatinine Estim Creat Clear Calc Estimated GFR POC Glucose 219 H 123 H Random Glucose Calcium Respiratory Panel Jones Adenovirus (Rapid PCR) B.pert (TEM-PCR) B.parapertussis DNA PCR C. pneumoniae DNA (PCR) Coronavirus OC43 (PCR) Coronavirus HKU1 (PCR) Coronavirus 229E (PCR) Coronavirus NL63 (PCR) Human Metapneumovir PCR Influenza A (RT-PCR) Influenza B (RT-PCR) M. pneumoniae (PCR) Parainfluenza 1 (PCR) Parainfluenza 2 (PCR) Parainfluenza 3 (PCR) Parainfluenza 4 (PCR) RSV (PCR) Entero/Rhino (PCR) SARS-CoV-2 RNA (RT-PCR) 11/26/23 16:12 WBC RBC Hgb Hct MCV MCH MCHC RDW Plt Count MPV Absolute Nucleated RBC Nucleated RBC % (auto) Neutrophils % (Manual) Band Neutrophils % Lymphocytes % (Manual) Monocytes % (Manual) Eosinophils % (Manual) Abs Neuts (Manual) Lymphocytes # (Manual) Monocytes # (Manual) Eosinophils # (Manual) Platelet Estimate Plt Morphology Comment RBC Morphology Sodium Potassium Chloride Carbon Dioxide Anion Gap BUN Creatinine Estim Creat Clear Calc Estimated GFR POC Glucose 92 Random Glucose Calcium Respiratory Panel Joens Adenovirus (Rapid PCR) B.pert (TEM-PCR) B.parapertussis DNA PCR C. pneumoniae DNA (PCR) Coronavirus OC43 (PCR) Coronavirus HKU1 (PCR) Coronavirus 229E (PCR) Coronavirus NL63 (PCR) Human Metapneumovir PCR Influenza A (RT-PCR) Influenza B (RT-PCR) M. pneumoniae (PCR) Parainfluenza 1 (PCR) Parainfluenza 2 (PCR) Parainfluenza 3 (PCR) Parainfluenza 4 (PCR) RSV (PCR) Entero/Rhino (PCR) SARS-CoV-2 RNA (RT-PCR) Microbiology Microbiology Results: Microbiology 11/16/23 05:58 Blood - Venous Blood Culture - Final No growth after 5 days. 11/16/23 05:58 Blood - Venous Blood Culture - Final No growth after 5 days. Physical Exam 2 Vital Signs: Vital Signs: Last Vital Signs Temp 99.3 F 11/26/23 16:00 Pulse 66 11/26/23 16:00 Resp 18 11/26/23 16:00 BP 118/44 L 11/26/23 16:00 Pulse Ox 91 L 11/26/23 16:00 O2 Del Method Room Air 11/26/23 16:00 BMI result Body Mass Index 35.3 Const: General: cooperative HEENT: Head: Yes normal to inspection Face and sinus: Yes normal facial exam Mouth: Normal oral and palatal mucosa present Teeth and gingiva: d entition normal Eyes: General: appearance normal, both eyes and all related structures P upils: Equal, round and reactive pupils present Resp: Effort & Inspection: normal respiratory effort Cardio: Rate: regular rate Rhythm: regular rhythm GI: Palpation (GI): Soft to palpation and nontender : General: Yes no CVA tenderness Back/Spine/Pelvis: Back: no CVA tenderness Skin: Other: rash chest and arms Neuro: General: moves all extremities Cranial nerves: Yes Equal, round and reactive pupils present Extrem: General: Yes normal to inspection Psych: Appearance: grossly normal Assessment and Plan Assessment and plan (1) Pressure injury of right heel, unstageable: Problem details: Antibiotics cause rashes and confusion Heel no change Status: Acute Assessment and Plan: Stop Daptomycin and no further antibiotics at this time. Debridement if needed. Time Spent With Patient Time: Total time managing care of this patient today ____ minutes.
[2023-11-26 19:42] VITALS: BP 158/67; PULSE 63; RESP 17; TEMP 37.1; O2SAT 93
[2023-11-26 20:52] LABS: Glucose, Whole Blood 104 mg/dL (60-115)
[2023-11-27 04:00] VITALS: BP 131/60; PULSE 71; RESP 20; TEMP 37.3; O2SAT 95
[2023-11-27] MEDS: 0.9 % Sodium Chloride Flush 3 ML SYRINGE IVFLUSH ×2 (05:08→17:18)
[2023-11-27 06:33] LABS: Hematocrit 31.5 % (37.0-47.0); Hemoglobin 10.2 g/dl (12.0-16.0); Mean Corpuscular HGB Conc 32.4 g/dl (31.0-35.0); Mean Corpuscular Hemoglobin 31.5 pg (27.0-33.0); Mean Corpuscular Volume 97.2 fL (80.0-98.0); Mean Platelet Volume 10.9 fL (9.4-12.3); Platelet Count 237 X10*3/uL (160-400); Red Blood Count 3.24 X10*6/uL (4.20-5.50); Red Cell Distribution Width 13.6 % (11.0-16.0); White Blood Count 20.9 X10*3/uL (4.8-10.8)
[2023-11-27 06:49] LABS: Creatinine Clr Calc Pharmacy 51.7; Estimated Glomerular Filt Rate 57
[2023-11-27 07:13] VITALS: BP 145/68; PULSE 67; RESP 20; TEMP 37.1; O2SAT 94
[2023-11-27 07:26] LABS: Glucose, Whole Blood 158 mg/dL (60-115)
[2023-11-27 11:11] LABS: Glucose, Whole Blood 183 mg/dL (60-115)
[2023-11-27] MEDS: hydroCHLOROthiazide 25 MG TABLET PO (11:48)
[2023-11-27] MEDS: Bethanechol Chloride 25 MG TABLET PO ×3 (11:48→21:42)
[2023-11-27] MEDS: Metoprolol Succinate ER 100 MG TAB.ER.24H PO (11:48)
[2023-11-27] MEDS: buPROPion HCl XL 150 MG TAB.ER.24H PO (11:48)
[2023-11-27] MEDS: Escitalopram Oxalate 20 MG TABLET PO (11:48)
[2023-11-27] MEDS: diphenhydrAMINE HCl 2 % Cream 28 GM TUBE 1 APPL TOPICAL ×2 (11:49→22:21)
[2023-11-27] MEDS: Nystatin Powder 15 GM BOTTLE 1 APPL TOPICAL ×2 (11:55→22:21)
[2023-11-27] MEDS: Collagenase Clostridium Hist. 30 GM TUBE 1 APPL TOPICAL (11:55)
--- NOTE | 2023-11-27 13:44 | P.PNIM_ITS ---
Subjective Subjective Date of Service: 11/28/23 Interval History: leucocytosis ,rash Review of Systems seems generlaised weak,decreased po intake rash seems similar no fevers Physical Exam 2 Vital Signs: Vital Signs: Last Vital Signs Temp 98.7 F 11/27/23 07:13 Pulse 67 11/27/23 07:13 Resp 20 11/27/23 07:13 BP 145/68 H 11/27/23 07:13 Pulse Ox 94 11/27/23 07:13 O2 Del Method Room Air 11/27/23 07:13 BMI result Body Mass Index 35.3 General: alert, not in distress Resp: CTA bilateral CVS: S1,S2,RRR GI: +BS, NT, no distention Skin:see pic of foot from earlier documentation-similar rash-on chest and arm (similar to yesterday) Neuro: motor grossly intact Psych: appropriate affect Objective Data Active Medications Acetaminophen (Acetaminophen 325 Mg Tablet) 650 mg PO Q6H PRN PRN Reason: Pain, Mild (Pain Scale 1-3) Last Admin: 11/26/23 08:17 Dose: 650 mg Documented By: KAPIL Atorvastatin Calcium (Atorvastatin Calcium 20 Mg Tablet) 20 mg PO BEDTIME [facility] Last Admin: 11/26/23 22:27 Dose: Not Given Documented By: CORINA Non-Admin Reason: Patient Refused Bethanechol Chloride (Bethanechol Chloride 25 Mg Tablet) 25 mg PO TID [facility] Last Admin: 11/27/23 11:48 Dose: 25 mg Documented By: JULIO Bupropion HCl (Bupropion Hcl Xl 150 Mg Tab.Er.24h) 150 mg PO DAILY [facility] Last Admin: 11/27/23 11:48 Dose: 150 mg Documented By: JULIO Collagenase (Collagenase Clostridium Hist. 30 Gm Tube) 1 appl TOPICAL DAILY [facility]ON; Protocol Last Admin: 11/27/23 11:55 Dose: 1 appl Documented By: JULIO Dextrose (Dextrose 50 % 25 Gm/50 Ml Syringe) 25 gm IVPUSH Q15M PRN; Protocol PRN Reason: per Hypoglycemia Standing Ord. Last Admin: 11/21/23 02:10 Dose: 25 gm Documented By: YO Diphenhydramine HCl (Diphenhydramine Hcl 50 Mg/Ml Vial) 25 mg IVPUSH Q6H PRN PRN Reason: Itching Last Admin: 11/24/23 15:57 Dose: 25 mg Documented By: BROLeni Enoxaparin Sodium (Enoxaparin Sodium 40 Mg/0.4 Ml Syringe) 40 mg SUBCUT Q24H [facility] Escitalopram Oxalate (Escitalopram Oxalate 20 Mg Tablet) 20 mg PO DAILY [facility] Last Admin: 11/27/23 11:48 Dose: 20 mg Documented By: JULIO Glucose (Glucose Gel 15 Gm Gel..Gram.) 15 gm PO Q15M PRN; Protocol PRN Reason: per Hypoglycemia Standing Ord. Hydrochlorothiazide (Hydrochlorothiazide 25 Mg Tablet) 25 mg PO DAILY [facility]; Protocol Last Admin: 11/27/23 11:48 Dose: 25 mg Documented By: JULIO Insulin Glargine (Insulin Glargine,Hum.Rec.Anlog 100 Unit/Ml 10 Ml Vial) 20 unit SUBCUT DAILY [facility] Last Admin: 11/27/23 11:46 Dose: Not Given Documented By: JULIO Non-Admin Reason: Physician Approved Comments: Provider randell states to hold medication Insulin Human Lispro (Insulin Lispro 100 Unit/Ml 3 Ml Vial) 0 unit SUBCUT QIDACHS [facility]; Protocol Last Admin: 11/27/23 13:02 Dose: Not Given Documented By: JULIO Non-Admin Reason: No Insulin Coverage Comments: patient not eating lunch. Loperamide HCl (Loperamide Hcl 2 Mg Capsule) 2 mg PO Q6H PRN PRN Reason: Constipation Last Admin: 11/22/23 16:27 Dose: 2 mg Documented By: BRITTA Lorazepam (Lorazepam 0.5 Mg Tablet) 0.5 mg PO BID PRN PRN Reason: Anxiety Last Admin: 11/26/23 08:18 Dose: 0.5 mg Documented By: KAPIL Melatonin (Melatonin 3 Mg Tablet) 6 mg PO BEDTIME PRN PRN Reason: Insomnia Last Admin: 11/21/23 21:09 Dose: 6 mg Documented By: YO Metoprolol Succinate (Metoprolol Succinate Er 100 Mg Tab.Er.24h) 100 mg PO DAILY [facility]; Protocol Last Admin: 11/27/23 11:48 Dose: 100 mg Documented By: JULIO Nystatin (Nystatin Powder 15 Gm Bottle) 1 appl TOPICAL BID [facility]; Protocol Last Admin: 11/27/23 11:55 Dose: 1 appl Documented By: JULIO Ondansetron HCl (Ondansetron Hcl 4 Mg/2 Ml Vial) 4 mg IVPUSH Q8H PRN PRN Reason: Nausea and Vomiting Sodium Chloride (0.9 % Sodium Chloride Flush 3 Ml Syringe) 3 ml IVFLUSH QSHIFT [facility] Last Admin: 11/27/23 10:02 Dose: Not Given Documented By: JULIO Non-Admin Reason: Patient Asleep Zinc Acetate/Diphenhydramine (Diphenhydramine Hcl 2 % Cream 28 Gm Tube) 1 appl TOPICAL BID [facility]; Protocol Last Admin: 11/27/23 11:49 Dose: 1 appl Documented By: JULIO Labs 11/28/23 05:09 11/28/23 08:18 Labs: Laboratory Results - last 24 hr 11/26/23 11/26/23 11/26/23 08:23 16:12 20:48 MCV MCH MCHC RDW Plt Count MPV Absolute Nucleated RBC Nucleated RBC % (auto) Neutrophils % (Manual) 81 H Band Neutrophils % 1 L Lymphocytes % (Manual) 14 L Monocytes % (Manual) 3 Eosinophils % (Manual) 1 Abs Neuts (Manual) 18.9 H Lymphocytes # (Manual) 3.2 Monocytes # (Manual) 0.7 Eosinophils # (Manual) 0.2 Platelet Estimate NORMAL Plt Morphology Comment NORMAL RBC Morphology NORMAL Estim Creat Clear Calc Estimated GFR POC Glucose 92 104 11/27/23 11/27/23 11/27/23 05:28 07:13 11:04 MCV 97.2 MCH 31.5 MCHC 32.4 RDW 13.6 Plt Count 237 MPV 10.9 Absolute Nucleated RBC 0.000 Nucleated RBC % (auto) 0.0 Neutrophils % (Manual) Band Neutrophils % Lymphocytes % (Manual) Monocytes % (Manual) Eosinophils % (Manual) Abs Neuts (Manual) Lymphocytes # (Manual) Monocytes # (Manual) Eosinophils # (Manual) Platelet Estimate Plt Morphology Comment RBC Morphology Estim Creat Clear Calc 51.7 Estimated GFR 57 POC Glucose 158 H 183 H Assessment and Plan (1) Osteomyelitis: Status: Acute Assessment and Plan: 83-year-old female with pertinent history of mood disorder, urinary incontinence, essential hypertension, insulin-dependent diabetes mellitus, mixed hyperlipidemia who presents to the emergency department for evaluation of right foot pain. Right foot acute osteo on mri with imaging concerning for osteomyelitis, she hasd declined MRI but now is agreable-Was on Vanco and Cefepime, Cefepime stopped due to rash (has PEN allergy) Lavaquin added.. ID recommends PO Levaquin since OM not confirmed. MR/MR foot RT wo/w con:Soft tissue ulceration and cellulitis along the posterolateral aspect of the calcaneus with acute osteomyelitis within the adjacent calcaneus. No abscess formation. Moderate osteoarthritis scattered throughout the midfoot. Diffuse atrophy throughout the intrinsic musculature of the foot. . Circumferential soft tissue edema. had fever episode and also leucocytosis trending up. Id follow -off vanco due to fluactauting renal function and off levaquin due to mild qtc prolonged vs rbbb Keep potassium near 4, added p.o. potassium. now on daptomycin for antibiotics. CPK is 61, monitor CPK Q weekly while on daptomycin. Vascular consult noted (outpatient f/u) recommends outaptient wound clinic for possible surgery. rash likely from cefepim cross reactivity with PCN, Benadryl PRN, rash is fading given solumedrol 1 dose also Insulin-dependent diabetes mellitus with hyper and Hypoglycemia, she was on Lantus BID 30 in AM and 20 at night, had hypoglyemia to 46. Lantus reduced to once daily at 20 in AM, fasting sugar today was 88 Diarrhea-Cdiff negative. Mood disorder: Continue home mood stabilizers Very labile mood mood, with intermittent breast of agitation, interfering with treatment, on bupropion Added psych evaluation. Mixed hyperlipidemia: On statin Stage II sacral decubitus, present on admission, Wound Care recom Essential hypertension: On hydrochlorothiazide, metoprolol and lisinopril, renal function ok Urinary retention; moniter with stright cath,flomax , uro consult Normocytic Anemia of chronic disease: Hemoglobin above transfusion threshold wound care: Recommendations: 1. Turn and Reposition every 2 hours and as needed for patient comfort.? Use pillows or wedges to support off loading positions. 2. Off Load all bony prominences with use of pillows and heel boots if needed.? Apply Preventative foams where needed. ? 3. Monitor for incontinence and moisture control, use barrier creams when needed for prevention and treatment. 4. Provide adequate and supplemental nutrition.? 5. Order or Continue low air loss mattress. 6. When applicable maintain blood glucose levels per Providers order. 7. Sacrum - Off Load Pressure with pillows - Cleanse with routine cleansing, pat dry. Cover with Sacral foam dressing, peel back Q shift and change every 3 days and PRN. 8. Right heel - Elevate off of bed surface with heel protector boot ([employer]# [id number]). Cleanse with NS, apply skin barrier wipe to periwound. Apply thick layer of Santyl to wound bed cover with gauze, gauze wrap. Change Daily. 9. Left Ischium - Off Load Pressure - Cleanse with PH balance spray or wipes, pat dry. ?Apply thin layer of Triad to wound bed. Do not remove all of paste between applications as this may cause further skin damage.? Cover with foam dressing to aid in off loading and protection from friction. Change every other day and PRN. PT is recommending STR DVT prophylaxis: Lovenox Full code Ongoing inpatient need: fever, leucocytosis trending up, Mood with behavioral changes-needs to seen by psych in addition due to multiple antibiotic allergies as well as interaction-final regimen needs to be decided, and vascular follow- up, also will monitor on tele due to prolonged qt ,also need Id follow up for intermittent fever /leucocytosis trending up. Quality Stroke Does the patient have a stroke diagnosis?: No VTE Prior VTE?: No VTE Risk Level:: Medical - moderate - high VTE Device Contraindication: Treatment Not Indicated VTE Drug Contraindication: N/A - Med Ordered
[2023-11-27 16:00] VITALS: PULSE 69; RESP 16; TEMP 37.3; O2SAT 94
--- NOTE | 2023-11-27 16:16 | PC.NURSE ---
Patient is alert to self this morning and refusing to acknowledge situation and place. Patient in uncooperative and resistive to care. Refusing medication and breakfast this morning. Patient resistive repositioning and was disgruntle during ramone care, though patient is incontinent of stool and urine. Medication was late due to patient refusal. Provider Oswaldo is aware. Patient is in bed, lowest position and bed alarm on.
[2023-11-27 16:45] LABS: Glucose, Whole Blood 220 mg/dL (60-115)
[2023-11-27] MEDS: Insulin Lispro 100 UNIT/ML 3 ML VIAL SUBCUT ×2 (17:18→21:42)
[2023-11-27 19:29] VITALS: BP 149/63; PULSE 73; RESP 16; TEMP 38; O2SAT 95
[2023-11-27 20:44] LABS: Glucose, Whole Blood 226 mg/dL (60-115)
[2023-11-27] MEDS: Melatonin 3 MG TABLET 6 MG PO (21:42)
[2023-11-27] MEDS: Atorvastatin Calcium 20 MG TABLET PO (21:42)
[2023-11-27 23:06] VITALS: BP 148/64; PULSE 72; RESP 16; TEMP 37.9; O2SAT 94
[2023-11-28] VITALS (13 sets, daily range): BP systolic 114–167; BP diastolic 56–74; PULSE 70–79; RESP 16–19; TEMP 36.6–38.8; O2SAT 86–97
[2023-11-28] MEDS: Acetaminophen 325 MG TABLET 650 MG PO ×2 (00:46→10:53)
[2023-11-28] MEDS: 0.9 % Sodium Chloride Flush 3 ML SYRINGE IVFLUSH ×3 (00:47→15:32)
[2023-11-28 06:29] LABS: Hematocrit 33.3 % (37.0-47.0); Hemoglobin 10.7 g/dl (12.0-16.0); Mean Corpuscular HGB Conc 32.1 g/dl (31.0-35.0); Mean Corpuscular Hemoglobin 31.2 pg (27.0-33.0); Mean Corpuscular Volume 97.1 fL (80.0-98.0); Mean Platelet Volume 11.5 fL (9.4-12.3); Platelet Count 180 X10*3/uL (160-400); Red Blood Count 3.43 X10*6/uL (4.20-5.50); Red Cell Distribution Width 13.7 % (11.0-16.0); White Blood Count 19.6 X10*3/uL (4.8-10.8)
[2023-11-28 07:13] LABS: Glucose, Whole Blood 246 mg/dL (60-115)
[2023-11-28] MEDS: Insulin Glargine,Hum.rec.anlog 100 UNIT/ML 10 ML VIAL 20 UNIT SUBCUT (08:07)
[2023-11-28] MEDS: Insulin Lispro 100 UNIT/ML 3 ML VIAL SUBCUT ×4 (08:07→21:15)
[2023-11-28] MEDS: Nystatin Powder 15 GM BOTTLE 1 APPL TOPICAL ×2 (08:08→21:16)
[2023-11-28] MEDS: diphenhydrAMINE HCl 2 % Cream 28 GM TUBE 1 APPL TOPICAL (08:08)
[2023-11-28] MEDS: Collagenase Clostridium Hist. 30 GM TUBE 1 APPL TOPICAL (08:08)
[2023-11-28 08:31] LABS: Venous Blood Gas Refer to POC result
[2023-11-28 08:32] LABS: VBG Base Excess -0.4 mmol/L; VBG HCO3 23 mmol/L (22-26); VBG pCO2 34 mmHg; VBG pH 7.43 (7.32-7.43); VBG pO2 45 mmHg
[2023-11-28 08:41] LABS: Anion Gap 20 (12-20); Blood Urea Nitrogen 22 mg/dL (9-16); Calcium 8.1 mg/dL (8.4-10.2); Carbon Dioxide 21 mmol/L (22-29); Chloride 99 mmol/L (96-108); Creatinine Clr Calc Pharmacy 44.5; Estimated Glomerular Filt Rate 48; Glucose Random 324 mg/dL (60-115); Potassium 4.1 mmol/L (3.3-5.1); Sodium 136 mmol/L (135-145)
[2023-11-28 08:46] LABS: B Type Natriuretic Peptide 2072 pg/mL (<100)
[2023-11-28 08:59] LABS: Influenza A PCR POSITIVE (Negative); Influenza B PCR NEGATIVE (Negative); Resp Syncy Virus RNA Qual PCR NEGATIVE (Negative); SARS COV2 PCR INHOUSE NEGATIVE (Negative)
[2023-11-28] MEDS: Oseltamivir Phosphate 75 MG CAPSULE PO (10:35)
[2023-11-28 11:06] LABS: Glucose, Whole Blood 263 mg/dL (60-115)
--- NOTE | 2023-11-28 11:18 | P.PNIM_ITS ---
Subjective Subjective Date of Service: 11/28/23 Interval History: Hypoxemic respiratory failure, influenza A Review of Systems Patient was feeling short of breath this morning, also found to have fever Seems otherwise generalized weak Physical Exam 2 Vital Signs: Vital Signs: Last Vital Signs Temp 102 F H 11/28/23 10:55 Pulse 72 11/28/23 07:00 Resp 19 11/28/23 07:00 BP 158/74 H 11/28/23 07:00 Pulse Ox 93 11/28/23 08:28 O2 Del Method Nasal Cannula 11/28/23 08:28 O2 Flow Rate 2 11/28/23 08:28 BMI result Body Mass Index 35.3 General: alert, sob Resp: poor efforts- air entry fair CVS: S1,S2,RRR GI: +BS, NT, no distention Skin:see pic of foot from earlier documentation-similar has 1+ edema rash-on chest and arm (similar to yesterday) Neuro: motor grossly intact Psych: appropriate affect Objective Data Active Medications Acetaminophen (Acetaminophen 325 Mg Tablet) 650 mg PO Q6H PRN PRN Reason: Pain, Mild (Pain Scale 1-3) Last Admin: 11/28/23 10:53 Dose: 650 mg Documented By: KATARZYNA Albuterol/Ipratropium (Albuterol/Iprat 2.5/0.5mg 3 Ml Ampul.Neb) 3 ml INHALE RQ4H WHILE AWAKE [facility] Atorvastatin Calcium (Atorvastatin Calcium 20 Mg Tablet) 20 mg PO BEDTIME [facility] Last Admin: 11/27/23 21:42 Dose: 20 mg Documented By: ARGELIA Bethanechol Chloride (Bethanechol Chloride 25 Mg Tablet) 25 mg PO TID RAMON Last Admin: 11/27/23 21:42 Dose: 25 mg Documented By: ARGELIA Bupropion HCl (Bupropion Hcl Xl 150 Mg Tab.Er.24h) 150 mg PO DAILY RAMON Last Admin: 11/28/23 08:21 Dose: Not Given Documented By: KATARZYNA Non-Admin Reason: Patient Refused Collagenase (Collagenase Clostridium Hist. 30 Gm Tube) 1 appl TOPICAL DAILY RAMON; Protocol Last Admin: 11/28/23 08:08 Dose: 1 appl Documented By: KATARZYNA Dextrose (Dextrose 50 % 25 Gm/50 Ml Syringe) 25 gm IVPUSH Q15M PRN; Protocol PRN Reason: per Hypoglycemia Standing Ord. Last Admin: 11/21/23 02:10 Dose: 25 gm Documented By: ARMSTRElfego Enoxaparin Sodium (Enoxaparin Sodium 40 Mg/0.4 Ml Syringe) 40 mg SUBCUT Q24H [facility] Escitalopram Oxalate (Escitalopram Oxalate 20 Mg Tablet) 20 mg PO DAILY [facility] Last Admin: 11/28/23 08:21 Dose: Not Given Documented By: COTEMA Non-Admin Reason: Patient Refused Furosemide (Furosemide 20 Mg/2 Ml Vial) 20 mg IVPUSH Q12H [facility]; Protocol Last Admin: 11/28/23 10:35 Dose: 20 mg Documented By: KATARZYNA Glucose (Glucose Gel 15 Gm Gel..Gram.) 15 gm PO Q15M PRN; Protocol PRN Reason: per Hypoglycemia Standing Ord. Insulin Glargine (Insulin Glargine,Hum.Rec.Anlog 100 Unit/Ml 10 Ml Vial) 20 unit SUBCUT DAILY [facility] Last Admin: 11/28/23 08:07 Dose: 20 unit Documented By: KATARZYNA Insulin Human Lispro (Insulin Lispro 100 Unit/Ml 3 Ml Vial) 0 unit SUBCUT QIDACHS [facility]; Protocol Last Admin: 11/28/23 08:07 Dose: 4 unit Documented By: KATARZYNA Loperamide HCl (Loperamide Hcl 2 Mg Capsule) 2 mg PO Q6H PRN PRN Reason: Constipation Last Admin: 11/22/23 16:27 Dose: 2 mg Documented By: PHANLNEREYDA Melatonin (Melatonin 3 Mg Tablet) 6 mg PO BEDTIME PRN PRN Reason: Insomnia Last Admin: 11/27/23 21:42 Dose: 6 mg Documented By: ARGELIA Metoprolol Succinate (Metoprolol Succinate Er 100 Mg Tab.Er.24h) 100 mg PO DAILY [facility]; Protocol Last Admin: 11/28/23 08:21 Dose: Not Given Documented By: KATARZYNA Non-Admin Reason: Patient Refused Nystatin (Nystatin Powder 15 Gm Bottle) 1 appl TOPICAL BID [facility]; Protocol Last Admin: 11/28/23 08:08 Dose: 1 appl Documented By: KATARZYNA Ondansetron HCl (Ondansetron Hcl 4 Mg/2 Ml Vial) 4 mg IVPUSH Q8H PRN PRN Reason: Nausea and Vomiting Oseltamivir Phosphate (Oseltamivir Phosphate 30 Mg Capsule) 30 mg PO Q12H RAMON Stop: 12/02/23 21:01 Sodium Chloride (0.9 % Sodium Chloride Flush 3 Ml Syringe) 3 ml IVFLUSH QSHIFT RAMON Last Admin: 11/28/23 08:06 Dose: 3 ml Documented By: KATARZYNA Zinc Acetate/Diphenhydramine (Diphenhydramine Hcl 2 % Cream 28 Gm Tube) 1 appl TOPICAL BID RAMON; Protocol Last Admin: 11/28/23 08:08 Dose: 1 appl Documented By: KATARZYNA Labs 11/28/23 05:09 11/28/23 08:18 Labs: Laboratory Results - last 24 hr 11/27/23 11/27/23 11/28/23 16:28 20:19 05:09 MCV 97.1 MCH 31.2 MCHC 32.1 RDW 13.7 Plt Count 180 MPV 11.5 Absolute Nucleated RBC 0.000 Nucleated RBC % (auto) 0.0 VBG pH VBG pCO2 VBG pO2 VBG HCO3 VBG O2 Saturation VBG Base Excess Anion Gap Estim Creat Clear Calc Estimated GFR POC Glucose 220 H 226 H Random Glucose Calcium B-Natriuretic Peptide Influenza Type A (PCR) Influenza Type B (PCR) RSV RNA Qual (PCR) SARS-CoV-2 RNA (RT-PCR) 11/28/23 11/28/23 11/28/23 07:06 08:02 08:18 MCV MCH MCHC RDW Plt Count MPV Absolute Nucleated RBC Nucleated RBC % (auto) VBG pH VBG pCO2 VBG pO2 VBG HCO3 VBG O2 Saturation VBG Base Excess Anion Gap 20 Estim Creat Clear Calc 44.5 Estimated GFR 48 POC Glucose 246 H Random Glucose 324 H Calcium 8.1 L B-Natriuretic Peptide Influenza Type A (PCR) POSITIVE A Influenza Type B (PCR) NEGATIVE RSV RNA Qual (PCR) NEGATIVE SARS-CoV-2 RNA (RT-PCR) NEGATIVE 11/28/23 11/28/23 11/28/23 08:22 08:25 10:59 MCV MCH MCHC RDW Plt Count MPV Absolute Nucleated RBC Nucleated RBC % (auto) VBG pH 7.43 VBG pCO2 34 VBG pO2 45 VBG HCO3 23 VBG O2 Saturation 74.0 VBG Base Excess -0.4 Anion Gap Estim Creat Clear Calc Estimated GFR POC Glucose 263 H Random Glucose Calcium B-Natriuretic Peptide 2072 H Influenza Type A (PCR) Influenza Type B (PCR) RSV RNA Qual (PCR) SARS-CoV-2 RNA (RT-PCR) Assessment and Plan (1) Acute hypoxemic respiratory failure: Status: Acute (2) Influenza A: Status: Acute Plan 83-year-old female with pertinent history of mood disorder, urinary incontinence, essential hypertension, insulin-dependent diabetes mellitus, mixed hyperlipidemia who presents to the emergency department for evaluation of right foot pain. acute hypoxemic respiratory failure possible multifactorial(influenza A vs chf - etiology unclear) has some wheezing bnp 2000 range has leg edema + moniter i/o dailr weight fluid resirtctions 1.5 liter continue tamiflu, Tylenol ,iv lasix ,echo if does not improve will consider cardiology eval. Right foot acute osteo on mri with imaging concerning for osteomyelitis, she hasd declined MRI but now is agreable-Was on Vanco and Cefepime, Cefepime stopped due to rash (has PEN allergy) Lavaquin added.. ID recommends PO Levaquin since OM not confirmed. MR/MR foot RT wo/w con:Soft tissue ulceration and cellulitis along the posterolateral aspect of the calcaneus with acute osteomyelitis within the adjacent calcaneus. No abscess formation. Moderate osteoarthritis scattered throughout the midfoot. Diffuse atrophy throughout the intrinsic musculature of the foot. . Circumferential soft tissue edema. had fever episode and also leucocytosis trending up. Id follow -avoid antibiotics ( has allergy to cefepime ,possible daptomycin also -due to worsenin rash) ,levaquin also limited due to qtc prolong. monitre off antibiotics vascular follow up-(outpatient f/u) recommends outaptient wound clinic for possible surgery. Insulin-dependent diabetes mellitus continue insulin regimen Diarrhea-Cdiff negative. Mood disorder: Continue home mood stabilizers Very labile mood mood, with intermittent breast of agitation, interfering with treatment, on bupropion psych evaluation-suggested ativan but she feel calm will hold off. Mixed hyperlipidemia: On statin Essential hypertension: On hydrochlorothiazide, metoprolol and lisinopril, renal function ok Urinary retention; moniter with stright cath,flomax , uro consult Normocytic Anemia of chronic disease: Hemoglobin above transfusion threshold wound care: Recommendations: 1. Turn and Reposition every 2 hours and as needed for patient comfort.? Use pillows or wedges to support off loading positions. 2. Off Load all bony prominences with use of pillows and heel boots if needed.? Apply Preventative foams where needed. ? 3. Monitor for incontinence and moisture control, use barrier creams when needed for prevention and treatment. 4. Provide adequate and supplemental nutrition.? 5. Order or Continue low air loss mattress. 6. When applicable maintain blood glucose levels per Providers order. 7. Sacrum - Off Load Pressure with pillows - Cleanse with routine cleansing, pat dry. Cover with Sacral foam dressing, peel back Q shift and change every 3 days and PRN. 8. Right heel - Elevate off of bed surface with heel protector boot ([employer]# [id number]). Cleanse with NS, apply skin barrier wipe to periwound. Apply thick layer of Santyl to wound bed cover with gauze, gauze wrap. Change Daily. 9. Left Ischium - Off Load Pressure - Cleanse with PH balance spray or wipes, pat dry. ?Apply thin layer of Triad to wound bed. Do not remove all of paste between applications as this may cause further skin damage.? Cover with foam dressing to aid in off loading and protection from friction. Change every other day and PRN. PT is recommending STR DVT prophylaxis: Lovenox Full code Ongoing inpatient need: fever, leucocytosis , acute hypoxemic respiratory failure secondary to influenza a, CHF-patient need IV Lasix, renal function electrolyte monitoring, close monitoring of respiratory status, cardiac workup for possible CHF, may need expert input if does not improve. Quality Stroke Does the patient have a stroke diagnosis?: No VTE Prior VTE?: No VTE Risk Level:: Medical - moderate - high VTE Device Contraindication: Treatment Not Indicated VTE Drug Contraindication: N/A - Med Ordered
[2023-11-28] MEDS: Albuterol/Iprat 2.5/0.5MG 3 ML AMPUL.NEB INHALE ×3 (11:39→19:58)
--- NOTE | 2023-11-28 12:14 | PC.NURSE ---
Addendum entered by India Gibbs RN 11/28/23 16:45: Order for cxr to check PICC line placement compared to earlier cxr. Per Dr. Chacon and radiologist PICC line placement is confired in the SVC and is okay to use. Upon assessment of PICC line at 1400- positive blood return and flushes good. Addendum entered by India Gibbs RN 11/28/23 12:25: 0750 Patient placed on 2L NC, O2 sats came up to 95% Original Note: 0745 patient rang call mathias complaining that she was having difficulty breathing. Patient O2 sat was 88% on room air. Dr. Chacon at bedside- cxr, VBG, BNP, BMP, O2 at 2L NC, duonebs, and sars/cov/flu swab ordered. BNP back at 2071, flu positive. IV lasix ordered, tamiflu ordered. 1045 Patient was being cleaned up by [employer] PICC line was pulled out a little bit but majority of it still attached. Positive blood return from PICC line at 0745 this morning, PICC line no longer has blood return. Dr. Chacon made aware. Nursing supervisor fish hatchery made multiple attempts at obtaining peripheral IV access and was not able to get access. Unable to give IV lasix, PO lasix one time dose ordered. Nursing supervisor fish hatchery to reach out for central line or other IV access.
[2023-11-28] MEDS: Furosemide 40 MG TABLET PO (12:30)
[2023-11-28] MEDS: Furosemide 20 MG/2 ML VIAL IVPUSH ×2 (14:23→21:15)
[2023-11-28 16:31] LABS: Glucose, Whole Blood 182 mg/dL (60-115)
--- NOTE | 2023-11-28 16:48 | PC.NURSE ---
Order for bladder scan, bladder scan is 608mls at 1545, per order straight cath if bladder scan is greater than 350mls. Patient straight cathed at 1600 for 650mls.
[2023-11-28] MEDS: Metoprolol Succinate ER 100 MG TAB.ER.24H PO (17:09)
[2023-11-28 20:58] LABS: Glucose, Whole Blood 236 mg/dL (60-115)
[2023-11-28] MEDS: Oseltamivir Phosphate 30 MG CAPSULE PO (21:15)
[2023-11-28] MEDS: Atorvastatin Calcium 20 MG TABLET PO (21:15)
--- NOTE | 2023-11-28 22:53 | PC.NURSE ---
patient bladder scanned by MANDY Macias for 393 ml,unable to print ,will str cath patient .
--- NOTE | 2023-11-28 23:01 | PC.NURSE ---
Addendum entered by Steph Serrano RN 11/28/23 23:07: 11-7 SIOBHAN Adkins made aware Original Note: patient refused to be str cath at present ,stating i am urinating,will bladder scan in 2hrs and monitor voiding
[2023-11-28] MEDS: Melatonin 3 MG TABLET 6 MG PO (23:35)
[2023-11-28] MEDS: Enoxaparin Sodium 40 MG/0.4 ML SYRINGE SUBCUT (23:35)
[2023-11-29] VITALS (8 sets, daily range): BP systolic 123–178; BP diastolic 60–81; PULSE 69–89; RESP 17–20; TEMP 36.6–37.2; O2SAT 92–98
[2023-11-29] MEDS: LORazepam 0.5 MG TABLET PO (05:12)
[2023-11-29 06:19] LABS: Anion Gap 17 (12-20); Blood Urea Nitrogen 20 mg/dL (9-16); Calcium 7.7 mg/dL (8.4-10.2); Carbon Dioxide 26 mmol/L (22-29); Chloride 98 mmol/L (96-108); Estimated Glomerular Filt Rate 54; Glucose Random 152 mg/dL (60-115); Sodium 138 mmol/L (135-145)
--- NOTE | 2023-11-29 07:00 | CA_ITS ---
Transthoracic Echocardiogram Patient (Last, First, Middle): Tish Ayala, Gender: Female Date of : 1940 Age: 83 Procedure Date: 11/29/2023 Procedure Type: Transthoracic Echocardiogram Location: S3E Height: 165.1 cm Weight: 96.16 kg BSA: 2.03 m2 Heart Rate: 78 bpm BP: 152 / 70 mmHg Overweaver: MYNOR Referring MD: Peter Chacon MD Symptoms: Chf Study Quality: Fair ECG Rhythm: Arrhythmia Conclusions: - Normal left ventricular cavity size. There is moderately increased left ventricular wall thickness. The left ventricular systolic function is moderately decreased. The visually estimated ejection fraction is between 30-35%. There is moderate global hypokinesis. Diastolic function is indeterminate on the basis of available data. - Mildly increased right ventricular cavity size. There is moderately decreased right ventricular systolic function. - The left atrium is mildly dilated. The right atrium is normal in size. - Significantly elevated right atrial pressure. Mild pulmonary hypertension is present. - There is mild dilatation of the sinuses of Valsalva measuring 3.70 cm and mild dilatation of the ascending aorta measuring 3.80 cm. Findings Left Ventricle Normal left ventricular cavity size. There is moderately increased left ventricular wall thickness. The left ventricular systolic function is moderately decreased. The visually estimated ejection fraction is between 30 35%. There is moderate global hypokinesis. Diastolic function is indeterminate on the basis of available data. Right Ventricle Mildly increased right ventricular cavity size. There is moderately decreased right ventricular systolic function. Atria The left atrium is mildly dilated. The right atrium is normal in size. Aortic Valve There is a normal trileaflet aortic valve. There is mild calcification of the aortic valve. There is no aortic valve stenosis. There is no aortic valve regurgitation. Mitral Valve There is severe mitral annular calcification. There is trace mitral valve regurgitation. There is no mitral valve stenosis. Pulmonic Valve The pulmonic valve is normal. There is trace pulmonic valve regurgitation. Tricuspid Valve Normal tricuspid valve structure. There is trace tricuspid valve regurgitation. The right ventricular systolic pressure is 36 mmHg. Significantly elevated right atrial pressure. Mild pulmonary hypertension is present. Great Vessels There is mild dilatation of the sinuses of Valsalva measuring 3.70 cm and mild dilatation of the ascending aorta measuring 3.80 cm. Venous The inferior vena cava is dilated and collapses less than 50% with inspiration. Pericardium/Pleural There is no evidence of pericardial effusion. Prior Study Comparison No prior study available for comparison. Measurements 2D Linear Measurements IVSd: 1.35 0.6-0.9/0.6-1.0 cm LVIDd: 4.98 3.9-5.3/4.2-5.9 cm LVIDd Index: 2.45 2.4-3.2/2.2-3.1 cm/m2 LVIDs: 3.77 2.0-3.6 cm LVPWd: 1.45 0.7-1.1 cm LA Diam: 5.20 2.7-3.8/3.0-4.0 cm LAIDs Index: 2.56 1.5-2.3 cm/m2 LV Mass: 361.30 67-162/88-224 g LV Mass Index: 177.98 43-95/49-115 g/m2 LVOT Diam: 2.30 3.0+(-)1.3 cm 2D Systolic Function EF 4C: 46.30 >55% EF 2C: 39.50 >55% EF BiP: 44.30 >55% Mitral Valve MV VTI: 0.29 MV Pk Heriberto: 1.35 MV Mn Heriberto: 0.66 MV Pk Grad: 7.00 MV Mn Grad: 2.00 MV Pk E: 1.13 MV PK A: 0.69 MV Decel Time: 134.00 E/A: 1.60 E'Lateral: 7.62 E'Medial: 6.85 E/E' Med: 16.50 E/E' Lat: 14.80 PHT: 39.00 MVA PHT: 5.64 MVA Continuity: 2.68 Decel [place]: 8.41 Aortic Valve AoV Pk Heriberto: 1.30 AoV Mn Heriberto: 0.84 AoV VTI: 0.24 AoV Pk Grad: 7.00 Aov Mn Grad: 3.00 MARISA Cont.VTI: 3.15 LVOT LVOT Pk Heriberto: 0.94 LVOT Mn Heriberto: 0.60 LVOT VTI: 0.19 LVOT Pk Grad: 4.00 LVOT Mn Grad: 2.00 LVOT Diam: 2.30 LVOT Area: 4.15 Diastolic Function MV Pk E: 1.13 MV Pk A: 0.69 E/A: 1.60 E'Medial: 6.85 E/E' Med: 16.50 E' Laterial: 7.62 E/E' Lat: 14.80 Right Ventricle TAPSE (mm): 13.10 TVS' Heriberto: 8.27 Tricuspid Valve TR Pk Heriberto: 2.29 TR Pk Grad: 21.00 RA Press: 15.00 RVSP: 36.00 Great Vessels Aorta Sinus of Valsalva: 3.70 2.0-3.5 cm Ao Asc: 3.80 2.1-3.4 cm Pulmonary Valve PV Pk Heriberto: 1.11 Peak PV Grad: 5.00 Updated in Other Vendor System with Status of Final Jason Swain MD electronically signed on 11/29/2023 3:24:30 PM with status of Final
[2023-11-29 07:21] LABS: Glucose, Whole Blood 181 mg/dL (60-115)
[2023-11-29] MEDS: Albuterol/Iprat 2.5/0.5MG 3 ML AMPUL.NEB INHALE ×2 (07:51→15:08)
[2023-11-29] MEDS: Furosemide 20 MG/2 ML VIAL IVPUSH ×2 (07:58→20:34)
[2023-11-29] MEDS: Insulin Glargine,Hum.rec.anlog 100 UNIT/ML 10 ML VIAL 20 UNIT SUBCUT (07:59)
[2023-11-29] MEDS: Insulin Lispro 100 UNIT/ML 3 ML VIAL SUBCUT ×4 (07:59→20:35)
[2023-11-29] MEDS: Potassium Chloride Packet 20 MEQ PACKET 40 MEQ PO (07:59)
[2023-11-29] MEDS: Escitalopram Oxalate 20 MG TABLET PO (08:00)
[2023-11-29] MEDS: Oseltamivir Phosphate 30 MG CAPSULE PO ×2 (08:00→20:35)
[2023-11-29] MEDS: Metoprolol Succinate ER 100 MG TAB.ER.24H PO (08:00)
[2023-11-29] MEDS: 0.9 % Sodium Chloride Flush 3 ML SYRINGE IVFLUSH ×2 (08:02→17:24)
[2023-11-29] MEDS: Collagenase Clostridium Hist. 30 GM TUBE 1 APPL TOPICAL (08:06)
[2023-11-29] MEDS: diphenhydrAMINE HCl 2 % Cream 28 GM TUBE 1 APPL TOPICAL (08:06)
[2023-11-29] MEDS: Nystatin Powder 15 GM BOTTLE 1 APPL TOPICAL ×2 (08:09→20:34)
[2023-11-29] MEDS: buPROPion HCl XL 150 MG TAB.ER.24H PO (08:16)
--- NOTE | 2023-11-29 09:40 | P.PNIM_ITS ---
Subjective Subjective Date of Service: 11/29/23 Interval History: influenza ; chf Review of Systems sob somewhat improvin i/o around 900ml neg no fever Physical Exam 2 Vital Signs: Vital Signs: Last Vital Signs Temp 98 F 11/29/23 06:56 Pulse 74 11/29/23 07:52 Resp 17 11/29/23 07:52 BP 152/70 H 11/29/23 06:56 Pulse Ox 92 11/29/23 06:56 O2 Del Method Nasal Cannula 11/29/23 06:56 O2 Flow Rate 2 11/29/23 06:56 BMI result Body Mass Index 35.3 General: alert, sob Resp: air entry fair ,few rales at bases scattered. CVS: S1,S2,RRR GI: +BS, NT, no distention Skin:see pic of foot from earlier documentation-similar has 1+ edema rash-on chest and arm -seems imrproving Neuro: motor grossly intact Psych: appropriate affect Objective Data Active Medications Acetaminophen (Acetaminophen 325 Mg Tablet) 650 mg PO Q6H PRN PRN Reason: Pain, Mild (Pain Scale 1-3) Last Admin: 11/28/23 10:53 Dose: 650 mg Documented By: COTLAM Albuterol/Ipratropium (Albuterol/Iprat 2.5/0.5mg 3 Ml Ampul.Neb) 3 ml INHALE RQ4H WHILE AWAKE [facility] Last Admin: 11/29/23 07:51 Dose: 3 ml Documented By: RUBÉN Atorvastatin Calcium (Atorvastatin Calcium 20 Mg Tablet) 20 mg PO BEDTIME [facility] Last Admin: 11/28/23 21:15 Dose: 20 mg Documented By: YAMILE Bethanechol Chloride (Bethanechol Chloride 25 Mg Tablet) 25 mg PO TID [facility] Last Admin: 11/27/23 21:42 Dose: 25 mg Documented By: ARGELIA Bupropion HCl (Bupropion Hcl Xl 150 Mg Tab.Er.24h) 150 mg PO DAILY [facility] Last Admin: 11/29/23 08:16 Dose: 150 mg Documented By: JHONY Collagenase (Collagenase Clostridium Hist. 30 Gm Tube) 1 appl TOPICAL DAILY [facility]; Protocol Last Admin: 11/29/23 08:06 Dose: 1 appl Documented By: JHONY Dextrose (Dextrose 50 % 25 Gm/50 Ml Syringe) 25 gm IVPUSH Q15M PRN; Protocol PRN Reason: per Hypoglycemia Standing Ord. Last Admin: 11/21/23 02:10 Dose: 25 gm Documented By: YO Enoxaparin Sodium (Enoxaparin Sodium 40 Mg/0.4 Ml Syringe) 40 mg SUBCUT Q24H RAMON Last Admin: 11/28/23 23:35 Dose: 40 mg Documented By: MACHELLE Escitalopram Oxalate (Escitalopram Oxalate 20 Mg Tablet) 20 mg PO DAILY [facility] Last Admin: 11/29/23 08:00 Dose: 20 mg Documented By: JHONY Furosemide (Furosemide 20 Mg/2 Ml Vial) 20 mg IVPUSH Q12H RAMON; Protocol Last Admin: 11/29/23 07:58 Dose: 20 mg Documented By: JHONY Glucose (Glucose Gel 15 Gm Gel..Gram.) 15 gm PO Q15M PRN; Protocol PRN Reason: per Hypoglycemia Standing Ord. Insulin Glargine (Insulin Glargine,Hum.Rec.Anlog 100 Unit/Ml 10 Ml Vial) 20 unit SUBCUT DAILY [facility] Last Admin: 11/29/23 07:59 Dose: 20 unit Documented By: JHONY Insulin Human Lispro (Insulin Lispro 100 Unit/Ml 3 Ml Vial) 0 unit SUBCUT QIDACHS [facility]; Protocol Last Admin: 11/29/23 07:59 Dose: 2 unit Documented By: JHONY Loperamide HCl (Loperamide Hcl 2 Mg Capsule) 2 mg PO Q6H PRN PRN Reason: Constipation Last Admin: 11/22/23 16:27 Dose: 2 mg Documented By: BRITTA Melatonin (Melatonin 3 Mg Tablet) 6 mg PO BEDTIME PRN PRN Reason: Insomnia Last Admin: 11/28/23 23:35 Dose: 6 mg Documented By: MACHELLE Metoprolol Succinate (Metoprolol Succinate Er 100 Mg Tab.Er.24h) 100 mg PO DAILY [facility]; Protocol Last Admin: 11/29/23 08:00 Dose: 100 mg Documented By: JHONY Nystatin (Nystatin Powder 15 Gm Bottle) 1 appl TOPICAL BID [facility]ON; Protocol Last Admin: 11/29/23 08:09 Dose: 1 appl Documented By: JHONY Ondansetron HCl (Ondansetron Hcl 4 Mg/2 Ml Vial) 4 mg IVPUSH Q8H PRN PRN Reason: Nausea and Vomiting Oseltamivir Phosphate (Oseltamivir Phosphate 30 Mg Capsule) 30 mg PO Q12H RAMON Stop: 12/02/23 21:01 Last Admin: 11/29/23 08:00 Dose: 30 mg Documented By: JHONY Sodium Chloride (0.9 % Sodium Chloride Flush 3 Ml Syringe) 3 ml IVFLUSH QSHIFT RAMON Last Admin: 11/29/23 08:02 Dose: 3 ml Documented By: JHONY Zinc Acetate/Diphenhydramine (Diphenhydramine Hcl 2 % Cream 28 Gm Tube) 1 appl TOPICAL BID [facility]ON; Protocol Last Admin: 11/29/23 08:06 Dose: 1 appl Documented By: JHONY Labs 11/28/23 05:09 11/29/23 03:57 Labs: Laboratory Results - last 24 hr 11/28/23 11/28/23 11/28/23 10:59 16:17 20:53 Anion Gap Estim Creat Clear Calc Estimated GFR POC Glucose 263 H 182 H 236 H Random Glucose Calcium 11/29/23 11/29/23 03:57 07:19 Anion Gap 17 Estim Creat Clear Calc 49.0 Estimated GFR 54 POC Glucose 181 H Random Glucose 152 H Calcium 7.7 L Assessment and Plan (1) Acute hypoxemic respiratory failure: Status: Acute Plan 83-year-old female with pertinent history of mood disorder, urinary incontinence, essential hypertension, insulin-dependent diabetes mellitus, mixed hyperlipidemia who presents to the emergency department for evaluation of right foot pain. acute hypoxemic respiratory failure possible multifactorial(influenza A vs chf - etiology unclear) has some wheezing bnp 2000 range has leg edema + moniter i/o: 900 ml neg dailr weight fluid resirtctions 1.5 liter continue tamiflu, Tylenol ,iv lasix ,echo if does not improve will consider cardiology eval. Right foot acute osteo on mri with imaging concerning for osteomyelitis, she hasd declined MRI but now is agreable-Was on Vanco and Cefepime, Cefepime stopped due to rash (has PEN allergy) Lavaquin added.. ID recommends PO Levaquin since OM not confirmed. MR/MR foot RT wo/w con:Soft tissue ulceration and cellulitis along the posterolateral aspect of the calcaneus with acute osteomyelitis within the adjacent calcaneus. No abscess formation. Moderate osteoarthritis scattered throughout the midfoot. Diffuse atrophy throughout the intrinsic musculature of the foot. . Circumferential soft tissue edema. had fever episode and also leucocytosis trending up. Id follow -avoid antibiotics ( has allergy to cefepime ,possible daptomycin also -due to worsenin rash) ,levaquin also limited due to qtc prolong. vascular follow up before discharge -since off antobiotics . Insulin-dependent diabetes mellitus continue insulin regimen Diarrhea-Cdiff negative. Mood disorder: Continue home mood stabilizers Very labile mood mood, with intermittent breast of agitation, interfering with treatment, on bupropion psych evaluation-suggested ativan but she feel calm will hold off. Mixed hyperlipidemia: On statin Essential hypertension: On hydrochlorothiazide, metoprolol and lisinopril, renal function ok Urinary retention; moniter with stright cath,flomax , uro consult Normocytic Anemia of chronic disease: Hemoglobin above transfusion threshold wound care: Recommendations: 1. Turn and Reposition every 2 hours and as needed for patient comfort.? Use pillows or wedges to support off loading positions. 2. Off Load all bony prominences with use of pillows and heel boots if needed.? Apply Preventative foams where needed. ? 3. Monitor for incontinence and moisture control, use barrier creams when needed for prevention and treatment. 4. Provide adequate and supplemental nutrition.? 5. Order or Continue low air loss mattress. 6. When applicable maintain blood glucose levels per Providers order. 7. Sacrum - Off Load Pressure with pillows - Cleanse with routine cleansing, pat dry. Cover with Sacral foam dressing, peel back Q shift and change every 3 days and PRN. 8. Right heel - Elevate off of bed surface with heel protector boot (Storeroom# [id number]). Cleanse with NS, apply skin barrier wipe to periwound. Apply thick layer of Santyl to wound bed cover with gauze, gauze wrap. Change Daily. 9. Left Ischium - Off Load Pressure - Cleanse with PH balance spray or wipes, pat dry. ?Apply thin layer of Triad to wound bed. Do not remove all of paste between applications as this may cause further skin damage.? Cover with foam dressing to aid in off loading and protection from friction. Change every other day and PRN. PT is recommending STR DVT prophylaxis: Lovenox Full code Ongoing inpatient need: fever, leucocytosis , acute hypoxemic respiratory failure secondary to influenza a, CHF-patient need IV Lasix, renal function electrolyte monitoring, close monitoring of respiratory status, cardiac workup for possible CHF, may need expert input if does not improve. Quality Stroke Does the patient have a stroke diagnosis?: No VTE Prior VTE?: No VTE Risk Level:: Medical - moderate - high VTE Device Contraindication: Treatment Not Indicated VTE Drug Contraindication: N/A - Med Ordered
[2023-11-29 11:04] LABS: Glucose, Whole Blood 159 mg/dL (60-115)
--- NOTE | 2023-11-29 11:10 | PC.RT ---
RT NOTE: Pt agitated, stated I Don't want that treatment
--- NOTE | 2023-11-29 11:51 | MHC.CLN ---
F/U PT WITH INCREASED NUTRITION RISK R/T PRESSURE INJURIES. PO INTAKE REMAINS VARIABLE RANGING FROM 0-100% DIET RX: 2000DM-APPROPRIATE. 1500 ML FLUID RESTRICTION PER MD. PT RECEIVING ENSURE MAX BID FOR WOUND HEALING. SUPP PROVIDES 300KCALS, 60G PROTEIN. 300 ML FREE WATER PER 11 OZ CONTAINER. CONTINUE TO MONITOR PO INTAKE AND ENCOURAGE SUPPLEMENTS.
--- NOTE | 2023-11-29 12:21 | MHC.CM.PN ---
per rounds pt not ready for dc she has the flu and chf
--- NOTE | 2023-11-29 12:23 | MHC.CM.PN ---
per rounds pt continues to be ready for [facility] per katty from todays conversation tamra still not assigned
--- NOTE | 2023-11-29 16:02 | HO.WOUND ---
Wound Consult: Follow up 83yr old F? admitted to [facility] on 11/16 - See progress notes and H&P for detailed history.? Recent ED visit and return to ED - see chart review for details. Today is for wound follow up and assessment for right heel. At todays visit the patient was agreeable to assessment and appeared in better spirits than the other day. The patient is noted to have desquamation noted throughout her chest and face in relation to drug allergy - providers aware - recommend topical cream application. TT to provider to consider topical treatment. Left Ischium - Not assessed today - no new topical recommendations - Etiology: ?Stage 2 Pressure Injury ?Present on Admission Goals of Treatment: ? Triad to allow for autolytic debridement and protect from friction and moisture Sacrum Not assessed today - no new topical recommendations - Etiology: Stage 1 Pressure Injury -??Present on Admission Goals of Treatment: ? Foam to protect from moisture and friction Right Heel 11/16/23 Right Heel 11/19/23 11/29/23 Right Heel Right Heel Etiology: ?Unstageable Pressure Injury - ?Present on Admission Measurements: 4cm x 4cm x 0.2cm Wound Bed: adherent fluctuant moist necrotic black brown tissue areas of purple moist tissue Drainage / Odor: yellow and serosang drainage noted on dressing - Mild odor noted Edges: ? irregular Monika wound: pink red blanchable erythema - areas of macerated wound edges noted - No Induration noted Pain: Pt reports some pain Goals of Treatment: ? No New topical recommendations - Santyl for enzymatic debridement and off load pressure - General Surgery (Dr. Francis) following and Dr. Clayton following Recommendations: 1. Turn and Reposition every 2 hours and as needed for patient comfort.? Use pillows or wedges to support off loading positions. 2. Off Load all bony prominences with use of pillows and heel boots if needed.? Apply Preventative foams where needed. ? 3. Monitor for incontinence and moisture control, use barrier creams when needed for prevention and treatment. 4. Provide adequate and supplemental nutrition.? 5. Order or Continue low air loss mattress. 6. When applicable maintain blood glucose levels per Providers order. 7. Sacrum - Off Load Pressure with pillows - Cleanse with routine cleansing, pat dry. Cover with Sacral foam dressing, peel back Q shift and change every 3 days and PRN. 8. Right heel - Elevate off of bed surface with heel protector boot (Storeroom# [id number]). Cleanse with NS, apply skin barrier wipe to periwound. Apply thick layer of Santyl to wound bed cover with gauze, gauze wrap. Change Daily. 9. Left Ischium - Off Load Pressure - Cleanse with PH balance spray or wipes, pat dry. ?Apply thin layer of Triad to wound bed. Do not remove all of paste between applications as this may cause further skin damage.? Cover with foam dressing to aid in off loading and protection from friction. Change every other day and PRN. Re-consult wound care Nurse for wound deterioration or wound changes.
[2023-11-29 16:35] LABS: Glucose, Whole Blood 191 mg/dL (60-115)
[2023-11-29 20:33] LABS: Glucose, Whole Blood 152 mg/dL (60-115)
[2023-11-29] MEDS: Atorvastatin Calcium 20 MG TABLET PO (20:34)
[2023-11-30] VITALS (10 sets, daily range): BP systolic 129–145; BP diastolic 58–84; PULSE 61–88; RESP 16–20; TEMP 36–37; O2SAT 92–98
[2023-11-30] MEDS: Enoxaparin Sodium 40 MG/0.4 ML SYRINGE SUBCUT (01:04)
[2023-11-30 07:49] LABS: Glucose, Whole Blood 141 mg/dL (60-115)
[2023-11-30] MEDS: Albuterol/Iprat 2.5/0.5MG 3 ML AMPUL.NEB INHALE ×4 (08:09→19:26)
[2023-11-30 08:45] LABS: Hematocrit 32.8 % (37.0-47.0); Hemoglobin 10.6 g/dl (12.0-16.0); Mean Corpuscular HGB Conc 32.3 g/dl (31.0-35.0); Mean Corpuscular Hemoglobin 31.3 pg (27.0-33.0); Mean Corpuscular Volume 96.8 fL (80.0-98.0); Mean Platelet Volume 10.2 fL (9.4-12.3); Platelet Count 172 X10*3/uL (160-400); Red Blood Count 3.39 X10*6/uL (4.20-5.50); Red Cell Distribution Width 13.8 % (11.0-16.0)
[2023-11-30 08:58] LABS: Anion Gap 14 (12-20); Blood Urea Nitrogen 22 mg/dL (9-16); Calcium 7.4 mg/dL (8.4-10.2); Carbon Dioxide 27 mmol/L (22-29); Chloride 101 mmol/L (96-108); Creatinine Clr Calc Pharmacy 50.6; Estimated Glomerular Filt Rate 56; Glucose Random 137 mg/dL (60-115); Potassium 3.2 mmol/L (3.3-5.1); Sodium 139 mmol/L (135-145)
[2023-11-30] MEDS: Insulin Glargine,Hum.rec.anlog 100 UNIT/ML 10 ML VIAL 20 UNIT SUBCUT (09:24)
[2023-11-30] MEDS: 0.9 % Sodium Chloride Flush 3 ML SYRINGE IVFLUSH ×3 (09:25→20:59)
[2023-11-30] MEDS: Oseltamivir Phosphate 30 MG CAPSULE PO ×2 (09:25→20:55)
[2023-11-30] MEDS: Escitalopram Oxalate 20 MG TABLET PO (09:25)
[2023-11-30] MEDS: buPROPion HCl XL 150 MG TAB.ER.24H PO (09:25)
[2023-11-30] MEDS: Collagenase Clostridium Hist. 30 GM TUBE 1 APPL TOPICAL (09:25)
[2023-11-30] MEDS: Metoprolol Succinate ER 100 MG TAB.ER.24H PO (09:25)
[2023-11-30] MEDS: diphenhydrAMINE HCl 2 % Cream 28 GM TUBE 1 APPL TOPICAL (09:25)
[2023-11-30] MEDS: Nystatin Powder 15 GM BOTTLE 1 APPL TOPICAL ×2 (09:25→20:59)
[2023-11-30] MEDS: Furosemide 20 MG/2 ML VIAL IVPUSH ×2 (09:25→20:55)
[2023-11-30 11:28] LABS: Glucose, Whole Blood 159 mg/dL (60-115)
--- NOTE | 2023-11-30 11:53 | HO.PM.IMPN ---
Subjective Subjective Date of Service: 12/01/23 Interval History: no new issues, f/u on diabetic foot ulcer, Physical Exam Vital Signs: Vital Signs: Last Vital Signs Temp 96.8 F 11/30/23 11:35 Pulse 61 11/30/23 11:43 Resp 18 11/30/23 11:43 BP 134/65 11/30/23 11:35 Pulse Ox 96 11/30/23 11:35 O2 Del Method Nasal Cannula 11/30/23 11:35 O2 Flow Rate 2.5 11/30/23 11:35 BMI result Body Mass Index 35.3 General: alert, no distress Resp: clear CVS: S1,S2,RRR GI: +BS, NT, no distention Skin:see pic of foot from earlier documentation-similar has 1+ edema rash--no errythema, sking pilling of torso, limbs and face Neuro: motor grossly intact Psych: appropriate affect Objective Data Active Medications Acetaminophen (Acetaminophen 325 Mg Tablet) 650 mg PO Q6H PRN PRN Reason: Pain, Mild (Pain Scale 1-3) Last Admin: 11/28/23 10:53 Dose: 650 mg Documented By: KATARZYNA Albuterol/Ipratropium (Albuterol/Iprat 2.5/0.5mg 3 Ml Ampul.Neb) 3 ml INHALE RQ4H WHILE AWAKE [facility] Last Admin: 11/30/23 11:41 Dose: 3 ml Documented By: HENNY Atorvastatin Calcium (Atorvastatin Calcium 20 Mg Tablet) 20 mg PO BEDTIME [facility] Last Admin: 11/29/23 20:34 Dose: 20 mg Documented By: IMER Bethanechol Chloride (Bethanechol Chloride 25 Mg Tablet) 25 mg PO TID [facility] Last Admin: 11/27/23 21:42 Dose: 25 mg Documented By: ARGELIA Bupropion HCl (Bupropion Hcl Xl 150 Mg Tab.Er.24h) 150 mg PO DAILY [facility] Last Admin: 11/30/23 09:25 Dose: 150 mg Documented By: JHONY Collagenase (Collagenase Clostridium Hist. 30 Gm Tube) 1 appl TOPICAL DAILY [facility]; Protocol Last Admin: 11/30/23 09:25 Dose: 1 appl Documented By: JHONY Dextrose (Dextrose 50 % 25 Gm/50 Ml Syringe) 25 gm IVPUSH Q15M PRN; Protocol PRN Reason: per Hypoglycemia Standing Ord. Last Admin: 11/21/23 02:10 Dose: 25 gm Documented By: NARGISTRElfego Enoxaparin Sodium (Enoxaparin Sodium 40 Mg/0.4 Ml Syringe) 40 mg SUBCUT Q24H [facility] Last Admin: 11/30/23 01:04 Dose: 40 mg Documented By: ODRISGeovanni Escitalopram Oxalate (Escitalopram Oxalate 20 Mg Tablet) 20 mg PO DAILY [facility] Last Admin: 11/30/23 09:25 Dose: 20 mg Documented By: JHONY Furosemide (Furosemide 20 Mg/2 Ml Vial) 20 mg IVPUSH Q12H RAMON; Protocol Last Admin: 11/30/23 09:25 Dose: 20 mg Documented By: JHONY Glucose (Glucose Gel 15 Gm Gel..Gram.) 15 gm PO Q15M PRN; Protocol PRN Reason: per Hypoglycemia Standing Ord. Insulin Glargine (Insulin Glargine,Hum.Rec.Anlog 100 Unit/Ml 10 Ml Vial) 20 unit SUBCUT DAILY [facility] Last Admin: 11/30/23 09:24 Dose: 20 unit Documented By: JHONY Insulin Human Lispro (Insulin Lispro 100 Unit/Ml 3 Ml Vial) 0 unit SUBCUT QIDACHS [facility]; Protocol Last Admin: 11/30/23 07:50 Dose: Not Given Documented By: JHONY Non-Admin Reason: No Insulin Coverage Loperamide HCl (Loperamide Hcl 2 Mg Capsule) 2 mg PO Q6H PRN PRN Reason: Constipation Last Admin: 11/22/23 16:27 Dose: 2 mg Documented By: BRITTA Melatonin (Melatonin 3 Mg Tablet) 6 mg PO BEDTIME PRN PRN Reason: Insomnia Last Admin: 11/28/23 23:35 Dose: 6 mg Documented By: MACHELLE Metoprolol Succinate (Metoprolol Succinate Er 100 Mg Tab.Er.24h) 100 mg PO DAILY [facility]; Protocol Last Admin: 11/30/23 09:25 Dose: 100 mg Documented By: JHONY Nystatin (Nystatin Powder 15 Gm Bottle) 1 appl TOPICAL BID [facility]; Protocol Last Admin: 11/30/23 09:25 Dose: 1 appl Documented By: JHONY Ondansetron HCl (Ondansetron Hcl 4 Mg/2 Ml Vial) 4 mg IVPUSH Q8H PRN PRN Reason: Nausea and Vomiting Oseltamivir Phosphate (Oseltamivir Phosphate 30 Mg Capsule) 30 mg PO Q12H RAMON Stop: 12/02/23 21:01 Last Admin: 11/30/23 09:25 Dose: 30 mg Documented By: JHONY Sodium Chloride (0.9 % Sodium Chloride Flush 3 Ml Syringe) 3 ml IVFLUSH QSHIFT RAMON Last Admin: 11/30/23 09:25 Dose: 3 ml Documented By: JHONY Zinc Acetate/Diphenhydramine (Diphenhydramine Hcl 2 % Cream 28 Gm Tube) 1 appl TOPICAL BID RAMON; Protocol Last Admin: 11/30/23 09:25 Dose: 1 appl Documented By: JHONY Labs 11/30/23 07:49 11/30/23 07:49 Labs: Laboratory Results - last 24 hr 11/29/23 11/29/23 11/30/23 16:32 20:27 07:29 MCV MCH MCHC RDW Plt Count MPV Absolute Nucleated RBC Nucleated RBC % (auto) Anion Gap Estim Creat Clear Calc Estimated GFR POC Glucose 191 H 152 H 141 H Random Glucose Calcium 11/30/23 11/30/23 07:49 11:14 MCV 96.8 MCH 31.3 MCHC 32.3 RDW 13.8 Plt Count 172 MPV 10.2 Absolute Nucleated RBC 0.000 Nucleated RBC % (auto) 0.0 Anion Gap 14 Estim Creat Clear Calc 50.6 Estimated GFR 56 POC Glucose 159 H Random Glucose 137 H Calcium 7.4 L Assessment and Plan (1) Acute hypoxemic respiratory failure: Status: Acute Plan 83-year-old female with pertinent history of mood disorder, urinary incontinence, essential hypertension, insulin-dependent diabetes mellitus, mixed hyperlipidemia who presents to the emergency department for evaluation of right foot pain. acute hypoxemic respiratory failure d/t influenze and heart failure Tamiflu for influenza Acute systolic heart failure EF of 30, improved. Change to PO Lasix Right foot diabetic ulcer--initially treated as OM, MRI showed no osteo. She was initially treated with Cefepime causing rash, then Levaquin, then Dapto also rash. MRI showed no OM, Given no osteomy and more than 10 days Abx, ID recommens no further Abx at this time. To follow up with vascular on outpatient basis Insulin-dependent diabetes mellitus continue insulin regimen Diarrhea-Cdiff negative. Mood disorder: Continue home mood stabilizers Very labile mood mood, with intermittent bursts of agitation, interfering with treatment, on bupropion psych recommends Ativan PRN Mixed hyperlipidemia: On statin Essential hypertension: On hydrochlorothiazide, metoprolol and lisinopril, renal function ok Urinary retention; moniter with stright cath,flomax , uro consult Normocytic Anemia of chronic disease: Hemoglobin above transfusion threshold wound care: Recommendations: 1. Turn and Reposition every 2 hours and as needed for patient comfort.? Use pillows or wedges to support off loading positions. 2. Off Load all bony prominences with use of pillows and heel boots if needed.? Apply Preventative foams where needed. ? 3. Monitor for incontinence and moisture control, use barrier creams when needed for prevention and treatment. 4. Provide adequate and supplemental nutrition.? 5. Order or Continue low air loss mattress. 6. When applicable maintain blood glucose levels per Providers order. 7. Sacrum - Off Load Pressure with pillows - Cleanse with routine cleansing, pat dry. Cover with Sacral foam dressing, peel back Q shift and change every 3 days and PRN. 8. Right heel - Elevate off of bed surface with heel protector boot (Storeroom# [id number]). Cleanse with NS, apply skin barrier wipe to periwound. Apply thick layer of Santyl to wound bed cover with gauze, gauze wrap. Change Daily. 9. Left Ischium - Off Load Pressure - Cleanse with PH balance spray or wipes, pat dry. ?Apply thin layer of Triad to wound bed. Do not remove all of paste between applications as this may cause further skin damage.? Cover with foam dressing to aid in off loading and protection from friction. Change every other day and PRN. PT is recommending STR DVT prophylaxis: Lovenox Full code need for inpatient: awaiting STR Quality Stroke Does the patient have a stroke diagnosis?: No VTE Prior VTE?: No VTE Risk Level:: Medical - moderate - high VTE Device Contraindication: Treatment Not Indicated VTE Drug Contraindication: N/A - Med Ordered
[2023-11-30] MEDS: Insulin Lispro 100 UNIT/ML 3 ML VIAL SUBCUT ×2 (11:54→20:58)
--- NOTE | 2023-11-30 12:47 | MHC.CM.PN ---
pt is not particapating in pt pt is now for ltc referral faxed to financial for ltc tamra
[2023-11-30 16:19] LABS: Glucose, Whole Blood 118 mg/dL (60-115)
[2023-11-30 20:18] LABS: Glucose, Whole Blood 178 mg/dL (60-115)
[2023-11-30] MEDS: Atorvastatin Calcium 20 MG TABLET PO (20:55)
[2023-12-01] MEDS: Enoxaparin Sodium 40 MG/0.4 ML SYRINGE SUBCUT (01:37)
[2023-12-01 03:20] VITALS: BP 125/78; PULSE 78; RESP 18; TEMP 37.1; O2SAT 97
[2023-12-01 07:34] VITALS: BP 158/71; PULSE 64; RESP 17; TEMP 36.2; O2SAT 95
[2023-12-01 07:47] LABS: Glucose, Whole Blood 121 mg/dL (60-115)
[2023-12-01] MEDS: Albuterol/Iprat 2.5/0.5MG 3 ML AMPUL.NEB INHALE ×2 (08:32→14:57)
[2023-12-01] MEDS: Metoprolol Succinate ER 100 MG TAB.ER.24H PO (08:33)
[2023-12-01] MEDS: Escitalopram Oxalate 20 MG TABLET PO (08:33)
[2023-12-01] MEDS: Oseltamivir Phosphate 30 MG CAPSULE PO (08:33)
[2023-12-01] MEDS: buPROPion HCl XL 150 MG TAB.ER.24H PO (08:33)
[2023-12-01] MEDS: Insulin Glargine,Hum.rec.anlog 100 UNIT/ML 10 ML VIAL 20 UNIT SUBCUT (08:33)
[2023-12-01 08:34] VITALS: PULSE 65; RESP 18; O2SAT 95
[2023-12-01] MEDS: 0.9 % Sodium Chloride Flush 3 ML SYRINGE IVFLUSH (08:34)
--- NOTE | 2023-12-01 09:12 | MHC.CLN ---
F/U PO INTAKE REMAINS VARIABLE RANGING FROM 0-100% DIET RX: 2000DM-APPROPRIATE. 1500 ML FLUID RESTRICTION PER MD. PT RECEIVING ENSURE MAX BID TO PROMOTE WOUND HEALING. SUPPLEMENT PROVIDES 300KCALS, 60G PROTEIN. ENSURE MAX HAS 300 ML FREE WATER PER 11 OZ CONTAINER. CONTINUE TO MONITOR PO INTAKE AND ENCOURAGE SUPPLEMENTS.
--- NOTE | 2023-12-01 09:15 | HO.PM.IMPN ---
Subjective Subjective Date of Service: 12/01/23 Interval History: She has no acute complaint this morning, Physical Exam Vital Signs: Vital Signs: Last Vital Signs Temp 97.1 F 12/01/23 07:34 Pulse 65 12/01/23 08:34 Resp 18 12/01/23 08:34 BP 158/71 H 12/01/23 07:34 Pulse Ox 95 12/01/23 07:34 O2 Del Method Nasal Cannula 12/01/23 07:34 O2 Flow Rate 2.5 12/01/23 07:34 BMI result Body Mass Index 35.3 Const: Other: General: alert, not in distress Resp: CTA bilateral CVS: S1,S2,RRR GI: +BS, NT, no distention Skin: No rash--see pic of foot from earlier documentation--essentially no change Neuro: motor grossly intact Psych: appropriate affect Objective Data Active Medications Acetaminophen (Acetaminophen 325 Mg Tablet) 650 mg PO Q6H PRN PRN Reason: Pain, Mild (Pain Scale 1-3) Last Admin: 11/28/23 10:53 Dose: 650 mg Documented By: COTEMA Albuterol/Ipratropium (Albuterol/Iprat 2.5/0.5mg 3 Ml Ampul.Neb) 3 ml INHALE RQ4H WHILE AWAKE [facility] Last Admin: 12/01/23 08:32 Dose: 3 ml Documented By: GRACE Atorvastatin Calcium (Atorvastatin Calcium 20 Mg Tablet) 20 mg PO BEDTIME RAMON Last Admin: 11/30/23 20:55 Dose: 20 mg Documented By: MACHELLE Bethanechol Chloride (Bethanechol Chloride 25 Mg Tablet) 25 mg PO TID [facility] Last Admin: 11/27/23 21:42 Dose: 25 mg Documented By: ARGELIA Bupropion HCl (Bupropion Hcl Xl 150 Mg Tab.Er.24h) 150 mg PO DAILY RAMON Last Admin: 12/01/23 08:33 Dose: 150 mg Documented By: PINKY Collagenase (Collagenase Clostridium Hist. 30 Gm Tube) 1 appl TOPICAL DAILY RAMON; Protocol Last Admin: 11/30/23 09:25 Dose: 1 appl Documented By: JHONY Dextrose (Dextrose 50 % 25 Gm/50 Ml Syringe) 25 gm IVPUSH Q15M PRN; Protocol PRN Reason: per Hypoglycemia Standing Ord. Last Admin: 11/21/23 02:10 Dose: 25 gm Documented By: YO Enoxaparin Sodium (Enoxaparin Sodium 40 Mg/0.4 Ml Syringe) 40 mg SUBCUT Q24H RAMON Last Admin: 12/01/23 01:37 Dose: 40 mg Documented By: MACHELLE Escitalopram Oxalate (Escitalopram Oxalate 20 Mg Tablet) 20 mg PO DAILY [facility] Last Admin: 12/01/23 08:33 Dose: 20 mg Documented By: PINKY Furosemide (Furosemide 20 Mg/2 Ml Vial) 20 mg IVPUSH Q12H [facility]; Protocol Last Admin: 11/30/23 20:55 Dose: 20 mg Documented By: MACHELLE Glucose (Glucose Gel 15 Gm Gel..Gram.) 15 gm PO Q15M PRN; Protocol PRN Reason: per Hypoglycemia Standing Ord. Insulin Glargine (Insulin Glargine,Hum.Rec.Anlog 100 Unit/Ml 10 Ml Vial) 20 unit SUBCUT DAILY [facility] Last Admin: 12/01/23 08:33 Dose: 20 unit Documented By: PINKY Insulin Human Lispro (Insulin Lispro 100 Unit/Ml 3 Ml Vial) 0 unit SUBCUT QIDACHS [facility]; Protocol Last Admin: 12/01/23 08:24 Dose: Not Given Documented By: PINKY Non-Admin Reason: No Insulin Coverage Loperamide HCl (Loperamide Hcl 2 Mg Capsule) 2 mg PO Q6H PRN PRN Reason: Constipation Last Admin: 11/22/23 16:27 Dose: 2 mg Documented By: BRITTA Melatonin (Melatonin 3 Mg Tablet) 6 mg PO BEDTIME PRN PRN Reason: Insomnia Last Admin: 11/28/23 23:35 Dose: 6 mg Documented By: MACHELLE Metoprolol Succinate (Metoprolol Succinate Er 100 Mg Tab.Er.24h) 100 mg PO DAILY [facility]; Protocol Last Admin: 12/01/23 08:33 Dose: 100 mg Documented By: PINKY Nystatin (Nystatin Powder 15 Gm Bottle) 1 appl TOPICAL BID [facility]; Protocol Last Admin: 11/30/23 20:59 Dose: 1 appl Documented By: MACHELLE Ondansetron HCl (Ondansetron Hcl 4 Mg/2 Ml Vial) 4 mg IVPUSH Q8H PRN PRN Reason: Nausea and Vomiting Oseltamivir Phosphate (Oseltamivir Phosphate 30 Mg Capsule) 30 mg PO Q12H [facility] Stop: 12/02/23 21:01 Last Admin: 12/01/23 08:33 Dose: 30 mg Documented By: PINKY Sodium Chloride (0.9 % Sodium Chloride Flush 3 Ml Syringe) 3 ml IVFLUSH QSHIFT [facility] Last Admin: 12/01/23 08:34 Dose: 3 ml Documented By: PINKY Zinc Acetate/Diphenhydramine (Diphenhydramine Hcl 2 % Cream 28 Gm Tube) 1 appl TOPICAL BID [facility]; Protocol Last Admin: 11/30/23 20:56 Dose: Not Given Documented By: MACHELLE Non-Admin Reason: patient states not itchy Labs 11/30/23 07:49 11/30/23 07:49 Labs: Laboratory Results - last 24 hr 11/30/23 11/30/23 11/30/23 11:14 16:08 20:13 POC Glucose 159 H 118 H 178 H 12/01/23 07:41 POC Glucose 121 H Assessment and Plan (1) Acute hypoxemic respiratory failure: Status: Acute Plan 83-year-old female with pertinent history of mood disorder, urinary incontinence, essential hypertension, insulin-dependent diabetes mellitus, mixed hyperlipidemia who presents to the emergency department for evaluation of right foot pain. acute hypoxemic respiratory failure d/t influenze and heart failure Tamiflu for influenza Acute systolic heart failure EF of 30, improved. Continue Lasix Right foot diabetic ulcer--initially treated as OM, MRI showed no osteo. She was initially treated with Cefepime causing rash, then Levaquin, then Dapto also rash. MRI showed no OM, Given no osteomy and more than 10 days Abx, ID recommens no further Abx at this time. To follow up with vascular on outpatient basis Insulin-dependent diabetes mellitus continue insulin regimen Diarrhea-Cdiff negative. Mood disorder: Continue home mood stabilizers Very labile mood mood, with intermittent bursts of agitation, interfering with treatment, on bupropion psych recommends Ativan PRN Mixed hyperlipidemia: On statin Essential hypertension: On hydrochlorothiazide, metoprolol and lisinopril, renal function ok Urinary retention; moniter with stright cath,flomax , uro consult Normocytic Anemia of chronic disease: Hemoglobin above transfusion threshold wound care: Recommendations: 1. Turn and Reposition every 2 hours and as needed for patient comfort.? Use pillows or wedges to support off loading positions. 2. Off Load all bony prominences with use of pillows and heel boots if needed.? Apply Preventative foams where needed. ? 3. Monitor for incontinence and moisture control, use barrier creams when needed for prevention and treatment. 4. Provide adequate and supplemental nutrition.? 5. Order or Continue low air loss mattress. 6. When applicable maintain blood glucose levels per Providers order. 7. Sacrum - Off Load Pressure with pillows - Cleanse with routine cleansing, pat dry. Cover with Sacral foam dressing, peel back Q shift and change every 3 days and PRN. 8. Right heel - Elevate off of bed surface with heel protector boot (Storeroom# [id number]). Cleanse with NS, apply skin barrier wipe to periwound. Apply thick layer of Santyl to wound bed cover with gauze, gauze wrap. Change Daily. 9. Left Ischium - Off Load Pressure - Cleanse with PH balance spray or wipes, pat dry. ?Apply thin layer of Triad to wound bed. Do not remove all of paste between applications as this may cause further skin damage.? Cover with foam dressing to aid in off loading and protection from friction. Change every other day and PRN. PT is recommending STR DVT prophylaxis: Lovenox Full code need for inpatient: awaiting STR Quality Stroke Does the patient have a stroke diagnosis?: No VTE Prior VTE?: No VTE Risk Level:: Medical - moderate - high VTE Device Contraindication: Treatment Not Indicated VTE Drug Contraindication: N/A - Med Ordered
[2023-12-01] MEDS: Collagenase Clostridium Hist. 30 GM TUBE 1 APPL TOPICAL (09:39)
[2023-12-01] MEDS: diphenhydrAMINE HCl 2 % Cream 28 GM TUBE 1 APPL TOPICAL (09:39)
[2023-12-01] MEDS: Nystatin Powder 15 GM BOTTLE 1 APPL TOPICAL (09:39)
[2023-12-01 11:38] LABS: Glucose, Whole Blood 187 mg/dL (60-115)
[2023-12-01 11:42] VITALS: BP 158/77; PULSE 67; RESP 18; TEMP 36.1; O2SAT 95
[2023-12-01] MEDS: Insulin Lispro 100 UNIT/ML 3 ML VIAL SUBCUT ×2 (11:51→17:02)
[2023-12-01 14:57] VITALS: PULSE 67; RESP 18; O2SAT 94
[2023-12-01 15:19] VITALS: BP 152/65; PULSE 68; RESP 17; TEMP 36.8; O2SAT 94
--- NOTE | 2023-12-01 15:34 | HO.REMOVAL ---
Removal of PICC/Midline Removal of PICC/Midline: Removal of PICC: 1. Date: 12/01/2023 2. Reason removed: No longer needed for IV antibiotics per MD order 3. Inserted length: 38 cm 4. Removed length: 38 cm 5. A dressing was placed over the site upon removal. No edema or bleeding at the site.
--- NOTE | 2023-12-01 15:49 | P.DS_ITS ---
DS: Providers Provider Date of Service: 12/01/23 Date of admission: 11/16/23 01:09 Primary care physician: Krystal Jay MD Consults: 11/16/23 01:41 Consult to General Surgery Routine Consulting Provider: Mitra Francis Reason for consultation: right heel necrotic wound 11/16/23 03:06 Consult to Wound Care Routine Reason for consultation: necrotic wound on right heel Has provider been notified: Yes 11/17/23 17:32 Consult to Infectious Diseases Routine Consulting Provider[place] [facility] [place] Reason for consultation: diabetic foot ulcer ? OM Consult to Vascular Surgery Routine Consulting Provider: [facility] [place] Reason for consultation: diabetic foot ulcer Has provider been notified: No 11/19/23 11:52 Consult to Urology Routine Consulting Provider: Camacho Keller Reason for consultation: URINARY RETENTION Has provider been notified: No 11/25/23 13:32 Consult to Psychiatry Routine Consulting Provider: Psych Covering Reason for consultation: mood disorder with behaviour changes Has provider been notified: No 11/29/23 14:07 Consult to Psychiatry Routine Consulting Provider: Psych Covering Reason for consultation: mood dis ? with behvaiour chnage s Has provider been notified: No DS: Diagnosis Discharge Diagnosis (1) Acute hypoxemic respiratory failure: Status: Acute DS: Summary Hospital Course Hospital Course: Admission HPI Chief Complaint: Right heel wound This is a 83-year-old female with pertinent history of mood disorder, urinary incontinence, essential hypertension, insulin-dependent diabetes mellitus, mixed hyperlipidemia who presents to the emergency department for evaluation of right foot pain. Patient was seen in the ER for right leg discomfort and was discharged home after venous duplex was negative for DVT and with a diagnosis chronic leg pain. Apparently patient refused to get off the stretcher due to right leg pain and was brought to the ER for re-evaluation. Patient was admitted as case management consulted for possible post acute care placement. Nurse noticed necrotic right heel wound with purulent foul-smelling drainage. Imaging was obtained which was concerning for osteomyelitis and [facility] team consulted for admission. Patient was given empiric antibiotics in the ER. Patient states she has had right heel wound for weeks which has been draining. Denies fever, chills, chest discomfort, palpitations, abdominal pain, changes in urinary or bowel habits. Hospital course: The patient initially presented with right heel wound and noted to have surounding cellulitis and there was concern of osteomylitis and was treated with Cefepime but later developped a rash due to Penecillin cros reactivity and levaquin was then started but also later had to be stopped due to prolonged QTc. She initially declined MRI but later agreed to it and showed Soft tissue ulceration and cellulitis along the posterolateral aspect of the calcaneus with acute osteomyelitis within the adjacent. She was evaluated by infectious disease and advised Daptomycin which also ultimately showed severe desquamating rash. Cultures have been negative. She was seen by Vascular surgery with recommendation for outpatient wound care follow up. She was treated for nearly 2 weeks of antibiotics and on further evaluation by ID recommended no further antibiotics and for debridment as needed. She would be recommended for outpatient wound care Acute hypoxic respiratory failure, attributed to heart failure and Influenza. Acute systolic heart failure EF of 30, improved on Lasix. Influenza treated with Tamiflu and to complete treatment on 12/02 Insulin-dependent diabetes mellitus--Previously on Glargine 30 in AM and 25 PM, this was changed to Lantu s 20 units in AM due to hypoglycemia and to continue with sliding scale Diarrhea-Cdiff negative and resolved. Mood disorder and had very labile mood with periods of agitation some attributed to antibiotics. She is continue on Bupropion 150, and Lexapro reduced to 20 mg from 40. Was seen by Psych HTN--To continue Metoprolol, HCTZ discontinued due starting Lasix and Lisinopril was stopped due to renal failure, renal function is now normal and Lisinopril will be restarted at 10 mg daily rather than 20 mg Urinary retention: She required straight cath, and failured voiding trial and therefore a luciano cath is been inserted and to follow up with urology on outpatient basis Normocytic Anemia of chronic disease: Hemoglobin above transfusion threshold wound care: Recommendations: 1. Turn and Reposition every 2 hours and as needed for patient comfort.? Use pillows or wedges to support off loading positions. 2. Off Load all bony prominences with use of pillows and heel boots if needed.? Apply Preventative foams where needed. ? 3. Monitor for incontinence and moisture control, use barrier creams when needed for prevention and treatment. 4. Provide adequate and supplemental nutrition.? 5. Order or Continue low air loss mattress. 6. When applicable maintain blood glucose levels per Providers order. 7. Sacrum - Off Load Pressure with pillows - Cleanse with routine cleansing, pat dry. Cover with Sacral foam dressing, peel back Q shift and change every 3 days and PRN. 8. Right heel - Elevate off of bed surface with heel protector boot (Storeroom# [id number]). Cleanse with NS, apply skin barrier wipe to periwound. Apply thick layer of Santyl to wound bed cover with gauze, gauze wrap. Change Daily. 9. Left Ischium - Off Load Pressure - Cleanse with PH balance spray or wipes, pat dry. ?Apply thin layer of Triad Time Attestation Discharge coordination time: Greater than 30 minutes Quality: Safe Use of Opioids Does Pt have an Active Cancer Diagnosis on the Problem List?: No Quality: Stroke Does the patient have a stroke diagnosis?: No Physical Exam Vital Signs: Vital Signs: Last Vital Signs Temp 98.2 F 12/01/23 15:19 Pulse 68 12/01/23 15:19 Resp 17 12/01/23 15:19 BP 152/65 H 12/01/23 15:19 Pulse Ox 94 12/01/23 15:19 O2 Del Method Nasal Cannula 12/01/23 15:19 O2 Flow Rate 2.5 12/01/23 15:19 BMI result Body Mass Index 35.3 DS: Data Data Completed and Pending Labs on day of discharge: Laboratory Results - last 24 hr 11/30/23 11/30/23 12/01/23 16:08 20:13 07:41 POC Glucose 118 H 178 H 121 H 12/01/23 11:32 POC Glucose 187 H Discharge Plan Discharge Anticipated Discharge Date/Time: 12/01/23 15:50 Patient Disposition: Xfer SNF Discharge Diagnosis: Diabetic foot ulcer, Acute hypoxic respiratory failure, Influenza, heart failure Referrals: [facility] [Outside] - 1 Week ([facility]) Camacho Keller MD [Physician] - 1 Week (urinary retention) Krystal Jay MD [Primary Care Provider] - 1 Week Sung Clayton MD [Physician] - 2 Weeks Mitra Francis MD [Physician] - 1 Week Discharge Medications: New insulin glargine [Lantus U-100 Insulin] 100 unit/mL Solution 20 unit subcut DAILY Qty: 10 0RF insulin lispro [Admelog U-100 Insulin lispro] 100 unit/mL Solution See Protocol subcut QIDACHS Qty: 10 0RF Protocol: Insulin Correction Scale Less than or equal to 110 ---- Give (units): 0 111 to 150 Give (units): 0 151 to 200 Give (units): 2 201 to 250 Give (units): 4 251 to 300 Give (units): 6 301 to 350 Give (units): 8 Greater than 350 Give (units): 10 Call MD if Blood Glucose > : 350 melatonin 3 mg Tablet 6 mg PO BEDTIME PRN (Reason: Insomnia) Qty: 20 0RF Banophen Anti-Itch 2-0.1 % Cream 1 appl topical BID PRN (Reason: itching) Qty: 28 0RF Protocol: Apply to: Apply to: skin furosemide 20 mg Tablet 20 mg PO BID@0900,1800 Qty: 60 0RF Protocol: Hold for SBP< HOLD for SBP < : 90 nystatin 100,000 unit/gram Powder 1 appl topical BID Qty: 30 0RF Protocol: Apply to: Apply to: below breast escitalopram oxalate 20 mg Tablet 20 mg PO DAILY Qty: 30 0RF lisinopril 10 mg tablet 10 mg PO DAILY Qty: 30 0RF oseltamivir 30 mg Capsule 30 mg PO Q12H Qty: 3 0RF Continued bethanechol chloride 25 mg tablet 25 mg PO TID Qty: 90 5RF bupropion HCl 150 mg tablet extended release 24 hr 150 mg PO DAILY metoprolol succinate 100 mg tablet extended release 24 hr 100 mg PO DAILY simvastatin 40 mg tablet 40 mg PO BEDTIME Discontinued hydrochlorothiazide 25 mg tablet 25 mg PO DAILY (DME) pen needle, diabetic [BD Ultra-Fine Short Pen Needle] 31 gauge x 5/16 needle MISCELLANEOUS BID insulin glargine [Basaglar KwikPen U-100 Insulin] 100 unit/mL (3 mL) insulin pen See Rx Instructions .ROUTE .COMPLEX Rx Instructions: INJECT SUBCUTANEOUSLY 30 UNITS IN THE AM AND INJECT SUBCUTANEOUSLY 25 UNITS IN THE PM escitalopram oxalate 20 mg tablet 40 mg PO DAILY (DME) OneTouch Verio test strips Strip See Rx Instructions Not Applicable BID Qty: 10 Rx Instructions: As directed lisinopril 20 mg tablet 20 mg PO DAILY Discharge Orders: Discharge Order (Routine); Ordered 12/01/23 Ordered By: Josafat Urrutia Diet: Diabetic diet Activity on Discharge: As tolerated Stand Alone Forms: Patient Portal Discharge page Care Plan Goals: Full recovery from cellulitis, confusion, osteomylitis Health Concerns: Chronic diabetic foot ulcer, heart failure, influenza, rash Plan of Treatment: To short term rehab for less than 30 days. Follow up with [facility] wound care clinic take Lasix for heart failure stop taking Hydrohlorothiazide, Lisinopril dose changed to 10 mg Insulin dose changed to Lantus 20 units in the morning in addition to sliding scle Assessment: see above
[2023-12-01 16:20] LABS: Glucose, Whole Blood 152 mg/dL (60-115)
--- NOTE | 2023-12-01 16:39 | P.CNPS_ITS ---
History of Present Illness Date of Service: 12/01/2023 Chief Complaint: Right Heel Wound Reason for Consult: mood swings Requesting physician: Josafat Urrutia Discussed with referring provider: Yes Sources of Information: patient interviewed, chart reviewed and crisis/core team assessment reviewed HPI Narrative: Mrs. Ayala is a 83 year-old woman who was medically admitted for right heel necrosis concerning for osteomyelitis. Psychiatry has been consulted for mood swing- mostly behaviors when pt has decline interventions. She was seen by psychiatry back on 11/25 and recommendation then was to lower lexapro to 20mg po daily due to Qtc prolongation. Psychiatry is again consulted for refusal of interventions and at times argumentative behaviors mostly when staff trying to provide direct care such as incontinence care, or repositioning, which could potentially worsen same reason she was medically admitted re: worsening wounds, necrotizing tissue in setting of DM. Pt is seen in bed. She is calm and pleasant. She is able to tell this property underwriter that she is in the hospital. She goes on to say she is here because of pain. But when asked more detail information as to her understanding of medical condition, treatments offered by treating attending, she states she is not sure. When asked about discussion about infection of her wounds, she states I don't know, they (referring to the doctors) mentioned infection, I don't know where or what's that about. She is oriented to place, month and year. She is not sure how long she has been here in the hospital. No s/s of VH/AH. No SI/HI. Otherwise pt reports she is doing well but hopes she could be home. Collateral information gathered from nursing, who reports pt has been calm, as long as interventions are delayed or not completed such as cleaning after incontinence or repositioning. Pt does not provide much understanding as to potential 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 of not accepting these intervention and how they are related to reason for this medical admission. Past Psychiatric History: pt reports hx of seeing a therapist and psychiatrist 20 years ago after having a stroke. [facility] Medical History Hematuria of undiagnosed cause Frequency of urination High cholesterol Diabetes mellitus, type II Urgency incontinence History of UTI Surgical History History of surgery Family History: unknown Social History: . Lives with . Has two sons; 59 and 58 years old. 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 Trauma History: denies Diagnostics Vital Signs (24Hr): Vital Signs - 24 hr 11/30/23 19:28 11/30/23 20:00 11/30/23 23:24 Temperature 98.0 F 98.6 F Pulse Rate 71 87 88 Respiratory Rate 20 18 18 Blood Pressure 137/84 137/76 Pulse Oximetry 96 95 Oxygen Delivery Method Nasal Cannula Nasal Cannula Oxygen Flow Rate 2.5 2.5 12/01/23 03:20 12/01/23 07:34 12/01/23 08:34 Temperature 98.7 F 97.1 F Pulse Rate 78 64 65 Respiratory Rate 18 17 18 Blood Pressure 125/78 158/71 H Pulse Oximetry 97 95 Oxygen Delivery Method Nasal Cannula Nasal Cannula Oxygen Flow Rate 2.5 2.5 12/01/23 11:42 12/01/23 14:57 12/01/23 15:19 Temperature 97.0 F 98.2 F Pulse Rate 67 67 68 Respiratory Rate 18 18 17 Blood Pressure 158/77 H 152/65 H Pulse Oximetry 95 94 Oxygen Delivery Method Nasal Cannula Nasal Cannula Oxygen Flow Rate 2.5 2.5 BMI result Body Mass Index 35.3 Labs 11/30/23 07:49 11/30/23 07:49 Labs: Laboratory Results - last 48 hr 11/29/23 11/30/23 11/30/23 20:27 07:29 07:49 WBC 11.0 H RBC 3.39 L Hgb 10.6 L Hct 32.8 L MCV 96.8 MCH 31.3 MCHC 32.3 RDW 13.8 Plt Count 172 MPV 10.2 Absolute Nucleated RBC 0.000 Nucleated RBC % (auto) 0.0 Sodium 139 Potassium 3.2 L Chloride 101 Carbon Dioxide 27 Anion Gap 14 BUN 22 H Creatinine 0.95 Estim Creat Clear Calc 50.6 Estimated GFR 56 POC Glucose 152 H 141 H Random Glucose 137 H Calcium 7.4 L 11/30/23 11/30/23 11/30/23 11:14 16:08 20:13 WBC RBC Hgb Hct MCV MCH MCHC RDW Plt Count MPV Absolute Nucleated RBC Nucleated RBC % (auto) Sodium Potassium Chloride Carbon Dioxide Anion Gap BUN Creatinine Estim Creat Clear Calc Estimated GFR POC Glucose 159 H 118 H 178 H Random Glucose Calcium 12/01/23 12/01/23 12/01/23 07:41 11:32 16:02 WBC RBC Hgb Hct MCV MCH MCHC RDW Plt Count MPV Absolute Nucleated RBC Nucleated RBC % (auto) Sodium Potassium Chloride Carbon Dioxide Anion Gap BUN Creatinine Estim Creat Clear Calc Estimated GFR POC Glucose 121 H 187 H 152 H Random Glucose Calcium Imaging Radiology Impressions: ITS Impressions Foot X-Ray 11/15/23 23:13 IMPRESSION: 1. Soft tissue wound at the posterior aspect of the calcaneal tuberosity with underlying osteopenia, raising the possibility of osteomyelitis. Consider correlation with MRI of the foot with and without contrast for further assessment. 2. Diffuse soft tissue swelling and subcutaneous edema at the foot and ankle. Duplex Scan Lower Extremity Artery 11/18/23 16:47 IMPRESSION: Monophasic arterial waveforms throughout the right lower extremity. Findings could represent a more proximal iliac artery disease. Elevated velocity is seen in the mid superficial femoral artery indicating a moderate stenosis. Foot MRI 11/23/23 11:35 IMPRESSION: 1. Soft tissue ulceration and cellulitis along the posterolateral aspect of the calcaneus with acute osteomyelitis within the adjacent calcaneus. No abscess formation. 2. Moderate osteoarthritis scattered throughout the midfoot. 3. Diffuse atrophy throughout the intrinsic musculature of the foot. 4. Circumferential soft tissue edema. Chest X-Ray 11/28/23 08:32 IMPRESSION: 1. Cardiomegaly with pulmonary vascular congestion. 2. Left lower lobe infiltrate/atelectasis. 3. Right PICC line tip in mid SVC. Chest X-Ray 11/28/23 13:03 IMPRESSION: Mild cardiomegaly with pulmonary vascular congestion.. Evidence of previous CABG. Medications Medications Current Medications Acetaminophen (Acetaminophen 325 Mg Tablet) 650 mg PO Q6H PRN PRN Reason: Pain, Mild (Pain Scale 1-3) Last Admin: 11/28/23 10:53 Dose: 650 mg Albuterol/Ipratropium (Albuterol/Iprat 2.5/0.5mg 3 Ml Ampul.Neb) 3 ml INHALE RQ4H WHILE AWAKE [facility] Last Admin: 12/01/23 14:57 Dose: 3 ml Atorvastatin Calcium (Atorvastatin Calcium 20 Mg Tablet) 20 mg PO BEDTIME [facility] Last Admin: 11/30/23 20:55 Dose: 20 mg Bethanechol Chloride (Bethanechol Chloride 25 Mg Tablet) 25 mg PO TID [facility] Last Admin: 11/27/23 21:42 Dose: 25 mg Bupropion HCl (Bupropion Hcl Xl 150 Mg Tab.Er.24h) 150 mg PO DAILY [facility] Last Admin: 12/01/23 08:33 Dose: 150 mg Collagenase (Collagenase Clostridium Hist. 30 Gm Tube) 1 appl TOPICAL DAILY [facility]; Protocol Last Admin: 12/01/23 09:39 Dose: 1 appl Dextrose (Dextrose 50 % 25 Gm/50 Ml Syringe) 25 gm IVPUSH Q15M PRN; Protocol PRN Reason: per Hypoglycemia Standing Ord. Last Admin: 11/21/23 02:10 Dose: 25 gm Enoxaparin Sodium (Enoxaparin Sodium 40 Mg/0.4 Ml Syringe) 40 mg SUBCUT Q24H [facility] Last Admin: 12/01/23 01:37 Dose: 40 mg Escitalopram Oxalate (Escitalopram Oxalate 20 Mg Tablet) 20 mg PO DAILY [facility] Last Admin: 12/01/23 08:33 Dose: 20 mg Furosemide (Furosemide 20 Mg Tablet) 20 mg PO BID@0900,1800 [facility]; Protocol Glucose (Glucose Gel 15 Gm Gel..Gram.) 15 gm PO Q15M PRN; Protocol PRN Reason: per Hypoglycemia Standing Ord. Insulin Glargine (Insulin Glargine,Hum.Rec.Anlog 100 Unit/Ml 10 Ml Vial) 20 unit SUBCUT DAILY [facility] Last Admin: 12/01/23 08:33 Dose: 20 unit Insulin Human Lispro (Insulin Lispro 100 Unit/Ml 3 Ml Vial) 0 unit SUBCUT QIDACHS [facility]; Protocol Last Admin: 12/01/23 11:51 Dose: 2 unit Loperamide HCl (Loperamide Hcl 2 Mg Capsule) 2 mg PO Q6H PRN PRN Reason: Constipation Last Admin: 11/22/23 16:27 Dose: 2 mg Melatonin (Melatonin 3 Mg Tablet) 6 mg PO BEDTIME PRN PRN Reason: Insomnia Last Admin: 11/28/23 23:35 Dose: 6 mg Metoprolol Succinate (Metoprolol Succinate Er 100 Mg Tab.Er.24h) 100 mg PO DAILY [facility]; Protocol Last Admin: 12/01/23 08:33 Dose: 100 mg Nystatin (Nystatin Powder 15 Gm Bottle) 1 appl TOPICAL BID [facility]; Protocol Last Admin: 12/01/23 09:39 Dose: 1 appl Ondansetron HCl (Ondansetron Hcl 4 Mg/2 Ml Vial) 4 mg IVPUSH Q8H PRN PRN Reason: Nausea and Vomiting Oseltamivir Phosphate (Oseltamivir Phosphate 30 Mg Capsule) 30 mg PO Q12H [facility] Stop: 12/02/23 21:01 Last Admin: 12/01/23 08:33 Dose: 30 mg Sodium Chloride (0.9 % Sodium Chloride Flush 3 Ml Syringe) 3 ml IVFLUSH QSHIFT [facility] Last Admin: 12/01/23 16:12 Dose: Not Given Zinc Acetate/Diphenhydramine (Diphenhydramine Hcl 2 % Cream 28 Gm Tube) 1 appl TOPICAL BID [facility]; Protocol Last Admin: 12/01/23 09:39 Dose: 1 appl Allergies Allergies Allergy/AdvReac Type Severity Reaction Status Date / Time doxycycline Allergy Unknown redness Verified 11/15/23 05:32 and hives penicillin V Allergy Unknown anaphylaxis Verified 11/15/23 05:32 avoid cyclines AdvReac Unknown Unknown Uncoded 11/15/23 05:32 Assessment & Plan Assessment & Plan (1) Cognitive impairment: Status: Acute Code(s): R41.89 - Other symptoms and signs involving cognitive functions and awareness Plan Mrs. Ayala is a 83 year-old woman with hx of DM, admitted to medicine due to necrotizing right heel and concern for osteomyelitis. She had declined interventions and at times upset that nursing is providing direct care. I do not suspect such behaviors are due to underlying mood disorder. I am more concern as to pt's ability to fully understand extend of medical conditions, show any signs of appreciation of risks versus benefits of refusing or accepting treatment and her overall capacity to make medical decisions. Fact that she is oriented to place, month and year, does not exclude that when it comes to more complex information pt is not able to show understanding of her medical conditions, treatment offered or appreciation for risks, versus benefits. May benefit for OP work up for memory/cog. Total time managing care of this patient today ____ minutes.
[2023-12-01] MEDS: Furosemide 20 MG TABLET PO (17:02)
--- NOTE | 2023-12-06 17:01 | P.CDIM_ITS ---
PROVIDER RESPONSE TEXT: To clarify, the appropriate diagnosis supported by the clinical indicators: Systolic: acute QUERY TEXT: PHYSICIAN'S DOCUMENTATION REQUEST Date of Query: 12/01/2023 07:04 AM EST Patient Name: Tish Ayala Admit Date: 11/16/2023 Dear Josafat Urrutia, A review of the medical record indicates additional documentation may be needed. Please review below and update the documentation accordingly. Clinical Indicators: Per Hospitalist Progress Note 11/29/23: bnp 2000 range has leg edema + moniter i/o: 900 ml neg dailr weight fluid resirtctions 1.5 liter continue tamiflu, Tylenol ,iv lasix ,echo if does not improve will consider cardiology eval ECHO done 11/29/23 Please provide further specificity regarding the most likely type and acuity of CHF you are evaluatin g, treating, or monitoring. Systolic Please specify if Acute, Chronic, or Acute on chronic, or Unable to determine Diastolic Please specify if Acute, Chronic, or Acute on chronic, or Unable to determine Combined Systolic/Diastolic Please specify if Acute, Chronic, or Acute on chronic, or Unable to determine Other (explain) Clinically unable to determine (explain) Thank you, Aliya Shaw RN Use of terms such as suspected, likely, concern for, or probable (associated with a specific diagnosi s that is being evaluated, monitored, or treated as if it exists) are acceptable and can be coded in the inpatient se tting, when documented at the time of discharge. Please use your independent medical judgment in providing your response. THIS QUERY IS PART OF THE PERMANENT MEDICAL RECORD
== END 2023-12-01 17:57 | disposition skilled nursing facility (03) | DRG 299 ==
LOC: HO.ED 11-16 01:09 → HO.EDOVER 11-16 03:00 → HO.IMC 11-17 20:03 → HO.S3 11-28 00:11
PROVIDERS: Internal Medicine; Nurse Practitioner Acute Care; Nurse Practitioner Family; Registered Nurse Emergency; Admitting Provider Student in an Organized Health Care Education/Training Program; Emergency Provider Emergency Medicine Emergency Medical Services; PCP Internal Medicine; Visit Provider Internal Medicine
PROC: 02HV33Z Insertion of Infusion Device into Superior Vena Cava, Percutaneous Approach (ICD-10-PCS; principal; 2023-11-24 13:00)
DX: I96 Gangrene, not elsewhere classified (principal); I50.21 Acute systolic (congestive) heart failure; J96.01 Acute respiratory failure with hypoxia; L03.115 Cellulitis of right lower limb; M86.171 Other acute osteomyelitis, right ankle and foot; F33.9 Major depressive disorder, recurrent, unspecified; E11.51 Type 2 diabetes mellitus with diabetic peripheral angiopathy without gangrene; E11.628 Type 2 diabetes mellitus with other skin 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s; E11.69 Type 2 diabetes mellitus with other specified 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; F39 Unspecified mood [affective] disorder; D63.8 Anemia in other chronic diseases classified elsewhere; E78.2 Mixed hyperlipidemia; E11.65 Type 2 diabetes mellitus with hyperglycemia; I87.323 Chronic venous hypertension (idiopathic) with inflammation of bilateral lower extremity; L27.0 Generalized skin eruption due to drugs and medicaments taken internally; T36.1X5A Adverse effect of cephalosporins and other beta-lactam antibiotics, initial encounter; I11.0 Hypertensive heart disease with heart failure; L89.610 Pressure ulcer of right heel, unstageable; E11.649 Type 2 diabetes mellitus with hypoglycemia without coma; F06.4 Anxiety disorder due to known physiological condition; I25.10 Atherosclerotic heart disease of native coronary artery without angina pectoris; Z95.1 Presence of aortocoronary bypass graft; L89.152 Pressure ulcer of sacral region, stage 2; J10.1 Influenza due to other identified influenza virus with other respiratory manifestations; B37.2 Candidiasis of skin and nail; Z20.822 Contact with and (suspected) exposure to COVID-19; Z79.4 Long term (current) use of insulin; Z79.899 Other long term (current) drug therapy
CPT/HCPCS: 0241U; 36415; 36573; 71045; 73630; 73720; 80048; 80051; 80202; 81001; 82550; 82565; 82803; 82947; 83735; 83880; 84132; 85007; 85025; 85027; 85652; 86140; 87040; 87493; 87633; 87635; 93005; 93306; 93926; 97110; 97163; 97530; 99283; 99285; A9585; C1751; C1758; J0692; J0878; J1200; J1650; J1940; J1956; J2270; J2930; J3370; J3371

== ENCOUNTER 2023-11-16 01:09 | Outpatient (BNV) | payer MEDICARE, OTHER, SELFPAY | END 2023-11-29 07:00 | PROVIDERS: Admitting Provider Student in an Organized Health Care Education/Training Program; Emergency Provider Emergency Medicine Emergency Medical Services; PCP Internal Medicine; Visit Provider Internal Medicine Cardiovascular Disease | DX: I35.8 Other nonrheumatic aortic valve disorders (principal) | CPT/HCPCS: 93306 ==

== ENCOUNTER 2023-11-16 01:09 | Outpatient (BNV) | payer MEDICARE, OTHER, SELFPAY | END 2023-11-25 13:26 | PROVIDERS: Admitting Provider Student in an Organized Health Care Education/Training Program; Emergency Provider Emergency Medicine Emergency Medical Services; PCP Internal Medicine; Visit Provider Internal Medicine | DX: R94.31 Abnormal electrocardiogram [ECG] [EKG] (principal); I45.10 Unspecified right bundle-branch block | CPT/HCPCS: 93010 ==

== ENCOUNTER → 2023-11-16 01:09 | Outpatient (BNV) | payer MEDICARE, OTHER, SELFPAY | PROVIDERS: Admitting Provider Student in an Organized Health Care Education/Training Program; Emergency Provider Emergency Medicine Emergency Medical Services; Visit Provider Student in an Organized Health Care Education/Training Program | DX: J96.01 Acute respiratory failure with hypoxia (principal) | CPT/HCPCS: 99222; 99231; 99232; 99239; 99499 ==

== ENCOUNTER → 2023-11-16 01:09 | Outpatient (BNV) | payer MEDICARE, OTHER, SELFPAY | PROVIDERS: Admitting Provider Student in an Organized Health Care Education/Training Program; Emergency Provider Emergency Medicine Emergency Medical Services; Visit Provider Surgery | DX: L89.610 Pressure ulcer of right heel, unstageable (principal) | CPT/HCPCS: 99222 ==

== ENCOUNTER → 2023-11-16 01:09 | Outpatient (BNV) | payer MEDICARE, OTHER, SELFPAY | PROVIDERS: Admitting Provider Student in an Organized Health Care Education/Training Program; Emergency Provider Emergency Medicine Emergency Medical Services; PCP Internal Medicine; Visit Provider Internal Medicine | DX: L89.610 Pressure ulcer of right heel, unstageable (principal) | CPT/HCPCS: 99222; 99232; 99499 ==

== ENCOUNTER → 2023-11-16 01:09 | Outpatient (BNV) | payer MEDICARE, OTHER, SELFPAY | PROVIDERS: Admitting Provider Student in an Organized Health Care Education/Training Program; Emergency Provider Emergency Medicine Emergency Medical Services; PCP Internal Medicine; Visit Provider Registered Nurse | DX: R41.89 Other symptoms and signs involving cognitive functions and awareness (principal) | CPT/HCPCS: 99222; 99232 ==

== ENCOUNTER → 2023-11-16 01:09 | Outpatient (BNV) | payer MEDICARE, OTHER, SELFPAY | PROVIDERS: Admitting Provider Student in an Organized Health Care Education/Training Program; Emergency Provider Emergency Medicine Emergency Medical Services; PCP Internal Medicine; Visit Provider Surgery Vascular Surgery | DX: L89.610 Pressure ulcer of right heel, unstageable (principal) | CPT/HCPCS: 99222; 99232 ==

== ENCOUNTER 2024-01-11 14:39 | Outpatient (AMB) | payer MEDICARE, OTHER, SELFPAY ==
--- NOTE | 2024-01-11 14:58 | MHC.OFFVIS ---
Intake Intake Visit Reasons: Hospital follow up per [facility] Intake Note: hospital follow up Right heel ulcer s/p arterial US 11/16/23, [facility] wanted pt seen. Pt states heel doesn't always cause pain, and states that dressing changes daily Accompanied by: Spouse Allergies doxycycline Allergy (Unknown, Verified 01/11/24 15:05) redness and hives penicillin V Allergy (Unknown, Verified 01/11/24 15:05) anaphylaxis avoid cyclines Adverse Reaction (Unknown, Uncoded 01/11/24 15:05) Unknown HPI Hospital follow up per [facility] HPI Details Very debilitated 83-year-old female presents for facility regarding nonhealing right lower extremity ulcer. Her was present at bedside during her visit. She had undergone noninvasive arterial testing. She is been unable to do any significant activity. She has been mostly in bed. At the time of her visit her leg was on an an offloading boot. She now presents to us for follow-up. [facility] Medical History Anxiety about health PAD (peripheral artery disease) Chronic leg pain Hematuria of undiagnosed cause Frequency of urination High cholesterol Diabetes mellitus, type II Urgency incontinence History of UTI Surgical History History of surgery Social History Household Members: Spouse Housing: House Do you presently have visiting nurse or other home services: Yes Unable to assess alcohol history related to: Unable to respond Alcohol intake: former Patient Tobacco Use Status: Never used Tobacco e-Cigarette/Vaping Use: Never Used Advance Directives Date on File: 02/22/23 service: No Review of Systems Const All systems reviewed & are unremarkable except as noted in HPI and below Reports no additional complaints ENT Reports Normal hearing present Card Denies chest pain, Denies chest pain at rest, Denies chest pain with activity and Denies pedal edema Resp Denies cough GI Denies abdominal pain Musc Denies abnormal gait, Denies muscle cramps and Denies radiating pain into limb Skin/Breast Denies skin ulcer and Denies wounds Neuro Reports Normal hearing present and Denies abnormal gait Psych Reports no additional complaints Physical Exam Const General: cooperative, healthy appearing and comfortable Orientation/consciousness: oriented to person, oriented to place and oriented to time HEENT Head: Yes normal to inspection Neck Neck: Yes normal visual inspection Carotids: no bruits Chest Chest palpation & inspection: normal inspection of the chest Resp Effort & Inspection: normal respiratory effort and able to speak in complete sentences Auscultation: clear to auscultation bilaterally, no crackles, no rales, no rhonchi and no wheezes Cardio Rate: regular rate Rhythm: regular rhythm Heart sounds: S1 normal heart sound present and S2 normal heart sound present Bruits: no carotid bruits Peripheral pulses: Peripheral pulses 2+ throughout GI Inspection: Yes normal to inspection Skin Other: Right heel ulcer Wounds: no wounds Hair: normal Neuro General: oriented to person, oriented to place and oriented to time Cranial nerves: Yes CN's II-XII intact bilaterally and Yes Normal hearing present Cognition (Neuro): normal cognition Motor exam (neuro): 5/5 motor strength present throughout Extrem Other: venous exam: No significant superficial varicosities or spider telangiectasias, minimal edema General: No clubbing, No cyanosis and No edema Psych Appearance: grossly normal Mental Status: mental status grossly normal Speech and movement: Normal speech and movement present Results Reviewed Results Reviewed: Noninvasive testing dated 11/18/[address]23 demonstrates monophasic waveform all the way down with elevated velocities in the mid SFA. Written reports and images were reviewed. Assessment & Plan Assessment & Plan (1) Pressure injury of right heel, unstageable: Code(s): L89.610 - Pressure ulcer of right heel, unstageable Plan: In short patient has nonhealing ulcer of the right lower extremity. Unfortunately she is nonambulatory and I would continue with conservative measures only. Would not offer any arterial intervention. In addition should this progress or worsen I would only offer amputation to her as she is only bedbound. This was discussed with the family. She will follow up with us on an as-needed basis. Thank you for allowing us to assist in her care. If there are any questions or concerns please do not hesitate to contact us. Coding Level of Care Code Est Pt Level 4 (01278) Diagnoses Pressure injury of right heel, unstageable L89.610
== END 2024-01-11 15:17 | disposition home or self-care (01) ==
PROVIDERS: PCP Internal Medicine; Visit Provider Surgery Vascular Surgery
DX: L89.610 Pressure ulcer of right heel, unstageable (principal)
CPT/HCPCS: 99214

== ENCOUNTER → 2024-01-11 14:39 | Outpatient (BNVA) | payer MEDICARE, OTHER, SELFPAY | PROVIDERS: PCP Internal Medicine; Visit Provider Surgery Vascular Surgery | DX: L89.610 Pressure ulcer of right heel, unstageable (principal) | CPT/HCPCS: 99212 ==